=== PATIENT | female | born 1960 | race Caucasian/White ===

== ENCOUNTER → 2019-06-20 12:53 | Outpatient (BNVA) | payer MEDICARE, MEDICAID, SELFPAY | PROVIDERS: Family Provider Nurse Practitioner; PCP Nurse Practitioner; Visit Provider Nurse Practitioner Psychiatric/Mental Health | DX: F41.1 Generalized anxiety disorder (principal); F33.2 Major depressive disorder, recurrent severe without psychotic features | CPT/HCPCS: 99213 ==

== ENCOUNTER → 2019-07-15 11:21 | Outpatient (BNVA) | payer MEDICARE, MEDICAID, SELFPAY | PROVIDERS: Family Provider Nurse Practitioner; PCP Nurse Practitioner; Visit Provider Urology | DX: N30.80 Other cystitis without hematuria (principal) | CPT/HCPCS: 81001; 87077; 87086; 87186 ==

== ENCOUNTER 2019-08-08 13:00 | Emergency (ER) | payer MEDICARE, MEDICAID, SELFPAY ==
[2019-08-08 13:10] VITALS: BP 127/47; PULSE 78; RESP 18; TEMP 37.1; O2SAT 97; BMI 38.7
--- NOTE | 2019-08-08 14:14 | W.ED.WOUNDLC ---
HPI - Wound/Laceration General: Chief Complaint: Wound/Laceration Stated Complaint: r leg pain Time Seen by Provider: 08/08/19 14:00 History of Present Illness: HPI narrative: Patient sustained a laceration to her left thigh late last night while she was sitting in bed working on some clothing and she crossed her legs and move what is called a seem Ripper underneath her leg with her other foot by accident and it cut her thigh sad bleeding today with the laceration Onset (ago): hour(s) Extremity Location: Left: thigh Place: home Patient tetanus UTD: Yes Context: accidental Associated symptoms: Reports no associated symptoms; Denies chills or fever(s) Treatments prior to arrival: bandage Review of Systems Narrative: Laceration to left thigh Const: Denies: fever or chills Psych: Denies: anxiety or depression PFSH ED PFSH: Social History Smoking and tobacco status: former smoker Alcohol intake: never Marital status: Current occupational status: unemployed History of recent travel: No Current gender identity: Female Physical Exam Const: COMMON NORMALS: no apparent distress Skin: TRAUMA: laceration (Left lateral thigh about an inch or 2 above the knee posterior aspect) linear and superficial; not contaminated Procedures Laceration Laceration 1: Site: lower extremity Side (If applicable): left Size (cm): 2.5 Description: linear Depth: simple, single layer Technique: other (Glue) Course Vital Signs: Vital signs: Vital Signs Temperature 98.7 F 08/08/19 13:10 Pulse Rate 78 08/08/19 13:10 Respiratory Rate 18 08/08/19 13:10 Blood Pressure 127/47 08/08/19 13:10 Pulse Oximetry 97 08/08/19 13:10 Discharge Plan Discharge Patient Disposition: Home, Self-Care Clinical Impression: Laceration Condition: Stable Prescriptions: No Action cefuroxime axetil 500 mg tablet 500 mg PO BID Qty: 60 RF: 2 omeprazole magnesium [Acid Laminator Hand (omeprazole)] 20 mg capsule,delayed release(DR/EC) 20 mg PO QDAY RF: 0 bupropion HCl [Wellbutrin SR] 100 mg tablet sustained-release 12 hr 100 mg PO QAM Qty: 30 RF: 4 escitalopram oxalate [Lexapro] 20 mg tablet 20 mg PO .morning Qty: 30 RF: 4 lamotrigine [Lamictal] 200 mg tablet 200 mg PO .QHS Qty: 30 RF: 4 albuterol sulfate 90 mcg/actuation HFA aerosol inhaler 2 puff INHALATION ONCE PRN (Reason: shortness of breath or wheezing) RF: 0 nitroglycerin [Nitrostat] 0.4 mg tablet, sublingual 0.4 mg SUBLINGUAL Q5M PRNRF: 0 lisinopril 2.5 mg tablet 2.5 mg PO QDAY Qty: 90 RF: 0 pravastatin 20 mg tablet 20 mg PO DAILY Qty: 30 RF: 0 Discharge Orders: Discharge Order (Routine); Ordered 08/08/19 Ordered By: Breezy Ferreira Referrals: Alexander Capps, UTILITY SYSTEMS REPAIRER OPERATOR-C [Primary Care Provider] - Discharge Diet: Usual diet Discharge Activity: Resume usual activity Patient Instructions: Skin Adhesive Care (ED) Activity Restrictions/Additional Instructions: Keep area clean blot dry after shower keep dressing over it follow-up as necessary Coding Level of Care Code ED Pigment Making Supervisor for Chg Fwd Exam Expanded Problem Focused
[2019-08-08 14:24] VITALS: BP 122/51; PULSE 71; RESP 18; O2SAT 97
== END 2019-08-08 14:27 | disposition home or self-care (01) ==
PROVIDERS: Emergency Provider Nurse Practitioner Family; Family Provider Nurse Practitioner; PCP Nurse Practitioner
DX: S71.112A Laceration without foreign body, left thigh, initial encounter (principal); Z87.891 Personal history of nicotine dependence; W26.8XXA Contact with other sharp object(s), not elsewhere classified, initial encounter; Y92.003 Bedroom of unspecified non-institutional (private) residence as the place of occurrence of the external cause
CPT/HCPCS: 12001; 12002; 12345; 99281; 99282

== ENCOUNTER → 2019-08-12 12:44 | Outpatient (BNVA) | payer MEDICARE, MEDICAID, SELFPAY | PROVIDERS: Family Provider Nurse Practitioner; PCP Nurse Practitioner; Visit Provider Nurse Practitioner Psychiatric/Mental Health | DX: F41.1 Generalized anxiety disorder (principal); F33.2 Major depressive disorder, recurrent severe without psychotic features | CPT/HCPCS: 99213 ==

== ENCOUNTER → 2019-09-27 16:20 | Outpatient (BNVA) | payer MEDICARE, MEDICAID, SELFPAY | PROVIDERS: Family Provider Nurse Practitioner; PCP Nurse Practitioner; Visit Provider Nurse Practitioner Family | DX: R05 Cough (principal); J06.9 Acute upper respiratory infection, unspecified; B96.89 Other specified bacterial agents as the cause of diseases classified elsewhere; F17.211 Nicotine dependence, cigarettes, in remission; Z71.89 Other specified counseling | CPT/HCPCS: 87400 ==

== ENCOUNTER → 2019-09-30 15:41 | Outpatient (BNVA) | payer MEDICARE, MEDICAID, SELFPAY | PROVIDERS: Family Provider Nurse Practitioner; PCP Nurse Practitioner; Visit Provider Nurse Practitioner Family | DX: N30.80 Other cystitis without hematuria (principal); R33.8 Other retention of urine | CPT/HCPCS: 80053; 81001; 87077; 87086; 87186 ==

== ENCOUNTER → 2019-10-31 11:22 | Outpatient (BNVA) | payer MEDICARE, MEDICAID, SELFPAY | PROVIDERS: Family Provider Nurse Practitioner; PCP Nurse Practitioner; Visit Provider Nurse Practitioner | DX: E11.9 Type 2 diabetes mellitus without complications (principal); K21.9 Gastro-esophageal reflux disease without esophagitis | CPT/HCPCS: 80053; 80061; 81000; 82044; 82607; 83036; 83735; 84443; 85025 ==

== ENCOUNTER → 2019-11-06 10:56 | Outpatient (BNVA) | payer MEDICARE, MEDICAID, SELFPAY | PROVIDERS: Family Provider Nurse Practitioner; PCP Nurse Practitioner; Visit Provider Urology | DX: N30.20 Other chronic cystitis without hematuria (principal); N30.80 Other cystitis without hematuria; N39.46 Mixed incontinence | CPT/HCPCS: 81001 ==

== ENCOUNTER → 2019-11-11 08:09 | Outpatient (BNVA) | payer MEDICARE, MEDICAID, SELFPAY | PROVIDERS: Family Provider Nurse Practitioner; PCP Nurse Practitioner; Visit Provider Nurse Practitioner Psychiatric/Mental Health | DX: F41.1 Generalized anxiety disorder (principal); F33.2 Major depressive disorder, recurrent severe without psychotic features | CPT/HCPCS: 99213 ==

== ENCOUNTER 2019-11-29 07:07 | Outpatient (CLI) | payer MEDICARE, MEDICAID, SELFPAY ==
[2019-11-29 07:26] VITALS: BMI 39.2
--- NOTE | 2019-11-29 07:31 | ECG_ITS ---
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 Interpretive Statements NAME OF STUDY: LEXISCAN SESTAMIBI STRESS TEST INDICATION: Chest Pain RESULTS TO [facility] PROCEDURE: At the baseline, the EKG revealed sinus bradycardia with a normal ST-T's. The baseline blood pressure was 109/65 mm Hg with a heart rate of 65 beats/min. Lexiscan was infused over a period of 20 seconds. A total of 0.4 milligrams of Lexiscan was infused. The stress phase was continued for a total of 5 minutes. Heart rate at the end of the stress phase was 69 with a blood pressure 117/68. The EKG at the peak infusion revealed no significant changes. Sestamibi was injected 20 seconds after the Lexiscan infusion. Blood pressure at the end of the recovery phase was 115/66 with a heart rate of 62 per minute. CONCLUSION: 1. No significant EKG changes with the LexiScan infusion 2. No LexiScan induced chest pain or cardiac arrhythmia 3. Normal blood pressure and heart rate response 4. Sestamibi/sestamibi perfusion scan pending; see separate report. Electronically Signed On 12-03-2019 13:21:18 CDT by Vivek Deng M.D. [email or web address]
--- NOTE | 2019-11-29 07:32 | NMCV_ITS ---
NM ministerio perf SPECT r/s* [id number] Cristobal Styles Age: 59 Gender: F : 1960 Exam Date: 11/29/2019 08:14 Ordering Phys: Vivek Deng MD ([email or web address]) Technologist: TASIA Gutierres Exam Location: [facility] Indications: SOB STRESS TEST Please [facility] for [facility] IMAGE PROTOCOL Rest/Stress 1 Lexiscan Day Radiopharmaceutical Dose (mCi) Administration Site Administered by Rest: Tc-99m 10.7 IV TASIA Gutierres Sestamibi Stress:Tc-99m 32.0 IV TASIA Gutierres Sestamibi Rest: 29-Nov-2019 60 Discovery 630 Stress: 29-Nov-2019 60 Discovery 630 0.4mg Lexiscan. Images obtained in supine and prone position. SPECT RESULTS Technical Quality: Good Raw Data Analysis: Breast attenuation Image Corrections: No attenuation or motion correction applied Summed Stress Score: 3 Summed Rest Score: 13 Summed Difference Score: 0 PERFUSION FINDINGS Patchy areas of decreased tracer uptake in the anterior wall, inferior wall and apical regions, with no significant reversibility FUNCTIONAL RESULTS (calculated via Gated SPECT) Stress Image LV EF (%): 60 Stress EDV (mL):92 TID: 1.17 Stress ESV (mL):37 FUNCTIONAL FINDINGS: Segmental wall motion analysis revealing no gross wall motion normalities. IMPRESSIONS 1. Myocardial perfusion imaging revealing patchy areas of persistent decreased tracer uptake in anterior wall, inferior and apical regions, suggestive of myocardial scarring versus attenuation artifact. 2. Normal LV ejection fraction of 60%. 3. LV wall motion analysis revealing no gross wall motion abnormalities. 4. Normal LV volume. 5. Slightly elevated transient ischemic dilatation ratio(1.17), may suggest endocardial ischemia. But the positive predictive value this finding is low. Clinical correlation is recommended Dr Vivek Deng MD FAC (Electronically Signed) Final Date: 29 November 2019 19:16 S
[2019-11-29] MEDS: regadenoson 0.4 Mg/5 ml Syringe IVP (09:17)
--- NOTE | 2019-11-29 09:17 | SUR.PREOP ---
Patient reports no pain or discomfort prior to the start of the procedure.
[2019-11-29 09:37] VITALS: BP 117/70; PULSE 65
== END 2019-11-29 07:08 | disposition home or self-care (01) ==
PROVIDERS: Family Provider Nurse Practitioner; PCP Nurse Practitioner; Visit Provider Internal Medicine Cardiovascular Disease
DX: R06.02 Shortness of breath (principal); R07.89 Other chest pain
CPT/HCPCS: 78452; 93017; A9500; J2785

== ENCOUNTER 2019-12-10 14:52 | Outpatient (CLI) | payer MEDICARE, MEDICAID, SELFPAY ==
--- NOTE | 2019-12-10 14:57 | USCV_ITS ---
Cristobal Styles Age: 59 Gender: F : 1960 Exam Date: 12/10/2019 15:19 Ordering Phys: Vivek Deng MD ([email or web address]) Technologist: Ty Monae Exam Location: [facility] [place] Indication: CHEST PAIN BP: 120 / 70 HR: 64 Rhythm: Sinus Technical Quality: Technically difficult study MEASUREMENTS (Male / Female) Normal Values 2D ECHO LV Diastolic Diameter PLAX 4.0 cm 4.2 - 5.9 / 3.9 - 5.3 cm LV Systolic Diameter PLAX 2.3 cm IVS Diastolic Thickness 0.9 cm 0.6 - 1.0 / 0.6 - 0.9 cm IVS Systolic Thickness 1.3 cm LVPW Diastolic Thickness 0.9 cm 0.6 - 1.0 / 0.6 - 0.9 cm LVPW Systolic Thickness 1.3 cm LVOT Diameter 2.0 cm LV Ejection Fraction 2D Teich 74.0 % LV Ejection Fraction MOD 2C 56.6 % LV Ejection Fraction 2C AL 56.2 % LA Diameter 4.1 cm LA Width 3.1 cm LA Height 4.0 cm RA Width 2.7 cm RA Height 4.5 cm Aorta at Sinotubular Diameter 2.1 cm M-MODE LV Diastolic Diameter MM 4.4 cm 4.2 - 5.9 / 3.9 - 5.3 cm LV Systolic Diameter MM 2.8 cm LV Ejection Fraction MM Teich 66.0 % IVS Diastolic Thickness MM 0.9 cm 0.6 - 1.0 / 0.6 - 0.9 cm IVS Systolic Thickness MM 1.4 cm LVPW Diastolic Thickness MM 1.5 cm 0.6 - 1.0 / 0.6 - 0.9 cm LVPW Systolic Thickness MM 1.6 cm RV Diastolic Diameter MM 1.9 cm Aortic Annulus Diameter 2.8 cm LA Ao Ratio MM 1.5 MV E Point Septal Separation 1.0 cm DOPPLER AV Peak Velocity 131.0 cm/s LVOT Peak Velocity 118.0 cm/s AV Area Cont Eq vti 2.8 cm squared AV Area Cont Eq pk 3.0 cm squared MV Area PHT 5.0 cm squared Mitral E to A Ratio 1.4 MV E' Velocity 11.0 cm/s Mitral E to MV E' Ratio 8.0 Mitral E to LV E' Lateral Ratio 6.9 Mitral E to LV E' Septal Ratio 9.4 TR Peak Velocity 121.0 cm/s TR Peak Gradient 5.9 mmHg TV Peak E Velocity 93.0 cm/s Right Atrial Pressure 3.0 mmHg Pulmonary Artery Systolic Pressu 8.9 mmHg PV Peak Velocity 98.0 cm/s FINDINGS Left Ventricle Normal left ventricular size and systolic function, EF 60 %. No regional wall motion abnormalities. Right Ventricle Normal RV size ejection fraction. Echodense transverse bands in the RV apex, sized to moderator band Right Atrium The right atrium is normal in size. Left Atrium The left atrium is normal in size. Mitral Valve Thickened mitral valve. Aortic Valve Thickened aortic valve. Tricuspid Valve No gross abnormalities noted Pulmonic Valve No gross abnormalities noted Pericardium Normal pericardium without effusion. Aorta Normal ascending aorta dimension. CONCLUSIONS Normal left ventricular size and systolic function, EF 60 %. No regional wall motion abnormalities. Thickened mitral valve. Thickened aortic valve. There is no pericardial effusion. There are no intracardiac masses. No previous study is available for comparison. Dr Vivek Deng MD FACC (Electronically Signed) Final Date: 10 December 2019 20:22 S
== END 2019-12-10 14:53 | disposition home or self-care (01) ==
LOC: RAD 14:53
PROVIDERS: Family Provider Nurse Practitioner; PCP Nurse Practitioner; Visit Provider Internal Medicine Cardiovascular Disease
DX: R07.9 Chest pain, unspecified (principal); I08.0 Rheumatic disorders of both mitral and aortic valves
CPT/HCPCS: 93306

== ENCOUNTER → 2020-01-07 17:49 | Outpatient (BNVA) | payer MEDICARE, MEDICAID, SELFPAY | PROVIDERS: Family Provider Nurse Practitioner; PCP Nurse Practitioner; Visit Provider Nurse Practitioner Family | DX: N30.80 Other cystitis without hematuria (principal) | CPT/HCPCS: 80053; 81001; 87077; 87086; 87186 ==

== ENCOUNTER → 2020-02-03 05:48 | Day surgery (SDC) | payer MEDICARE, MEDICAID, SELFPAY ==
[2020-01-31 13:27] VITALS: BMI 37.8
[2020-02-03] VITALS (13 sets, daily range): BP systolic 91–141; BP diastolic 63–80; PULSE 66–81; RESP 10–16; TEMP 36.6; O2SAT 92–97; BMI 37.8
--- NOTE | 2020-02-03 06:00 | XACV_ITS ---
Ht: 155 cm Wt: 91 kg BSA: 2.02 m2 Gender: Female : 1960 Any Known Allergies: Other Exam Priority: Routine Procedure(s): Procedure Description: Diagnostic procedure Procedure Description: Left Heart Catheterization Procedure Description: Left ventriculography Diagnostic Cath Status: Elective Diagnostic Findings Coronary angiography shows right dominance. Left main is a medium-sized short vessel with no significant stenotic lesions. Left anterior descending artery is a medium sized vessel which appears to wrap around the LV apex. No significant stenotic lesions. Left circumflex artery is a medium caliber vessel with minimal intimal irregularities in the proximal segment. No significant stenotic lesions. Right coronary artery is a medium caliber dominant vessel which was found to have around 30% segmental narrowing proximally. Intimal irregularities were noted in the proximal segment. No significant stenotic lesions. Conclusions 59-year-old white female with history of high blood pressure, dyslipidemia, COPD, presenting with complaints of chest pain and shortness of breath. Elevated transient ischemic dilatation ratio with the perfusion scan. In view of the patient's ongoing symptoms and the abnormal perfusion scan, in order to further evaluate her coronary status, a cardiac catheterization was recommended. Patient underwent left heart catheterization with a left and right coronary angiogram and LV angiogram today. The findings are as follows. Mild coronary artery disease. LV ejection fraction around 50%. Elevated LV EDP of 30 mmHg consistent with a left ventricular diastolic dysfunction. Recommendations Continue current medical management and risk factor modification. Diagnostic RX Recommendation: medical therapy and/or counseling LV EDP: 30 mmHg Ventriculography Ejection Fraction: 50.0 % Left Ventriculography Findings: The LV gram was performed in the WU projection. It was of suboptimal quality. There was mild hypokinesia of the anteroapical region. Overall ejection fraction around 50%. LVEDP was 30 mmHg. Pressures Phase:Rest AO : 129 mmHg / 77 mmHg ( 96 mmHg ) @ 2:24:00 AM 128 mmHg / 76 mmHg ( 94 mmHg ) @ 2:24:00 AM 139 mmHg / 76 mmHg ( 100 mmHg ) @ 2:32:00 AM 140 mmHg / 68 mmHg ( 95 mmHg ) @ :32:00 AM LV : 153 mmHg / -3 mmHg / @ 2:23:00 AM 49 mmHg / 1 mmHg / @ 2:23:00 AM 101 mmHg / -16 mmHg / @ 2::00 AM 152 mmHg / -5 mmHg / @ ::00 AM 142 mmHg / -17 mmHg / @ 2:23:00 AM 155 mmHg / -6 mmHg / @ 2:24:00 AM 154 mmHg / -5 mmHg / @ 2::00 AM 153 mmHg / -1 mmHg / @ 2:30:00 AM 153 mmHg / -1 mmHg / @ 2:30:00 AM 151 mmHg / 0 mmHg / @ 2::00 AM 151 mmHg / 0 mmHg / @ 2::00 AM 152 mmHg / 2 mmHg / @ ::00 AM 255 mmHg / 193 mmHg / @ ::00 AM 153 mmHg / 1 mmHg / @ 2:32:00 AM Valves Phase:DefaultPhase AV : 20.0 mmHg @ 7:42:56 AM AV Mean Gradient: 19.0 mmHg @ 7:42:56 AM Clinical Evaluation EBL: 5mL-10mL Procedural Details Procedure Consent Obtained. Admit Source: Out Patient. Pre-Procedure Time Out. Identified patient by full name and date of as verbalized by the patient/guarantor. Does the consent match the physician's order: Yes. Accurate & Complete Informed Consent: Yes. Inpatient/Outpatient History & Physical on Chart: Yes. If H&P is completed, is and addenduem needed: N/A; If yes, is the addendum complete: N/A. Visualize and Verify Site with Patient/Guarantor: N/A. Relevant Radiology Images available: N/A. Pre-op teaching completed and patient verbalized understanding. The risks, benefits, and alternatives of sedation and/or procedure were discussed by physician. The patient agrees to continue. Procedure started. Correct patient, site and procedure confirmed by cath team. PERRLA. Strong, equal hand tubing oiler bilaterally. Lungs clear x 5 lobes. IV Site on Arrival: 20 gauge in the left anticubital. Pre Procedural Pulses: bilateral dorsalis pedis was 3+. Pre Procedural Pulses: bilateral posterior tibial was 3+. Pre Procedural Pulses: bilateral radial was 3+. Oxygen started at 2liters/min via nasal canula. bilateral groins was prepped with chloroprep then draped in the usual sterile fashion. right radial was prepped with chloroprep then draped in the usual sterile fashion. Physician notified. Baseline sample Acquired. HR: 0 BPM. Physician arrived. family notified. Dr. Soria notified. Physician scrubbed in. Immediate Pre-Procedure Time Out. Correct Patient: Yes; Correct Procedure: Yes; Correct Site: Yes; Correct Patient Position: Yes; Correct Supplies: Yes; Dried Flammable Prep: Yes; Blood Products Available: N/A;. Lidocaine 1% infiltrated to the right radial. Arterial access obtained. A 5 american Manny catheter in over wire. EDP Sample taken: LV 142/-18,10; HR: 93 BPM; SpO2: 98%. EDP Sample taken: LV 49/1,7; HR: 94 BPM; SpO2: 98%. EDP Sample taken: LV 152/-6,17; HR: 95 BPM; SpO2: 98%. EDP Sample taken: LV 155/-7,22; HR: 94 BPM; SpO2: 97%. Pullback taken: LV 154/-6,23; AO 128/76(94); Mean: 14mmHg, Peak to Peak: 25mmHg, SEP: 24sec/min; HR: 93 BPM; SpO2: 97%. Multiple views taken of left coronary artery. Catheter redirected to the RCA. Multiple views taken of right coronary artery. Catheter out. A 5 american Angled Pig catheter in over wire. EDP Sample taken: LV 153/-2,29; HR: 102 BPM; SpO2: 97%. EDP Sample taken: LV 151/-1,30; HR: 100 BPM; SpO2: 97%. LV gram performed in WU @ 10 mL/second for a total of 30 mL. EDP Sample taken: LV 153/1,30; HR: 99 BPM; SpO2: 98%. Pullback taken: LV 152/2,29; AO 139/76(100); Mean: 19mmHg, Peak to Peak: 20mmHg, SEP: 12sec/min; HR: 98 BPM; SpO2: 98%. Catheter out. TR band placed. Hemostasis obtained. Post Procedure: Pulses reassessed and unchanged. PERRLA. Strong, equal hand tubing oiler bilaterally. No VTE prophylaxis required. Medication's Wasted: Heparin = 1000 units. Medication's Wasted: Lidocaine 1% = 18 mL. Medication's Wasted: Nitro = 49.8 mg. Total IV fluids: 33.6 mL. Contrast type used: Omnipaque 300 mgI/mL, 500 mL bottle. Contrast Material : Omnipaque 119 ml. Complications: none. Estimated blood loss: 5mL-10mL. Procedure completed. A TR Band was successful obtaining hemostatsis at the Right Radial artery insertion site. Dr. Deng called sister to update. [facility] Clinical Fraility Score: 4: Vulnerable. Marking Machine Tender Indications: Suspected CAD. Chest Pain Symptom Assessment: Atypical Angina. Cardiovascular Instability: No,. Post-op diagnosis: LVAD and mild CAD. Patient transferred by wheelchair to CPRU. FELA Gordillo was relieved by RT Linda(R) as monitoring person. Site: Right Radial artery Sheath Size: 6 Fr Hemostasis Method: TR Band Hemostasis Success: Successful Procedure Medications Start: 7:06 AM Stop: 7:06 AM Medication: Versed Amount: 1 mg Route: I.V. Start: 7:06 AM Stop: 7:06 AM Medication: Fentanyl Amount: 50 mcg Route: I.V. Start: 7:14 AM Stop: 7:14 AM Medication: Versed Amount: 1 mg Route: I.V. Start: 7:14 AM Stop: 7:14 AM Medication: Fentanyl Amount: 50 mcg Route: I.V. Start: 7:20 AM Stop: 7:20 AM Medication: Verapamil Amount: 5 mg Route: I.A. Start: 7:21 AM Stop: 7: AM Medication: Nitrogylcerin Amount: 200 mcg Route: I.A. Start: 7:24 AM Stop: 7:24 AM Medication: Heparin Amount: 5000 units Route: I.V. I, the attending physician, have reviewed and verified all procedure medications. Yes, all medications given per verbal order History/Risk Factors Hypertension: Yes Dyslipidemia: No Peripheral Arterial Disease (PAD): No Myocardial Infarction (AL): No Obesity: Yes Tobacco Use: Former Prior Interventions PCI: No CABG: No Valve Surgery: No Report Signatures Finalized by:Dr Vivek Deng MD [facility] on 02/03/2020 7:09:20 PM
[2020-02-03] MEDS: diphenhydrAMINE 50 mg Capsule PO (06:13)
[2020-02-03 06:28] LABS: Basophils # 0.1 10^3/uL (0.0-0.1); Basophils % 0.6 %; Eosinophils # 0.2 10^3/uL (0.0-0.8); Eosinophils % 2.9 %; Hematocrit 40.2 % (37.0-47.0); Hemoglobin 12.6 g/dL (11.5-15.3); Lymphocytes # 3.1 10^3/uL (0.8-4.8); Lymphocytes % 36.9 %; Mean Corpuscular HGB Conc 31.3 g/dL (30.0-36.0); Mean Corpuscular Hemoglobin 27.1 pg (28.0-34.0); Mean Corpuscular Volume 86.5 fL (81-99); Mean Platelet Volume 10.9 fL (7.4-10.4); Monocytes # 0.7 10^3/uL (0.2-0.9); Monocytes % 8.4 %; Neutrophils # 4.24 10^3/uL (1.8-7.7); Nucleated Red Blood Cells % 0 %; Platelet Count 222 10^3/cmm (130-400); Red Blood Count 4.65 10^6/uL (4.1-5.3); Red Cell Distribution Width 13.9 % (12.1-15.1); White Blood Count 8.3 10^3/uL (4.0-10.0)
[2020-02-03 06:38] LABS: INR 0.93 (0.8-1.2)
[2020-02-03 06:43] LABS: Blood Urea Nitrogen 9 mg/dL (6-20); Calcium 9.3 mg/dL (8.5-10.5); Carbon Dioxide 27 mmol/L (22-29); Chloride 106 mmol/L (98-107); Glomerular Filtration Rate 86.2 mL/min (90-130); Glucose 120 mg/dL (65-115); Osmolality Calculated 291 mOsm/kg (285-295); Sodium 142 mmol/L (136-145)
[2020-02-03 06:48] LABS: Anion Gap 13.2 (5-19); Potassium 4.2 mmol/L (3.5-5.1)
--- NOTE | 2020-02-03 06:57 | PM.HP ---
Providers/Chief Complaint Primary Care Provider: Alexander Capps, [facility] History of Present Illness Cristobal Styles is a 59 year old female with a history of hypertension, type 2 diabetes, dyslipidemia and ventricular arrhythmia, is presently with complaints of chest tightness/discomfort. She had a myocardial perfusion imaging which revealed elevated transient ischemic dilatation index. Initially it was decided to treat her medically. In view of her ongoing recurrent episodes of the symptoms requiring ER visits, in order to further evaluate her coronary status, cardiac catheterization was recommended. Patient denies any fever or chills. No cough. No orthopnea or PND. She has a history of reactive airway disease. Review of Systems Narrative: CONSTITUTIONAL: No fever or chills. EYES: No blurring of vision or other visual disturbances lately. ENT: No hoarseness of voice, auditory disturbances or sore throat. CARDIOVASCULAR: As mentioned above. RESPIRATORY: History of reactive airway disease GASTROINTESTINAL: No hematemesis or melena. GENITOURINARY: No dysuria or hematuria. INTEGUMENTARY: No skin rashes or history of skin cancer. NEURO: No transient ischemic attacks or amaurosis. PSYCHIATRIC: No history of psychosis or major depression. HEMATOLOGIC: No bleeding disorders or significant anemia. ENDOCRINE: No history of polyuria or polydipsia. MUSCULOSKELETAL: No recent joint pain or swelling. ALLERGY/IMMUNOLOGY: As mentioned above. Medications/Allergies Home Medications Medication Instructions Recorded Confirmed Last Taken Type albuterol sulfate 90 mcg/actuation 2 puff INHALATION ONCE PRN gm 06/20/19 01/31/20 Unknown History aerosol inhaler nitroglycerin 0.4 mg sublingual 0.4 mg SUBLINGUAL Q5M PRN 06/20/19 01/31/20 Unknown History tablet isosorbide mononitrate 30 mg 30 mg PO DAILY 30 Days #30 tab 08/08/19 01/31/20 Unknown Rx tablet,extended release 24 hr clobetasol 0.05 % topical cream 1 applic TOPICAL TID gm 08/22/19 01/31/20 Unknown History lancets 28 gauge #25 each 08/22/19 01/08/20 Unknown History omeprazole magnesium 20 mg 20 mg PO QDAY #30 cap 10/31/19 02/03/20 02/03/20 05:00 Rx capsule,delayed release bupropion HCl 100 mg tablet,12 hr 100 mg PO QAM #30 tab 11/11/19 02/03/20 02/03/20 05:00 Rx sustained-release escitalopram oxalate 20 mg tablet 20 mg PO .morning #30 tab 11/11/19 02/03/20 02/03/20 05:00 Rx lamotrigine 200 mg tablet 200 mg PO .QHS #30 tab 11/11/19 02/03/20 02/02/20 21:00 Rx metoprolol tartrate 25 mg tablet 25 mg PO BID #60 tab 11/12/19 02/03/20 02/03/20 05:00 Rx liraglutide 0.6 mg/0.1 mL (18 mg/3 0.6 mg SUBCUT DAILY #6 ml 11/17/19 02/03/20 02/02/20 21:00 Rx mL) subcutaneous pen injector pen needle, diabetic 33 gauge x #100 each 11/17/19 01/08/20 Unknown Rx rosuvastatin 40 mg tablet 40 mg PO DAILY 30 Days #30 tab 12/31/19 02/03/20 02/02/20 21:00 Rx lisinopril 10 mg tablet 10 mg PO DAILY #90 tab 01/08/20 02/03/20 02/03/20 05:00 Rx nitrofurantoin 100 mg PO BID #60 cap 01/10/20 02/03/20 02/03/20 05:00 Rx monohydrate/macrocrystals 100 mg capsule Allergies Allergy/AdvReac Type Severity Reaction Status Date / Time metformin Allergy Unknown nausea Verified 01/07/20 15:10 tetracycline Allergy Unknown Tongue Verified 01/08/20 15:17 swelling naproxen AdvReac Unknown cramps/naus Verified 01/08/20 15:17 ea PFSH Acute PFSH: Medical History Acid reflux Asthma Chronic cystitis DDD (degenerative disc disease) Diabetes Diagnosed in her 40s managed by primary care provider. 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 Managed by primary care provider and Dr. Deng in cardiology Major depressive disorder, recurrent severe without psychotic features Follows up with [facility] Mixed incontinence No pertinent past medical history Patient denies history of PE/DVT/clotting disorders, lung, liver thyroid problems. PCP: MILLA Brewer Surgical History H/O section x 3 ----> 1983, 1985, 1986 H/O neck surgery 06/14/[address] Dillon at [facility] S/P appendectomy 2001-performed at time of open hysterectomy S/P bladder repair X 2 01/09/07- Anterior/posterior vaginal repair, transobturator suburethral sling, cystoscopy. Dx: mixed urinary incontinence, cystocele and rectocele. Performed by Dr Andrews at [facility] in [place], [place] 07/2013- Bladder repair revised. Performed in [place]. She states that she had pain and the surgeon went in and excised some of the mesh but was unable to get everything out. S/P carpal tunnel release Bilateral-2002 and 2003 performed in [place], [place] S/P cholecystectomy Open procedure performed via right upper quadrant incision in 1987 in [facility] S/P excision of ganglion cyst Left wrist in [place], [place] S/P hernia repair 10/27/11- Hernia repair Dx: rentral hernia anterior abdominal wall below umbilicus. Performed by Dr Macias at [facility] in [place], [place]. Per patient mesh was used and it covers her whole lower abdominal wall. S/P hysterectomy 2001---total abdominal hysterectomy with bilateral [id number] Performed by Dr Stewart at [facility] for bleeding problems. She states her ovaries and Appendix were removed as well. Patient states she was told that there was no cancer Status post tubal ligation 1986 at time of third Family History Father , 86 Hypertension Stroke Thyroid disease Kidney disease Sister Heart disease Her sister of heart disease at the age of 45-some congenital heart disease however she does not remember the name. Brother Kidney disease Family/Other Breast cancer maternal aunt, diagnosed at age 62 Denies family history of Colon cancer Ovarian cancer Diabetes Hyperlipidemia Social History Smoking and tobacco status: former smoker Second hand smoke exposure: No Smoking risk assessment/counseling performed?: No Alcohol intake: never Desire information about alcohol rehabilitation?: No Counseling given: No Desire information about substance/drug rehabilitation?: No Counseling given: No Adopted: No Caregiver/support person: No Lives independently: Yes Household members: spouse Housing: House Marital status: Number of children: 3 Current occupational status: unemployed History of recent travel: No Current gender identity: Female Vitals/I&O/Wt Last Vital Signs Temp 97.8 F 02/03/20 06:29 Pulse 72 02/03/20 06:29 Resp 16 02/03/20 06:29 BP 141/67 02/03/20 06:29 Pulse Ox 97 02/03/20 06:29 Weight last 48 hrs Weight 200 lb Physical Exam Narrative: EXAM NARRATIVE: GENERAL: The patient is alert and oriented times three. Not in any acute distress. HEENT: No significant pallor, icterus or lymphadenopathy.Oral cavity: There are no mucous membrane lesions. NECK: Trachea appears to be central. No masses noted. No JVD or thyromegaly appreciated. RESPIRATORY: Chest is symmetrical. No intercostals muscle retraction or any accessory muscle activation. There is no chest wall tenderness. Breath sounds are heard bilaterally. No rales or rhonchi heard. No evidence of any consolidation. BREASTS: Deferred. HEART: The heart sounds are normal. No S3 or S4. No significant murmurs. No pericardial rub ABDOMEN: No vessel pulsations or distention. No tenderness. No organomegaly appreciated. Bowel sounds are normally heard. : Deferred. RECTAL: Deferred. LYMPHATIC: No lymphadenopathy noted in the neck or groin. EXTREMITIES: No edema or cyanosis. No clubbing. Peripheral pulses are palpated in fairly good volume and amplitude MUSCULOSKELETAL: No acute joint deformities or swelling SKIN: There are no significant rashes or ecchymosis NEUROPSYCHIATRIC: The patient is alert and oriented x3. Appears to be in a good mood. No tremors or rigidity noted. Data : 02/03/20 06:20 02/03/20 06:20 Other Labs: Laboratory Last Values WBC 8.3 10^3/uL (4.0-10.0) 02/03/20 06:20 RBC 4.65 10^6/uL (4.1-5.3) 02/03/20 06:20 Hgb 12.6 g/dL (11.5-15.3) 02/03/20 06:20 Hct 40.2 % (37.0-47.0) 02/03/20 06:20 MCV 86.5 fL (81-99) 02/03/20 06:20 MCH 27.1 pg (28.0-34.0) L 02/03/20 06:20 MCHC 31.3 g/dL (30.0-36.0) 02/03/20 06:20 RDW 13.9 % (12.1-15.1) 02/03/20 06:20 Plt Count 222 10^3/cmm (130-400) 02/03/20 06:20 MPV 10.9 fL (7.4-10.4) H 02/03/20 06:20 Neut % (Auto) 51.0 % 02/03/20 06:20 Lymph % (Auto) 36.9 % 02/03/20 06:20 [place] % (Auto) 8.4 % 02/03/20 06:20 Eos % (Auto) 2.9 % 02/03/20 06:20 Baso % (Auto) 0.6 % 02/03/20 06:20 Neut # (Auto) 4.24 10^3/uL (1.8-7.7) 02/03/20 06:20 Lymph # (Auto) 3.1 10^3/uL (0.8-4.8) 02/03/20 06:20 [place] # (Auto) 0.7 10^3/uL (0.2-0.9) 02/03/20 06:20 Eos # (Auto) 0.2 10^3/uL (0.0-0.8) 02/03/20 06:20 Baso # (Auto) 0.1 10^3/uL (0.0-0.1) 02/03/20 06:20 Nucleated RBC % (auto) 0 % 02/03/20 06:20 Nucleated RBCs # 0.0 /100WBC 02/03/20 06:20 PT 12.80 SECONDS (12.1-14.9) 02/03/20 06:20 INR 0.93 (0.8-1.2) 02/03/20 06:20 Sodium 142 mmol/L (136-145) 02/03/20 06:20 Potassium 4.2 mmol/L (3.5-5.1) 02/03/20 06:20 Chloride 106 mmol/L (98-107) 02/03/20 06:20 Carbon Dioxide 27 mmol/L (22-29) 02/03/20 06:20 Anion Gap 13.2 (5-19) 02/03/20 06:20 BUN 9 mg/dL (6-20) 02/03/20 06:20 Creatinine 0.7 mg/dL (0.5-0.9) 02/03/20 06:20 GFR Calculation 86.2 mL/min (90-130) L 02/03/20 06:20 Glucose 120 mg/dL (65-115) H 02/03/20 06:20 Calculated Osmolality 291 mOsm/kg (285-295) 02/03/20 06:20 Calcium 9.3 mg/dL (8.5-10.5) 02/03/20 06:20 A&P Assessment and plan (1) Abnormal cardiovascular stress test: In view of her ongoing symptoms of multiple risk factors, in order to further evaluate the coronary status, a cardiac catheterization would be appropriate. The risk of bleeding, hematoma, vascular injury, myocardial infarction, CVA, renal failure and other concomitant complications were explained in detail. Patient understood this well and consented to proceed. Status: Acute (2) Diabetes: May continue on the current measures. 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 Status: Acute Qualifiers: Arrhythmia type: premature depolarization Premature depolarization type: ventricular Qualified Code(s): I49.3 - Ventricular premature depolarization (5) Hyperlipidemia: Continue on the current medications Status: Chronic Qualifiers: Hyperlipidemia type: mixed hyperlipidemia Qualified Code(s): E78.2 - Mixed hyperlipidemia Additional A&P Information Based on the results of the above test, further recommendations will be made. 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
--- NOTE | 2020-02-03 07:04 | W.PM.OPSUD ---
Surgery/Procedure H&P Update DATE OF PROCEDURE: February 03, 2020 DATE H&P PERFORMED: 02/03/20 H&P UPDATE INFORMATION: I have reviewed H&P completed within last 30 days and I have examined patient prior to procedure PREOP DIAGNOSIS: Possible ASHD PLANNED PROCEDURE: Operation Date: 02/03/20 07:00 Proposed Procedures p Cardiac Catheterization(Not Applicable) - Vivek Deng MD PATIENT REASSESSED PRIOR TO SEDATION, WITH NO CHANGE NOTED: Yes PHYSICAL EXAM: alert, oriented x 3, clear to auscultation bilaterally and regular rate & rhythm AIRWAY EVAL/ANESTHESIA PLAN: normal airway, see other exam findings, ASA II, Monitored Anesthesia, Local Anesthesia, Risks, benefits & alternatives of sedation and/or procedure discussed and Patient agrees to continue as planned
--- NOTE | 2020-02-03 07:45 | SUR.PHASEII ---
RECOVERY NOTE RECEIVED THE PATIENT BACK FROM THE [facility] S/P NORMAL CORONARY ANGIOGRAM. AMBULATED TO THE BED FROM THE WHEELCHAIR. PATTERN FITTER PLACED AND VITAL SIGNS OBTAINED. TR BAND INTACT TO THE RIGHT WRIST. DRY AND INTACT. PALPABLE RADIAL PULSE. NO OTHER CHANGES NOTED FROM PRE CATH ASSESSMENT.
--- NOTE | 2020-02-03 08:45 | SUR.PHASEII ---
TR BAND LETTING THE AIR OUT OF THE BAND PER PROTOCOL. NO ASSESSMENT CHANGES NOTED. THE PATIENT'S SISTER, OLYA, WAS UPDATED VIA TELEPHONE BY THIS NURSE.
--- NOTE | 2020-02-03 09:00 | SUR.PHASEII ---
DR AMBROSIO VALENTE AT BEDSIDE TO SEE PATIENT. NO NEW ORDERS AT THIS TIME.
== END | disposition home or self-care (01) ==
PROVIDERS: PCP Nurse Practitioner; Visit Provider Internal Medicine Cardiovascular Disease
DX: I25.10 Atherosclerotic heart disease of native coronary artery without angina pectoris (principal); R94.39 Abnormal result of other cardiovascular function study; E11.65 Type 2 diabetes mellitus with hyperglycemia; I10 Essential (primary) hypertension; I49.3 Ventricular premature depolarization; E78.2 Mixed hyperlipidemia; Z87.891 Personal history of nicotine dependence; Z88.1 Allergy status to other antibiotic agents; J44.9 Chronic obstructive pulmonary disease, unspecified; E66.9 Obesity, unspecified; Z68.37 Body mass index [BMI] 37.0-37.9, adult; Z79.4 Long term (current) use of insulin
CPT/HCPCS: 12345; 36415; 80048; 85025; 85610; 93452; C1769; C1887; C1894; J1644; J2250; J3010; J7030; Q0163; Q9967

== ENCOUNTER → 2020-02-05 08:31 | Outpatient (BNVA) | payer MEDICARE, MEDICAID, SELFPAY | PROVIDERS: PCP Nurse Practitioner; Visit Provider Nurse Practitioner Psychiatric/Mental Health | DX: F41.1 Generalized anxiety disorder (principal); F33.2 Major depressive disorder, recurrent severe without psychotic features | CPT/HCPCS: 99213 ==

== ENCOUNTER → 2020-02-11 14:15 | Outpatient (BNVA) | payer MEDICARE, MEDICAID, SELFPAY | PROVIDERS: PCP Nurse Practitioner; Visit Provider Nurse Practitioner Family | DX: R94.39 Abnormal result of other cardiovascular function study (principal) | CPT/HCPCS: 80048 ==

== ENCOUNTER → 2020-03-10 15:51 | Outpatient (BNVA) | payer MEDICARE, MEDICAID, SELFPAY | PROVIDERS: PCP Nurse Practitioner; Visit Provider Urology | DX: N30.20 Other chronic cystitis without hematuria (principal) | CPT/HCPCS: 81001 ==

== ENCOUNTER → 2020-05-06 08:23 | Outpatient (BNVA) | payer MEDICARE, MEDICAID, SELFPAY | PROVIDERS: PCP Nurse Practitioner; Visit Provider Nurse Practitioner Psychiatric/Mental Health | DX: F33.2 Major depressive disorder, recurrent severe without psychotic features (principal); F41.1 Generalized anxiety disorder | CPT/HCPCS: 99213 ==

== ENCOUNTER → 2020-05-14 14:34 | Outpatient (BNVA) | payer MEDICARE, MEDICAID, SELFPAY | PROVIDERS: PCP Nurse Practitioner; Visit Provider Nurse Practitioner | DX: E11.65 Type 2 diabetes mellitus with hyperglycemia (principal); M54.6 Pain in thoracic spine; E55.9 Vitamin D deficiency, unspecified; Z78.0 Asymptomatic menopausal state | CPT/HCPCS: 80053; 82306; 83036; 83735; 85025 ==

== ENCOUNTER 2020-05-15 12:49 | Outpatient (CLI) | payer MEDICARE, MEDICAID, SELFPAY ==
--- NOTE | 2020-05-15 13:01 | XR_ITS ---
WS: [id number] XR thoracic spine 3V* [id number] REASON FOR EXAM: M54.6 - Pain in thoracic spine FINDINGS: No significant compression deformity or focal lesion of the thoracic vertebral bodies. There is mild joint space narrowing with small osteophytes in the mid and lower thoracic spine. There is normal thoracic spine alignment. XR/XR thoracic spine 3V* [id number] IMPRESSION: Mild changes of degenerative spondylosis as above.
== END 2020-05-15 12:50 | disposition home or self-care (01) ==
PROVIDERS: PCP Nurse Practitioner; Visit Provider Nurse Practitioner
DX: M54.6 Pain in thoracic spine (principal)
CPT/HCPCS: 72072

== ENCOUNTER 2020-05-20 14:11 | Outpatient (CLI) | payer MEDICARE, MEDICAID, SELFPAY ==
--- NOTE | 2020-05-20 14:45 | XR_ITS ---
WS: [id number] Bone mineral density performed on a [employer], 05/20/2020 Clinical data: Z78.0 - Asymptomatic menopausal state Findings: The first 4 lumbar vertebral bodies demonstrated the bone mineral density of 0.953 g/cm2 for a young adult T score of -1.9. Measurement of the left hip reveals a bone mineral density of 0.820 g/cm2 with a young adult T score of -1.5. Measurement of the right hip reveals the bone mineral density of 0.819 g/cm2 for young adult T score of -1.5. XR/XR DEXA axial skeleton* [id number] Impression: Osteopenia of the lumbar spine and both hips.
== END 2020-05-20 14:12 | disposition home or self-care (01) ==
LOC: RADWPI 14:21
PROVIDERS: PCP Nurse Practitioner; Visit Provider Nurse Practitioner
DX: Z78.0 Asymptomatic menopausal state (principal); M85.88 Other specified disorders of bone density and structure, other site
CPT/HCPCS: 77080

== ENCOUNTER → 2020-06-16 16:19 | Outpatient (BNVA) | payer MEDICARE, MEDICAID, SELFPAY | PROVIDERS: PCP Nurse Practitioner; Visit Provider Nurse Practitioner | DX: M25.531 Pain in right wrist (principal); M18.11 Unilateral primary osteoarthritis of first carpometacarpal joint, right hand | CPT/HCPCS: 73110 ==

== ENCOUNTER 2020-06-23 12:38 | Outpatient (RCR) | payer MEDICARE, MEDICAID, SELFPAY | END 2020-07-05 23:59 | disposition home or self-care (01) | LOC: SOT 12:38 | PROVIDERS: PCP Nurse Practitioner; Referring Provider Nurse Practitioner; Visit Provider Nurse Practitioner | DX: M18.11 Unilateral primary osteoarthritis of first carpometacarpal joint, right hand (principal) | CPT/HCPCS: 97167; L3807 ==

== ENCOUNTER 2020-07-06 06:00 | Outpatient (RCR) | payer MEDICARE, MEDICAID, SELFPAY | END 2020-08-02 23:59 | disposition home or self-care (01) | LOC: SOT 06:00 | PROVIDERS: PCP Nurse Practitioner; Referring Provider Nurse Practitioner; Visit Provider Nurse Practitioner | DX: M18.11 Unilateral primary osteoarthritis of first carpometacarpal joint, right hand (principal) | CPT/HCPCS: 97035; 97530 ==

== ENCOUNTER → 2020-07-29 08:20 | Outpatient (BNVA) | payer MEDICARE, MEDICAID, SELFPAY | PROVIDERS: PCP Nurse Practitioner; Visit Provider Nurse Practitioner Psychiatric/Mental Health | DX: F33.2 Major depressive disorder, recurrent severe without psychotic features (principal); F41.1 Generalized anxiety disorder | CPT/HCPCS: 99214 ==

== ENCOUNTER → 2020-08-26 08:31 | Outpatient (BNVA) | payer MEDICARE, MEDICAID, SELFPAY | PROVIDERS: PCP Nurse Practitioner; Visit Provider Nurse Practitioner Psychiatric/Mental Health | DX: F33.2 Major depressive disorder, recurrent severe without psychotic features (principal); F41.1 Generalized anxiety disorder | CPT/HCPCS: 99214 ==

== ENCOUNTER → 2020-09-08 15:48 | Outpatient (BNVA) | payer MEDICARE, MEDICAID, SELFPAY | PROVIDERS: PCP Nurse Practitioner; Visit Provider Urology | DX: N39.46 Mixed incontinence (principal) | CPT/HCPCS: 81003 ==

== ENCOUNTER → 2020-10-14 08:23 | Outpatient (BNVA) | payer MEDICARE, MEDICAID, SELFPAY | PROVIDERS: PCP Nurse Practitioner; Visit Provider Nurse Practitioner Psychiatric/Mental Health | DX: F33.2 Major depressive disorder, recurrent severe without psychotic features (principal); F41.1 Generalized anxiety disorder | CPT/HCPCS: 99214 ==

== ENCOUNTER 2020-10-19 13:22 | Outpatient (CLI) | payer MEDICARE, MEDICAID, SELFPAY ==
--- NOTE | 2020-10-19 13:31 | XRR_ITS ---
PROCEDURE INFORMATION: Exam: XR Chest Exam date and time: 10/19/2020 1:37 PM Age: 60 years old Clinical indication: Condition or disease; Lung condition and disease; Other: J40 - bronchitis, not specified as acute or chronic; Cough TECHNIQUE: Imaging protocol: XR of the chest. Views: 2 views. COMPARISON: CR Chest 1 [place] [id number] 09/29/2017 1:57 PM FINDINGS: Lungs: Mildly hyperaerated lungs consistent with deep inspiratory effort vs reactive airway disease vs mild COPD . Pleural spaces: Unremarkable. No pleural effusion. No pneumothorax. Heart/Mediastinum: Unremarkable. No cardiomegaly. Bones/joints: Stable postoperative metallic fixation of the cervical spine with or without metallic artifact. XR/XR chest 2V* [id number] IMPRESSION: Mildly hyperaerated lungs consistent with deep inspiratory effort vs reactive airway disease vs mild COPD .
[2020-10-19 14:28] LABS: Basophils # 0.1 10^3/uL (0.0-0.1); Basophils % 0.8 %; Eosinophils # 0.3 10^3/uL (0.0-0.8); Eosinophils % 2.9 %; Hemoglobin 13.5 g/dL (11.5-15.3); Lymphocytes # 3.9 10^3/uL (0.8-4.8); Lymphocytes % 39.1 %; Mean Corpuscular HGB Conc 30.7 g/dL (30.0-36.0); Mean Corpuscular Hemoglobin 27.1 pg (28.0-34.0); Mean Corpuscular Volume 88.2 fL (81-99); Mean Platelet Volume 10.5 fL (7.4-10.4); Monocytes # 0.9 10^3/uL (0.2-0.9); Monocytes % 8.4 %; Neutrophils # 4.88 10^3/uL (1.8-7.7); Neutrophils % 48.5 %; Nucleated Red Blood Cells % 0 %; Platelet Count 276 10^3/cmm (130-400); Red Blood Count 4.99 10^6/uL (4.1-5.3); Red Cell Distribution Width 14.4 % (12.1-15.1); White Blood Count 10.1 10^3/uL (4.0-10.0)
== END 2020-10-19 13:23 | disposition home or self-care (01) ==
PROVIDERS: PCP Nurse Practitioner; Visit Provider Nurse Practitioner
DX: J40 Bronchitis, not specified as acute or chronic (principal)
CPT/HCPCS: 36415; 71046; 85025

== ENCOUNTER → 2020-11-26 16:52 | Outpatient (BNVA) | payer MEDICARE, MEDICAID, SELFPAY | PROVIDERS: PCP Nurse Practitioner; Visit Provider Nurse Practitioner | DX: E11.65 Type 2 diabetes mellitus with hyperglycemia (principal) | CPT/HCPCS: 80053; 83036 ==

== ENCOUNTER 2020-12-25 13:08 | Outpatient (CLI) | payer MEDICARE, MEDICAID, SELFPAY ==
[2020-12-25 14:08] LABS: Albumin Level 4.6 g/dL (3.5-5.2); Anion Gap 16.2 (5-19); Blood Urea Nitrogen 9 mg/dL (6-20); Carbon Dioxide 27 mmol/L (22-29); Chloride 99 mmol/L (98-107); Glomerular Filtration Rate 85.9 mL/min (90-130); Glucose 100 mg/dL (65-115); Phosphorus 4.1 mg/dL (2.5-4.5); Potassium 4.2 mmol/L (3.5-5.1); Sodium 138 mmol/L (136-145)
[2020-12-25 14:10] LABS: Creatinine Urine, Random 129 mg/dL (28-217); Microalbumin Random Urine 15 ug/dL (0-20)
[2020-12-25 14:11] LABS: Microalbum Creatinine Ratio Ur 116 mg/dL (0-20)
== END 2020-12-25 13:09 | disposition home or self-care (01) ==
LOC: LAB 13:21
PROVIDERS: PCP Nurse Practitioner; Visit Provider Internal Medicine Nephrology
DX: I10 Essential (primary) hypertension (principal)
CPT/HCPCS: 36415; 80069; 82044

== ENCOUNTER → 2021-01-05 15:14 | Outpatient (BNVA) | payer MEDICARE, MEDICAID, SELFPAY | PROVIDERS: PCP Nurse Practitioner; Visit Provider Urology | DX: N30.20 Other chronic cystitis without hematuria (principal); N39.46 Mixed incontinence | CPT/HCPCS: 81003 ==

== ENCOUNTER → 2021-01-29 07:20 | Outpatient (BNVA) | payer MEDICARE, MEDICAID, SELFPAY | PROVIDERS: PCP Nurse Practitioner; Visit Provider Nurse Practitioner Psychiatric/Mental Health | DX: F33.2 Major depressive disorder, recurrent severe without psychotic features (principal); F41.1 Generalized anxiety disorder; Z79.899 Other long term (current) drug therapy | CPT/HCPCS: 99214 ==

== ENCOUNTER → 2021-03-18 14:15 | Outpatient (BNVA) | payer MEDICARE, MEDICAID, SELFPAY | PROVIDERS: PCP Nurse Practitioner; Visit Provider Nurse Practitioner | DX: E11.65 Type 2 diabetes mellitus with hyperglycemia (principal); J98.01 Acute bronchospasm | CPT/HCPCS: 80053; 80061; 81000; 83036 ==

== ENCOUNTER → 2021-04-13 15:23 | Outpatient (BNVA) | payer MEDICARE, MEDICAID, SELFPAY | PROVIDERS: PCP Nurse Practitioner; Visit Provider Urology | DX: N39.46 Mixed incontinence (principal); N30.20 Other chronic cystitis without hematuria | CPT/HCPCS: 81003; 87077; 87086; 87184 ==

== ENCOUNTER → 2021-05-06 12:38 | Outpatient (BNVA) | payer MEDICARE, MEDICAID, SELFPAY | PROVIDERS: PCP Nurse Practitioner; Visit Provider Social Worker | DX: F33.0 Major depressive disorder, recurrent, mild (principal) | CPT/HCPCS: 90834 ==

== ENCOUNTER → 2021-05-21 08:14 | Outpatient (BNVA) | payer MEDICARE, MEDICAID, SELFPAY | PROVIDERS: PCP Nurse Practitioner; Visit Provider Nurse Practitioner Psychiatric/Mental Health | DX: F33.2 Major depressive disorder, recurrent severe without psychotic features (principal); F41.1 Generalized anxiety disorder; Z79.899 Other long term (current) drug therapy | CPT/HCPCS: 99214 ==

== ENCOUNTER 2021-08-09 12:08 | Emergency (ER) | payer MEDICARE, MEDICAID, SELFPAY ==
[2021-08-09 12:18] VITALS: BP 124/67; PULSE 190; RESP 18; TEMP 36.8; O2SAT 95; BMI 37.8
[2021-08-09 12:35] VITALS: PULSE 109
--- NOTE | 2021-08-09 12:35 | W.ED.ABDPA2 ---
HPI - Abdominal Pain General: Chief Complaint: Abdominal Pain Stated Complaint: abd pain Time Seen by Provider: 08/09/21 12:25 Source: patient Mode of arrival: ambulatory Limitations: no limitations History of Present Illness: 61-year-old female presents emergency room left-sided abdominal pain for last 4 days. She feels most of the pain in the left lower quadrant and periumbilical area. She states is better if she puts pressure over this area she denies hematochezia melena hematemesis coffee-ground emesis no dysuria urgency or frequency no history of any previous surgery she has had a colonoscopy in the past but has never been told she has any diverticulitis no previous incidence of diverticulitis. MD elicited complaint: abdominal pain Onset (ago): day(s) Pain Consistency: intermittent Location: Periumbilical and LLQ Severity: moderate Quality: cramping Radiation: none Migration to: no migration Exacerbating factors: nothing Relieving factors: other (Palpation in the area relieves) Associated Symptoms: Reports poor appetite; Denies anorexia, belching, bloating, change in bowel habits, change in stool character, chills, coffee ground emesis, constipation, GI cramping, diarrhea, dyspepsia, dysuria, excessive flatus, fever(s), heartburn, hematochezia, hematuria, hematemesis, fecal incontinence, loose stools, melena, nausea, syncope and vomiting Review of Systems Const: Denies: fever(s) or chills ENMT: Denies: throat pain, ear or mastoid pain, nasal discharge or nasal congestion Card: Denies: syncope Resp: Denies: dyspnea, productive cough or non-productive cough GI: Denies: nausea, vomiting, hematemesis, coffee ground emesis, heartburn, diarrhea, constipation, bloating, GI cramping, belching, excessive flatus, fecal incontinence, change in bowel habits, change in stool character, hematochezia or melena : Denies: dysuria or hematuria Skin/Breast: Denies: rash or pruritus PFSH ED PFSH: Medical History Acid reflux Asthma Atherosclerotic heart disease of [place] coronary artery with other forms of angina pectoris Chronic cystitis DDD (degenerative disc disease) Diabetes Generalized anxiety disorder Hypertension Lumbar radiculopathy, chronic Major depressive disorder, recurrent severe without psychotic features Follows up with [facility] [place] Medical marijuana use For pain Mixed incontinence No pertinent past medical history Patient denies history of PE/DVT/clotting disorders, lung, liver thyroid problems. PCP: MILLA [facility] Surgical History H/O section x 3 ----> 1983, 1985, 1986 H/O neck surgery 06/14/[address] Dillon at [facility] [place] [place] S/P appendectomy 2001-performed at time of open hysterectomy S/P bladder repair X 2 01/09/07- Anterior/posterior vaginal repair, transobturator suburethral sling, cystoscopy. Dx: mixed urinary incontinence, cystocele and rectocele. Performed by Dr Andrews at [facility] [place] [place] in [place], [place] 07/2013- Bladder repair revised. Performed in [place]. She states that she had pain and the surgeon went in and excised some of the mesh but was unable to get everything out. S/P carpal tunnel release Bilateral-2002 and 2003 performed in [place], [place] S/P cholecystectomy Open procedure performed via right upper quadrant incision in 1987 in [facility] S/P excision of ganglion cyst Left wrist in [place], [place] S/P hernia repair 10/27/11- Hernia repair Dx: rentral hernia anterior abdominal wall below umbilicus. Performed by Dr Macias at [facility] [place] [place] in [place], [place]. Per patient mesh was used and it covers her whole lower abdominal wall. S/P hysterectomy 2001---total abdominal hysterectomy with bilateral [id number] Performed by Dr Stewart at [facility] [place] [place] for bleeding problems. She states her ovaries and Appendix were removed as well. Patient states she was told that there was no cancer Status post tubal ligation 1986 at time of third Family History Father , 86 Hypertension Stroke Thyroid disease Kidney disease CAD (coronary artery disease) Chronic kidney disease (CKD) Sister Heart disease Her sister of heart disease at the age of 45-some congenital heart disease however she does not remember the name. Brother Kidney disease Diabetes Family/Other Breast cancer maternal aunt, diagnosed at age 62 Mother , AT AGE 84 Cancer PANCREATIC Lung disease Denies family history of Colon cancer Ovarian cancer Clotting disorder Dementia Hyperlipidemia Suicide Anesthesia complication Bleeding disorder Social History Smoking and tobacco status: former smoker Second hand smoke exposure: No Smoking risk assessment/counseling performed?: No Alcohol intake: never Desire information about alcohol rehabilitation?: No Counseling given: No Desire information about substance/drug rehabilitation?: No Counseling given: No Adopted: No Caregiver/support person: No Lives independently: Yes Household members: spouse Housing: House Marital status: Number of children: 3 Current occupational status: retired History of recent travel: No Current gender identity: Female Physical Exam Const: COMMON NORMALS: no acute distress GENERAL APPEARANCE: cooperative and comfortable ORIENTATION/CONSCIOUSNESS: Yes awake, Yes oriented to person, Yes oriented to place and Yes oriented to time HENMT: COMMON NORMALS: normocephalic, atraumatic and hearing grossly normal bilaterally HEAD & SCALP: normocephalic and atraumatic Neck/C-Spine: COMMON NORMALS: no JVD Resp: COMMON NORMALS: normal respiratory effort, No retractions, No use of accessory muscles and clear to auscultation bilaterally AUSCULTATION: clear to auscultation bilaterally Cardio: COMMON NORMALS: no JVD, regular rate, regular rhythm and No murmurs present (Cardio) RATE: regular rate RHYTHM: regular rhythm GI: COMMON NORMALS: No hepatosplenomegaly present AUSCULTATION: Yes normoactive bowel sounds PALPATION: Yes Tenderness to palpation present (GI) Details: LLQ (Upper medial portion no palpable masses), No Guarding due to palpation present (GI) and Yes No hepatosplenomegaly present Extremity: COMMON NORMALS: normal to inspection, capillary refill normal, no clubbing, cyanosis or edema, no calf tenderness and no pedal edema Neuro: SENSORIUM/ORIENTATION: Yes oriented to person, Yes oriented to place and Yes oriented to time Skin: COMMON NORMALS: no rashes or lesions noted GENERAL SKIN EXAM: no rashes or lesions noted Course Vital Signs: Vital signs: Vital Signs Temperature 98.2 F 08/09/21 12:18 Pulse Rate 73 08/09/21 15:10 Respiratory Rate 16 08/09/21 15:10 Blood Pressure 122/60 08/09/21 15:10 Pulse Oximetry 98 08/09/21 15:10 MDM - Abdominal Pain Medical Decision Making CT is unremarkable white count normal. Will discharge patient home increase Protonix to twice daily clear liquid diet for 24 hours advance as tolerated if persists may need to have further evaluation including possible endoscopy. Medical Records I reviewed the patient's medical records. Lab Data I reviewed the patient's lab results. : 08/09/21 13:00 08/09/21 13:00 Labs/Radiology: Radiology Impressions Abdomen/Pelvis CT 08/09/21 13:31 IMPRESSION: 1. No acute intra-abdominal or pelvic abnormalities. 2. Extensive diverticulosis in the sigmoid colon. No evidence for acute diverticulitis. 3. Prior hysterectomy and cholecystectomy. Laboratory Results WBC 8.9 10^3/uL (4.0-10.0) 08/09/21 13:00 RBC 4.94 10^6/uL (4.1-5.3) 08/09/21 13:00 Hgb 13.5 g/dL (11.5-15.3) 08/09/21 13:00 Hct 42.9 % (37.0-47.0) 08/09/21 13:00 MCV 86.8 fl (81-99) 08/09/21 13:00 MCH 27.3 pg (28.0-34.0) L 08/09/21 13:00 MCHC 31.5 g/dL (30.0-36.0) 08/09/21 13:00 RDW 14.0 % (12.1-15.1) 08/09/21 13:00 Plt Count 244 10^3/cmm (130-400) 08/09/21 13:00 MPV 10.7 fL (7.4-10.4) H 08/09/21 13:00 Neut % (Auto) 45.2 % 08/09/21 13:00 Lymph % (Auto) 42.4 % 08/09/21 13:00 [place] % (Auto) 8.2 % 08/09/21 13:00 Eos % (Auto) 3.0 % 08/09/21 13:00 Baso % (Auto) 0.7 % 08/09/21 13:00 Neut # (Auto) 4.00 10^3/uL (1.8-7.7) 08/09/21 13:00 Lymph # (Auto) 3.8 10^3/uL (0.8-4.8) 08/09/21 13:00 [place] # (Auto) 0.7 10^3/uL (0.2-0.9) 08/09/21 13:00 Eos # (Auto) 0.3 10^3/uL (0.0-0.8) 08/09/21 13:00 Baso # (Auto) 0.1 10^3/uL (0.0-0.1) 08/09/21 13:00 Nucleated RBC % (auto) 0 % 08/09/21 13:00 Nucleated RBCs # 0.0 /100WBC 08/09/21 13:00 Sodium 142 mmol/L (136-145) 08/09/21 13:00 Potassium 4.0 mmol/L (3.5-5.1) 08/09/21 13:00 Chloride 103 mmol/L (98-107) 08/09/21 13:00 Carbon Dioxide 27 mmol/L (22-29) 08/09/21 13:00 Anion Gap 16.0 (5-19) 08/09/21 13:00 BUN 5 mg/dL (6-20) L 08/09/21 13:00 Creatinine 0.5 mg/dL (0.5-0.9) 08/09/21 13:00 GFR Calculation 126.3 mL/min (90-130) 08/09/21 13:00 Glucose 92 mg/dL (65-115) 08/09/21 13:00 Calculated Osmolality 291 mOsm/kg (285-295) 08/09/21 13:00 Calcium 8.6 mg/dL (8.5-10.5) 08/09/21 13:00 Total Bilirubin 0.4 mg/dL (0.15-1.2) 08/09/21 13:00 AST 21 U/L (0-32) 08/09/21 13:00 ALT 27 U/L (0-33) 08/09/21 13:00 Alkaline Phosphatase 59 IU/L (35-105) 08/09/21 13:00 Total Protein 7.4 g/dL (6.6-8.7) 08/09/21 13:00 Albumin 4.8 g/dL (3.5-5.2) 08/09/21 13:00 Globulin 2.6 g/dL (1.3-4.6) 08/09/21 13:00 Lipase 32 U/L (13-60) 08/09/21 13:00 Urine Color Yellow (Yellow) 08/09/21 12:56 Urine Appearance Clear (CLEAR) 08/09/21 12:56 Urine pH 6 (5-7) 08/09/21 12:56 Ur Specific [place] 1.010 (1.005-1.030) 08/09/21 12:56 Urine Protein Neg (Negative) 08/09/21 12:56 Urine Glucose (UA) 4+ (Normal) H 08/09/21 12:56 Urine Ketones Negative (Negative) 08/09/21 12:56 Urine Blood Neg (Negative) 08/09/21 12:56 Urine Nitrate Negative (Negative) 08/09/21 12:56 Urine Bilirubin Neg (Negative) 08/09/21 12:56 Urine Urobilinogen Norm mg/dL (Negative) 08/09/21 12:56 Ur Leukocyte Esterase Negative (Negative) 08/09/21 12:56 Discharge Plan Discharge Patient Disposition: Home Clinical Impression: Abdominal pain Condition: Stable Prescriptions: New Zofran 4 mg tablet 4 mg PO Q6H PRN (Reason: nausea and vomiting) Qty: 15 0RF No Action nitroglycerin [Nitrostat] 0.4 mg tablet, sublingual 0.4 mg SUBLINGUAL Q5M PRN (Reason: Chest Pain) 0RF isosorbide mononitrate 30 mg tablet extended release 24 hr 30 mg PO DAILY 30 Days Qty: 30 4RF clobetasol 0.05 % cream 1 applic TOPICAL TID 0RF (DME) lancets [FreeStyle Lancets] 28 gauge misc See Rx Instructions .ROUTE .MEDSUPPLY Qty: 25 0RF Rx Instructions: As directed cholecalciferol (vitamin D3) 125 mcg (5,000 unit) capsule 125 mcg PO BID 0RF bupropion HCl [Wellbutrin SR] 150 mg tablet sustained-release 12 hr 150 mg PO QAM Qty: 30 6RF Rx Instructions: Take one tablet every morning escitalopram oxalate [Lexapro] 20 mg tablet 20 mg PO .morning Qty: 30 6RF Rx Instructions: Take one tablet every morning lamotrigine [Lamictal] 200 mg tablet 200 mg PO .QHS Qty: 30 6RF Rx Instructions: Take one tablet at bedtime (DME) blood-glucose meter [OneTouch Ultra2 Meter] Kit See Rx Instructions .ROUTE .MEDSUPPLY Qty: 1 0RF Rx Instructions: use daily (DME) OneTouch Ultra Blue Test Strip Strip See Rx Instructions .ROUTE .MEDSUPPLY Qty: 50 5RF Rx Instructions: 1 strip daily Farxiga 5 mg tablet 5 mg PO QAM Qty: 30 5RF amoxicillin-pot clavulanate [Augmentin] 875-125 mg tablet 1 tab PO BID 0RF metoprolol tartrate 25 mg tablet 25 mg PO BID Qty: 60 0RF (DME) pen needle, diabetic 33 gauge x 5/32 needle See Rx Instructions .ROUTE .MEDSUPPLY Qty: 100 5RF Rx Instructions: daily calcium carbonate-vitamin D3 [Os-Itz 500 + D3] 500mg (1,250mg) -600 unit tablet 1 tab PO .2 time day Qty: 60 2RF ezetimibe 10 mg tablet 10 mg PO DAILY Qty: 90 2RF lisinopril 10 mg tablet 10 mg PO DAILY Qty: 90 3RF albuterol sulfate 90 mcg/actuation HFA aerosol inhaler 2 puff INHALATION Q6H PRN (Reason: shortness of breath or wheezing) Qty: 8.5 2RF omeprazole magnesium [Acid Sort Supervisor (omeprazole)] 20 mg capsule,delayed release(DR/EC) 20 mg PO QDAY Qty: 30 5RF rosuvastatin 40 mg tablet 40 mg PO DAILY 0RF Discharge Orders: Discharge ED (Routine); Ordered 08/09/21 Ordered By: Babar Marcos Referrals: Alexander Capps, MANAGER OF [facility]FF[facility]IRS[facility] [Primary Care Provider] - Discharge Diet: Full LIquid Discharge Activity: Increase activity as tolerated Patient Instructions: Abdominal Pain (ED), Opioid Safety Activity Restrictions/Additional Instructions: Clear liquid diet x48 hours and advance as tolerated use Zofran as needed for nausea or vomiting. Follow-up with your primary care doctor for further evaluation if persists Coding Level of Care Code ED Photoengraving Photographer for Chg Fwd Exam Comprehensive
[2021-08-09] MEDS: ondansetron 2 mg/ML SDV 2 mL 4 MG IVP (13:02)
[2021-08-09] MEDS: sodium chloride 0.9% 1,000 ML 999 ML IV (13:02)
[2021-08-09] MEDS: ketorolac 30 mg/mL INJ IVP (13:02)
[2021-08-09 13:13] LABS: Add Urine Microscopic? NO; Charge for UA Resulting for Rev
[2021-08-09 13:22] LABS: Basophils # 0.1 10^3/uL (0.0-0.1); Basophils % 0.7 %; Eosinophils # 0.3 10^3/uL (0.0-0.8); Hematocrit 42.9 % (37.0-47.0); Hemoglobin 13.5 g/dL (11.5-15.3); Lymphocytes # 3.8 10^3/uL (0.8-4.8); Lymphocytes % 42.4 %; Mean Corpuscular HGB Conc 31.5 g/dL (30.0-36.0); Mean Corpuscular Hemoglobin 27.3 pg (28.0-34.0); Mean Corpuscular Volume 86.8 fl (81-99); Mean Platelet Volume 10.7 fL (7.4-10.4); Monocytes # 0.7 10^3/uL (0.2-0.9); Monocytes % 8.2 %; Neutrophils % 45.2 %; Nucleated Red Blood Cells % 0 %; Platelet Count 244 10^3/cmm (130-400); Red Blood Count 4.94 10^6/uL (4.1-5.3); White Blood Count 8.9 10^3/uL (4.0-10.0)
[2021-08-09 13:31] LABS: Ketones Urine Negative (Negative); Protein Urine Neg (Negative); Urine Appearance Clear (CLEAR); Urine Color Yellow (Yellow); pH Urine 6 (5-7)
--- NOTE | 2021-08-09 13:31 | CT_ITS ---
WS: [id number] CT ABDOMEN AND PELVIS WITH CONTRAST HISTORY: LEFT lower quadrant pain for one week. TECHNIQUE: Imaging performed of the abdomen and pelvis with IV contrast. Single phase imaging of the abdomen. Coronal and sagittal reformats are submitted. All CT scans at [facility] use at [address] one of these dose optimization techniques: automated exposure control; mA and/or kV adjustment per patient size (includes targeted exams where dose is matched to clinical indication); or iterative re construction. IV CONTRAST: Visipaque 320; 95 mL IV. Oral contrast: No DLP: 1701.81 mGy.cm COMPARISON: 02/26/2018 Lower thorax: Lung bases are clear. Heart is normal size. No hiatal hernia. Liver/biliary system: Normal size with no intrahepatic dilatation. Gallbladder: Status post cholecystectomy. Pancreas: Normal size pancreas and pancreatic duct. No adjacent inflammation. Spleen: Normal size spleen. No mass or infarct. Adrenal glands: Normal. Right kidney: Normal. Left kidney: Normal. Aorta: Normal. Lymphadenopathy: None. Free fluid: None. GI tract: Nondistended stomach. Normal small bowel. Normal appendix. There are numerous diverticula i n the descending and sigmoid colon. No CT evidence for acute diverticulitis. There are innumerable di verticula throughout the sigmoid colon. Abdominal wall: Ventral abdominal hernia repair. Pelvis: Well-distended urinary bladder. No free fluid within the pelvis. Prior hysterectomy. Bones: Unremarkable. CT/CT abdomen pelvis w con* [id number] IMPRESSION: 1. No acute intra-abdominal or pelvic abnormalities. 2. Extensive diverticulosis in the sigmoid colon. No evidence for acute divert iculitis. 3. Prior hysterectomy and cholecystectomy.
[2021-08-09 13:32] LABS: Bilirubin Urine Neg (Negative); Blood Urine Neg (Negative); Glucose Urine UA 4+ (Normal); Leukocyte Esterase Urine Negative (Negative); Nitrate Urine Negative (Negative); Urobilinogen Urine Norm (Negative)
[2021-08-09 13:42] LABS: Alanine Aminotransferase 27 U/L (0-33); Albumin Level 4.8 g/dL (3.5-5.2); Alkaline Phosphatase 59 IU/L (35-105); Aspartate Amino Transferase 21 U/L (0-32); Blood Urea Nitrogen 5 mg/dL (6-20); Calcium 8.6 mg/dL (8.5-10.5); Carbon Dioxide 27 mmol/L (22-29); Chloride 103 mmol/L (98-107); Globulin 2.6 g/dL (1.3-4.6); Glomerular Filtration Rate 126.3 mL/min (90-130); Glucose 92 mg/dL (65-115); Lipase 32 U/L (13-60); Osmolality Calculated 291 mOsm/kg (285-295); Sodium 142 mmol/L (136-145); Total Bilirubin 0.4 mg/dL (0.15-1.2); Total Protein 7.4 g/dL (6.6-8.7)
[2021-08-09] MEDS: iohexol 300 mg/mL 100 mL Btl IV (13:55)
[2021-08-09 15:10] VITALS: BP 122/60; PULSE 73; RESP 16; O2SAT 98
== END 2021-08-09 15:11 | disposition home or self-care (01) ==
PROVIDERS: Emergency Provider Family Medicine; PCP Nurse Practitioner
DX: R10.9 Unspecified abdominal pain (principal); I25.10 Atherosclerotic heart disease of native coronary artery without angina pectoris; E11.9 Type 2 diabetes mellitus without complications; I10 Essential (primary) hypertension; Z87.891 Personal history of nicotine dependence
CPT/HCPCS: 74177; 80053; 81003; 83690; 85025; 96361; 96374; 96375; 99283; J1885; J2405; J7030; Q9967

== ENCOUNTER → 2021-09-10 12:46 | Outpatient (BNVA) | payer MEDICARE, MEDICAID, SELFPAY | PROVIDERS: PCP Nurse Practitioner; Visit Provider Nurse Practitioner Psychiatric/Mental Health | DX: F33.2 Major depressive disorder, recurrent severe without psychotic features (principal); F41.1 Generalized anxiety disorder; Z79.899 Other long term (current) drug therapy | CPT/HCPCS: 99214 ==

== ENCOUNTER → 2021-09-20 14:05 | Outpatient (BNVA) | payer MEDICARE, MEDICAID, SELFPAY | PROVIDERS: PCP Nurse Practitioner; Visit Provider Surgery | DX: R10.12 Left upper quadrant pain (principal) | CPT/HCPCS: 99204 ==

== ENCOUNTER 2021-09-30 07:33 | Day surgery (SDC) | payer MEDICARE, MEDICAID, SELFPAY ==
[2021-09-29 12:54] VITALS: BMI 37.8
[2021-09-30] VITALS (8 sets, daily range): BP systolic 103–123; BP diastolic 60–90; PULSE 58–81; RESP 14–18; TEMP 36.2–36.8; O2SAT 94–100
--- NOTE | 2021-09-30 07:52 | P.ANESASSM_ITS ---
Pre-Anesthetic Assessment Height/Weight: Height 1.55 m Weight 90.718 kg Preop Diagnosis: Abdominal wall mass Operation Date: 09/30/21 09:05 Proposed Procedures p excision of abdominal wall mass 06922/R22.2(Not Applicable) - Tanner Cedeño MD Familial anesthetic complications: none Was Beta Archana taken within 24 hours: Yes Was Clonidine taken within 24 hours: N/A Last intake: 09/29/21 Social No alcohol and No tobacco Uses medical marijuana Exam alert, oriented x 3, clear to auscultation bilaterally and regular rate & rhythm Airway Submandibular: within normal limits Cervical ROM: within normal limits Mallampati: Class I Comments: Comments: Upper dentures Pulmonary Asthma, Chronic Obstructive Pulmonary Disease and Sleep Apnea (Does not wear CPAP) CV/HEM Coronary Artery Disease, Congestive Heart Failure, Hypertension and Murmur Chronic atypical chest pain followed by Dr. Deng METS = 4. Able to ascend flight of stairs w/o CP, would have CP with 3 flights of stairs along with SOB Cath Report 2019 Conclusions ? 59-year-old white female with history of high blood pressure, dyslipidemia, COPD, presenting with complaints of chest pain and shortness of breath. Elevated transient ischemic dilatation ratio with the perfusion scan.? In view of the patient's ongoing symptoms and the abnormal perfusion scan, in order to further evaluate her coronary status, a cardiac catheterization was recommended.? Patient underwent left heart catheterization with a left and right coronary angiogram and LV angiogram today.? The findings are as follows. ? Mild coronary artery disease.? LV ejection fraction around 50%.? Elevated LV EDP of 30 mmHg consistent with a left ventricular diastolic dysfunction. TTE 2019 CONCLUSIONS ?Normal left ventricular size and systolic function, EF 60 %. ?No regional wall motion abnormalities. ?Thickened mitral valve. ?Thickened aortic valve. ?There is no pericardial effusion. ?There are no intracardiac masses. ?No previous study is available for comparison. Stress Test 2019 CONCLUSION: 1. No significant EKG changes with the LexiScan infusion 2. No LexiScan induced chest pain or cardiac arrhythmia 3. Normal blood pressure and heart rate response 4. Sestamibi/sestamibi perfusion scan pending; see separate report. Chronic cystitis Hepatic None reported GI Gastroesophageal Reflux Disease (Well controlled on medications ) Metabolic Diabetes Mellitus Musc/skel Lower Back Pain and Osteoarthritis/DJD Neuropsych Anxiety and Neuropathy (radiculopathy (lumbar)) Anesthetic Plan ASA status: 3 (61 year old female with hx of asthma, DM with poor control at times, obesity, neuropathy, marijuana use, asthma, DDD, HTN, BACILIO, GERD, and reduced funtional capacity ) Anesthesia: Anesthesia Evaluation and General Other: I discussed with the patient risks, goals, and benefits of MAC and general anesthesia. We discussed spectrum of MAC anesthesia including conversion to general as well as possibility of recall of intraoperative stimuli including discomfort/pain. Patient agrees to proceed with MAC. Medications/Allergies Home Medications Medication Instructions Recorded Confirmed Last Taken Type nitroglycerin 0.4 mg sublingual 0.4 mg SUBLINGUAL Q5M PRN 06/20/19 09/29/21 Unknown History tablet (Nitrostat) clobetasol 0.05 % topical cream 1 applic TOPICAL TID gm 08/22/19 09/30/21 09/23/21 History lancets 28 gauge (FreeStyle #25 each 08/22/19 09/20/21 Unknown History Lancets) metoprolol tartrate 25 mg tablet 25 mg PO BID #60 tab 11/12/19 09/30/21 09/29/21 Rx pen needle, diabetic 33 gauge x #100 each 11/17/19 09/20/21 Unknown Rx /32 blood-glucose meter (OneTouch #1 ea 05/14/20 09/20/21 Unknown Rx Ultra2 Meter) calcium carbonate 500 mg-vitamin 1 tab PO .2 time day #60 tab 05/25/20 09/30/21 09/29/21 Rx D3 15 mcg (600 unit) tablet (Os-Itz 500 + D3) cholecalciferol (vitamin D3) 125 125 mcg PO BID cap 09/08/20 09/30/21 09/29/21 History mcg (5,000 unit) capsule ezetimibe 10 mg tablet 10 mg PO DAILY #90 tab 11/19/20 09/30/21 09/28/21 Rx lisinopril 10 mg tablet 10 mg PO DAILY #90 tab 01/28/21 09/30/21 09/28/21 Rx dapagliflozin 5 mg tablet (Farxiga) 5 mg PO QAM #30 tab 03/21/21 09/30/21 09/28/21 Rx albuterol sulfate 90 mcg/actuation 2 puff INHALATION Q6H PRN #8.5 g 03/22/21 09/30/21 09/30/21 07:00 Rx aerosol inhaler omeprazole magnesium 20 mg 20 mg PO QDAY #30 cap 07/10/21 09/30/21 09/29/21 Rx capsule,delayed release (Acid Recycling Assistant (omeprazole)) rosuvastatin 40 mg tablet 40 mg PO DAILY 08/09/21 09/30/21 09/28/21 History bupropion HCl 150 mg tablet,12 hr 150 mg PO QAM #30 tab 09/10/21 09/30/21 09/28/21 Rx sustained-release (Wellbutrin SR) escitalopram oxalate 20 mg tablet 20 mg PO .morning #30 tab 09/10/21 09/30/21 09/28/21 Rx (Lexapro) lamotrigine 200 mg tablet 200 mg PO .QHS #30 tab 09/10/21 09/30/21 09/28/21 Rx (Lamictal) blood sugar diagnostic (OneTouch #50 ea 09/23/21 Unknown Rx Ultra Test) isosorbide mononitrate 30 mg 30 mg PO BEDTIME 09/29/21 09/30/21 09/28/21 History tablet,extended release 24 hr Allergies Allergy/AdvReac Type Severity Reaction Status Date / Time metformin Allergy Unknown nausea Verified 09/20/21 14:12 tetracycline Allergy Unknown Tongue Verified 09/20/21 14:12 swelling naproxen AdvReac Unknown cramps/naus Verified 09/20/21 14:12 ea [facility] Anesthesia Medical History Acid reflux Asthma Atherosclerotic heart disease of [place] coronary artery with other forms of angina pectoris Chronic cystitis DDD (degenerative disc disease) Diabetes Generalized anxiety disorder Hypertension Lumbar radiculopathy, chronic Major depressive disorder, recurrent severe without psychotic features Follows up with [facility] Medical marijuana use For pain Mixed incontinence Psychiatric care Surgical History H/O section x 3 ----> 1983, 1985, 1986 H/O [place] [place] [facility] [place] surgery S/P appendectomy 2001-performed at time of open hysterectomy S/P bladder repair X 2 01/09/07- Anterior/posterior vaginal repair, transobturator suburethral sling, cystoscopy. Dx: mixed urinary incontinence, cystocele and rectocele. [place] Dr Andrews [place] [facility] [place] 07[place]- Bladder repair revised. Performed in [place]. She states that she had pain and the surgeon went in and excised some of the mesh but was unable to get everything out. S/P carpal tunnel release Bilateral-2002 and 2003 performed in [place], [place] S/P cholecystectomy Open procedure performed via right upper quadrant incision in 1987 in [facility] S/P excision of ganglion cyst Left wrist in [place], [place] S/P hernia repair 10/27/11- Hernia repair Dx: rentral hernia anterior abdominal wall below umbilicus. [place] Macias [place] [facility] [place] Per patient mesh was used and it covers her whole lower abdominal wall. S/P hysterectomy 2001---total abdominal hysterectomy with bilateral [id number] [place] Dr Stewart [place] [facility] [place] problems. She states her ovaries and Appendix were removed as well. Patient states she was told that there was no cancer Status post tubal ligation 1986 at time of third Family History Father , 86 Hypertension Stroke Thyroid disease Kidney disease CAD (coronary artery disease) Chronic kidney disease (CKD) Sister Heart disease Her sister of heart disease at the age of 45-some congenital heart disease however she does not remember the name. Brother Kidney disease Diabetes Family/Other Breast cancer maternal aunt, diagnosed at age 62 Mother , AT AGE 84 Cancer PANCREATIC Lung disease Denies family history of Colon cancer Ovarian cancer Clotting disorder Dementia Hyperlipidemia Suicide Anesthesia complication Bleeding disorder Social History Smoking and tobacco status: former smoker Second hand smoke exposure: No Smoking risk assessment/counseling performed?: No Alcohol intake: never Desire information about alcohol rehabilitation?: No Counseling given: No Desire information about substance/drug rehabilitation?: No Counseling given: No Adopted: No Caregiver/support person: No Lives independently: Yes Household members: spouse Housing: House Marital status: Number of children: 3 Current occupational status: retired History of recent travel: No Current gender identity: Female Data Anesthesia Cardiac Studies: Echocardiogram Ultrasound 12/10/19 Sestamibi Stress Test (Cardiology) 11/29/19
--- NOTE | 2021-09-30 08:00 | P.HP_ITS ---
Same Day Surgery H&P Indication for Procedure/HPI DATE OF PROCEDURE: September 30, 2021 CHIEF COMPLAINT/INDICATIONFOR SURGICAL PROCEDURE: port placement PREOP DIAGNOSIS: Abdominal wall mass PLANNED PROCEDURE: Operation Date: 09/30/21 09:05 Proposed Procedures p excision of abdominal wall mass 20383/R22.2(Not Applicable) - Tanner Cedeño MD Medications/Allergies* Home Medications Medication Instructions Recorded Confirmed Type nitroglycerin 0.4 mg sublingual 0.4 mg SUBLINGUAL Q5M PRN 06/20/19 09/29/21 History tablet (Nitrostat) clobetasol 0.05 % topical cream 1 applic TOPICAL TID gm 08/22/19 09/29/21 History lancets 28 gauge (FreeStyle #25 each 08/22/19 09/20/21 History Lancets) cholecalciferol (vitamin D3) 125 125 mcg PO BID cap 09/08/20 09/29/21 History mcg (5,000 unit) capsule rosuvastatin 40 mg tablet 40 mg PO DAILY 08/09/21 09/29/21 History isosorbide mononitrate 30 mg 30 mg PO BEDTIME 09/29/21 09/29/21 History tablet,extended release 24 hr Allergies/Adverse Reactions Allergy/AdvReac Type Severity Reaction Status Date / Time metformin Allergy Unknown nausea Verified 09/20/21 14:12 tetracycline Allergy Unknown Tongue Verified 09/20/21 14:12 swelling naproxen AdvReac Unknown cramps/naus Verified 09/20/21 14:12 ea Pertinent History/Comorbid Conditions* Medical History (Updated 09/20/21 @ 14:36 by Tanner Cedeño MD) Acid reflux Asthma Atherosclerotic heart disease of [place] coronary artery with other forms of angina pectoris Chronic cystitis DDD (degenerative disc disease) Diabetes Generalized anxiety disorder Hypertension Lumbar radiculopathy, chronic Major depressive disorder, recurrent severe without psychotic features Follows up with [facility] Medical marijuana use For pain Mixed incontinence Psychiatric care Surgical History (Updated 09/20/21 @ 14:36 by Tanner Cedeño MD) H/O section x 3 ----> 1983, 1985, 1986 H/O neck surgery 06/14/[address] Dillon at [facility] H/O right wrist surgery S/P appendectomy 2001-performed at time of open hysterectomy S/P bladder repair X 2 8/7/07- Anterior/posterior vaginal repair, transobturator suburethral sling, cystoscopy. Dx: mixed urinary incontinence, cystocele and rectocele. Performed by Dr Andrews at [facility] in [place], [place] 07/2013- Bladder repair revised. Performed in [place]. She states that she had pain and the surgeon went in and excised some of the mesh but was unable to get everything out. S/P carpal tunnel release Bilateral-2002 and 2003 performed in [place], [place] S/P cholecystectomy Open procedure performed via right upper quadrant incision in [address] [facility] S/P excision of ganglion cyst Left wrist in [place], [place] S/P hernia repair 10/27/11- Hernia repair Dx: rentral hernia anterior abdominal wall below umbilicus. Performed by Dr Macias at [facility] in [place], [place]. Per patient mesh was used and it covers her whole lower abdominal wall. S/P hysterectomy 2001---total abdominal hysterectomy with bilateral [id number] Performed by Dr Stewart at [facility] for bleeding problems. She states her ovaries and Appendix were removed as well. Patient states she was told that there was no cancer Status post tubal ligation 1986 at time of third Family History (Updated 09/24/20 @ 15:03 by Alexandra Barajas RN) Father, 86 Mother, AT AGE 84 Diabetes Brother CAD (coronary artery disease) Father Heart disease Sister Her sister of heart disease at the age of 45-some congenital heart disease however she does not remember the name. Kidney disease Father Brother Chronic kidney disease (CKD) Father Breast cancer Family/Other maternal aunt, diagnosed at age 62 Lung disease Mother Cancer Mother PANCREATIC Hypertension Father Thyroid disease Father Stroke Father Denies family history of Colon cancer Ovarian cancer Clotting disorder Dementia Hyperlipidemia Suicide Anesthesia complication Bleeding disorder Social History Smoking and tobacco status: former smoker Second hand smoke exposure: No Smoking risk assessment/counseling performed?: No Alcohol intake: never Desire information about alcohol rehabilitation?: No Counseling given: No Desire information about substance/drug rehabilitation?: No Counseling given: No Adopted: No Caregiver/support person: No Lives independently: Yes Household members: spouse Housing: House Marital status: Number of children: 3 Current occupational status: retired History of recent travel: No Current gender identity: Female Pertinent Exam Findings alert, oriented x 3 and regular rate & rhythm Recommendations Surgery/Procedure today Coding Level of Care Code Acute [employer] for [employer]
[2021-09-30 08:30] LABS: Glucose Point of Care 102 mg/dL (70-110)
[2021-09-30] MEDS: sodium chloride 0.9% 1,000 ML 30 ML IV (08:39)
[2021-09-30] MEDS: lidocaine 2% INJ 20 mL INJECTION (09:03)
--- NOTE | 2021-09-30 09:39 | SUR.PHASEI ---
0922 PT AWAKES TO VERBAL STIMULI, ORAL AIRWAY OUT, GOOD RESPIRATORY EFFORT, VSS LT UPPER ABDOMEN INCISION D/I WITH SKIN GLUE NO BLEEDING OR HEMATOMA, IV TO LT FOREARM #20 WITH NS 500ML UP AT KVO RATE PER GRAVITY, PT ID BAND TO RT WRIST , PT ID'D WITH 2 IDENTIFIERS.
--- NOTE | 2021-09-30 10:01 | PM.OP ---
Operative Report Date of procedure: September 30, 2021 Pre-op diagnosis: Symptomatic abdominal wall mass left upper quadrant Post-op diagnosis: Subcutaneous mass left upper abdomen measuring 5 x 4 cm Procedure done: Excision of subcutaneous mass from the left upper abdomen Specimens removed/disposition: Subcutaneous mass left upper abdomen Surgeon: Tanner Cedeño Anesthesia: MAC Condition: stable Disposition: PACU Procedure: The patient was taken to the operating room and placed under MAC after IV antibiotic had been administered. The abdomen was prepped and draped in a sterile manner. 2% lidocaine with 0.25% Marcaine was infiltrated around the previously marked site in the left upper abdomen. Using 15 blade a 4 cm incision was made, subcutaneous tissue was divided using electrocautery and the subcutaneous mass which clinically appeared to be a lipoma was dissected free from the surrounding subcutaneous tissue and underlying muscular fascia. There was no evidence of ventral hernia. The wound was irrigated with saline, hemostasis ensured and the subcutaneous tissue was approximated using interrupted 3-0 Vicryl suture and skin was closed using running subcuticular 4-0 Monocryl suture and Dermabond. The patient was transferred to recovery room in stable condition.
[2021-09-30] MEDS: HYDROcodone-acetaminophen 5-325 mg Tablet 1 TAB PO (10:24)
--- NOTE | 2021-09-30 12:18 | ANE.PACU2 ---
Inpatient post-anesthesia follow up: Airway intact: Yes Vital signs: Temperature 97.9 F Pulse Rate 58 Respiratory Rate 16 Blood Pressure 119/67 Pulse Oximetry 98 Oxygen Delivery Me thod Room Air Oxygen Flow Rate 8 Fraction of Inspir ed Oxygen Hydration adequate: Yes Nausea and vomiting: No Pain level: 2 Mental status: Baseline
== END 2021-09-30 11:00 | disposition home or self-care (01) ==
PROVIDERS: PCP Nurse Practitioner; Visit Provider Surgery
PROC: (CPT 11406; principal; 2021-09-30 08:55)
DX: D17.1 Benign lipomatous neoplasm of skin and subcutaneous tissue of trunk (principal); J44.9 Chronic obstructive pulmonary disease, unspecified; G47.30 Sleep apnea, unspecified; I25.118 Atherosclerotic heart disease of native coronary artery with other forms of angina pectoris; I11.0 Hypertensive heart disease with heart failure; I50.9 Heart failure, unspecified; E78.5 Hyperlipidemia, unspecified; K21.9 Gastro-esophageal reflux disease without esophagitis; M19.90 Unspecified osteoarthritis, unspecified site; E11.40 Type 2 diabetes mellitus with diabetic neuropathy, unspecified; F41.9 Anxiety disorder, unspecified; Z87.891 Personal history of nicotine dependence
CPT/HCPCS: 11406; 12032; 36416; 82962; 88307; J0690; J2704; J3010; J3490; J7030

== ENCOUNTER → 2021-10-12 09:54 | Outpatient (BNVA) | payer MEDICARE, MEDICAID, SELFPAY | PROVIDERS: PCP Nurse Practitioner; Visit Provider Surgery | DX: Z98.890 Other specified postprocedural states (principal) | CPT/HCPCS: 99213 ==

== ENCOUNTER 2021-10-13 11:58 | Outpatient (CLI) | payer MEDICARE, MEDICAID, SELFPAY ==
--- NOTE | 2021-10-13 12:17 | MM_ITS ---
WS: [id number] BILATERAL SCREENING DIGITAL BREAST TOMOSYNTHESIS MAMMOGRAM WITH CAD HISTORY: SCREENING COMPARISON: 09/12/2011, 05/21/2009 Bilateral CC and MLO views with tomosynthesis and synthetic mammography submitted. Computer aided det ection analyzed. Breast composition: There are scattered areas of fibroglandular density. No suspicious masses, microc alcifications or architectural distortion. MM/[place] [id number] IMPRESSION: BI-RADS: 1-Negative FOLLOW UP: 1 Year Follow-up
== END 2021-10-13 11:59 | disposition home or self-care (01) ==
LOC: RADSHAW 12:03
PROVIDERS: PCP Nurse Practitioner; Visit Provider Nurse Practitioner
DX: Z12.31 Encounter for screening mammogram for malignant neoplasm of breast (principal)
CPT/HCPCS: 77063; 77067

== ENCOUNTER → 2021-10-15 13:37 | Outpatient (BNVA) | payer MEDICARE, MEDICAID, SELFPAY | PROVIDERS: PCP Nurse Practitioner; Visit Provider Surgery | DX: Z98.890 Other specified postprocedural states (principal); Z86.018 Personal history of other benign neoplasm ==

== ENCOUNTER → 2021-10-26 12:49 | Outpatient (BNVA) | payer MEDICARE, MEDICAID, SELFPAY | PROVIDERS: PCP Nurse Practitioner; Visit Provider Nurse Practitioner Family | DX: Z98.890 Other specified postprocedural states (principal); Z86.018 Personal history of other benign neoplasm | CPT/HCPCS: 81003; 87086; 99213 ==

== ENCOUNTER 2021-10-27 12:44 | Outpatient (CLI) | payer MEDICARE, MEDICAID, SELFPAY ==
--- NOTE | 2021-10-27 12:54 | CT_ITS ---
WS: [id number] CT ABDOMEN AND PELVIS NONCONTRAST HISTORY: left upper quadrant swelling TECHNIQUE: Imaging performed through the abdomen and pelvis. Coronal and sagittal reformats are submi tted. All CT scans at [facility] use at least one of these dose optimization techniques: auto mated exposure control; mA and/or kV adjustment per patient size (includes targeted exams where dose is matched to clinical indication); or iterative reconstruction. DLP: 1163.43 mGy.cm COMPARISON: 08/09/2021 Lower thorax: Lung bases are clear. Visualized heart is normal. No hiatal hernia. Liver: Normal size liver. No mass or bile duct dilatation. Gallbladder: Prior cholecystectomy. Pancreas: Normal size and attenuation. Normal pancreatic duct. No pancreatitis or mass. Spleen: Normal. Adrenal glands: Normal. No mass. Right kidney: Normal size kidney with no mass or hydronephrosis. Left kidney: Normal size kidney with no mass or hydronephrosis. Aorta: Normal abdominal aorta, no aneurysm or atherosclerosis. No free fluid, intraperitoneal air or significant lymphadenopathy. GI tract: Normally distended stomach. No small bowel obstruction. The appendix is normal. No colon ob struction. There are scattered diverticula in the distal colon. No acute diverticulitis. Abdominal wall: Infraumbilical defect within the abdominal wall. There may be a very small layer of g raft intact containing the fat. There is a complex high density mass within the LEFT lateral abdomina l wall abutting and inseparable from the rectus abdominis. This mass is of increased density measurin g 9.8 x 4.6 cm. There are a few adjacent small air foci. Pelvis: Prior hysterectomy. Urinary bladder is normally distended. Osseous structures: Mild T12 wedging. CT/CT abdomen pelvis wo con [id number] IMPRESSION: 1. Palpable area in the LEFT lateral abdominal wall corresponds to what is pro bably a rectus abdominis hematoma measuring 9.8 x 4.6 cm. There are a few adjac ent foci of air which may be from attempted drainage or injection sites. 2. Sigmoid diverticulosis without acute diverticulitis. 3. Prior cholecystectomy.
[2021-10-27] MEDS: iohexol 300 mg/mL 50 mL Btl PO (13:11)
== END 2021-10-27 12:45 | disposition home or self-care (01) ==
LOC: RAD 12:48
PROVIDERS: PCP Nurse Practitioner; Visit Provider Surgery
DX: K57.30 Diverticulosis of large intestine without perforation or abscess without bleeding (principal); R19.02 Left upper quadrant abdominal swelling, mass and lump; Z90.49 Acquired absence of other specified parts of digestive tract; Z90.710 Acquired absence of both cervix and uterus
CPT/HCPCS: 74176

== ENCOUNTER 2021-10-29 07:16 | Outpatient (CLI) | payer MEDICARE, MEDICAID, SELFPAY ==
--- NOTE | 2021-10-29 07:46 | US_ITS ---
WS: [email or web address] ULTRASOUND GUIDED LEFT abdomen aspiration. HISTORY: Complex hematoma in the sections soft tissues of the LEFT abdominal wall. Recent surgery. Procedure, risks, and complications are explained to the patient. Consent was obtained. Skin is clean sed with ChloraPrep and anesthetized with 1% buffered lidocaine. Under sterile conditions access into the complex cystic collection is achieved with a 5 [place] Y[place]h n eedle. This collection measures 10.3 x 4.7 x 6.8 cm. Soft tissue and cystic areas are present. Approx imately 110 cc of dark red blood which does not clot is removed without difficulty. Hematoma collapse is nearly completely. Mild residual collection remains of the soft tissue thickening. Dr. Cedeño does not want the specimen sent for analysis. US/ [place] [id number] IMPRESSION: 1. Ultrasound-guided aspiration of a complex hematoma in the LEFT lateral abdo nayeli wall. 110 cc removed without difficulty. 2. Patient is instructed to return with any concerns or increase in the hemato ma. There was no active bleeding.
== END 2021-10-29 07:17 | disposition home or self-care (01) ==
PROVIDERS: PCP Nurse Practitioner; Visit Provider Surgery
DX: Z86.018 Personal history of other benign neoplasm (principal); Z98.890 Other specified postprocedural states
CPT/HCPCS: 10030; 99212

== ENCOUNTER 2021-11-05 | Outpatient (CLI) | payer MEDICARE, MEDICAID, SELFPAY | END 2021-11-05 23:59 | disposition home or self-care (01) | LOC: RAD 01-03 16:50 | PROVIDERS: PCP Nurse Practitioner; Visit Provider Surgery | DX: F33.2 Major depressive disorder, recurrent severe without psychotic features (principal); F41.1 Generalized anxiety disorder; Z79.899 Other long term (current) drug therapy; Z86.018 Personal history of other benign neoplasm; Z98.890 Other specified postprocedural states | CPT/HCPCS: 99214 ==

== ENCOUNTER → 2021-12-02 13:47 | Outpatient (BNVA) | payer MEDICARE, MEDICAID, SELFPAY | PROVIDERS: PCP Nurse Practitioner; Visit Provider Nurse Practitioner Psychiatric/Mental Health | DX: F33.2 Major depressive disorder, recurrent severe without psychotic features (principal); F41.1 Generalized anxiety disorder; Z79.899 Other long term (current) drug therapy | CPT/HCPCS: 99214 ==

== ENCOUNTER → 2021-12-08 12:39 | Outpatient (BNVA) | payer MEDICARE, MEDICAID, SELFPAY | PROVIDERS: PCP Nurse Practitioner; Visit Provider Nurse Practitioner Family | DX: N30.20 Other chronic cystitis without hematuria (principal) | CPT/HCPCS: 81003; 99213 ==

== ENCOUNTER → 2021-12-20 15:34 | Outpatient (BNVA) | payer MEDICARE, MEDICAID, SELFPAY | PROVIDERS: PCP Nurse Practitioner; Visit Provider Nurse Practitioner | DX: E11.65 Type 2 diabetes mellitus with hyperglycemia (principal); J98.01 Acute bronchospasm; M85.80 Other specified disorders of bone density and structure, unspecified site; K21.9 Gastro-esophageal reflux disease without esophagitis; Z12.83 Encounter for screening for malignant neoplasm of skin; I10 Essential (primary) hypertension | CPT/HCPCS: 80053; 80061; 83036; 85025 ==

== ENCOUNTER → 2022-02-09 12:49 | Outpatient (BNVA) | payer MEDICARE, SELFPAY | PROVIDERS: PCP Nurse Practitioner; Visit Provider Nurse Practitioner Family | DX: R33.9 Retention of urine, unspecified (principal); N30.20 Other chronic cystitis without hematuria | CPT/HCPCS: 81003; 99213 ==

== ENCOUNTER → 2022-03-02 12:05 | Outpatient (BNVA) | payer MEDICARE, MEDICAID, SELFPAY | PROVIDERS: PCP Nurse Practitioner; Visit Provider Nurse Practitioner | DX: L29.9 Pruritus, unspecified (principal); E11.65 Type 2 diabetes mellitus with hyperglycemia | CPT/HCPCS: 80053; 81003; 82607; 83036; 87086 ==

== ENCOUNTER → 2022-08-25 14:03 | Outpatient (BNVA) | payer MEDICARE, MEDICAID, SELFPAY | PROVIDERS: PCP Nurse Practitioner; Visit Provider Student in an Organized Health Care Education/Training Program | DX: M25.521 Pain in right elbow (principal); M25.531 Pain in right wrist | CPT/HCPCS: 20600; 20605; 73080; 73110; 99204; J3301; J3490 ==

== ENCOUNTER → 2022-09-14 14:10 | Outpatient (BNVA) | payer MEDICARE, MEDICAID, OTHER, SELFPAY | PROVIDERS: PCP Nurse Practitioner; Visit Provider Nurse Practitioner Psychiatric/Mental Health | DX: Z79.899 Other long term (current) drug therapy (principal) | CPT/HCPCS: 80053; 82306; 82607; 84439; 84443; 84481; 85025 ==

== ENCOUNTER → 2022-09-21 10:21 | Outpatient (BNVA) | payer MEDICARE, MEDICAID, SELFPAY | PROVIDERS: PCP Nurse Practitioner; Visit Provider Podiatrist Foot & Ankle Surgery | DX: Q82.8 Other specified congenital malformations of skin (principal); E11.65 Type 2 diabetes mellitus with hyperglycemia | CPT/HCPCS: 73630; 99203 ==

== ENCOUNTER → 2022-10-19 13:57 | Outpatient (BNVA) | payer MEDICARE, MEDICAID, SELFPAY | PROVIDERS: PCP Nurse Practitioner; Visit Provider Urology | DX: N30.20 Other chronic cystitis without hematuria (principal) | CPT/HCPCS: 81003; 99213 ==

== ENCOUNTER → 2022-10-20 13:08 | Outpatient (BNVA) | payer MEDICARE, MEDICAID, SELFPAY | PROVIDERS: PCP Nurse Practitioner; Visit Provider Student in an Organized Health Care Education/Training Program | DX: M25.531 Pain in right wrist (principal) | CPT/HCPCS: 99213 ==

== ENCOUNTER → 2022-11-02 13:00 | Outpatient (BNVA) | payer MEDICARE, MEDICAID, SELFPAY | PROVIDERS: PCP Nurse Practitioner; Visit Provider Podiatrist Foot & Ankle Surgery | DX: L85.1 Acquired keratosis [keratoderma] palmaris et plantaris (principal); M20.42 Other hammer toe(s) (acquired), left foot; M77.42 Metatarsalgia, left foot | CPT/HCPCS: 99213 ==

== ENCOUNTER 2022-11-08 15:14 | Outpatient (CLI) | payer MEDICARE, MEDICAID, SELFPAY ==
--- NOTE | 2022-11-08 15:15 | MR_ITS ---
WS: [email or web address] MRI RIGHT HAND without CONTRAST. COMPARISON: None Multiplanar, multisequence imaging is performed without contrast. History: Chronic RIGHT hand and wrist pain. Prior surgeries. MRI was targeted to the patient's hand. No fractures or marrow edema noted within the bones of the bart[place] nd. No signal abnormality within the median nerve. There is a small erosion in the third metacarpal h ead. As visualized the flexor and extensor apparatus appears normal. No ligament or tendon tear. No s oft tissue mass. There is no ganglion or lipoma appreciated. Small portion of the wrist is included on this examination of the hand. There are several cysts withi n the carpal bones. No widening of the scapholunate interval. Carpal bones are normally aligned. Ther e is a small amount of increased signal within the central portion of the TFCC ligament. Suspect tear . TFCC would be better evaluated by dedicated wrist MRI. There is no significant amount of fluid in t he distal radial ulnar joint. No marrow edema in the distal ulna or navicular. MR/MR hand RT wo con* [id number] IMPRESSION: 1. Negative MRI hand. No marrow edema or fracture. No subluxation. 2. No ganglion or mass identified. 3. Small portion of the wrist is included which demonstrates abnormal signal i n the central TFCC. Suspect tear. Wrist anatomy would be better visualized on t he dedicated wrist MRI.
== END 2022-11-08 15:15 | disposition home or self-care (01) ==
LOC: RAD 15:15
PROVIDERS: PCP Nurse Practitioner; Visit Provider Student in an Organized Health Care Education/Training Program
DX: M25.531 Pain in right wrist (principal); R93.7 Abnormal findings on diagnostic imaging of other parts of musculoskeletal system; G89.29 Other chronic pain; Z98.890 Other specified postprocedural states
CPT/HCPCS: 73218; 99213

== ENCOUNTER → 2022-12-14 13:01 | Outpatient (BNVA) | payer MEDICARE, MEDICAID, SELFPAY | PROVIDERS: PCP Nurse Practitioner Family; Visit Provider Nurse Practitioner Family | DX: K21.9 Gastro-esophageal reflux disease without esophagitis (principal); E11.65 Type 2 diabetes mellitus with hyperglycemia; J98.01 Acute bronchospasm; E04.9 Nontoxic goiter, unspecified; M85.80 Other specified disorders of bone density and structure, unspecified site; Z12.39 Encounter for other screening for malignant neoplasm of breast | CPT/HCPCS: 80053; 80061; 82043; 82306; 83036; 84443; 84550; 85025 ==

== ENCOUNTER → 2022-12-20 11:52 | Outpatient (BNVA) | payer MEDICARE, MEDICAID, SELFPAY | PROVIDERS: PCP Nurse Practitioner Family; Visit Provider Internal Medicine Cardiovascular Disease | DX: I10 Essential (primary) hypertension (principal); E78.2 Mixed hyperlipidemia; F33.2 Major depressive disorder, recurrent severe without psychotic features; E11.65 Type 2 diabetes mellitus with hyperglycemia; Z79.84 Long term (current) use of oral hypoglycemic drugs; Z87.891 Personal history of nicotine dependence | CPT/HCPCS: 99213 ==

== ENCOUNTER 2022-12-26 09:43 | Outpatient (CLI) | payer MEDICARE, MEDICAID, SELFPAY ==
--- NOTE | 2022-12-26 10:00 | US_ITS ---
WS: [email or web address] ULTRASOUND THYROID TECHNIQUE: Ultrasound of the thyroid. CLINICAL INFORMATION: E04.9 - Nontoxic goiter, unspecified COMPARISON: Ultrasound [address] September 29, 2017 FINDINGS: Thyroid: Right and left thyroid lobes are normal in size and echotexture. Right thyroid lobe: 4.8 cm x 1.6 cm x 1.3 cm Heterogeneous complex RIGHT inferior thyroid nodule measuring 1.6 x 1.5 x 1.9 CM. Left thyroid lobe: 4.2 cm x 1.3 cm x 1.2 cm. Small hypoechoic LEFT thyroid nodules measuring 0.5 x 0.3 x 0.5 cm in the upper pole and echogenic no dule in the inferior pole measuring 0.6 x 0.5 x 0.6 cm. Isthmus: 0.2 mm. Cervical lymphadenopathy: None. US/US thyroid [id number] IMPRESSION: 1. Heterogeneous complex RIGHT inferior thyroid nodule measuring 1.6 x 1.5 x 1 .9 CM. This is new since the prior ultrasound 2008 and appears stable since e CT cervical spine 2017. Recommend 12 month follow-up. 2. Incidental subcentimeter LEFT thyroid nodules.
== END 2022-12-26 09:44 | disposition home or self-care (01) ==
PROVIDERS: PCP Nurse Practitioner Family; Visit Provider Nurse Practitioner Family
DX: E04.9 Nontoxic goiter, unspecified (principal)
CPT/HCPCS: 76536

== ENCOUNTER 2022-12-28 12:25 | Outpatient (CLI) | payer MEDICARE, MEDICAID, SELFPAY ==
--- NOTE | 2022-12-28 12:49 | MM_ITS ---
WS: [email or web address] BILATERAL 3D TOMOSYNTHESIS DIGITAL SCREENING MAMMOGRAPHY WITH CAD CLINICAL INFORMATION: M85.80 - Other specified disorders of bone density and st... HISTORY: Screening mammogram. No current complaints. COMPARISON: 2021 TECHNIQUE: Bilateral CC and MLO views. FINDINGS: Scattered fibroglandular densities bilaterally. No suspicious focal mass, asymmetry, calcifications, or architectural distortion. No evidence of malignancy. MM/[place] [id number] IMPRESSION: BI-RADS: 1-Negative FOLLOW UP: 1 Year Follow-up Recommend return to annual screening mammography.
== END 2022-12-28 12:26 | disposition home or self-care (01) ==
LOC: RAD 12:35 → MOBLMAM 12:48
PROVIDERS: PCP Nurse Practitioner Family; Visit Provider Nurse Practitioner Family
DX: Z12.31 Encounter for screening mammogram for malignant neoplasm of breast (principal)
CPT/HCPCS: 77063; 77067; 80053; 80061; 82043; 82306; 83036; 84443; 84550; 85025

== ENCOUNTER 2023-01-24 12:50 | Outpatient (CLI) | payer MEDICARE, OTHER, SELFPAY ==
--- NOTE | 2023-01-24 12:58 | XR_ITS ---
WS: [email or web address] SCREENING DEXA SCAN [employer] CLINICAL INFORMATION: Z12.39 - Encounter for other screening for malignant neop... COMPARISON: 2019 FINDINGS: The L1-L4 bone mineral density measures 0.924 g/cm2. This corresponds to a T score score of -2.1 and Z score of -1.7. Left femoral neck bone mineral density measures 0.818 g/cm2. This corresponds to a T score of -1.5 an d Z score of -1.1. Right femoral neck bone mineral density measures 0.821 g/cm2. This corresponds to a T score -1.5of an d Z score of -1.1. Mean femoral neck bone mineral density measures 0.820 g/cm2. This corresponds to a T score of -1.5 an d Z score of -1.1. IMPRESSION: Osteopenia lumbar spine. Osteopenia femoral necks. Patient's FRAX calculated 10 year probability for major osteoporotic fracture is 16.2% and osteoporotic hip fracture is 2.5%. Bone mineral density in the lumbar spine decrease -3.0% since 2020. Bone mineral density in the femor al necks unchanged since 2019
== END 2023-01-24 12:51 | disposition home or self-care (01) ==
PROVIDERS: PCP Nurse Practitioner Family; Visit Provider Nurse Practitioner Family
DX: Z13.820 Encounter for screening for osteoporosis (principal); Z78.0 Asymptomatic menopausal state; M85.89 Other specified disorders of bone density and structure, multiple sites
CPT/HCPCS: 77080

== ENCOUNTER 2023-02-25 10:58 | Emergency (ER) | payer MEDICARE, MEDICAID, SELFPAY ==
[2023-02-25 11:01] VITALS: BP 114/67; PULSE 83; RESP 17; TEMP 36.6; O2SAT 96; BMI 34.9
--- NOTE | 2023-02-25 11:25 | XRR_ITS ---
PROCEDURE INFORMATION: Exam: XR Right Ribs with PA Chest Exam date and time: 02/25/2023 11:37 AM Age: 62 years old Clinical indication: Injury or trauma; Fall; Rib area; Blunt trauma (contusions or hematomas); Additional info: Fall, RT sided rib pain after fall last night TECHNIQUE: Imaging protocol: Radiologic exam of the right ribs with PA chest. Views: 3 views COMPARISON: CR XR chest 2V* [id number] 10/19/2020 2:04 PM FINDINGS: Lungs: Unremarkable. No consolidation. Pleural spaces: Unremarkable. No pleural effusion. No pneumothorax. Heart/Mediastinum: Unremarkable. No cardiomegaly. Bones/joints: Unremarkable. XR/XR ribs RT mn 3V w CXR1V [id number] IMPRESSION: No acute findings.
[2023-02-25] MEDS: ketorolac 60 mg/2 mL INJ IM (12:59)
[2023-02-25] MEDS: orphenadrine 30 mg/mL Inj 2 mL 60 MG IM (13:01)
--- NOTE | 2023-02-25 14:39 | W.ED.FALL ---
HPI - Fall General: Chief Complaint: Fall Stated Complaint: fell down and went on right side Time Seen by Provider: 02/25/23 11:25 Source: patient Mode of arrival: ambulatory Limitations: no limitations History of Present Illness: Patient presents emergency department today accompanied by her for evaluation treatment of right rib pain. Patient states that last night she was walking down her steps at her home when she accidentally missed the last step. She states it caused her to fall and she impacted her right ribs on the staircase. Patient has had pain in her right lateral ribs since that time-worsening with deep breathing and certain movement. Review of Systems General: Reports: 10 or more systems reviewed and unremarkable except in HPI and below PFSH ED PFSH: Medical History Acid reflux Asthma Atherosclerotic heart disease of [place] coronary artery with other forms of angina pectoris Chronic cystitis DDD (degenerative disc disease) Diabetes Generalized anxiety disorder Hypertension Lumbar radiculopathy, chronic Major depressive disorder, recurrent severe without psychotic features Follows up with [facility] Medical marijuana use For pain Mixed incontinence Psychiatric care Surgical History H/O section x 3 ----> 1983, 1985, 1986 H/O excision of mass (09/30/21) Subcutaneous mass left upper quadrant of the abdomen H/O neck surgery 06/14/[address] [place] [facility] [place] right wrist surgery S/P appendectomy 2001-performed at time of open hysterectomy S/P bladder repair X 2 01/09/07- Anterior/posterior vaginal repair, transobturator suburethral sling, cystoscopy. Dx: mixed urinary incontinence, cystocele and rectocele. Per[place] Dr Andrews [place] [facility] [place] 07/2013- Bladder repair revised. Performed in [place]. She states that she had pain and the surgeon went in and excised some of the mesh but was unable to get everything out. S/P carpal tunnel release Bilateral-2002 and 2003 performed in [place], [place] S/P cholecystectomy Open procedure performed via right upper quadrant incision in 1987 in [facility] S/P excision of ganglion cyst Left wrist in [place], [place] S/P excision of lipoma S/P hernia repair 10/27/11- Hernia repair Dx: rentral hernia anterior abdominal wall below umbilicus. [place] Dr Macias [place] [facility] [place] Per patient mesh was used and it covers her whole lower abdominal wall. S/P hysterectomy 2001---total abdominal hysterectomy with bilateral [id number] Per[place] Dr Stewart at [facility] for bleeding problems. She states her ovaries and Appendix were removed as well. Patient states she was told that there was no cancer Status post tubal ligation 1986 at time of third Family History Father , 86 Hypertension Stroke Thyroid disease Kidney disease CAD (coronary artery disease) Chronic kidney disease (CKD) Sister Heart disease Her sister of heart disease at the age of 45-some congenital heart disease however she does not remember the name. Brother Kidney disease Diabetes Family/Other Breast cancer maternal aunt, diagnosed at age 62 Mother , AT AGE 84 Cancer PANCREATIC Lung disease Denies family history of Colon cancer Ovarian cancer Clotting disorder Dementia Hyperlipidemia Suicide Anesthesia complication Bleeding disorder Social History Smoking and tobacco status: former smoker Second hand smoke exposure: No Smoking risk assessment/counseling performed?: No Alcohol intake: never Desire information about alcohol rehabilitation?: No Counseling given: No Substance/Drug Use: never Desire information about substance/drug rehabilitation?: No Counseling given: No Adopted: No Caregiver/support person: No Lives independently: Yes Household members: spouse Housing: House Marital status: Number of children: 4 Current occupational status: retired Do you think of yourself as: Straight/Heterosexual Current gender identity: Female Physical Exam Const: COMMON NORMALS: no acute distress, patient oriented x3 and alert HENMT: COMMON NORMALS: normocephalic, atraumatic and hearing grossly normal bilaterally HEAD & SCALP: normocephalic and atraumatic Eye: COMMON NORMALS: Equal, round and reactive pupils present, EOMs intact bilaterally and conjunctivae normal CONJUNCTIVA: Yes conjunctivae normal PUPIL: Yes Equal, round and reactive pupils present Neck/C-Spine: COMMON NORMALS: full ROM and no JVD Lymph: LYMPHATIC: no lymphadenopathy noted Chest: OTHER: Patient is tender along the right lateral ribs-patient is holding her ribs for comfort. Resp: COMMON NORMALS: normal respiratory effort, No retractions and No use of accessory muscles Cardio: COMMON NORMALS: no JVD and regular rate RATE: regular rate Extremity: COMMON NORMALS: normal to inspection and full ROM Neuro: COMMON NORMALS: patient oriented x3 SENSORIUM/ORIENTATION: Yes alert Psych: COMMON NORMALS: mental status grossly normal, Normal thought process present, cooperative and normal affect THOUGHT PROCESS: Normal thought process present Skin: COMMON NORMALS: no rashes or lesions noted and turgor normal GENERAL SKIN EXAM: no rashes or lesions noted and turgor normal Course Vital Signs: Vital signs: Vital Signs Temperature 98 F 02/25/23 11:01 Pulse Rate 83 02/25/23 11:01 Respiratory Rate 17 02/25/23 11:01 Blood Pressure 114/67 02/25/23 11:01 Pulse Oximetry 96 02/25/23 11:01 Oxygen Delivery Me thod Room Air 02/25/23 11:01 MDM - Fall Medical Decision Making X-rays are read negative for signs of acute rib fracture however, we did talk about the pain of rib contusions. Patient was treated with medication here in the emergency department to help with her pain but, was also discharged with medication for pain as well. I encouraged her to follow-up with her primary care doctor next week for recheck as she may need continued pain management or, further evaluation and imaging. We discussed incentive spirometry and patient indicated she had went home already. We discussed doing 2-3 treatments every hour while awake to help keep lungs open. Patient verbalized understanding and agreement to treatment plan. Differential Diagnosis Unlikely syncope, fracture of wrist, compression fracture or concussion without loss of consciousness Lab Data Radiology Impressions Ribs X-Ray 02/25/23 11:25 IMPRESSION: No acute findings. All radiology interpretation(s) finalized by discharge Discharge Plan Discharge Patient Disposition: Home Clinical Impression: Contusion of rib on right side Condition: Stable Prescriptions: New tizanidine 4 mg tablet 4 mg PO TID PRN (Reason: muscle spasticity) Qty: 30 0RF methylprednisolone 4 mg tablets,dose pack See Rx Instructions PO .COMPLEX Qty: 21 0RF Rx Instructions: orally per package directions No Action clobetasol 0.05 % cream 1 applic TOPICAL TID (DME) lancets [FreeStyle Lancets] 28 gauge misc See Rx Instructions .ROUTE .MEDSUPPLY Qty: 25 Rx Instructions: As directed cholecalciferol (vitamin D3) 125 mcg (5,000 unit) capsule 125 mcg PO BID (DME) blood-glucose meter [OneTouch Ultra2 Meter] Kit See Rx Instructions .ROUTE .MEDSUPPLY Qty: 1 0RF Rx Instructions: use daily ezetimibe 10 mg tablet 10 mg PO DAILY Qty: 90 3RF lisinopril 10 mg tablet 10 mg PO DAILY Qty: 90 3RF rosuvastatin 40 mg tablet 40 mg PO DAILY Qty: 30 5RF quetiapine [Seroquel] 25 mg tablet 25 mg PO BID PRN (Reason: severe anxiety/agitation) Qty: 60 3RF Rx Instructions: Take one tablet twice per day as needed for severe anxiety/agitation bupropion HCl [Wellbutrin SR] 200 mg tablet sustained-release 12 hr 200 mg PO QAM Qty: 30 6RF Rx Instructions: Take one tablet every morning lamotrigine [Lamictal] 200 mg tablet 200 mg PO .QHS Qty: 30 6RF Rx Instructions: Take one tablet at bedtime escitalopram oxalate [Lexapro] 20 mg tablet 20 mg PO .morning Qty: 30 6RF Rx Instructions: Take one tablet every morning omeprazole magnesium [Acid Piling Cutter (omeprazole)] 20 mg capsule,delayed release(DR/EC) 20 mg PO QDAY Qty: 30 5RF Farxiga 5 mg tablet 5 mg PO QAM Qty: 30 5RF albuterol sulfate 90 mcg/actuation HFA aerosol inhaler 2 puff INHALATION Q6H PRN (Reason: shortness of breath or wheezing) Qty: 8.5 2RF (DME) OneTouch Ultra Test Strip See Rx Instructions .ROUTE .COMPLEX Qty: 50 0RF Dose Instruction: USE 1 STRIP TO CHECK GLUCOSE ONCE DAILY Rx Instructions: USE 1 STRIP TO CHECK GLUCOSE ONCE DAILY calcium carbonate-vitamin D3 [Os-Itz 500 + D3] 500 mg-15 mcg (600 unit) tablet 1 tab PO .2 time day Qty: 60 2RF ciprofloxacin HCl 500 mg tablet 500 mg PO BID Qty: 60 3RF methenamine hippurate 1 gram tablet 1 g PO BID Qty: 60 12RF Rx Instructions: Take 1000 mg of vitamin C with each dose of methenamine nitroglycerin [Nitrostat] 0.4 mg tablet, sublingual 0.4 mg SUBLINGUAL Q5M PRN (Reason: Chest Pain) Qty: 50 3RF (DME) lancets [OneTouch Delica Plus Lancet] 33 gauge misc See Rx Instructions .Route Qty: 100 5RF Rx Instructions: one daily alendronate [Fosamax] 70 mg tablet 70 mg PO .weekly Qty: 4 5RF Rx Instructions: take on a empty stomach w/full glass of water Discharge Orders: Discharge ED (Routine); Ordered 02/25/23 Ordered By: Mecca Robertson Referrals: Domi Doty FNP [Primary Care Provider] - Discharge Diet: Usual diet Discharge Activity: Increase activity as tolerated Patient Instructions: Rib Contusion (ED) Activity Restrictions/Additional Instructions: X-ray today shows no signs of acute bony fracture however, as we discussed, rib contusions can also be extremely uncomfortable. We have provided you medication to help with pain but you can still use application of heat or ice to the ribs to help with your discomfort. As you indicated you have an incentive spirometer at home we do recommend doing 2 or 3 treatments hourly to help your underlying lung tissue remain expanded to prevent developing pneumonia. I also recommend a follow-up appoint with your primary care next week for recheck should you need an extension on any medications or, there be concerns for developing pneumonia or, should you require further imaging at that time. Coding Level of Care Code ED Metal Slitter for Tara Jacques
== END 2023-02-25 13:20 | disposition home or self-care (01) ==
PROVIDERS: Emergency Provider Physician Assistant; PCP Nurse Practitioner Family
DX: S20.211A Contusion of right front wall of thorax, initial encounter (principal); Z87.891 Personal history of nicotine dependence; I25.10 Atherosclerotic heart disease of native coronary artery without angina pectoris; E11.9 Type 2 diabetes mellitus without complications; I10 Essential (primary) hypertension; W10.8XXA Fall (on) (from) other stairs and steps, initial encounter
CPT/HCPCS: 71101; 96372; 99284; J1885; J2360

== ENCOUNTER 2023-03-13 15:31 | Outpatient (CLI) | payer MEDICARE, MEDICAID, SELFPAY ==
--- NOTE | 2023-03-13 16:00 | CT_ITS ---
WS: [id number] CT chest wo con 13225 HISTORY: R07.81 - Pleurodynia TECHNIQUE: Axial imaging performed through the thorax. Coronal and sagittal reformats are submitted. All CT scans at [facility] use at least one of these dose optimization techniques: automated exposure control; mA and/or kV adjustment per patient size (includes targeted exams where dose is mat ched to clinical indication); or iterative reconstruction. CONTRAST: None DLP: 614.62 mGy.cm COMPARISON: None available. Lungs and central airway: Lungs are well aerated. There are few areas of minimal interstitial thicken ing in the anterior RIGHT upper lobe. Probably areas of very slight atelectasis. Could be related to the recent trauma. There is no associated pneumothorax. Pleura: Normal. No pleural effusion. Heart and pericardium: Normal size heart with no pericardial effusion. Mediastinum and naya: No mediastinum or hilar adenopathy. Vessels: Normal size aortic and pulmonary artery. No coronary artery calcifications. Chest wall and lower neck: 11 mm RIGHT thyroid nodule with a few central calcifications. This was amy cribed and evaluated on a prior ultrasound from 12/26/2022. Upper abdomen: Small hiatal hernia. Prior cholecystectomy. Liver appears enlarged but is incompletely included on this examination. No adrenal mass. Osseous structures: Bridging osteophytes in the midthoracic spine. Small concave defect along the sup erior endplate of T12. Nondisplaced anterolateral RIGHT seventh rib fracture. IMPRESSION: 1. No pneumothorax or pulmonary contusion. 2. Nondisplaced RIGHT anterior lateral seventh rib fracture. 3. Very minimal amount of atelectasis in the RIGHT upper lobe. May be related to the rib fracture wit h decreased inspiration due to pain.
== END 2023-03-13 15:32 | disposition home or self-care (01) ==
LOC: RAD 15:32
PROVIDERS: PCP Nurse Practitioner Family; Visit Provider Nurse Practitioner Family
DX: R07.81 Pleurodynia (principal); S22.31XA Fracture of one rib, right side, initial encounter for closed fracture; X58.XXXA Exposure to other specified factors, initial encounter
CPT/HCPCS: 71250

== ENCOUNTER → 2023-06-06 14:29 | Outpatient (BNVA) | payer MEDICARE, MEDICAID, SELFPAY ==
[2023-05-31 13:40] VITALS: BP 102/64; BMI 36.3
== END ==
PROVIDERS: PCP Nurse Practitioner Family; Visit Provider Nurse Practitioner Family
DX: N30.20 Other chronic cystitis without hematuria (principal); E04.1 Nontoxic single thyroid nodule
CPT/HCPCS: 80053; 81000; 84443; 85025

== ENCOUNTER → 2023-06-27 12:41 | Outpatient (BNVA) | payer MEDICARE, MEDICAID, SELFPAY ==
[2023-05-31 13:40] VITALS: BP 102/64; BMI 36.3
== END ==
PROVIDERS: PCP Nurse Practitioner Family; Visit Provider Nurse Practitioner Family
DX: L57.8 Other skin changes due to chronic exposure to nonionizing radiation (principal); D22.61 Melanocytic nevi of right upper limb, including shoulder; L82.1 Other seborrheic keratosis; D48.5 Neoplasm of uncertain behavior of skin; L72.0 Epidermal cyst
CPT/HCPCS: 11102; 99213

== ENCOUNTER → 2023-07-20 07:51 | Outpatient (BNVA) | payer MEDICARE, MEDICAID, SELFPAY ==
[2023-05-31 13:40] VITALS: BP 102/64; BMI 36.3
== END ==
PROVIDERS: PCP Nurse Practitioner Family; Referring Provider Nurse Practitioner Family; Visit Provider Otolaryngology
DX: E04.2 Nontoxic multinodular goiter (principal); J34.89 Other specified disorders of nose and nasal sinuses; J34.2 Deviated nasal septum; R51.9 Headache, unspecified; G89.29 Other chronic pain; G47.33 Obstructive sleep apnea (adult) (pediatric)
CPT/HCPCS: 99204; 99205

== ENCOUNTER → 2023-07-27 09:17 | Outpatient (BNVA) | payer MEDICARE, MEDICAID, SELFPAY ==
[2023-05-31 13:40] VITALS: BP 102/64; BMI 36.3
== END ==
PROVIDERS: PCP Nurse Practitioner Family; Visit Provider Podiatrist Foot & Ankle Surgery
DX: L85.1 Acquired keratosis [keratoderma] palmaris et plantaris (principal); M20.42 Other hammer toe(s) (acquired), left foot; M77.42 Metatarsalgia, left foot
CPT/HCPCS: 99213

== ENCOUNTER 2023-08-01 08:40 | Outpatient (CLI) | payer MEDICARE, MEDICAID, SELFPAY ==
[2023-05-31 13:40] VITALS: BP 102/64; BMI 36.3
--- NOTE | 2023-08-01 09:00 | CT_ITS ---
WS: [id number] CT SINUSES TECHNIQUE: Noncontrast CT of the paranasal sinuses with coronal and sagittal reformatted images. CLINICAL INFORMATION: sinuses COMPARISON: None. DLP: 335.[address] scans at [facility] use at least one of these dose optimization techniques: automated e xposure control; mA and/or kV adjustment per patient size (includes targeted exams where dose is matc hed to clinical indication); or iterative reconstruction. FINDINGS: Mild S-shaped nasal septal deviation more prominent LEFT to RIGHT measuring 3 mm. Mastoid air cells a re well aerated. Paranasal sinuses are well aerated. Mild mucosal thickening in the ethmoid air cells and sphenoid sinuses. Normal posterior nasopharynx and parapharyngeal fat. Mild narrowing of the ost iomeatal units bilaterally. Mild mucosal thickening along the sphenoid sinus ostia.Normal pterygoid p lates. IMPRESSION: 1. Mild S-shaped nasal septal deviation more prominent LEFT to RIGHT measuring 3 mm 2. Paranasal sinuses are well aerated. Mild mucosal thickening in the ethmoid air cells. 3. Mild narrowing of the ostiomeatal units bilaterally. 4. Mastoid air cells are well aerated.
== END 2023-08-01 08:41 | disposition home or self-care (01) ==
LOC: RAD 08:40
PROVIDERS: PCP Nurse Practitioner Family; Visit Provider Otolaryngology
DX: J34.89 Other specified disorders of nose and nasal sinuses (principal); J34.2 Deviated nasal septum; R51.9 Headache, unspecified; G89.29 Other chronic pain
CPT/HCPCS: 70486

== ENCOUNTER → 2023-08-08 11:45 | Outpatient (BNVA) | payer MEDICARE, MEDICAID, SELFPAY ==
[2023-05-31 13:40] VITALS: BP 102/64; BMI 36.3
== END ==
PROVIDERS: PCP Nurse Practitioner Family; Visit Provider Internal Medicine Cardiovascular Disease
DX: I49.3 Ventricular premature depolarization (principal); E78.2 Mixed hyperlipidemia; I10 Essential (primary) hypertension; I25.118 Atherosclerotic heart disease of native coronary artery with other forms of angina pectoris; F33.2 Major depressive disorder, recurrent severe without psychotic features; F41.1 Generalized anxiety disorder; E11.65 Type 2 diabetes mellitus with hyperglycemia; Z87.891 Personal history of nicotine dependence; R00.0 Tachycardia, unspecified
CPT/HCPCS: 93270; 99213

== ENCOUNTER → 2023-08-09 15:42 | Outpatient (BNVA) | payer MEDICARE, MEDICAID, SELFPAY ==
[2023-05-31 13:40] VITALS: BP 102/64; BMI 36.3
== END ==
PROVIDERS: PCP Nurse Practitioner Family; Visit Provider Otolaryngology
DX: J34.2 Deviated nasal septum (principal); J34.89 Other specified disorders of nose and nasal sinuses; G47.33 Obstructive sleep apnea (adult) (pediatric)
CPT/HCPCS: 99213

== ENCOUNTER → 2023-10-01 13:58 | Outpatient (BNVA) | payer MEDICARE, MEDICAID, SELFPAY ==
[2023-05-31 13:40] VITALS: BP 102/64; BMI 36.3
== END ==
PROVIDERS: PCP Nurse Practitioner Family; Visit Provider Registered Nurse Neonatal Intensive Care
DX: J02.9 Acute pharyngitis, unspecified (principal)
CPT/HCPCS: 87071; 87880

== ENCOUNTER 2023-11-06 09:32 | Outpatient (CLI) | payer MEDICARE, MEDICAID, SELFPAY ==
[2023-05-31 13:40] VITALS: BP 102/64; BMI 36.3
[2023-11-06 11:27] LABS: Estmated Average Glucose 123; Hemoglobin A1C 5.9 % (4.0-6.0)
== END 2023-11-06 09:33 | disposition home or self-care (01) ==
LOC: LAB 09:33
PROVIDERS: PCP Nurse Practitioner Family; Visit Provider Nurse Practitioner Family
DX: E11.65 Type 2 diabetes mellitus with hyperglycemia (principal)
CPT/HCPCS: 36415; 83036

== ENCOUNTER 2023-11-16 16:02 | Inpatient (IN) | payer MEDICARE, MEDICAID, SELFPAY ==
[2023-05-31 13:40] VITALS: BP 102/64; BMI 36.3
[2023-11-16] VITALS (10 sets, daily range): BP systolic 77–162; BP diastolic 41–124; PULSE 74–85; RESP 16–20; TEMP 36.8; O2SAT 90–97; BMI 39.6
--- NOTE | 2023-11-16 16:46 | W.ED.ABDPA2 ---
Documented by User: Babar Marcos DO 11/17/23 06:07 HPI - Abdominal Pain General: Chief Complaint: Abdominal Pain Stated Complaint: abd pain sent from [facility]ber [facility] Time Seen by Provider: 11/16/23 16:42 Source: patient Mode of arrival: ambulatory History of Present Illness: 63-year-old female presents emergency room complaining of abdominal pain has been going on for last 5 days she localizes the suprapubic at the midline. She denies any dysuria urgency or frequency pain is very intense she has had some worsening of the pain in her abdomen when she urinates but no real dysuria. She has not had any hematuria no history of any nephrolithiasis in the past she has previously had cholecystectomy appendectomy and hysterectomy. MD elicited complaint: abdominal pain Associated Symptoms: Denies anorexia, belching, bloating, change in bowel habits, change in stool character, chills, coffee ground emesis, constipation, GI cramping, diarrhea, dyspepsia, dysuria, excessive flatus, fever(s), heartburn, hematochezia, hematuria, hematemesis, fecal incontinence, loose stools, melena, nausea, poor appetite, syncope and vomiting Review of Systems Const: Denies: fever(s) or chills Card: Denies: chest pain or syncope Resp: Denies: dyspnea GI: Denies: abdominal pain, nausea, vomiting, hematemesis, coffee ground emesis, heartburn, diarrhea, constipation, bloating, GI cramping, belching, excessive flatus, fecal incontinence, change in bowel habits, change in stool character, hematochezia or melena : Denies: dysuria, urinary frequency, urinary urgency or hematuria Musc: Denies: neck pain or back pain Skin/Breast: Denies: rash PFSH ED PFSH: Medical History Psychiatric care Lumbar radiculopathy, chronic 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 Performed by Dr Macias at [facility] in [place], [place]. Per patient mesh was used and it covers her whole lower abdominal wall. S/P bladder repair X 2 01/09/07- Anterior/posterior vaginal repair, transobturator suburethral sling, cystoscopy. Dx: mixed urinary incontinence, cystocele and rectocele. Performed by Dr Andrews at [facility] in [place], [place] 07/2013- Bladder repair revised. Performed in [place]. She states that she had pain and the surgeon went in and excised some of the mesh but was unable to get everything out. H/O neck surgery 06/14/[address] Dillon at [facility] S/P cholecystectomy Open procedure performed via right upper quadrant incision in 1987 in [facility] S/P hysterectomy 2001---total abdominal hysterectomy with bilateral [id number]- Performed by Dr Stewart at [facility] for bleeding problems. She states her ovaries and Appendix were removed as well. Patient states she was told that there was no cancer H/O section x 3 ----> 1983, 1985, 1986 S/P appendectomy 2001-performed at time of open hysterectomy S/P excision of ganglion cyst Left wrist in [place], [place] S/P carpal tunnel release Bilateral-2002 and 2003 performed in [place], [place] Family History Father , 86 Hypertension Stroke Thyroid disease Kidney disease CAD (coronary artery disease) Chronic kidney disease (CKD) Sister Heart disease Her sister of heart disease at the age of 45-some congenital heart disease however she does not remember the name. Brother Kidney disease Diabetes Family/Other Breast cancer maternal aunt, diagnosed at age 62 Mother , AT AGE 84 Cancer PANCREATIC Lung disease Denies family history of Colon cancer Ovarian cancer Clotting disorder Dementia Hyperlipidemia Suicide Anesthesia complication Bleeding disorder Social History Smoking and tobacco/nicotine status: former use of tobacco/nicotine Second hand smoke exposure: No Alcohol intake: never Substance/Drug Use: never Adopted: No Caregiver/support person: No Lives independently: Yes Household members: spouse Housing: House Marital status: Number of children: 4 Current occupational status: retired Do you think of yourself as: Straight/Heterosexual Current gender identity: Female Physical Exam Const: GENERAL APPEARANCE: cooperative and comfortable ORIENTATION/CONSCIOUSNESS: Yes awake, Yes oriented to person, Yes oriented to place and Yes oriented to time HENMT: COMMON NORMALS: normocephalic, atraumatic and hearing grossly normal bilaterally HEAD & SCALP: normocephalic and atraumatic Resp: COMMON NORMALS: normal respiratory effort, No retractions, No use of accessory muscles and clear to auscultation bilaterally AUSCULTATION: clear to auscultation bilaterally Cardio: COMMON NORMALS: regular rate, regular rhythm and No murmurs present (Cardio) RATE: regular rate RHYTHM: regular rhythm GI: COMMON NORMALS: No hepatosplenomegaly present AUSCULTATION: Yes normoactive bowel sounds PALPATION: Yes Tenderness to palpation present (GI) (Moderate suprapubic tenderness radiating into the left lower quadrant), No Guarding due to palpation present (GI) and Yes No hepatosplenomegaly present Extremity: COMMON NORMALS: normal to inspection, capillary refill normal, no clubbing, cyanosis or edema, no calf tenderness and no pedal edema Neuro: SENSORIUM/ORIENTATION: Yes oriented to person, Yes oriented to place and Yes oriented to time Skin: COMMON NORMALS: no rashes or lesions noted GENERAL SKIN EXAM: no rashes or lesions noted Course Vital Signs: Vital signs: Vital Signs Temperature 98.3 F 11/17/23 04:00 Pulse Rate 72 11/17/23 04:45 Respiratory Rate 17 11/17/23 04:45 Blood Pressure 100/63 11/17/23 04:00 Pulse Oximetry 97 11/17/23 04:45 Oxygen Delivery Me thod Room Air 11/17/23 04:45 MDM - Abdominal Pain Medical Decision Making CT read pending. Care signed out to Dr. Luis at change of shift. See final notes for diagnosis and disposition. Care transferred over to myself at shift change, lab work revealed a white count of 15,000, otherwise unremarkable, CT scan of the abdomen pelvis with contrast revealed a probable diverticulitis with diverticular abscess right next to the bladder. Dr. Durham was consulted for this he says his more than likely not a surgical case we can treated with antibiotics and he will follow along. Dr. Garcia was consulted who agreed to admit the patient to [facility]. Lab Data 11/17/23 04:17 11/17/23 04:17 Labs/Radiology: Radiology Impressions Abdomen/Pelvis CT 11/16/23 19:38 IMPRESSION: 1. Thick-walled peripherally enhancing fluid and gas collection in the deep pelvis intimately associated with distal sigmoid colon, vaginal cuff, and urinary bladder. Findings are most consistent with diverticulitis and diverticular abscess. No sign of fistula to the bladder. Fistula to the vaginal cuff is not excluded. 2. Secondary cystitis. No gas in the bladder lumen. 3. Hepatosplenomegaly. 4. Incidental findings above. Laboratory Results WBC 15.04 10^3/uL (3.29-11.43) H 11/16/23 16:45 RBC 4.86 10^6/uL (3.85-5.65) 11/16/23 16:45 Hgb 13.60 g/dL (11.27-16.99) 11/16/23 16:45 Hct 42.3 % (36-47) 11/16/23 16:45 MCV 87.0 fl (85-98) 11/16/23 16:45 MCH 28.0 pg (27-33) 11/16/23 16:45 MCHC 32.2 g/dL (30-55) 11/16/23 16:45 RDW 13.4 % (12.1-15.1) 11/16/23 16:45 Plt Count 316 10^3/cmm (157-399) 11/16/23 16:45 MPV 10.4 fL (7.4-10.4) 11/16/23 16:45 Neut % (Auto) 73.8 % 11/16/23 16:45 Lymph % (Auto) 18.0 % 11/16/23 16:45 [place] % (Auto) 6.8 % 11/16/23 16:45 Eos % (Auto) 0.7 % 11/16/23 16:45 Baso % (Auto) 0.4 % 11/16/23 16:45 Neut # (Auto) 11.11 10^3/uL (1.8-7.7) H 11/16/23 16:45 Lymph # (Auto) 2.7 10^3/uL (0.8-4.8) 11/16/23 16:45 [place] # (Auto) 1.0 10^3/uL (0.2-0.9) H 11/16/23 16:45 Eos # (Auto) 0.1 10^3/uL (0.0-0.8) 11/16/23 16:45 Baso # (Auto) 0.1 10^3/uL (0.0-0.1) 11/16/23 16:45 Nucleated RBC % (auto) 0 % 11/16/23 16:45 Nucleated RBCs # 0.0 /100WBC 11/16/23 16:45 Sodium 136 mmol/L (136-145) 11/16/23 16:45 Potassium 4.0 mmol/L (3.5-5.1) 11/16/23 16:45 Chloride 97 mmol/L (98-107) L 11/16/23 16:45 Carbon Dioxide 25 mmol/L (22-29) 11/16/23 16:45 Anion Gap 18.0 (5-19) 11/16/23 16:45 BUN 13 mg/dL (8-23) 11/16/23 16:45 Creatinine 0.6 mg/dL (0.5-0.9) 11/16/23 16:45 GFR Calculation 101.6 mL/min (90-130) 11/16/23 16:45 Glucose 118 mg/dL (65-115) H 11/16/23 16:45 Calculated Osmolality 283 mOsm/kg (285-295) L 11/16/23 16:45 Lactic Acid 0.9 mmol/L (0.5-2.2) 11/16/23 18:20 Calcium 9.1 mg/dL (8.5-10.5) 11/16/23 16:45 Total Bilirubin 0.5 mg/dL (0.15-1.2) 11/16/23 16:45 AST 12 U/L (0-32) 11/16/23 16:45 ALT 18 U/L (0-33) 11/16/23 16:45 Alkaline Phosphatase 117 U/L (35-105) H 11/16/23 16:45 Total Protein 8.5 g/dL (6.6-8.7) 11/16/23 16:45 Albumin 4.3 g/dL (3.5-5.2) 11/16/23 16:45 Globulin 4.2 g/dL (1.3-4.6) 11/16/23 16:45 Urine Color Yellow (Yellow) 11/16/23 19:24 Urine Appearance Clear (CLEAR) 11/16/23 19:24 Urine pH 5 (5-7) 11/16/23 19:24 Ur Specific [place] 1.015 (1.005-1.030) 11/16/23 19:24 Urine Protein Neg (Negative) 11/16/23 19:24 Urine Glucose (UA) 2+ (Normal) H 11/16/23 19:24 Urine Ketones 1+ (Negative) H 11/16/23 19:24 Urine Blood Neg (Negative) 11/16/23 19:24 Urine Nitrate Negative (Negative) 11/16/23 19:24 Urine Bilirubin Neg (Negative) 11/16/23 19:24 Urine Urobilinogen Norm mg/dL (Negative) 11/16/23 19:24 Ur Leukocyte Esterase Trace (Negative) H 11/16/23 19:24 Urine RBC None /hpf (0-2) 11/16/23 19:24 Urine WBC 5-10 /hpf (0-5) H 11/16/23 19:24 Ur Squamous Epith Cells 0-4 /hpf (0-5) H 11/16/23 19:24 Amorphous Sediment Not Reportable 11/16/23 19:24 Urine Bacteria Trace /hpf (NONE) 11/16/23 19:24 Urine Mucus 1+ /hpf 11/16/23 19:24 Discharge Plan Discharge Patient Disposition: Admitted As Inpatient Admit Provider: Isabella Garcia Clinical Impression: Diverticulitis, Colonic diverticular abscess Condition: Stable Coding Level of Care Code ED Database Consultant for Chg Fwd Documented by User: Robert Luis DO 11/16/23 21:23 HPI - Abdominal Pain General: Chief Complaint: Abdominal Pain Stated Complaint: abd pain sent from [facility] Time Seen by Provider: 11/16/23 16:42 [facility] ED PFSH: Medical History Psychiatric care Lumbar radiculopathy, chronic 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 Performed by Dr Macias at [facility] in [place], [place]. Per patient mesh was used and it covers her whole lower abdominal wall. S/P bladder repair X 2 01/09/07- Anterior/posterior vaginal repair, transobturator suburethral sling, cystoscopy. Dx: mixed urinary incontinence, cystocele and rectocele. Performed by Dr Andrews at [facility] in [place], [place] 07/2013- Bladder repair revised. Performed in [place]. She states that she had pain and the surgeon went in and excised some of the mesh but was unable to get everything out. H/O neck surgery 06/14/[address] Dillon at [facility] S/P cholecystectomy Open procedure performed via right upper quadrant incision in 1987 in [facility] S/P hysterectomy 2001---total abdominal hysterectomy with bilateral [id number]- Performed by Dr Stewart at [facility] for bleeding problems. She states her ovaries and Appendix were removed as well. Patient states she was told that there was no cancer H/O section x 3 ----> 1983, 1985, 1986 S/P appendectomy 2001-performed at time of open hysterectomy S/P excision of ganglion cyst Left wrist in [place], [place] S/P carpal tunnel release Bilateral-2002 and 2003 performed in [place], [place] Family History Father , 86 Hypertension Stroke Thyroid disease Kidney disease CAD (coronary artery disease) Chronic kidney disease (CKD) Sister Heart disease Her sister of heart disease at the age of 45-some congenital heart disease however she does not remember the name. Brother Kidney disease Diabetes Family/Other Breast cancer maternal aunt, diagnosed at age 62 Mother , AT AGE 84 Cancer PANCREATIC Lung disease Denies family history of Colon cancer Ovarian cancer Clotting disorder Dementia Hyperlipidemia Suicide Anesthesia complication Bleeding disorder Social History Smoking and tobacco/nicotine status: former use of tobacco/nicotine Second hand smoke exposure: No Alcohol intake: never Substance/Drug Use: never Adopted: No Caregiver/support person: No Lives independently: Yes Household members: spouse Housing: House Marital status: Number of children: 4 Current occupational status: retired Do you think of yourself as: Straight/Heterosexual Current gender identity: Female Course Vital Signs: Vital signs: Vital Signs Temperature 98.3 F 11/17/23 04:00 Pulse Rate 72 11/17/23 04:45 Respiratory Rate 17 11/17/23 04:45 Blood Pressure 100/63 11/17/23 04:00 Pulse Oximetry 97 11/17/23 04:45 Oxygen Delivery Me thod Room Air 11/17/23 04:45 MDM - Abdominal Pain Medical Decision Making Care transferred over to myself at shift change, lab work revealed a white count of 15,000, otherwise unremarkable, CT scan of the abdomen pelvis with contrast revealed a probable diverticulitis with diverticular abscess right next to the bladder. Dr. Durham was consulted for this he says his more than likely not a surgical case we can treated with antibiotics and he will follow along. Dr. Garcia was consulted who agreed to admit the patient to [facility]. Lab Data 11/17/23 04:17 11/17/23 04:17 Labs/Radiology: Radiology Impressions Abdomen/Pelvis CT 11/16/23 19:38 IMPRESSION: 1. Thick-walled peripherally enhancing fluid and gas collection in the deep pelvis intimately associated with distal sigmoid colon, vaginal cuff, and urinary bladder. Findings are most consistent with diverticulitis and diverticular abscess. No sign of fistula to the bladder. Fistula to the vaginal cuff is not excluded. 2. Secondary cystitis. No gas in the bladder lumen. 3. Hepatosplenomegaly. 4. Incidental findings above. Laboratory Results WBC 15.04 10^3/uL (3.29-11.43) H 11/16/23 16:45 RBC 4.86 10^6/uL (3.85-5.65) 11/16/23 16:45 Hgb 13.60 g/dL (11.27-16.99) 11/16/23 16:45 Hct 42.3 % (36-47) 11/16/23 16:45 MCV 87.0 fl (85-98) 11/16/23 16:45 MCH 28.0 pg (27-33) 11/16/23 16:45 MCHC 32.2 g/dL (30-55) 11/16/23 16:45 RDW 13.4 % (12.1-15.1) 11/16/23 16:45 Plt Count 316 10^3/cmm (157-399) 11/16/23 16:45 MPV 10.4 fL (7.4-10.4) 11/16/23 16:45 Neut % (Auto) 73.8 % 11/16/23 16:45 Lymph % (Auto) 18.0 % 11/16/23 16:45 [place] % (Auto) 6.8 % 11/16/23 16:45 Eos % (Auto) 0.7 % 11/16/23 16:45 Baso % (Auto) 0.4 % 11/16/23 16:45 Neut # (Auto) 11.11 10^3/uL (1.8-7.7) H 11/16/23 16:45 Lymph # (Auto) 2.7 10^3/uL (0.8-4.8) 11/16/23 16:45 [place] # (Auto) 1.0 10^3/uL (0.2-0.9) H 11/16/23 16:45 Eos # (Auto) 0.1 10^3/uL (0.0-0.8) 11/16/23 16:45 Baso # (Auto) 0.1 10^3/uL (0.0-0.1) 11/16/23 16:45 Nucleated RBC % (auto) 0 % 11/16/23 16:45 Nucleated RBCs # 0.0 /100WBC 11/16/23 16:45 Sodium 136 mmol/L (136-145) 11/16/23 16:45 Potassium 4.0 mmol/L (3.5-5.1) 11/16/23 16:45 Chloride 97 mmol/L (98-107) L 11/16/23 16:45 Carbon Dioxide 25 mmol/L (22-29) 11/16/23 16:45 Anion Gap 18.0 (5-19) 11/16/23 16:45 BUN 13 mg/dL (8-23) 11/16/23 16:45 Creatinine 0.6 mg/dL (0.5-0.9) 11/16/23 16:45 GFR Calculation 101.6 mL/min (90-130) 11/16/23 16:45 Glucose 118 mg/dL (65-115) H 11/16/23 16:45 Calculated Osmolality 283 mOsm/kg (285-295) L 11/16/23 16:45 Lactic Acid 0.9 mmol/L (0.5-2.2) 11/16/23 18:20 Calcium 9.1 mg/dL (8.5-10.5) 11/16/23 16:45 Total Bilirubin 0.5 mg/dL (0.15-1.2) 11/16/23 16:45 AST 12 U/L (0-32) 11/16/23 16:45 ALT 18 U/L (0-33) 11/16/23 16:45 Alkaline Phosphatase 117 U/L (35-105) H 11/16/23 16:45 Total Protein 8.5 g/dL (6.6-8.7) 11/16/23 16:45 Albumin 4.3 g/dL (3.5-5.2) 11/16/23 16:45 Globulin 4.2 g/dL (1.3-4.6) 11/16/23 16:45 Urine Color Yellow (Yellow) 11/16/23 19:24 Urine Appearance Clear (CLEAR) 11/16/23 19:24 Urine pH 5 (5-7) 11/16/23 19:24 Ur Specific [place] 1.015 (1.005-1.030) 11/16/23 19:24 Urine Protein Neg (Negative) 11/16/23 19:24 Urine Glucose (UA) 2+ (Normal) H 11/16/23 19:24 Urine Ketones 1+ (Negative) H 11/16/23 19:24 Urine Blood Neg (Negative) 11/16/23 19:24 Urine Nitrate Negative (Negative) 11/16/23 19:24 Urine Bilirubin Neg (Negative) 11/16/23 19:24 Urine Urobilinogen Norm mg/dL (Negative) 11/16/23 19:24 Ur Leukocyte Esterase Trace (Negative) H 11/16/23 19:24 Urine RBC None /hpf (0-2) 11/16/23 19:24 Urine WBC 5-10 /hpf (0-5) H 11/16/23 19:24 Ur Squamous Epith Cells 0-4 /hpf (0-5) H 11/16/23 19:24 Amorphous Sediment Not Reportable 11/16/23 19:24 Urine Bacteria Trace /hpf (NONE) 11/16/23 19:24 Urine Mucus 1+ /hpf 11/16/23 19:24 All radiology interpretation(s) finalized by discharge Discharge Plan Discharge Patient Disposition: Admitted As Inpatient Admit Provider: Isabella Garcia Clinical Impression: Diverticulitis, Colonic diverticular abscess Condition: Stable Coding Level of Care Code ED Database Consultant for Tara Jacques
--- NOTE | 2023-11-16 16:52 | CTR_ITS ---
PROCEDURE INFORMATION: Exam: CT Abdomen And Pelvis Without Contrast Exam date and time: 11/16/2023 6:02 PM Age: 63 years old Clinical indication: Abdominal pain; Localized; Prior surgery; Surgery date: 6+ months; Surgery type: Hyst, csections, gb, lower hernia repair, bladder sling x2; Additional info: Flank pain TECHNIQUE: Imaging protocol: Computed tomography of the abdomen and pelvis without contrast. Radiation optimization: All CT scans at this facility use at least one of these dose optimization techniques: automated exposure control; mA and/or kV adjustment per patient size (includes targeted exams where dose is matched to clinical indication); or iterative reconstruction. COMPARISON: No relevant prior studies available. RADIATION DOSE METRICS: Total DLP (mGy-cm): 1001.19 FINDINGS: Diaphragm: Small hiatus hernia. Liver: The liver is enlarged measuring 22 cm in craniocaudal dimension. There is a 6 mm hypodense lesion in the right lobe of the liver towards the dome, too small to characterize. Gallbladder and bile ducts: Cholecystectomy. Pancreas: The pancreas is normal in appearance. No evidence of pancreatic ductal dilatation. Spleen: Mild splenomegaly. The spleen measures 14 cm. Adrenal glands: The adrenal glands are normal in appearance. Kidneys and ureters: The kidneys are normal in appearance. No evidence of hydronephrosis or hydroureter. No nephroureteral calculi are identified. Stomach and bowel: The small bowel loops are not thickened and are not dilated. There is colonic diverticulosis but no evidence of diverticulitis at this time. Appendix: Appendectomy. Intraperitoneal space: Unremarkable. No free air. No significant fluid collection. Vasculature: The abdominal aorta is unremarkable. Lymph nodes: Unremarkable. No enlarged lymph nodes. Urinary bladder: Unremarkable as visualized. Reproductive: There appears to be an inflammatory mass posterior to the urinary bladder and anterior to the sigmoid colon. By history the patient has had a hysterectomy. There are multiple small gas bubbles within the inflammatory mass. This area of inflammation measures about 5 x 6.5 x 7.2 cm. Diagnostic considerations include but are not limited to chronic phlegmonous colovesicular fistula and chronic, contained diverticular phlegmon/abscess, or partially necrotic tumor. Repeat CT pelvis with oral versus rectal contrast and IV contrast is recommended. Bones/joints: Chronic degenerative facet arthropathy in the lower lumbar spine. No acute osseous lesions are identified. Soft tissues: Small fat containing periumbilical hernia. Previous ventral hernia surgery with suspected small hernia recurrence. Previous pelvic floor surgery. CT/CT kidney stone [id number] IMPRESSION: 1. There is an inflammatory mass posterior to the urinary bladder and anterior to the sigmoid colon. By history the patient has had a hysterectomy. There are multiple small gas bubbles within the inflammatory mass. This area of inflammation measures about 5 x 6.5 x 7.2 cm. Diagnostic considerations include but are not limited to chronic phlegmonous colovesicular fistula and chronic, contained diverticular phlegmon/abscess, or partially necrotic tumor. Repeat CT pelvis with oral versus rectal contrast and IV contrast is recommended. Comparison exams were not available at the time of the dictation. 2. Hepatosplenomegaly 3. Small recurrent fat containing ventral hernia 4. Diverticulosis but no CT evidence of acute/active diverticulitis
[2023-11-16 16:55] LABS: Basophils # 0.1 10^3/uL (0.0-0.1); Basophils % 0.4 %; Eosinophils # 0.1 10^3/uL (0.0-0.8); Eosinophils % 0.7 %; Hematocrit 42.3 % (36-47); Lymphocytes # 2.7 10^3/uL (0.8-4.8); Mean Corpuscular HGB Conc 32.2 g/dL (30-55); Mean Platelet Volume 10.4 fL (7.4-10.4); Monocytes % 6.8 %; Neutrophils # 11.11 10^3/uL (1.8-7.7); Neutrophils % 73.8 %; Nucleated Red Blood Cells % 0 %; Platelet Count 316 10^3/cmm (157-399); Red Blood Count 4.86 10^6/uL (3.85-5.65); Red Cell Distribution Width 13.4 % (12.1-15.1); White Blood Count 15.04 10^3/uL (3.29-11.43)
[2023-11-16] MEDS: sodium chloride 0.9% 1,000 ML 999 ML IV ×2 (16:56→19:58)
[2023-11-16] MEDS: morphine 4 mg/mL SDV 1 mL IVP ×2 (16:58→19:58)
[2023-11-16] MEDS: ondansetron 2 mg/ML SDV 2 mL 4 MG IVP ×2 (16:59→20:27)
[2023-11-16 17:13] LABS: Alanine Aminotransferase 18 U/L (0-33); Albumin Level 4.3 g/dL (3.5-5.2); Alkaline Phosphatase 117 U/L (35-105); Aspartate Amino Transferase 12 U/L (0-32); Blood Urea Nitrogen 13 mg/dL (8-23); Calcium 9.1 mg/dL (8.5-10.5); Carbon Dioxide 25 mmol/L (22-29); Chloride 97 mmol/L (98-107); Creatinine Clr Calc Pharmacy 103.8052; Globulin 4.2 g/dL (1.3-4.6); Glomerular Filtration Rate 101.6 mL/min (90-130); Glucose 118 mg/dL (65-115); Osmolality Calculated 283 mOsm/kg (285-295); Sodium 136 mmol/L (136-145); Total Bilirubin 0.5 mg/dL (0.15-1.2); Total Protein 8.5 g/dL (6.6-8.7)
[2023-11-16 18:59] LABS: Lactic Sepsis W/Reflex 0.9 mmol/L (0.5-2.2)
--- NOTE | 2023-11-16 19:38 | CTR_ITS ---
PROCEDURE INFORMATION: Exam: CT Abdomen And Pelvis With Contrast Exam date and time: 11/16/2023 8:04 PM Age: 63 years old Clinical indication: Abdominal pain; Localized; Lower; Additional info: Pelvic pain, abnormal nonconct near bladder TECHNIQUE: Imaging protocol: Computed tomography of the abdomen and pelvis with contrast. Radiation optimization: All CT scans at this facility use at least one of these dose optimization techniques: automated exposure control; mA and/or kV adjustment per patient size (includes targeted exams where dose is matched to clinical indication); or iterative reconstruction. Contrast material: OMNI 350; Contrast volume: 100 ml; Contrast route: INTRAVENOUS (IV); COMPARISON: CT kidney stone [id number] 11/16/2023 6:02 PM RADIATION DOSE METRICS: Total DLP (mGy-cm): 981 FINDINGS: Lungs: Lung bases are clear. Liver: The liver is mildly enlarged. There is no focal liver abnormality. Gallbladder and bile ducts: The gallbladder is absent. There is moderate dilation of the common bile duct and central intrahepatic ducts. Pancreas: The pancreas is unremarkable. Spleen: The spleen is moderately enlarged. Adrenal glands: The adrenal glands are unremarkable. Kidneys and ureters: The kidneys are unremarkable. No hydronephrosis or stones. No ureteral dilation. Stomach and bowel: The stomach is nondistended, limiting assessment of wall thickness. There is a non-inflamed diverticulum in the proximal duodenum. The small bowel is nondilated. There is moderate diverticulosis of the distal descending and sigmoid colon. There is a short segment of mid sigmoid colonic mucosal thickening and pericolonic edema associated with diverticula, immediately adjacent to the fluid collection along the posterior bladder wall. The distal sigmoid and rectum are unremarkable. Appendix: The appendix is not visible. Intraperitoneal space: There is no free air or significant intraperitoneal free fluid. Vasculature: The aorta is unremarkable. There is no aneurysm. The portal, splenic and superior mesenteric veins are patent. Lymph nodes: There is no lymphadenopathy in the retroperitoneum, mesentery, pelvis or inguinal regions. Urinary bladder: There is thickening and enhancement of the posterior bladder wall. The bladder is nondistended. There is no intraluminal bladder gas. Reproductive: There is a 6.1 x 4.2 x 2.5 cm collection of intermediate density fluid and gas with a thick enhancing ill-defined wall located along the posterosuperior margin of the bladder, abutting the vaginal cuff posteriorly and intimately associated with the sigmoid colon superiorly. Bones/joints: There is mild degenerative disease in the lumbar spine. The pelvis and hips are unremarkable. Soft tissues: There is a small fat containing ventral hernia. CT/CT abdomen pelvis w con* [id number] IMPRESSION: 1. Thick-walled peripherally enhancing fluid and gas collection in the deep pelvis intimately associated with distal sigmoid colon, vaginal cuff, and urinary bladder. Findings are most consistent with diverticulitis and diverticular abscess. No sign of fistula to the bladder. Fistula to the vaginal cuff is not excluded. 2. Secondary cystitis. No gas in the bladder lumen. 3. Hepatosplenomegaly. 4. Incidental findings above.
[2023-11-16 20:07] LABS: Add Urine Microscopic? YES; Bilirubin Urine Neg (Negative); Blood Urine Neg (Negative); Glucose Urine UA 2+ (Normal); Ketones Urine 1+ (Negative); Leukocyte Esterase Urine Trace (Negative); Nitrate Urine Negative (Negative); Protein Urine Neg (Negative); Specific Gravity, Urine 1.015 (1.005-1.030); Urine Appearance Clear (CLEAR); Urine Color Yellow (Yellow); Urobilinogen Urine Norm (Negative); pH Urine 5 (5-7)
[2023-11-16] MEDS: iohexol 350 mg/mL 500 mL Btl (per mL) IV (20:07)
[2023-11-16 20:08] LABS: Add Urine Culture? No; Bacteria Urine TRACE /hpf; Mucus Urine 1+ /hpf; Squamous Epithelial Cell Urine 0-4 /hpf (0-5)
[2023-11-16] MEDS: piperacillin-tazobactam 3.375 GM in sodium chloride 0.9% (plus) 50 ML IV (21:25)
--- NOTE | 2023-11-16 22:56 | P.HP_ITS ---
Providers/Chief Complaint 2 Admitting Physician: Isabella Garcia MD Primary Care Provider: MILLA Blackwell Chief Complaint: abd pain sent from [facility] History of Present Illness Cristobal Styles is a 63 year old female with a past medical history of hypertension, dyslipidemia, chronic UTI on methenamine suppression. She presents to the emergency room today with chief complaints of 5 days of worsening abdominal pain. Pain is located in the lower abdomen, radiates into the back and groin. Has been increasing in intensity since onset. Does not recall any obvious aggravating or relieving factors. She has lost appetite. She is nauseous has had a few episodes of vomiting. Bowel movements have been normal. No noted blood or mucus. No tenesmus. Has a past medical history of diverticular disease, she is thinks she may have had diverticulitis in the past but is unsure of the same. Colonoscopy was several years ago. Also has a history of bladder repair for cystocele, it appears course was complicated by need for repeat surgery. No known history of any colovesical fistulas. She visited with her primary care provider initially today where she was noted to be in acute pain and was referred to the emergency room to get a CAT scan of the abdomen. CT of the abdomen and pelvis performed today revealed a peripherally enhancing fluid and gas collection in the deep pelvis associated with the distal sigmoid colon vagina And urinary bladder. Findings appear to be most consistent with diverticulitis and diverticular abscess. There was no signs of fistulization to the bladder. Review of system positive for fever over the past 5 days. Review of Systems 2 General: Reports: 10 or more systems reviewed and unremarkable except in HPI and below Const: Denies: fever(s), chills or body aches Eyes: Denies: change in vision, blurry vision or photophobia ENMT: Reports: hoarseness; Denies: throat pain, enlarged tonsils, odynophagia or nasal congestion Card: Denies: chest pain, palpitations, irregular heart rhythm, edema, swelling of feet/ankles, lightheadedness, pre-syncope, dyspnea on exertion or orthopnea Resp: Denies: dyspnea, productive cough, non-productive cough, wheezing, stridor, pain on inspiration, change in phlegm color, hemoptysis or chest congestion GI: Denies: abdominal pain, nausea, vomiting, hematemesis, coffee ground emesis, dysphagia, heartburn, diarrhea, constipation, GI cramping, change in stool character, hematochezia or melena : Denies: flank pain, difficulty voiding, dysuria, urinary frequency, urinary urgency, urinary hesitancy or hematuria Musc: Denies: neck pain, back pain, extremity pain, joint swelling, joint warmth or deformity Neuro: Denies: headache(s), numbness in extremities, weakness in extremities, sensory changes, difficulty walking, frequent falls, dizziness, vertigo, behavioral changes, Slurred speech present or seizure-like activity Psych: Denies: anxiety, depression, suicidal ideation or homicidal ideation Endo: Denies: polyuria, polydipsia, tired all the time, cold intolerance or hot flashes Curtis/Lymph: Denies: easy bruising or easy bleeding Medications/Allergies Home Medications Medication Instructions Recorded Confirmed Last Taken Type clobetasol 0.05 % topical cream 1 applic topical TID 08/22/19 11/16/23 09/23/21 History lancets 28 gauge (FreeStyle #25 ea 08/22/19 11/16/23 Unknown History Lancets) blood-glucose meter (OneTouch #1 ea 05/14/20 11/16/23 Unknown Rx Ultra2 Meter kit) cholecalciferol (vitamin D3) 125 125 mcg PO BID 09/08/20 11/16/23 09/29/21 History mcg (5,000 unit) capsule blood sugar diagnostic (OneTouch #50 ea 12/20/21 11/16/23 Unknown Rx Ultra Test strips) calcium carbonate 500 mg-vitamin 1 tab PO .2 time day #60 tabs 12/20/21 11/16/23 Unknown Rx D3 15 mcg (600 unit) tablet (Os-Itz 500 + D3) lancets 33 gauge (OneTouch Delica #100 ea 12/29/21 11/16/23 Unknown Rx Plus Lancet) methenamine hippurate 1 gram tablet 1 g PO BID #60 tabs 02/09/22 11/16/23 Unknown Rx dapagliflozin propanediol 5 mg 5 mg PO QAM #30 tabs 12/14/22 11/16/23 Unknown Rx tablet (Farxiga) ezetimibe 10 mg tablet 10 mg PO DAILY #90 tabs 12/20/22 11/16/23 Unknown Rx lisinopril 10 mg tablet 10 mg PO DAILY #90 tabs 12/20/22 11/16/23 Unknown Rx rosuvastatin 40 mg tablet 40 mg PO DAILY #30 tabs 12/20/22 11/16/23 Unknown Rx alendronate 70 mg tablet (Fosamax) 70 mg PO .weekly #4 tabs 01/31/23 11/16/23 Unknown Rx tizanidine 4 mg tablet 4 mg PO TID PRN muscle spasticity 02/25/23 11/16/23 Unknown Rx #30 tabs diclofenac sodium 75 mg 75 mg PO BID PRN pain #30 tabs 03/01/23 11/16/23 Unknown Rx tablet,delayed release bupropion HCl 200 mg tablet,12 hr 200 mg PO QAM #30 tabs 04/19/23 11/16/23 Unknown Rx sustained-release (Wellbutrin SR) albuterol sulfate 90 mcg/actuation See Rx Instructions .Route 05/30/23 11/16/23 Unknown Rx aerosol inhaler .COMPLEX #9 grams omeprazole 20 mg capsule,delayed See Rx Instructions .Route 07/05/23 11/16/23 Unknown Rx release .COMPLEX #30 caps mometasone 50 mcg/actuation nasal 2 spray intranasal DAILY 12 months 07/20/23 11/16/23 Unknown Rx spray (Nasonex 24hr Allergy) #17 grams escitalopram oxalate 20 mg tablet 20 mg PO .morning #30 tabs 07/25/23 11/16/23 Unknown Rx (Lexapro) fluorouracil 5 % topical cream 1 applic topical BID 4 weeks #40 07/27/23 11/16/23 Unknown Rx grams hydroxyzine HCl 10 mg tablet 10 mg PO BID PRN anxiety #60 tabs 09/04/23 11/16/23 Unknown Rx lamotrigine 200 mg tablet 200 mg PO .QHS #30 tabs 09/04/23 11/16/23 Unknown Rx (Lamictal) nitroglycerin 0.4 mg sublingual See Rx Instructions .Route 11/13/23 11/16/23 Unknown Rx tablet .COMPLEX #50 tabs Allergies Allergy/AdvReac Type Severity Reaction Status Date / Time metformin Allergy Unknown nausea Verified 11/16/23 13:57 tetracycline Allergy Unknown Tongue Verified 11/16/23 13:57 swelling naproxen AdvReac Unknown cramps/naus Verified 11/16/23 13:57 ea PFSH Acute 2 PFSH: Medical History Psychiatric care Lumbar radiculopathy, chronic Atherosclerotic heart disease of [place] coronary artery with other forms of angina pectoris Acid reflux Mixed incontinence Hypertension DDD (degenerative disc disease) Asthma Diabetes Chronic cystitis Major depressive disorder, recurrent severe without psychotic features Follows up with [facility] Generalized anxiety disorder Surgical History S/P excision of lipoma H/O excision of mass (09/30/21) Subcutaneous mass left upper quadrant of the abdomen H/O right wrist surgery Status post tubal ligation 1986 at time of third S/P hernia repair 10/27/11- Hernia repair Dx: rentral hernia anterior abdominal wall below umbilicus. Performed by Dr Macias at [facility] in [place], [place]. Per patient mesh was used and it covers her whole lower abdominal wall. S/P bladder repair X 2 01/09/07- Anterior/posterior vaginal repair, transobturator suburethral sling, cystoscopy. Dx: mixed urinary incontinence, cystocele and rectocele. Performed by Dr Andrews at [facility] in [place], [place] 07/2013- Bladder repair revised. Performed in [place]. She states that she had pain and the surgeon went in and excised some of the mesh but was unable to get everything out. H/O neck surgery 06/14/[address] Dillon at [facility] S/P cholecystectomy Open procedure performed via right upper quadrant incision in 1987 in [facility] S/P hysterectomy 2001---total abdominal hysterectomy with bilateral [id number] Performed by Dr Stewart at [facility] for bleeding problems. She states her ovaries and Appendix were removed as well. Patient states she was told that there was no cancer H/O section x 3 ----> 1983, 1985, 1986 S/P appendectomy 2001-performed at time of open hysterectomy S/P excision of ganglion cyst Left wrist in [place], [place] S/P carpal tunnel release Bilateral-2002 and 2003 performed in [place], [place] Family History Father , 86 Hypertension Stroke Thyroid disease Kidney disease CAD (coronary artery disease) Chronic kidney disease (CKD) Sister Heart disease Her sister of heart disease at the age of 45-some congenital heart disease however she does not remember the name. Brother Kidney disease Diabetes Family/Other Breast cancer maternal aunt, diagnosed at age 62 Mother , AT AGE 84 Cancer PANCREATIC Lung disease Denies family history of Colon cancer Ovarian cancer Clotting disorder Dementia Hyperlipidemia Suicide Anesthesia complication Bleeding disorder Social History Smoking and tobacco/nicotine status: former use of tobacco/nicotine Second hand smoke exposure: No Alcohol intake: never Substance/Drug Use: never Adopted: No Caregiver/support person: No Lives independently: Yes Household members: spouse Housing: House Marital status: Number of children: 4 Current occupational status: retired Do you think of yourself as: Straight/Heterosexual Current gender identity: Female Vitals/I&O/Wt Last Vital Signs Temp 98.2 F 11/16/23 16:04 Pulse 80 11/16/23 22:00 Resp 16 11/16/23 22:00 BP 123/70 11/16/23 22:00 Pulse Ox 94 11/16/23 22:00 O2 Del Method Room Air 11/16/23 22:00 Weight last 48 hrs Weight 95.254 kg Physical Exam 2 Narrative: General: No acute distress, AO x1 HEENT: PERRLA, pupils bilaterally equal and reactive, pallors not present Chest: Normal vesicular breath sounds, no added sounds, equal good air entry bilaterally CVS: S1-S2 regular, no murmurs, no tachycardia, no gallops, no rubs Abdomen: Tenderness to palpation over lower abdomen centrally. Neuro: No focal deficits, no facial deformity, AO x3, power 5/5 in all limbs Data 11/17/23 04:17 11/17/23 04:17 Other Labs: CT/CT abdomen pelvis w con* [id number] IMPRESSION: 1. Thick-walled peripherally enhancing fluid and gas collection in the deep pelvis intimately associated with distal sigmoid colon, vaginal cuff, and urinary bladder. Findings are most consistent with diverticulitis and diverticular abscess. No sign of fistula to the bladder. Fistula to the vaginal cuff is not excluded. 2. Secondary cystitis. No gas in the bladder lumen. 3. Hepatosplenomegaly. 4. Incidental findings above. Micro: Microbiology 11/16/23 18:17 Blood Culture - Preliminary Blood SPECIMEN COLLECTED 11/16/23 18:17 Blood Culture - Preliminary Blood SPECIMEN COLLECTED A&P Assessment and plan (1) Pelvic abscess: (2) Colonic diverticular abscess: (3) Chronic cystitis: Plan 63-year-old lady presenting with 5 days of fever abdominal pain poor p.o. intake and found to have a pelvic abscess most likely to be a diverticular abscess. Size of collection estimated to be 6.1 x 4.2 x 2.5 cm with a thickened enhancing ill-defined wall along the posterior superior margin of the bladder abutting the vaginal cuff. No signs of fistulization to the bladder. Per radiology read, fistulization to the vaginal cuff not excluded. General surgery has been consulted from the emergency room. Patient n.p.o. Admit to [facility] Start empiric antibiotic coverage with piperacillin/tazobactam for complicated diverticular abscess. IV fluid normal saline at 75 cc an hour Check blood culture Continue home medications including Wellbutrin, Lexapro, lamotrigine Insulin sliding scale for diabetes mellitus As needed Dilaudid for pain management, Zofran as needed for management of nausea. DVT prophylaxis: Lovenox 40 mg subcutaneous Full code This documentation was created by [employer] erp specialist software. Every effort was made to ensure accuracy of erp specialist. Any obvious errors or omissions should be clarified with the author of the document. Attestations 2 Medical Necessity Statement*: Anticipated greater than 2 midnight stay, need for IV antibiotics, surgical assessment for complicated diverticular abscess. Diagnoses Pelvic abscess Colonic diverticular abscess K57.20 Chronic cystitis N30.20
[2023-11-16] MEDS: sodium chloride 0.9% 1,000 ML 75 ML IV (23:56)
[2023-11-16] MEDS: lamoTRIgine 100 mg Tablet 200 MG PO (23:59)
[2023-11-17] VITALS (10 sets, daily range): BP systolic 99–122; BP diastolic 63–75; PULSE 66–75; RESP 14–18; TEMP 36.7–37; O2SAT 91–97
[2023-11-17] MEDS: ondansetron 2 mg/ML SDV 2 mL 4 MG IVP (00:01)
[2023-11-17] MEDS: morphine 4 mg/mL SDV 1 mL 2 MG IVP (00:01)
[2023-11-17] MEDS: pantoprazole 40 mg SDV IVP (00:02)
--- NOTE | 2023-11-17 00:18 | PC.NURSE ---
Pt informed of use of SCDs and that they were ordered for, but she refused stating she did not feel they were necessary
[2023-11-17] MEDS: HYDROmorphone 1 mg/mL INJ 1 mL IVP (04:30)
[2023-11-17 05:24] LABS: Basophils # 0.1 10^3/uL (0.0-0.1); Basophils % 0.5 %; Eosinophils # 0.1 10^3/uL (0.0-0.8); Eosinophils % 1.1 %; Hematocrit 38.5 % (36-47); Lymphocytes # 2.5 10^3/uL (0.8-4.8); Lymphocytes % 21.8 %; Mean Corpuscular HGB Conc 30.9 g/dL (30-55); Mean Corpuscular Hemoglobin 27.5 pg (27-33); Mean Corpuscular Volume 88.9 fl (85-98); Mean Platelet Volume 10.6 fL (7.4-10.4); Monocytes % 8.5 %; Neutrophils # 7.85 10^3/uL (1.8-7.7); Neutrophils % 67.8 %; Nucleated Red Blood Cells % 0 %; Platelet Count 270 10^3/cmm (157-399); Red Blood Count 4.33 10^6/uL (3.85-5.65); Red Cell Distribution Width 13.4 % (12.1-15.1); White Blood Count 11.58 10^3/uL (3.29-11.43)
[2023-11-17] MEDS: buPROPion SR (12 HR) 100 mg Tablet 200 MG PO (05:24)
[2023-11-17] MEDS: piperacillin-tazobactam 3.375 GM in sodium chloride 0.9% (plus) 50 ML IV ×3 (05:24→21:51)
[2023-11-17 05:38] LABS: Estmated Average Glucose 120; Hemoglobin A1C 5.8 % (4.0-6.0)
[2023-11-17 05:43] LABS: Alanine Aminotransferase 14 U/L (0-33); Albumin Level 3.7 g/dL (3.5-5.2); Alkaline Phosphatase 69 U/L (35-105); Anion Gap 14.8 (5-19); Aspartate Amino Transferase 9 U/L (0-32); Blood Urea Nitrogen 8 mg/dL (8-23); Calcium 8.6 mg/dL (8.5-10.5); Carbon Dioxide 25 mmol/L (22-29); Chloride 101 mmol/L (98-107); Creatinine Clr Calc Pharmacy 103.8052; Globulin 3.4 g/dL (1.3-4.6); Glomerular Filtration Rate 101.6 mL/min (90-130); Glucose 93 mg/dL (65-115); Osmolality Calculated 282 mOsm/kg (285-295); Potassium 3.8 mmol/L (3.5-5.1); Sodium 137 mmol/L (136-145); Total Bilirubin 0.4 mg/dL (0.15-1.2); Total Protein 7.1 g/dL (6.6-8.7)
[2023-11-17] MEDS: escitalopram 10 mg Tablet 20 MG PO (07:38)
[2023-11-17] MEDS: ezetimibe 10 mg Tablet PO (07:38)
[2023-11-17] MEDS: atorvastatin 40 mg Tablet 80 MG PO (07:38)
[2023-11-17] MEDS: HYDROcodone-acetaminophen 5-325 mg Tablet 1 TAB PO (07:38)
--- NOTE | 2023-11-17 08:59 | PM.CONSULT ---
Providers/Reason For Consult Consulting Physician/Specialty*: Dr. Tres Durham, DO/General surgery Reason for Consult*: Complicated diverticulitis Attending Physician: Pierre White MD Primary Care Provider: MILLA Blackwell History of Present Illness History of Present Illness Cristobal Styles is a 63 year old female who presents to the hospital with a 5-day history of suprapubic abdominal pain. That pain is sharp severe and radiates across to her abdomen. Palpation makes pain worse. Nothing seems to make the pain better. She reports nausea but denies any emesis. She reports that she did have chills at home. Denies any diarrhea, constipation, hematochezia and/or melena. She has had 2 episodes of diverticulitis that were uncomplicated in the past. CT abdomen pelvis shows diverticulitis with a 6 cm abscess adjacent to the sigmoid colon and bladder. Review of Systems General: Reports: 10 or more systems reviewed and unremarkable except in HPI and below Medications/Allergies Home Medications Medication Instructions Recorded Confirmed Last Taken Type clobetasol 0.05 % topical cream 1 applic topical TID 08/22/19 11/16/23 09/23/21 History lancets 28 gauge (FreeStyle #25 ea 08/22/19 11/16/23 Unknown History Lancets) blood-glucose meter (OneTouch #1 ea 05/14/20 11/16/23 Unknown Rx Ultra2 Meter kit) cholecalciferol (vitamin D3) 125 125 mcg PO BID 09/08/20 11/16/23 09/29/21 History mcg (5,000 unit) capsule blood sugar diagnostic (OneTouch #50 ea 12/20/21 11/16/23 Unknown Rx Ultra Test strips) calcium carbonate 500 mg-vitamin 1 tab PO .2 time day #60 tabs 12/20/21 11/16/23 Unknown Rx D3 15 mcg (600 unit) tablet (Os-Itz 500 + D3) lancets 33 gauge (OneTouch Delica #100 ea 12/29/21 11/16/23 Unknown Rx Plus Lancet) methenamine hippurate 1 gram tablet 1 g PO BID #60 tabs 02/09/22 11/16/23 Unknown Rx dapagliflozin propanediol 5 mg 5 mg PO QAM #30 tabs 12/14/22 11/16/23 Unknown Rx tablet (Farxiga) ezetimibe 10 mg tablet 10 mg PO DAILY #90 tabs 12/20/22 11/16/23 Unknown Rx lisinopril 10 mg tablet 10 mg PO DAILY #90 tabs 12/20/22 11/16/23 Unknown Rx rosuvastatin 40 mg tablet 40 mg PO DAILY #30 tabs 12/20/22 11/16/23 Unknown Rx alendronate 70 mg tablet (Fosamax) 70 mg PO .weekly #4 tabs 01/31/23 11/16/23 Unknown Rx tizanidine 4 mg tablet 4 mg PO TID PRN muscle spasticity 02/25/23 11/16/23 Unknown Rx #30 tabs diclofenac sodium 75 mg 75 mg PO BID PRN pain #30 tabs 03/01/23 11/16/23 Unknown Rx tablet,delayed release bupropion HCl 200 mg tablet,12 hr 200 mg PO QAM #30 tabs 04/19/23 11/16/23 Unknown Rx sustained-release (Wellbutrin SR) albuterol sulfate 90 mcg/actuation See Rx Instructions .Route 05/30/23 11/16/23 Unknown Rx aerosol inhaler .COMPLEX #9 grams omeprazole 20 mg capsule,delayed See Rx Instructions .Route 07/05/23 11/16/23 Unknown Rx release .COMPLEX #30 caps mometasone 50 mcg/actuation nasal 2 spray intranasal DAILY 12 months 07/20/23 11/16/23 Unknown Rx spray (Nasonex 24hr Allergy) #17 grams escitalopram oxalate 20 mg tablet 20 mg PO .morning #30 tabs 07/25/23 11/16/23 Unknown Rx (Lexapro) fluorouracil 5 % topical cream 1 applic topical BID 4 weeks #40 07/27/23 11/16/23 Unknown Rx grams hydroxyzine HCl 10 mg tablet 10 mg PO BID PRN anxiety #60 tabs 09/04/23 11/16/23 Unknown Rx lamotrigine 200 mg tablet 200 mg PO .QHS #30 tabs 09/04/23 11/16/23 Unknown Rx (Lamictal) nitroglycerin 0.4 mg sublingual See Rx Instructions .Route 11/13/23 11/16/23 Unknown Rx tablet .COMPLEX #50 tabs Allergies Allergy/AdvReac Type Severity Reaction Status Date / Time metformin Allergy Unknown nausea Verified 11/16/23 13:57 tetracycline Allergy Unknown Tongue Verified 11/16/23 13:57 swelling naproxen AdvReac Unknown cramps/naus Verified 11/16/23 13:57 ea Current Medications Generic Name Dose Route Start Last Admin Trade Name Freq PRN Reason Stop Dose Admin Hydrocodone Bitart/Acetaminophen 1 tab 11/17/23 04:09 11/17/23 07:38 Hydrocodone-Acetaminophen 5-325 Mg Tablet PO 1 tab Q4H PRN Administration MODERATE PAIN Atorvastatin Calcium 80 mg 11/17/23 09:00 11/17/23 07:38 Atorvastatin 40 Mg Tablet PO 80 mg DAILY ALBERTA Administration Bupropion HCl 200 mg 11/17/23 06:00 11/17/23 05:24 Bupropion Sr (12 Hr) 100 Mg Tablet PO 200 mg QAM ALBERTA Administration Ezetimibe 10 mg 11/17/23 09:00 11/17/23 07:38 Ezetimibe 10 Mg Tablet PO 10 mg DAILY ALBERTA Administration Enoxaparin Sodium 40 mg 11/16/23 23:02 11/16/23 23:17 Enoxaparin 40 Mg/0.4 Ml Syringe SUBCUT Not Given Q24H [facility] Escitalopram Oxalate 20 mg 11/17/23 09:00 11/17/23 07:38 Escitalopram 10 Mg Tablet PO 20 mg DAILY ALBERTA Administration Hydromorphone HCl 1 mg 11/17/23 04:06 11/17/23 04:30 Hydromorphone 1 Mg/Ml Inj 1 Ml IVP 1 mg Q4H PRN Administration SEVERE PAIN Sodium Chloride 1,000 mls @ 75 mls/hr 11/16/23 23:02 11/16/23 23:56 Sodium Chloride 0.9% IV 75 mls/hr .[id number] ALBERTA Administration Piperacillin Sod/Tazobactam 50 mls @ 12.5 mls/hr 11/17/23 05:30 11/17/23 05:24 Sod 3.375 gm/ Sodium Chloride IV 12.5 mls/hr Q8H ALBERTA Administration Insulin Human Lispro 0 unit 11/17/23 08:00 11/17/23 07:35 Insulin Lispro 100 Unit/1 Ml SUBCUT Not Given WM&BEDTIME [facility] Protocol Lamotrigine 200 mg 11/16/23 23:15 11/16/23 23:59 Lamotrigine 100 Mg Tablet PO 200 mg BEDTIME ALBERTA Administration Ondansetron HCl 4 mg 11/16/23 23:02 11/17/23 00:01 Ondansetron 2 Mg/Ml Sdv 2 Ml IVP 4 mg Q8H PRN Administration vomiting, or N/V if npo Pantoprazole Sodium 40 mg 11/16/23 23:02 11/17/23 00:02 Pantoprazole 40 Mg Sdv IVP 40 mg Q24H ALBERTA Administration PFSH Acute PFSH: Medical History Psychiatric care Lumbar radiculopathy, chronic Atherosclerotic heart disease of [place] coronary artery with other forms of angina pectoris Acid reflux Mixed incontinence Hypertension DDD (degenerative disc disease) Asthma Diabetes Chronic cystitis Major depressive disorder, recurrent severe without psychotic features Follows up with [facility] Generalized anxiety disorder Surgical History S/P excision of lipoma H/O excision of mass (09/30/21) Subcutaneous mass left upper quadrant of the abdomen H/O right wrist surgery Status post tubal ligation 1986 at time of third S/P hernia repair 10/27/11- Hernia repair Dx: rentral hernia anterior abdominal wall below umbilicus. Performed by Dr Macias at [facility] in [place], [place]. Per patient mesh was used and it covers her whole lower abdominal wall. S/P bladder repair X 2 01/09/07- Anterior/posterior vaginal repair, transobturator suburethral sling, cystoscopy. Dx: mixed urinary incontinence, cystocele and rectocele. Performed by Dr Andrews at [facility] in [place], [place] 07/2013- Bladder repair revised. Performed in [place]. She states that she had pain and the surgeon went in and excised some of the mesh but was unable to get everything out. H/O neck surgery 06/14/[address] Dillon at [facility] [facility] S/P cholecystectomy Open procedure performed via right upper quadrant incision in 1987 in [facility] S/P hysterectomy 2001---total abdominal hysterectomy with bilateral [id number] Performed by Dr Stewart at [facility] for bleeding problems. She states her ovaries and Appendix were removed as well. Patient states she was told that there was no cancer H/O section x 3 ----> 1983, 1985, 1986 S/P appendectomy 2002-performed at time of open hysterectomy S/P excision of ganglion cyst Left wrist in [place], [place] S/P carpal tunnel release Bilateral-2002 and 2003 performed in [place], [place] Family History Father , 86 Hypertension Stroke Thyroid disease Kidney disease CAD (coronary artery disease) Chronic kidney disease (CKD) Sister Heart disease Her sister of heart disease at the age of 45-some congenital heart disease however she does not remember the name. Brother Kidney disease Diabetes Family/Other Breast cancer maternal aunt, diagnosed at age 62 Mother , AT AGE 84 Cancer PANCREATIC Lung disease Denies family history of Colon cancer Ovarian cancer Clotting disorder Dementia Hyperlipidemia Suicide Anesthesia complication Bleeding disorder Social History Smoking and tobacco/nicotine status: former use of tobacco/nicotine Second hand smoke exposure: No Alcohol intake: never Substance/Drug Use: never Adopted: No Caregiver/support person: No Lives independently: Yes Household members: spouse Housing: House Marital status: Number of children: 4 Current occupational status: retired Do you think of yourself as: Straight/Heterosexual Current gender identity: Female Vitals/I&O/Wt Last Vital Signs Temp 98.2 F 11/17/23 07:45 Pulse 68 11/17/23 08:24 Resp 18 11/17/23 08:24 BP 99/67 11/17/23 07:45 Pulse Ox 92 11/17/23 08:24 O2 Del Method Room Air 11/17/23 08:24 11/16/23 11/17/23 11/17/23 22:59 06:59 14:59 Intake Total 2049 Balance 2049 Weight last 48 hrs Weight 220 lb Weight 210 lb Weight 210 lb Physical Exam Narrative: General : Patient is well developed , no acute distress, oriented x3 Head : Normal cephalic, a-traumatic. Ears : Pinnae and external canal are normal. Hearing is normal. Eyes : PERRLA, Sclera and injection are normal. No conjunctival discharge. Nose : Mucous membranes are without erythema. Throat : buccal mucosa is normal, gums are without significant recession or hypertrophy. Lungs : Equal chest rise bilaterally, no use of accessory muscles, trachea is midline. Cor : Rate and rhythm are normal. Abdomen : Soft, ND, diffusely tender but more tender suprapubically, no g/r/m Extremities : No edema, no cyanosis or clubbing, dorsalis pedis pulses are present bilaterally, non-tender to palpation of calves. Upper extremities are normal bilaterally. Back : non-tender to palpation, no CVA tenderness. Neuro : CN II - XII intact, Upper and lower extremities have equal and full strength Data 11/17/23 04:17 11/17/23 04:17 Micro: Microbiology 11/16/23 18:17 Blood Culture - Preliminary Blood SPECIMEN COLLECTED 11/16/23 18:17 Blood Culture - Preliminary Blood SPECIMEN COLLECTED A&P Assessment and plan (1) Diverticulitis of large intestine with complication: Plan Zosyn Pain control N.p.o. except ice chips and medications today She would likely need at least 3 days of IV antibiotics and a course of antibiotics that lasts at least [address] drain placement ordered No acute surgical intervention She will need a colonoscopy in approximately 6 weeks followed by elective sigmoidectomy Medical management per hospitalist Coding Level of Care Code 58249 Diagnoses Diverticulitis of large intestine with complication K57.32
--- NOTE | 2023-11-17 09:01 | PC.CHAP ---
Pastoral Care Encounter/Spiritual Assessment Type of Contact [] Declined passenger relations representative visit [] Patient/Family/Request visit [] Outpatient visit [] Follow-up visit [] Physician referral [] Code/Alert [x] Routine visit [] Staff referral [] Actively dying [] Patient sleeping [] Family support [] [] Out of room [] Palliative care [] [] Receiving care in room [] Pre-surgical visit [] Trauma [] Long length of stay [] ICU visit [] Other: Relational/Emotional Strength [x] Patient feels connected with others/family/visitors/staff [] Distress [] Loneliness/isolation [] Abandonment Spirituality of Patient [x] Person of Maranda [] Attends [employer] of their Maranda [x] Believes in Prayer [] Reads Bible or Hindu materials [] There are Spiritual issues to be addressed Radio Electrician Interventions [x] Prayer [] Active listening [] Non-anxious presence [x] Spiritual/emotional support [] Crisis/trauma care [] Spiritual counseling [] Bereavement support [] Provided bereavement packet [] Provided Bible/devotional materials [] Provided toy/stuffed animal, coloring book to patient or family member [] Provided Communion [] Anointing/Alpha [] Salvation [x] Completed spiritual assessment [] Other: Impact on Illness or Injury [] Angry [] Fearful [] Anxious [] Often cries [] Exhaustion [] Unable to work [] Unable to attend denominational [] Unable to walk/stand [] Unable to read [] Unable to drive [] Unable to eat/drink [] Unable to sleep [] Unable to be with family [] Patient intubated [] Other: Summary Time spent with patient 5 vmin
[2023-11-17 11:41] LABS: Glucose Point of Care 100 mg/dL (70-110)
--- NOTE | 2023-11-17 13:16 | PC.SOCIAL ---
IMM Updated Updated pt on IMM. No questions voiced. Provided pt a copy. Initialed, dated, & timed a copy & placed in chart.
[2023-11-17] MEDS: acetaminophen 325 mg Tablet 650 MG PO ×2 (13:22→21:50)
[2023-11-17] MEDS: sodium chloride 0.9% 1,000 ML 75 ML IV (13:24)
[2023-11-17 17:25] LABS: Glucose Point of Care 99 mg/dL (70-110)
--- NOTE | 2023-11-17 19:05 | P.PN_ITS ---
Subjective 2 Subjective: Patient was seen this morning, she does tell me that she is passing flatus, has not passed bowel movement, does have abdominal pain, no nausea, no vomiting Vitals/I&O/Wt Last Vital Signs Temp 98.0 F 11/17/23 16:00 Pulse 75 11/17/23 16:00 Resp 16 11/17/23 16:00 BP 104/69 11/17/23 16:00 Pulse Ox 92 11/17/23 16:00 O2 Del Method Room Air 11/17/23 16:00 11/17/23 11/17/23 11/17/23 06:59 14:59 22:59 Intake Total 2049 1050 / 1050 50 / 1100 Balance 2049 1050 / 1050 50 / 1100 Weight last 48 hrs Weight 99.79 kg Weight 95.254 kg Weight 95.254 kg Physical Exam 2 Const: COMMON NORMALS: no acute distress and patient oriented x3 Resp: COMMON NORMALS: normal respiratory effort, No retractions, No use of accessory muscles and clear to auscultation bilaterally AUSCULTATION: clear to auscultation bilaterally Cardio: COMMON NORMALS: regular rate, regular rhythm, S1 normal heart sound present and S2 normal heart sound present RATE: regular rate RHYTHM: r egular rhythm HEART SOUNDS: S1 normal heart sound present and S2 normal heart sound present GI: OTHER: Abdomen soft, nondistended, diminished bowel sounds, tender in all 4 quadrants, no guarding, no rebound, no rigidity Extremity: COMMON NORMALS: no pedal edema Neuro: COMMON NORMALS: patient oriented x3 Psych: COMMON NORMALS: mental status grossly normal Data 11/17/23 04:17 11/17/23 04:17 Micro: Microbiology 11/16/23 18:17 Blood Culture - Preliminary Blood NEGATIVE TO DATE 11/16/23 18:17 Blood Culture - Preliminary Blood NEGATIVE TO DATE A&P Assessment and plan (1) Pelvic abscess: (2) Colonic diverticular abscess: (3) Chronic cystitis: (4) Diverticulitis of large intestine with complication: (5) Diverticulitis: Plan 63-year-old lady presenting with 5 days of fever abdominal pain poor p.o. intake and found to have a pelvic abscess most likely to be a diverticular abscess. Size of collection estimated to be 6.1 x 4.2 x 2.5 cm with a thickened enhancing ill-defined wall along the posterior superior margin of the bladder abutting the vaginal cuff. No signs of fistulization to the bladder. Per radiology read, fistulization to the vaginal cuff not excluded. General surgery has been consulted from the emergency room. Patient n.p.o. Admit to [facility] Start empiric antibiotic coverage with piperacillin/tazobactam for complicated diverticular abscess. IV fluid normal saline at 75 cc an hour Check blood culture Continue home medications including Wellbutrin, Lexapro, lamotrigine Insulin sliding scale for diabetes mellitus As needed Dilaudid for pain management, Zofran as needed for management of nausea. DVT prophylaxis: Lovenox 40 mg subcutaneous Full code Plan for today, general surgery consultation, continue IV antibiotics, monitor clinical status closely, possible plans for CT guided drain placement, infectious disease consultation Attestations 2 Medical Necessity Statement*: Patient requires hospitalization for perforated diverticulitis with diverticular abscess Diagnoses Pelvic abscess Colonic diverticular abscess K57.20 Chronic cystitis N30.20 Diverticulitis of large intestine with complication K57.32 Diverticulitis K57.92
[2023-11-17 20:54] LABS: Glucose Point of Care 95 mg/dL (70-110)
[2023-11-17] MEDS: lamoTRIgine 100 mg Tablet 200 MG PO (21:50)
[2023-11-18] VITALS (7 sets, daily range): BP systolic 101–131; BP diastolic 60–85; PULSE 69–92; RESP 16–18; TEMP 36.4–36.8; O2SAT 91–95
[2023-11-18] MEDS: pantoprazole 40 mg SDV IVP ×2 (00:08→22:47)
[2023-11-18 00:18] LABS: Glucose Point of Care 95 mg/dL (70-110)
[2023-11-18] MEDS: sodium chloride 0.9% 1,000 ML 75 ML IV ×2 (03:04→16:39)
[2023-11-18 05:28] LABS: Basophils % 0.6 %; Eosinophils # 0.2 10^3/uL (0.0-0.8); Eosinophils % 3.1 %; Hematocrit 35.3 % (36-47); Lymphocytes # 2.2 10^3/uL (0.8-4.8); Lymphocytes % 32.2 %; Mean Corpuscular HGB Conc 31.4 g/dL (30-55); Mean Corpuscular Hemoglobin 27.9 pg (27-33); Mean Corpuscular Volume 88.7 fl (85-98); Mean Platelet Volume 10.6 fL (7.4-10.4); Monocytes # 0.7 10^3/uL (0.2-0.9); Monocytes % 9.7 %; Neutrophils # 3.68 10^3/uL (1.8-7.7); Nucleated Red Blood Cells % 0 %; Platelet Count 251 10^3/cmm (157-399); Red Blood Count 3.98 10^6/uL (3.85-5.65); Red Cell Distribution Width 13.1 % (12.1-15.1); White Blood Count 6.81 10^3/uL (3.29-11.43)
[2023-11-18] MEDS: buPROPion SR (12 HR) 100 mg Tablet 200 MG PO (05:45)
[2023-11-18] MEDS: piperacillin-tazobactam 3.375 GM in sodium chloride 0.9% (plus) 50 ML IV ×3 (05:46→20:41)
[2023-11-18 05:52] LABS: Alanine Aminotransferase 14 U/L (0-33); Albumin Level 3.7 g/dL (3.5-5.2); Alkaline Phosphatase 64 U/L (35-105); Anion Gap 12.9 (5-19); Aspartate Amino Transferase 7 U/L (0-32); Blood Urea Nitrogen 8 mg/dL (8-23); C Reactive Protein 55.8 mg/L (0.0-4.9); Calcium 8.7 mg/dL (8.5-10.5); Carbon Dioxide 27 mmol/L (22-29); Chloride 107 mmol/L (98-107); Globulin 2.7 g/dL (1.3-4.6); Glomerular Filtration Rate 125.4 mL/min (90-130); Glucose 85 mg/dL (65-115); Magnesium 2.1 mg/dL (1.7-2.3); Osmolality Calculated 294 mOsm/kg (285-295); Phosphorus 4.1 mg/dL (2.5-4.5); Potassium 3.9 mmol/L (3.5-5.1); Sodium 143 mmol/L (136-145); Total Bilirubin 0.3 mg/dL (0.15-1.2); Total Protein 6.4 g/dL (6.6-8.7)
[2023-11-18 05:56] LABS: Procalcitonin 0.03 ng/mL (0-0.5)
[2023-11-18 06:21] LABS: Glucose Point of Care 92 mg/dL (70-110)
[2023-11-18] MEDS: escitalopram 10 mg Tablet 20 MG PO (09:40)
[2023-11-18] MEDS: ezetimibe 10 mg Tablet PO (09:40)
[2023-11-18] MEDS: atorvastatin 40 mg Tablet 80 MG PO (09:40)
[2023-11-18 10:44] LABS: Glucose Point of Care 94 mg/dL (70-110)
--- NOTE | 2023-11-18 14:28 | P.PN_ITS ---
Subjective 2 Subjective: Pain controlled. Patient reports that overnight her vagina suddenly leaked a large amount of purulent material. She has felt much better since. Denies any nausea or vomiting Vitals/I&O/Wt Last Vital Signs Temp 98.2 F 11/18/23 11:11 Pulse 75 11/18/23 11:11 Resp 16 11/18/23 11:11 BP 107/60 11/18/23 11:11 Pulse Ox 95 11/18/23 11:11 O2 Del Method Room Air 11/18/23 11:11 11/17/23 11/18/23 11/18/23 22:59 06:59 14:59 Intake Total 290 / 1340 1050 / 2390 50 / 50 Balance 290 / 1340 1050 / 2390 50 / 50 Weight last 48 hrs Weight 220 lb 8 oz Weight 220 lb Weight 210 lb Weight 210 lb Physical Exam 2 Narrative: General: No acute distress, awake alert and oriented x 3 Abdomen: Soft, nondistended, minimal suprapubic tenderness, no guarding rebound or masses Data 11/18/23 04:20 11/18/23 04:20 Micro: Microbiology 11/16/23 18:17 Blood Culture - Preliminary Blood NEGATIVE TO DATE 11/16/23 18:17 Blood Culture - Preliminary Blood NEGATIVE TO DATE A&P Assessment and plan (1) Diverticulitis of large intestine with complication: (2) Colovaginal fistula: (3) Pelvic abscess: Plan Zosyn Pain control Clear liquid diet She would likely need at least 3 days of IV antibiotics and a course of antibiotics that lasts at least 14 days Infectious disease has seen the patient Abscess spontaneously drained through colovaginal fistula No acute surgical intervention She will need a colonoscopy in approximately 6 weeks followed by elective sigmoidectomy Medical management per hospitalist Attestations 2 Medical Necessity Statement*: Per primary Coding Level of Care Code 58054 Diagnoses Diverticulitis of large intestine with complication K57.32 Colovaginal fistula N82.4 Pelvic abscess
--- NOTE | 2023-11-18 14:50 | P.PN_ITS ---
Subjective 2 Subjective: Patient was seen this morning, she reports that yesterday, she had some vaginal drainage, purulent material she denies being feculent, this morning, she denies any worsening abdominal pain, denies any fevers, no chills, no cough, has not had any bowel movement as of yet, denies passing gas Vitals/I&O/Wt Last Vital Signs Temp 98.2 F 11/18/23 11:11 Pulse 75 11/18/23 11:11 Resp 16 11/18/23 11:11 BP 107/60 11/18/23 11:11 Pulse Ox 95 11/18/23 11:11 O2 Del Method Room Air 11/18/23 11:11 11/17/23 11/18/23 11/18/23 22:59 06:59 14:59 Intake Total 290 / 1340 1050 / 2390 50 / 50 Balance 290 / 1340 1050 / 2390 50 / 50 Weight last 48 hrs Weight 100.017 kg Weight 99.79 kg Weight 95.254 kg Weight 95.254 kg Physical Exam 2 Const: COMMON NORMALS: no acute distress and patient oriented x3 Resp: COMMON NORMALS: normal respiratory effort, No retractions, No use of accessory muscles and clear to auscultation bilaterally AUSCULTATION: clear to auscultation bilaterally Cardio: COMMON NORMALS: regular rate, regular rhythm, S1 normal heart sound present and S2 normal heart sound present RATE: regular rate RHYTHM: r egular rhythm HEART SOUNDS: S1 normal heart sound present and S2 normal heart sound present GI: OTHER: Abdomen soft, slightly distended, good bowel sounds, no guarding, no rebound, rigidity, Extremity: COMMON NORMALS: no pedal edema Neuro: COMMON NORMALS: patient oriented x3 Psych: COMMON NORMALS: mental status grossly normal Data 11/18/23 04:20 11/18/23 04:20 Micro: Microbiology 11/16/23 18:17 Blood Culture - Preliminary Blood NEGATIVE TO DATE 11/16/23 18:17 Blood Culture - Preliminary Blood NEGATIVE TO DATE A&P Assessment and plan (1) Pelvic abscess: (2) Colonic diverticular abscess: (3) Chronic cystitis: (4) Diverticulitis of large intestine with complication: (5) Diverticulitis: Plan 63-year-old lady presenting with 5 days of fever abdominal pain poor p.o. intake and found to have a pelvic abscess most likely to be a diverticular abscess. Size of collection estimated to be 6.1 x 4.2 x 2.5 cm with a thickened enhancing ill-defined wall along the posterior superior margin of the bladder abutting the vaginal cuff. No signs of fistulization to the bladder. Per radiology read, fistulization to the vaginal cuff not excluded. ? Patient reported vaginal drainage yesterday, afternoon into the evening time, none this morning could be colovaginal fistula General surgery has been consulted from the emergency room. Patient n.p.o. Admit to [facility] Continue piperacillin/tazobactam for complicated diverticular abscess. IV fluid normal saline at 75 cc an hour Check blood culture Continue home medications including Wellbutrin, Lexapro, lamotrigine Insulin sliding scale for diabetes mellitus As needed Dilaudid for pain management, Zofran as needed for management of nausea. DVT prophylaxis: Lovenox 40 mg subcutaneous Full code Plan for today, continue IV antibiotics, await surgical recommendations, infectious disease recommendation Attestations 2 Medical Necessity Statement*: Patient requires hospitalization for perforated diverticulitis, with pelvic abscess Diagnoses Pelvic abscess Colonic diverticular abscess K57.20 Chronic cystitis N30.20 Diverticulitis of large intestine with complication K57.32 Diverticulitis K57.92
[2023-11-18 16:58] LABS: Glucose Point of Care 95 mg/dL (70-110)
[2023-11-18] MEDS: lamoTRIgine 100 mg Tablet 200 MG PO (20:40)
[2023-11-18 20:55] LABS: Glucose Point of Care 101 mg/dL (70-110)
[2023-11-19] VITALS: BP 116/72; PULSE 67; RESP 16; TEMP 36.6; O2SAT 96
[2023-11-19 04:00] VITALS: BP 119/71; PULSE 61; RESP 16; TEMP 36.4; O2SAT 95
[2023-11-19] MEDS: piperacillin-tazobactam 3.375 GM in sodium chloride 0.9% (plus) 50 ML IV ×3 (05:53→21:08)
[2023-11-19 05:54] LABS: Basophils # 0.1 10^3/uL (0.0-0.1); Basophils % 0.8 %; Eosinophils # 0.2 10^3/uL (0.0-0.8); Eosinophils % 2.6 %; Hematocrit 34.4 % (36-47); Lymphocytes # 2.4 10^3/uL (0.8-4.8); Lymphocytes % 35.9 %; Mean Corpuscular HGB Conc 31.4 g/dL (30-55); Mean Corpuscular Hemoglobin 27.6 pg (27-33); Mean Corpuscular Volume 87.8 fl (85-98); Mean Platelet Volume 10.5 fL (7.4-10.4); Monocytes # 0.6 10^3/uL (0.2-0.9); Monocytes % 9.1 %; Neutrophils # 3.38 10^3/uL (1.8-7.7); Neutrophils % 51.1 %; Nucleated Red Blood Cells % 0 %; Platelet Count 277 10^3/cmm (157-399); Red Blood Count 3.92 10^6/uL (3.85-5.65); Red Cell Distribution Width 13.1 % (12.1-15.1)
[2023-11-19] MEDS: buPROPion SR (12 HR) 100 mg Tablet 200 MG PO (05:54)
[2023-11-19 06:03] VITALS: BMI 41.7
[2023-11-19 06:21] LABS: Procalcitonin 0.02 ng/mL (0-0.5)
[2023-11-19 06:22] LABS: Alanine Aminotransferase 14 U/L (0-33); Albumin Level 3.7 g/dL (3.5-5.2); Alkaline Phosphatase 61 U/L (35-105); Anion Gap 13.5 (5-19); Aspartate Amino Transferase 8 U/L (0-32); Blood Urea Nitrogen 6 mg/dL (8-23); C Reactive Protein 22.8 mg/L (0.0-4.9); Calcium 8.5 mg/dL (8.5-10.5); Carbon Dioxide 29 mmol/L (22-29); Chloride 105 mmol/L (98-107); Creatinine Clr Calc Pharmacy 106.8512; Globulin 2.7 g/dL (1.3-4.6); Glomerular Filtration Rate 101.6 mL/min (90-130); Glucose 83 mg/dL (65-115); Magnesium 1.9 mg/dL (1.7-2.3); Osmolality Calculated 295 mOsm/kg (285-295); Phosphorus 3.8 mg/dL (2.5-4.5); Potassium 3.5 mmol/L (3.5-5.1); Sodium 144 mmol/L (136-145); Total Bilirubin 0.2 mg/dL (0.15-1.2); Total Protein 6.4 g/dL (6.6-8.7)
[2023-11-19 06:36] LABS: Glucose Point of Care 98 mg/dL (70-110)
--- NOTE | 2023-11-19 07:20 | P.CONIM_ITS ---
Providers/Reason For Consult 2 Consulting Physician/Specialty*: Isabella Garcia MD/ Infectious Disease Reason for Consult*: diverticular abscess Requesting Physician: Pierre White MD Attending Physician: Pierre White MD Primary Care Provider: MILLA Blackwell History of Present Illness History of Present Illness Cristobal Styles is a 63 year old female who was admitted on 11/16/23 overnight with c/0 5 days of fever, abdominal pain and nausea with poor po intake. She was found to have a diverticular abscess closely abutting the vagina. She was admitted and started on treatment with Iv Zosyn. 2 days later, she developed spontaneous drainage of pus contents from the vagina. This was followed by relief in abdominal pain. Since starting treatment, she has become afebrile. Leukocytosis is improving. She is on clear diet, appears to be tolerating. ID consulted to opine regarding duration of abx. Review of Systems 2 General: Reports: 10 or more systems reviewed and unremarkable except in HPI and below Const: Denies: fever(s), chills or body aches Eyes: Denies: change in vision, blurry vision or photophobia ENMT: Reports: hoarseness; Denies: throat pain, enlarged tonsils, odynophagia or nasal congestion Card: Denies: chest pain, palpitations, irregular heart rhythm, edema, swelling of feet/ankles, lightheadedness, pre-syncope, dyspnea on exertion or orthopnea Resp: Denies: dyspnea, productive cough, non-productive cough, wheezing, stridor, pain on inspiration, change in phlegm color, hemoptysis or chest congestion GI: Denies: abdominal pain, nausea, vomiting, hematemesis, coffee ground emesis, dysphagia, heartburn, diarrhea, constipation, GI cramping, change in stool character, hematochezia or melena : Denies: flank pain, difficulty voiding, dysuria, urinary frequency, urinary urgency, urinary hesitancy or hematuria Musc: Denies: neck pain, back pain, extremity pain, joint swelling, joint warmth or deformity Neuro: Denies: headache(s), numbness in extremities, weakness in extremities, sensory changes, difficulty walking, frequent falls, dizziness, vertigo, behavioral changes, Slurred speech present or seizure-like activity Psych: Denies: anxiety, depression, suicidal ideation or homicidal ideation Endo: Denies: polyuria, polydipsia, tired all the time, cold intolerance or hot flashes Curtis/Lymph: Denies: easy bruising or easy bleeding Medications/Allergies Home Medications Medication Instructions Recorded Confirmed Last Taken Type lancets 28 gauge (FreeStyle #25 ea 08/22/19 11/17/23 Unknown History Lancets) blood-glucose meter (OneTouch #1 ea 05/14/20 11/17/23 Unknown Rx Ultra2 Meter kit) cholecalciferol (vitamin D3) 125 125 mcg PO BID 09/08/20 11/17/23 11/16/23 History mcg (5,000 unit) capsule blood sugar diagnostic (OneTouch #50 ea 12/20/21 11/17/23 Unknown Rx Ultra Test strips) calcium carbonate 500 mg-vitamin 1 tab PO .2 time day #60 tabs 12/20/21 11/17/23 11/16/23 Rx D3 15 mcg (600 unit) tablet (Os-Itz 500 + D3) lancets 33 gauge (OneTouch Delica #100 ea 12/29/21 11/17/23 Unknown Rx Plus Lancet) methenamine hippurate 1 gram tablet 1 g PO BID #60 tabs 02/09/22 11/17/23 Unknown Rx dapagliflozin propanediol 5 mg 5 mg PO QAM #30 tabs 12/14/22 11/17/23 11/16/23 Rx tablet (Farxiga) ezetimibe 10 mg tablet 10 mg PO DAILY #90 tabs 12/20/22 11/17/23 11/16/23 Rx lisinopril 10 mg tablet 10 mg PO DAILY #90 tabs 12/20/22 11/17/23 11/16/23 Rx alendronate 70 mg tablet (Fosamax) 70 mg PO .weekly #4 tabs 01/31/23 11/17/23 11/13/23 Rx bupropion HCl 200 mg tablet,12 hr 200 mg PO QAM #30 tabs 04/19/23 11/17/23 11/16/23 Rx sustained-release (Wellbutrin SR) omeprazole 20 mg capsule,delayed See Rx Instructions .Route 07/05/23 11/17/23 11/16/23 Rx release .COMPLEX #30 caps mometasone 50 mcg/actuation nasal 2 spray intranasal DAILY 12 months 07/20/23 11/17/23 Unknown Rx spray (Nasonex 24hr Allergy) #17 grams escitalopram oxalate 20 mg tablet 20 mg PO .morning #30 tabs 07/25/23 11/17/23 11/16/23 Rx (Lexapro) lamotrigine 200 mg tablet 200 mg PO .QHS #30 tabs 09/04/23 11/17/23 11/15/23 Rx (Lamictal) nitroglycerin 0.4 mg sublingual See Rx Instructions .Route 11/13/23 11/17/23 Unknown Rx tablet .COMPLEX #50 tabs albuterol sulfate 90 mcg/actuation 2 puff inhalation Q6H PRN 11/17/23 11/17/23 Unknown History aerosol inhaler Shortness Of Breath Or Wheezing Allergies Allergy/AdvReac Type Severity Reaction Status Date / Time metformin Allergy Unknown nausea Verified 11/16/23 13:57 tetracycline Allergy Unknown Tongue Verified 11/16/23 13:57 swelling naproxen AdvReac Unknown cramps/naus Verified 11/16/23 13:57 ea Current Medications Generic Name Dose Route Start Last Admin Trade Name Freq PRN Reason Stop Dose Admin Acetaminophen 650 mg 11/16/23 23:02 11/17/23 21:50 Acetaminophen 325 Mg Tablet PO 650 mg Q6H PRN Administration Mild/Mod Pain Or Temp >/= 101 Hydrocodone Bitart/Acetaminophen 1 tab 11/17/23 04:09 11/17/23 07:38 Hydrocodone-Acetaminophen 5-325 Mg Tablet PO 1 tab Q4H PRN Administration MODERATE PAIN Atorvastatin Calcium 80 mg 11/17/23 09:00 11/18/23 09:40 Atorvastatin 40 Mg Tablet PO 80 mg DAILY ALBERTA Administration Bupropion HCl 200 mg 11/17/23 06:00 11/19/23 05:54 Bupropion Sr (12 Hr) 100 Mg Tablet PO 200 mg QAM ALBERTA Administration Ezetimibe 10 mg 11/17/23 09:00 11/18/23 09:40 Ezetimibe 10 Mg Tablet PO 10 mg DAILY ALBERTA Administration Enoxaparin Sodium 40 mg 11/16/23 23:02 11/18/23 22:47 Enoxaparin 40 Mg/0.4 Ml Syringe SUBCUT Not Given Q24H [facility] Escitalopram Oxalate 20 mg 11/17/23 09:00 11/18/23 09:40 Escitalopram 10 Mg Tablet PO 20 mg DAILY ALBERTA Administration Sodium Chloride 1,000 mls @ 75 mls/hr 11/16/23 23:02 11/18/23 21:07 Sodium Chloride 0.9% IV 75 mls/hr .[id number] ALBERTA Infusion Piperacillin Sod/Tazobactam 50 mls @ 12.5 mls/hr 11/17/23 05:30 11/19/23 05:53 Sod 3.375 gm/ Sodium Chloride IV 12.5 mls/hr Q8H ALBERTA Administration Insulin Human Lispro 0 unit 11/17/23 08:00 11/18/23 21:08 Insulin Lispro 100 Unit/1 Ml SUBCUT Not Given WM&BEDTIME ALBERTA Protocol Lamotrigine 200 mg 11/16/23 23:15 11/18/23 20:40 Lamotrigine 100 Mg Tablet PO 200 mg BEDTIME ALBERTA Administration Ondansetron HCl 4 mg 11/16/23 23:02 11/17/23 00:01 Ondansetron 2 Mg/Ml Sdv 2 Ml IVP 4 mg Q8H PRN Administration vomiting, or N/V if npo Pantoprazole Sodium 40 mg 11/16/23 23:02 11/18/23 22:47 Pantoprazole 40 Mg Sdv IVP 40 mg Q24H ALBERTA Administration PFSH Acute 2 PFSH: Medical History Psychiatric care Lumbar radiculopathy, chronic Atherosclerotic heart disease of [place] coronary artery with other forms of angina pectoris Acid reflux Mixed incontinence Hypertension DDD (degenerative disc disease) Asthma Diabetes Chronic cystitis Major depressive disorder, recurrent severe without psychotic features Follows up with [facility] Generalized anxiety disorder Surgical History H/O excision of mass (09/30/21) Subcutaneous mass left upper quadrant of the abdomen H/O right wrist surgery Status post tubal ligation 1986 at time of third S/P hernia repair 10/27/11- Hernia repair Dx: rentral hernia anterior abdominal wall below umbilicus. Performed by Dr Macias at [facility] in [place], [place]. Per patient mesh was used and it covers her whole lower abdominal wall. S/P bladder repair X 2 01/09/07- Anterior/posterior vaginal repair, transobturator suburethral sling, cystoscopy. Dx: mixed urinary incontinence, cystocele and rectocele. Performed by Dr Andrews at [facility] in [place], [place] 07/2013- Bladder repair revised. Performed in [place]. She states that she had pain and the surgeon went in and excised some of the mesh but was unable to get everything out. H/O neck surgery 06/14/[address] Dillon at [facility] S/P cholecystectomy Open procedure performed via right upper quadrant incision in 1987 in [facility] S/P hysterectomy 2001---total abdominal hysterectomy with bilateral [id number] Performed by Dr Stewart at [facility] for bleeding problems. She states her ovaries and Appendix were removed as well. Patient states she was told that there was no cancer H/O section x 3 ----> 1983, 1985, 1986 S/P appendectomy 2001-performed at time of open hysterectomy S/P excision of ganglion cyst Left wrist in [place], [place] S/P carpal tunnel release Bilateral-2002 and 2003 performed in [place], [place] S/P excision of lipoma Family History Father , 86 Hypertension Stroke Thyroid disease Kidney disease CAD (coronary artery disease) Chronic kidney disease (CKD) Sister Heart disease Her sister of heart disease at the age of 45-some congenital heart disease however she does not remember the name. Brother Kidney disease Diabetes Family/Other Breast cancer maternal aunt, diagnosed at age 62 Mother , AT AGE 84 Cancer PANCREATIC Lung disease Denies family history of Colon cancer Ovarian cancer Clotting disorder Dementia Hyperlipidemia Suicide Anesthesia complication Bleeding disorder Social History Smoking and tobacco/nicotine status: former use of tobacco/nicotine Second hand smoke exposure: No Alcohol intake: never Substance/Drug Use: never Adopted: No Caregiver/support person: No Lives independently: Yes Household members: spouse Housing: House Marital status: Number of children: 4 Current occupational status: retired Do you think of yourself as: Straight/Heterosexual Current gender identity: Female Vitals/I&O/Wt Last Vital Signs Temp 97.6 F 11/19/23 04:00 Pulse 61 11/19/23 04:00 Resp 16 11/19/23 04:00 BP 119/71 11/19/23 04:00 Pulse Ox 95 11/19/23 04:00 O2 Del Method Room Air 11/19/23 04:00 11/18/23 11/19/23 11/19/23 22:59 06:59 14:59 Intake Total / Balance Weight last 48 hrs Weight 100.153 kg Weight 100.017 kg Physical Exam 2 Narrative: General: No acute distress, AO x3 HEENT: PERRLA, pupils bilaterally equal and reactive, pallors not present Chest: Normal vesicular breath sounds, no added sounds, equal good air entry bilaterally CVS: S1-S2 regular, no murmurs, no tachycardia, no gallops, no rubs Abdomen: Soft, nontender, no organomegaly, bowel sounds present Neuro: No focal deficits, no facial deformity, AO x3, power 5/5 in all limbs Data 11/20/23 02:14 11/20/23 02:14 CT Abd/Pel: Radiologist's impression: [place] [address] CT Scan Report Signed Patient: Cristobal Styles Unit #: [id number] : 1960 Age/Sex: 63 / F ADM Date: 11/16/23 Loc: ER Room/Bed: Attending Dr: Ordering Provider/Ordering MD: Robert Luis DO Date of Service: 11/16/23 Procedure(s): CT abdomen pelvis w con* [id number] Accession Number(s): [id number] Report Number: [id number] PROCEDURE INFORMATION: Exam: CT Abdomen And Pelvis With Contrast Exam date and time: 11/16/2023 8:04 PM Age: 63 years old Clinical indication: Abdominal pain; Localized; Lower; Additional info: Pelvic pain, abnormal nonconct near bladder TECHNIQUE: Imaging protocol: Computed tomography of the abdomen and pelvis with contrast. Radiation optimization: All CT scans at this facility use at least one of these dose optimization techniques: automated exposure control; mA and/or kV adjustment per patient size (includes targeted exams where dose is matched to clinical indication); or iterative reconstruction. Contrast material: OMNI 350; Contrast volume: 100 ml; Contrast route: INTRAVENOUS (IV); COMPARISON: CT kidney stone [id number] 11/16/2023 6:02 PM RADIATION DOSE METRICS: Total DLP (mGy-cm): 981 FINDINGS: Lungs: Lung bases are clear. Liver: The liver is mildly enlarged. There is no focal liver abnormality. Gallbladder and bile ducts: The gallbladder is absent. There is moderate dilation of the common bile duct and central intrahepatic ducts. Pancreas: The pancreas is unremarkable. Spleen: The spleen is moderately enlarged. Adrenal glands: The adrenal glands are unremarkable. Kidneys and ureters: The kidneys are unremarkable. No hydronephrosis or stones. No ureteral dilation. Stomach and bowel: The stomach is nondistended, limiting assessment of wall thickness. There is a non-inflamed diverticulum in the proximal duodenum. The small bowel is nondilated. There is moderate diverticulosis of the distal descending and sigmoid colon. There is a short segment of mid sigmoid colonic mucosal thickening and pericolonic edema associated with diverticula, immediately adjacent to the fluid collection along the posterior bladder wall. The distal sigmoid and rectum are unremarkable. Appendix: The appendix is not visible. Intraperitoneal space: There is no free air or significant intraperitoneal free fluid. Vasculature: The aorta is unremarkable. There is no aneurysm. The portal, splenic and superior mesenteric veins are patent. Lymph nodes: There is no lymphadenopathy in the retroperitoneum, mesentery, pelvis or inguinal regions. Urinary bladder: There is thickening and enhancement of the posterior bladder wall. The bladder is nondistended. There is no intraluminal bladder gas. Reproductive: There is a 6.1 x 4.2 x 2.5 cm collection of intermediate density fluid and gas with a thick enhancing ill-defined wall located along the posterosuperior margin of the bladder, abutting the vaginal cuff posteriorly and intimately associated with the sigmoid colon superiorly. Bones/joints: There is mild degenerative disease in the lumbar spine. The pelvis and hips are unremarkable. Soft tissues: There is a small fat containing ventral hernia. CT/CT abdomen pelvis w con* [id number] IMPRESSION: 1. Thick-walled peripherally enhancing fluid and gas collection in the deep pelvis intimately associated with distal sigmoid colon, vaginal cuff, and urinary bladder. Findings are most consistent with diverticulitis and diverticular abscess. No sign of fistula to the bladder. Fistula to the vaginal cuff is not excluded. 2. Secondary cystitis. No gas in the bladder lumen. 3. Hepatosplenomegaly. 4. Incidental findings above. A&P Assessment and plan (1) Colonic diverticular abscess: (2) Colovaginal fistula: Plan 63F admitted with diverticular abscess in close proximity to vaginal and bladder cárdenas subsequent vaginal drainage c/f colovaginal fistula as a complication Currently on treatment with Zosyn which can continue for inpatient use patient is clinically improving indication for surgical intervention vs IR drainage per general surgery assessment If no surgical intervention is indicated, plan discharge on 14 days of iv abx for complicated diverticlitis , likely ertapenem 1g iv q24h empirically for broad coverage followed by serial imaging at end of abx course. further treatment course dependent on clinical and radiological response to treatment Picc line to facilitate above abx course blood cx negative to date will follow Consult Attestations 2 Medical Necessity Statement: per admitting attending Coding Level of Care Code Acute Code for Chg Fwd High MDM includes number and complexity of problems actively addressed during encounter, amount and/or complexity of data reviewed/ordered and described risk of complication, morbidity or mortality of management as documented Diagnoses Colonic diverticular abscess K57.20 Colovaginal fistula N82.4
[2023-11-19 07:50] VITALS: BP 128/78; PULSE 62; RESP 18; TEMP 36.6; O2SAT 95
[2023-11-19] MEDS: sodium chloride 0.9% 1,000 ML 75 ML IV (08:11)
[2023-11-19] MEDS: atorvastatin 40 mg Tablet 80 MG PO (08:13)
[2023-11-19] MEDS: ezetimibe 10 mg Tablet PO (08:13)
[2023-11-19] MEDS: escitalopram 10 mg Tablet 20 MG PO (08:14)
[2023-11-19 12:00] VITALS: BP 120/78; PULSE 65; RESP 18; TEMP 36.6; O2SAT 97
[2023-11-19 12:14] LABS: Glucose Point of Care 102 mg/dL (70-110)
--- NOTE | 2023-11-19 12:15 | P.PN_ITS ---
Subjective 2 Subjective: Patient seen and examined. Denies any abdominal pain Vitals/I&O/Wt Last Vital Signs Temp 98.2 F 11/20/23 07:41 Pulse 61 11/20/23 07:41 Resp 18 11/20/23 07:41 BP 127/76 11/20/23 07:41 Pulse Ox 99 11/20/23 07:41 O2 Del Method Room Air 11/20/23 07:41 11/19/23 11/20/23 11/20/23 22:59 06:59 14:59 Intake Total 1707.917 / 3301.667 250 / 3551.667 903.333 / 903.333 Balance 1707.917 / 3301.667 250 / 3551.667 903.333 / 903.333 Weight last 48 hrs Weight 216 lb 8 oz Weight 220 lb 12.8 oz Physical Exam 2 Narrative: General: No acute distress, awake alert and oriented x 3 Abdomen: Soft, nondistended, nontender, no guarding rebound or masses Data 11/20/23 02:14 11/20/23 02:14 A&P Assessment and plan (1) Diverticulitis of large intestine with complication: (2) Colovaginal fistula: (3) Pelvic abscess: Plan Zosyn Pain control Full liquid diet She would likely need at least 3 days of IV antibiotics and a course of antibiotics that lasts at least 14 days Infectious disease has seen the patient Abscess spontaneously drained through colovaginal fistula No acute surgical intervention She will need a colonoscopy in approximately 6 weeks followed by elective sigmoidectomy Medical management per hospitalist Attestations 2 Medical Necessity Statement*: Per primary Coding Level of Care Code 36293 Diagnoses Diverticulitis of large intestine with complication K57.32 Colovaginal fistula N82.4 Pelvic abscess
--- NOTE | 2023-11-19 14:11 | P.PN_ITS ---
Subjective 2 Subjective: Patient was seen this morning, she reports passing gas from below, she has had a bowel movement, denies any further vaginal discharge no fevers, chills no abdominal pain Vitals/I&O/Wt Last Vital Signs Temp 97.9 F 11/19/23 12:00 Pulse 65 11/19/23 12:00 Resp 18 11/19/23 12:00 BP 120/78 11/19/23 12:00 Pulse Ox 97 11/19/23 12:00 O2 Del Method Nasal Cannula 11/19/23 12:00 11/18/23 11/19/23 11/19/23 22:59 06:59 14:59 Intake Total / 50 / 2125. 1593.75 / 1593.75 Balance 50 / 2125. 1593.75 / 1593.75 Weight last 48 hrs Weight 100.153 kg Weight 100.017 kg Physical Exam 2 Const: COMMON NORMALS: no acute distress and patient oriented x3 Resp: COMMON NORMALS: normal respiratory effort, No retractions, No use of accessory muscles and clear to auscultation bilaterally AUSCULTATION: clear to auscultation bilaterally Cardio: COMMON NORMALS: regular rate, regular rhythm, S1 normal heart sound present and S2 normal heart sound present RATE: regular rate RHYTHM: r egular rhythm HEART SOUNDS: S1 normal heart sound present and S2 normal heart sound present GI: COMMON NORMALS: Normal to inspection, nondistended, normoactive bowel sounds present, Soft to palpation and non-tender PALPATION: Yes Soft to palpation Extremity: COMMON NORMALS: no pedal edema Neuro: COMMON NORMALS: patient oriented x3 Psych: COMMON NORMALS: mental status grossly normal Data 11/19/23 04:36 11/19/23 04:36 A&P Assessment and plan (1) Pelvic abscess: (2) Colonic diverticular abscess: (3) Chronic cystitis: (4) Diverticulitis of large intestine with complication: (5) Diverticulitis: Plan 63-year-old lady presenting with 5 days of fever abdominal pain poor p.o. intake and found to have a pelvic abscess most likely to be a diverticular abscess. Size of collection estimated to be 6.1 x 4.2 x 2.5 cm with a thickened enhancing ill-defined wall along the posterior superior margin of the bladder abutting the vaginal cuff. No signs of fistulization to the bladder. Per radiology read, fistulization to the vaginal cuff not excluded. ? Patient reported vaginal drainage yesterday, afternoon into the evening time, none this morning could be colovaginal fistula General surgery has been consulted from the emergency room. Patient n.p.o. Admit to [facility] Continue piperacillin/tazobactam for complicated diverticular abscess. IV fluid normal saline at 75 cc an hour Check blood culture Continue home medications including Wellbutrin, Lexapro, lamotrigine Insulin sliding scale for diabetes mellitus As needed Dilaudid for pain management, Zofran as needed for management of nausea. DVT prophylaxis: Lovenox 40 mg subcutaneous Full code Plan for today, continue IV antibiotics, await surgical recommendations, spoke to infectious disease, will patient require PICC line placement, a total of 2 weeks of IV antibiotics, we discussed given that patient had a diverticular abscess, there is evidence of drainage through colovaginal fistula, but the concern is persistence of diverticular abscess despite this, and overall patient's clinical course and prognosis, plan on repeating CT abdomen pelvis tomorrow Attestations 2 Medical Necessity Statement*: Patient requires hospitalization for diverticular abscess, diverticulitis, and High MDM includes number and complexity of problems actively addressed during encounter, amount and/or complexity of data reviewed/ordered and described risk of complication, morbidity or mortality of management as documented Diagnoses Pelvic abscess Colonic diverticular abscess K57.20 Chronic cystitis N30.20 Diverticulitis of large intestine with complication K57.32 Diverticulitis K57.92
[2023-11-19 16:00] VITALS: BP 131/84; PULSE 68; RESP 18; TEMP 36.7; O2SAT 97
[2023-11-19 16:16] LABS: Glucose Point of Care 104 mg/dL (70-110)
[2023-11-19 19:54] VITALS: BP 126/69; PULSE 64; RESP 18; TEMP 36.4; O2SAT 97
[2023-11-19 20:24] LABS: Glucose Point of Care 98 mg/dL (70-110)
[2023-11-19] MEDS: lamoTRIgine 100 mg Tablet 200 MG PO (21:08)
[2023-11-19] MEDS: sodium chloride 0.9% 1,000 ML 50 ML IV (21:13)
[2023-11-19] MEDS: pantoprazole 40 mg SDV IVP (22:59)
[2023-11-20] VITALS: BP 120/78; PULSE 61; RESP 18; TEMP 36.5; O2SAT 95
[2023-11-20 03:55] LABS: Basophils # 0.1 10^3/uL (0.0-0.1); Basophils % 0.7 %; Eosinophils # 0.2 10^3/uL (0.0-0.8); Eosinophils % 2.3 %; Hematocrit 33.6 % (36-47); Lymphocytes # 2.6 10^3/uL (0.8-4.8); Mean Corpuscular HGB Conc 31.5 g/dL (30-55); Mean Corpuscular Hemoglobin 27.6 pg (27-33); Mean Corpuscular Volume 87.5 fl (85-98); Monocytes # 0.7 10^3/uL (0.2-0.9); Monocytes % 9.8 %; Neutrophils % 50.9 %; Nucleated Red Blood Cells % 0 %; Platelet Count 294 10^3/cmm (157-399); Red Blood Count 3.84 10^6/uL (3.85-5.65); Red Cell Distribution Width 13.1 % (12.1-15.1); White Blood Count 7.27 10^3/uL (3.29-11.43)
[2023-11-20 04:00] VITALS: BP 125/79; PULSE 57; RESP 18; TEMP 36.4; O2SAT 93
[2023-11-20 04:28] LABS: Procalcitonin 0.02 ng/mL (0-0.5)
[2023-11-20 04:40] LABS: Alanine Aminotransferase 16 U/L (0-33); Albumin Level 3.8 g/dL (3.5-5.2); Alkaline Phosphatase 58 U/L (35-105); Anion Gap 15.4 (5-19); Aspartate Amino Transferase 9 U/L (0-32); Blood Urea Nitrogen 3 mg/dL (8-23); C Reactive Protein 10.4 mg/L (0.0-4.9); Calcium 8.8 mg/dL (8.5-10.5); Carbon Dioxide 26 mmol/L (22-29); Chloride 108 mmol/L (98-107); Creatinine Clr Calc Pharmacy 105.6388; Globulin 2.7 g/dL (1.3-4.6); Glomerular Filtration Rate 101.6 mL/min (90-130); Glucose 87 mg/dL (65-115); Magnesium 1.8 mg/dL (1.7-2.3); Osmolality Calculated 298 mOsm/kg (285-295); Phosphorus 4.3 mg/dL (2.5-4.5); Potassium 3.4 mmol/L (3.5-5.1); Sodium 146 mmol/L (136-145); Total Bilirubin 0.3 mg/dL (0.15-1.2); Total Protein 6.5 g/dL (6.6-8.7)
[2023-11-20] MEDS: buPROPion SR (12 HR) 100 mg Tablet 200 MG PO (05:36)
[2023-11-20] MEDS: piperacillin-tazobactam 3.375 GM in sodium chloride 0.9% (plus) 50 ML IV ×2 (05:38→15:13)
[2023-11-20 06:23] LABS: Glucose Point of Care 88 mg/dL (70-110)
--- NOTE | 2023-11-20 07:26 | CT_ITS ---
WS: [id number] CT ABDOMEN AND PELVIS WITH CONTRAST HISTORY: follow up diverticuar abscess TECHNIQUE: Imaging performed of the abdomen and pelvis with IV contrast. Single phase imaging of the abdomen. Coronal and sagittal reformats are submitted. All CT scans at [facility] use at [address] one of these dose optimization techniques: automated exposure control; mA and/or kV adjustment per patient size (includes targeted exams where dose is matched to clinical indication); or iterative re construction. IV CONTRAST: Omnipaque 350; 100 mL IV. Oral contrast: Yes. DLP: 1032.48 mGy.cm COMPARISON: 11/16/2023 Lower thorax: Lung bases are clear. Heart is normal size. No hiatal hernia. Liver/biliary system: Liver is moderately enlarged. No mass. Normal portal vein. Gallbladder: Prior cholecystectomy. Pancreas: Normal size pancreas and pancreatic duct. No adjacent inflammation. Spleen: Normal size spleen. No mass or infarct. Adrenal glands: Normal. Right kidney: Normal. Left kidney: Normal. Aorta: Mild atherosclerosis with no aneurysm. Lymphadenopathy: There are a few small lymph nodes deep within the pelvis surrounding the previously described diverticular abscess. No enlarging lymph nodes. Free fluid: No free fluid in the pelvis. GI tract: Normally distended stomach. No small bowel obstruction. The appendix is been surgically rem arthur. Previously described diverticular abscess deep within the pelvis and inseparable from the urinary georgi dder and vagina is much smaller and decompressed now. Ill-defined residual collection measures approx imately 2.2 x 1.6 cm. Persistent inflammatory changes and phlegmonous changes are now present deep wi thin the pelvis. Numerous foci of air extend from the position of the previously described abscess an d sigmoid colon into the urinary bladder wall and into the vagina. There is marked bladder wall thick ening measuring up to 1.3 cm. There is a small amount of oral contrast that extends from the colon in to the bladder wall along the fistulous tract. Abdominal wall: Ventral abdominal wall hernia. Diastases of the rectus with adjacent surgical clips. Probably from a prior hernia repair. Pelvis: Prior hysterectomy. Bones: Increase in lumbar lordosis. CT/CT abdomen pelvis w con* [id number] IMPRESSION: 1. Previously described abscess deep within the pelvis associated with the dis mel sigmoid colon as decompressed and is now much smaller in size. There is a s mall residual ill-defined collection along the wall of the bladder. 2. Sigmoid abscess decompresses through a fistula extending from the sigmoid c olon through the wall of the urinary bladder and vagina, colovesicovaginal fist dashawn. There is a small amount of oral contrast extending along the fistulous tra ct in the wall of the bladder along with numerous foci of air along the entire fistulous tract. 3. There is significant bladder wall thickening. 4. No free air. 5. Prior cholecystectomy and hepatomegaly.
[2023-11-20 07:41] VITALS: BP 127/76; PULSE 61; RESP 18; TEMP 36.8; O2SAT 99
[2023-11-20] MEDS: atorvastatin 40 mg Tablet 80 MG PO (08:33)
[2023-11-20] MEDS: ezetimibe 10 mg Tablet PO (08:33)
[2023-11-20] MEDS: escitalopram 10 mg Tablet 20 MG PO (08:33)
[2023-11-20] MEDS: lidocaine 1% 5 ML in potassium chloride premix 100 ML 25 ML IV (09:27)
[2023-11-20 11:58] LABS: Glucose Point of Care 101 mg/dL (70-110)
[2023-11-20 12:00] VITALS: BP 121/81; PULSE 64; RESP 18; TEMP 36.7; O2SAT 96
--- NOTE | 2023-11-20 12:00 | PICC.NOTE ---
Midline placed to left basilic vein. Referred to vascular access nurse for midline placement due to need for IV Ertapenem x 2 weeks. Risks and benefits discussed and informed consent obtained from patient. Pt right arm dominant and requests line to be placed in the opposite arm. Left arm assessed with left basilic vein measuring 4.0 mm, straight, and apparent best choice for placement. Using sterile technique and MST, left basilic vein accessed x 1 stick. Mid-arm circumference measured 10 cm from left AC 37 cm. Trimmed cath 11 cm with 0 cm external length noted. Line secured with stat-lock. Insertion site covered with Biopatch and TSM. Report given to bedside nurseSelena.
--- NOTE | 2023-11-20 12:00 | PICC.NOTE ---
? PICC placed to vein. Referred to vascular access nurse for PICC placement due to . Risks and benefits discussed and informed consent obtained. arm assessed with vein measuring mm, straight, and apparent best choice for placement. Using sterile technique and MST, vein accessed x 1 stick. Mid-arm circumference measured 10 cm from ____ AC ___ cm. Trimmed cath cm with ____ cm external length noted. CXR shows tip in , in good position for use per radiologist. Line secured with stat-lock. Insertion site covered with Biopatch and TSM. Report given to bedside nurse, .
[2023-11-20] MEDS: iohexol 350 mg/mL 500 mL Btl (per mL) IV (12:02)
[2023-11-20] MEDS: iohexol 350 mg/mL 500 mL Btl (per mL) PO (12:04)
--- NOTE | 2023-11-20 12:11 | PC.SOCIAL ---
IMM Update pg 2 of IMM updated and reviewed w/ patient. Copy provided and copy dated, initialed and placed in chart.
--- NOTE | 2023-11-20 12:13 | P.PN_ITS ---
Subjective 2 Subjective: Patient seen and examined. She denies any abdominal pain. Positive bowel movement Vitals/I&O/Wt Last Vital Signs Temp 98.2 F 11/20/23 07:41 Pulse 61 11/20/23 07:41 Resp 18 11/20/23 07:41 BP 127/76 11/20/23 07:41 Pulse Ox 99 11/20/23 07:41 O2 Del Method Room Air 11/20/23 07:41 11/19/23 11/20/23 11/20/23 22:59 06:59 14:59 Intake Total 1707.917 / 3301.667 250 / 3551.667 903.333 / 903.333 Balance 1707.917 / 3301.667 250 / 3551.667 903.333 / 903.333 Weight last 48 hrs Weight 216 lb 8 oz Weight 220 lb 12.8 oz Physical Exam 2 Narrative: General: No acute distress, awake alert and oriented x 3 Abdomen: Soft, nondistended, minimal suprapubic tenderness, no guarding rebound or masses Data 11/20/23 02:14 11/20/23 02:14 A&P Assessment and plan (1) Diverticulitis of large intestine with complication: (2) Colovaginal fistula: (3) Pelvic abscess: Plan CT of the abdomen pelvis shows a colovesicalvaginal fistula Antibiotics per infectious disease Soft diet No acute surgical intervention She will need a colonoscopy in approximately 6 weeks followed by elective sigmoidectomy Surgically stable for discharge Medical management per hospitalist Attestations 2 Medical Necessity Statement*: Per primary Coding Level of Care Code Acute Code for [facility] Fwd Diagnoses Diverticulitis of large intestine with complication K57.32 Colovaginal fistula N82.4 Pelvic abscess
--- NOTE | 2023-11-20 12:41 | P.PN_ITS ---
Subjective 2 Subjective: Infectious disease progress note CT abdomen/pelvis taken today revealing interval decompression of pelvic abscess via colovesicalvaginal fistula Abscess measures smaller now afebrile, hemodynamically stable Medications: Reviewed: Yes Vitals/I&O/Wt Last Vital Signs Temp 98.2 F 11/20/23 07:41 Pulse 61 11/20/23 07:41 Resp 18 11/20/23 07:41 BP 127/76 11/20/23 07:41 Pulse Ox 99 11/20/23 07:41 O2 Del Method Room Air 11/20/23 07:41 11/19/23 11/20/23 11/20/23 22:59 06:59 14:59 Intake Total 1707.917 / 3301.667 250 / 3551.667 1023.333 / 1023.333 Balance 1707.917 / 3301.667 250 / 3551.667 1023.333 / 1023.333 Weight last 48 hrs Weight 98.203 kg Weight 100.153 kg Physical Exam 2 Narrative: General: No acute distress, AO x3 HEENT: PERRLA, pupils bilaterally equal and reactive, pallors not present Chest: Normal vesicular breath sounds, no added sounds, equal good air entry bilaterally CVS: S1-S2 regular, no murmurs, no tachycardia, no gallops, no rubs Abdomen: Soft, nontender, no organomegaly, bowel sounds present Neuro: No focal deficits, no facial deformity, AO x3, power 5/5 in all limbs Data 11/20/23 02:14 11/20/23 02:14 Other data: Patient: Cristobal Styles Unit #: [id number] : 1960 Age/Sex: 63 / F ADM Date: 11/16/23 Loc: [facility] Room/Bed: [facility] Attending Dr: Pierre White MD Ordering Provider/Ordering MD: Isabella Garcia MD Date of Service: 11/20/23 Procedure(s): CT abdomen pelvis w con* [id number] Accession Number(s): [id number] Report Number: [id number] WS: [id number] CT ABDOMEN AND PELVIS WITH CONTRAST HISTORY: follow up diverticuar abscess TECHNIQUE: Imaging performed of the abdomen and pelvis with IV contrast. Single phase imaging of the abdomen. Coronal and sagittal reformats are submitted. All CT scans at [facility] use at least one of these dose optimization techniques: automated exposure control; mA and/or kV adjustment per patient size (includes targeted exams where dose is matched to clinical indication); or iterative reconstruction. IV CONTRAST: Omnipaque 350; 100 mL IV. Oral contrast: Yes. DLP: 1032.48 mGy.cm COMPARISON: 11/16/2023 Lower thorax: Lung bases are clear. Heart is normal size. No hiatal hernia. Liver/biliary system: Liver is moderately enlarged. No mass. Normal portal vein. Gallbladder: Prior cholecystectomy. Pancreas: Normal size pancreas and pancreatic duct. No adjacent inflammation. Spleen: Normal size spleen. No mass or infarct. Adrenal glands: Normal. Right kidney: Normal. Left kidney: Normal. Aorta: Mild atherosclerosis with no aneurysm. Lymphadenopathy: There are a few small lymph nodes deep within the pelvis surrounding the previously described diverticular abscess. No enlarging lymph nodes. Free fluid: No free fluid in the pelvis. GI tract: Normally distended stomach. No small bowel obstruction. The appendix is been surgically removed. Previously described diverticular abscess deep within the pelvis and inseparable from the urinary bladder and vagina is much smaller and decompressed now. Ill- defined residual collection measures approximately 2.2 x 1.6 cm. Persistent inflammatory changes and phlegmonous changes are now present deep within the pelvis. Numerous foci of air extend from the position of the previously described abscess and sigmoid colon into the urinary bladder wall and into the vagina. There is marked bladder wall thickening measuring up to 1.3 cm. There is a small amount of oral contrast that extends from the colon into the bladder wall along the fistulous tract. Abdominal wall: Ventral abdominal wall hernia. Diastases of the rectus with adjacent surgical clips. Probably from a prior hernia repair. Pelvis: Prior hysterectomy. Bones: Increase in lumbar lordosis. CT/CT abdomen pelvis w con* [id number] IMPRESSION: 1. Previously described abscess deep within the pelvis associated with the distal sigmoid colon as decompressed and is now much smaller in size. There is a small residual ill-defined collection along the wall of the bladder. 2. Sigmoid abscess decompresses through a fistula extending from the sigmoid colon through the wall of the urinary bladder and vagina, colovesicovaginal fistula. There is a small amount of oral contrast extending along the fistulous tract in the wall of the bladder along with numerous foci of air along the entire fistulous tract. 3. There is significant bladder wall thickening. 4. No free air. 5. Prior cholecystectomy and hepatomegaly. A&P Assessment and plan (1) Colonic diverticular abscess: (2) Colovaginal fistula: Plan 63F admitted with diverticular abscess in close proximity to vaginal and bladder cárdenas subsequent vaginal drainage/ spontaneous decompression via colovesicovaginal fistula Ct abdomen/pelvis performed today shows interval decompression , residual small abscess 2.2 x 1.6 cm and interval development of colovesicovaginal fistula. Currently on treatment with Zosyn which can continue for inpatient use Reviewed general surgery note - no acute surgical or IR drainage currently planned AT time of discharge, can transition patient from iv zosyn to once daily Ertapenem for total 14 days of treatment for complicated diverticlitis. further treatment course after 14 days dependent on clinical and radiological response to treatment Picc line to facilitate above abx course blood cx negative to date Attestations 2 Medical Necessity Statement*: per admitting attending Coding Level of Care Code Acute Code for g Fwd Diagnoses Colonic diverticular abscess K57.20 Colovaginal fistula N82.4
--- NOTE | 2023-11-20 13:11 | PM.DCS ---
Discharge Providers Date of Admission: 11/16/23 21:39 Date of Discharge: November 20, 2023 Attending Provider at Admission: Isabella Garcia MD Attending Provider at Discharge: Pierre White MD Primary Care Provider: MILLA Blackwell Diagnoses at Discharge Discharge Diagnosis (1) Colonic diverticular abscess: Status: Acute (2) Colovaginal fistula: Status: Acute Reason for Visit Reason for Visit: abd pain sent from [facility] Hospital Course Cristobal Styles is a 63 year old female with a past medical history of hypertension, dyslipidemia, chronic UTI on methenamine suppression. She presents to the emergency room today with chief complaints of 5 days of worsening abdominal pain. Pain is located in the lower abdomen, radiates into the back and groin. Has been increasing in intensity since onset. Does not recall any obvious aggravating or relieving factors. She has lost appetite. She is nauseous has had a few episodes of vomiting. Bowel movements have been normal. No noted blood or mucus. No tenesmus. Has a past medical history of diverticular disease, she is thinks she may have had diverticulitis in the past but is unsure of the same. Colonoscopy was several years ago. Also has a history of bladder repair for cystocele, it appears course was complicated by need for repeat surgery. No known history of any colovesical fistulas. She visited with her primary care provider initially today where she was noted to be in acute pain and was referred to the emergency room to get a CAT scan of the abdomen. CT of the abdomen and pelvis performed today revealed a peripherally enhancing fluid and gas collection in the deep pelvis associated with the distal sigmoid colon vagina And urinary bladder. Findings appear to be most consistent with diverticulitis and diverticular abscess. Patient was admitted to [facility] for perforated diverticulitis with diverticular abscess, received IV antibiotics during hospitalization, general surgery was consulted, infectious disease was consulted, patient reported significant purulent vaginal discharge, likely represented spontaneous drainage of abscess via fistulization, overall her clinical condition improved, remained afebrile, normotensive, abdominal pain resolved, transition to GI soft diet, blood cultures remain negative, repeat CT scan as below CT/CT abdomen pelvis w con* [id number] IMPRESSION: 1. Previously described abscess deep within the pelvis associated with the distal sigmoid colon as decompressed and is now much smaller in size. There is a small residual ill-defined collection along the wall of the bladder. 2. Sigmoid abscess decompresses through a fistula extending from the sigmoid colon through the wall of the urinary bladder and vagina, colovesicovaginal fistula. There is a small amount of oral contrast extending along the fistulous tract in the wall of the bladder along with numerous foci of air along the entire fistulous tract. 3. There is significant bladder wall thickening. 4. No free air. 5. Prior cholecystectomy and hepatomegaly. -Patient will be discharged on 10 more days of ertapenem starting tomorrow -Midline placed, to be removed thereafter ? Follow-up with infectious disease ? Repeat CT abdomen pelvis in 2 weeks ? As there is concerns for colovesicovaginal fistula, patient was advised to monitor for evidence of UTI, vaginal drainage, referral has been sent urgently to colorectal surgery for immediate evaluation ? Follow-up with general surgery in 2 weeks Physical Exam Const: COMMON NORMALS: no acute distress and patient oriented x3 Resp: COMMON NORMALS: normal respiratory effort, No retractions, No use of accessory muscles and clear to auscultation bilaterally AUSCULTATION: clear to auscultation bilaterally Cardio: COMMON NORMALS: regular rate, regular rhythm, S1 normal heart sound present and S2 normal heart sound present RATE: regular rate RHYTHM: regular rhythm HEART SOUNDS: S1 normal heart sound present and S2 normal heart sound present GI: COMMON NORMALS: Normal to inspection, nondistended, normoactive bowel sounds present and non-tender Extremity: COMMON NORMALS: no pedal edema Neuro: COMMON NORMALS: patient oriented x3 Psych: COMMON NORMALS: mental status grossly normal Discharge Data Studies Completed and Pending Completed Studies During Hospitalization Category Date Time Status CT abdomen pelvis w con* [id number] Routine Cat Scan 11/20/23 07:[address] abdomen pelvis w con* [id number] Stat Cat Scan 11/16/23 19:[address] kidney stone [id number] Stat Cat Scan 11/16/23 16:52 Completed Pending at discharge Category Date Time Status Blood Culture Stat Lab 11/16/23 18:17 Results Radiology Impressions Abdomen/Pelvis CT 11/20/23 07:26 IMPRESSION: 1. Previously described abscess deep within the pelvis associated with the distal sigmoid colon as decompressed and is now much smaller in size. There is a small residual ill-defined collection along the wall of the bladder. 2. Sigmoid abscess decompresses through a fistula extending from the sigmoid colon through the wall of the urinary bladder and vagina, colovesicovaginal fistula. There is a small amount of oral contrast extending along the fistulous tract in the wall of the bladder along with numerous foci of air along the entire fistulous tract. 3. There is significant bladder wall thickening. 4. No free air. 5. Prior cholecystectomy and hepatomegaly. Laboratory Results WBC 7.27 10^3/uL (3.29-11.43) 11/20/23 02:14 RBC 3.84 10^6/uL (3.85-5.65) L 11/20/23 02:14 Hgb 10.60 g/dL (11.27-16.99) L 11/20/23 02:14 Hct 33.6 % (36-47) L 11/20/23 02:14 MCV 87.5 fl (85-98) 11/20/23 02:14 MCH 27.6 pg (27-33) 11/20/23 02:14 MCHC 31.5 g/dL (30-55) 11/20/23 02:14 RDW 13.1 % (12.1-15.1) 11/20/23 02:14 Plt Count 294 10^3/cmm (157-399) 11/20/23 02:14 MPV 11.0 fL (7.4-10.4) H 11/20/23 02:14 Neut % (Auto) 50.9 % 11/20/23 02:14 Lymph % (Auto) 36.0 % 11/20/23 02:14 [place] % (Auto) 9.8 % 11/20/23 02:14 Eos % (Auto) 2.3 % 11/20/23 02:14 Baso % (Auto) 0.7 % 11/20/23 02:14 Neut # (Auto) 3.70 10^3/uL (1.8-7.7) 11/20/23 02:14 Lymph # (Auto) 2.6 10^3/uL (0.8-4.8) 11/20/23 02:14 [place] # (Auto) 0.7 10^3/uL (0.2-0.9) 11/20/23 02:14 Eos # (Auto) 0.2 10^3/uL (0.0-0.8) 11/20/23 02:14 Baso # (Auto) 0.1 10^3/uL (0.0-0.1) 11/20/23 02:14 Nucleated RBC % (auto) 0 % 11/20/23 02:14 Nucleated RBCs # 0.0 /100WBC 11/20/23 02:14 Sodium 146 mmol/L (136-145) H 11/20/23 02:14 Potassium 3.4 mmol/L (3.5-5.1) L 11/20/23 02:14 Chloride 108 mmol/L (98-107) H 11/20/23 02:14 Carbon Dioxide 26 mmol/L (22-29) 11/20/23 02:14 Anion Gap 15.4 (5-19) 11/20/23 02:14 BUN 3 mg/dL (8-23) L 11/20/23 02:14 Creatinine 0.6 mg/dL (0.5-0.9) 11/20/23 02:14 GFR Calculation 101.6 mL/min (90-130) 11/20/23 02:14 Glucose 87 mg/dL (65-115) 11/20/23 02:14 POC Glucose 101 mg/dL (70-110) 11/20/23 11:30 Estimat Average Glucose 120 11/17/23 04:17 Hemoglobin A1c 5.8 % (4.0-6.0) 11/17/23 04:17 Calculated Osmolality 298 mOsm/kg (285-295) H 11/20/23 02:14 Lactic Acid 0.9 mmol/L (0.5-2.2) 11/16/23 18:20 Calcium 8.8 mg/dL (8.5-10.5) 11/20/23 02:14 Phosphorus 4.3 mg/dL (2.5-4.5) 11/20/23 02:14 Magnesium 1.8 mg/dL (1.7-2.3) 11/20/23 02:14 Total Bilirubin 0.3 mg/dL (0.15-1.2) 11/20/23 02:14 AST 9 U/L (0-32) 11/20/23 02:14 ALT 16 U/L (0-33) 11/20/23 02:14 Alkaline Phosphatase 58 U/L (35-105) 11/20/23 02:14 C-Reactive Protein 10.4 mg/L (0.0-4.9) H 11/20/23 02:14 Total Protein 6.5 g/dL (6.6-8.7) L 11/20/23 02:14 Albumin 3.8 g/dL (3.5-5.2) 11/20/23 02:14 Globulin 2.7 g/dL (1.3-4.6) 11/20/23 02:14 Procalcitonin 0.02 ng/mL (0-0.5) 11/20/23 02:14 Urine Color Yellow (Yellow) 11/16/23 19:24 Urine Appearance Clear (CLEAR) 11/16/23 19:24 Urine pH 5 (5-7) 11/16/23 19:24 Ur Specific [place] 1.015 (1.005-1.030) 11/16/23 19:24 Urine Protein Neg (Negative) 11/16/23 19:24 Urine Glucose (UA) 2+ (Normal) H 11/16/23 19:24 Urine Ketones 1+ (Negative) H 11/16/23 19:24 Urine Blood Neg (Negative) 11/16/23 19:24 Urine Nitrate Negative (Negative) 11/16/23 19:24 Urine Bilirubin Neg (Negative) 11/16/23 19:24 Urine Urobilinogen Norm mg/dL (Negative) 11/16/23 19:24 Ur Leukocyte Esterase Trace (Negative) H 11/16/23 19:24 Urine RBC None /hpf (0-2) 11/16/23 19:24 Urine WBC 5-10 /hpf (0-5) H 11/16/23 19:24 Ur Squamous Epith Cells 0-4 /hpf (0-5) H 11/16/23 19:24 Amorphous Sediment Not Reportable 11/16/23 19:24 Urine Bacteria Trace /hpf (NONE) 11/16/23 19:24 Urine Mucus 1+ /hpf 11/16/23 19:24 Vitals Last Vital Signs Temp 98.2 F 11/20/23 07:41 Pulse 61 11/20/23 07:41 Resp 18 11/20/23 07:41 BP 127/76 11/20/23 07:41 Pulse Ox 99 11/20/23 07:41 O2 Del Method Room Air 11/20/23 07:41 Discharge Plan Discharge Patient Disposition: Home Condition: Stable Prescriptions: New hydrocodone-acetaminophen 5-325 mg Tablet 1 tab PO Q6H PRN (Reason: Moderate Pain) 5 Days Qty: 20 0RF ertapenem 1 gram recon soln 1 g IV DAILY 10 Days Qty: 10 0RF Continued (DME) lancets [FreeStyle Lancets] 28 gauge misc See Rx Instructions .ROUTE .MEDSUPPLY Qty: 25 Rx Instructions: As directed cholecalciferol (vitamin D3) 125 mcg (5,000 unit) capsule 125 mcg PO BID (DME) blood-glucose meter [[employer] TechnologiesTouch Ultra2 Meter] Kit See Rx Instructions .ROUTE .MEDSUPPLY Qty: 1 0RF Rx Instructions: use daily ezetimibe 10 mg tablet 10 mg PO DAILY Qty: 90 3RF lisinopril 10 mg tablet 10 mg PO DAILY Qty: 90 3RF Farxiga 5 mg tablet 5 mg PO QAM Qty: 30 5RF escitalopram oxalate [Lexapro] 20 mg tablet 20 mg PO .morning Qty: 30 6RF lamotrigine [Lamictal] 200 mg tablet 200 mg PO .QHS Qty: 30 6RF (DME) OneTouch Ultra Test Strip See Rx Instructions .ROUTE .COMPLEX Qty: 50 0RF Dose Instruction: USE 1 STRIP TO CHECK GLUCOSE ONCE DAILY Rx Instructions: USE 1 STRIP TO CHECK GLUCOSE ONCE DAILY calcium carbonate-vitamin D3 [Os-Itz 500 + D3] 500 mg-15 mcg (600 unit) tablet 1 tab PO .2 time day Qty: 60 2RF bupropion HCl [Wellbutrin SR] 200 mg tablet sustained-release 12 hr 200 mg PO QAM Qty: 30 6RF mometasone [Nasonex 24hr Allergy] 50 mcg/actuation spray,non-aerosol 2 spray intranasal DAILY 360 Days Qty: 17 11RF Rx Instructions: administer into each nostril as needed. (DME) lancets [OneTouch Delica Plus Lancet] 33 gauge misc See Rx Instructions .Route Qty: 100 5RF Rx Instructions: one daily alendronate [Fosamax] 70 mg tablet 70 mg PO .weekly Qty: 4 5RF Rx Instructions: ON MONDAY omeprazole 20 mg capsule,delayed release(DR/EC) See Rx Instructions .ROUTE .COMPLEX Qty: 30 5RF Dose Instruction: Take 1 capsule by mouth once daily Rx Instructions: Take 1 capsule by mouth once daily nitroglycerin 0.4 mg tablet, sublingual See Rx Instructions .ROUTE .COMPLEX Qty: 50 0RF Dose Instruction: DISSOLVE ONE TABLET UNDER THE TONGUE EVERY 5 MINUTES NEEDED FOR CHEST PAIN. DO NOT EXCEED A TOTAL OF 3 DOSES IN 15 MINUTES Rx Instructions: DISSOLVE ONE TABLET UNDER THE TONGUE EVERY 5 MINUTES NEEDED FOR CHEST PAIN. DO NOT EXCEED A TOTAL OF 3 DOSES IN 15 MINUTES albuterol sulfate 90 mcg/actuation HFA aerosol inhaler 2 puff inhalation Q6H PRN (Reason: Shortness Of Breath Or Wheezing) Held methenamine hippurate 1 gram tablet 1 g PO BID Qty: 60 12RF Hold Instructions: Resume on 12/04/23. Rx Instructions: Take 1000 mg of vitamin C with each dose of methenamine as needed Other Ambulatory Orders: Miscellaneous Procedure (Order) Location: None Selected Ordered By: Pierre White CT abdomen pelvis w con* [id number] (Routine) Timeframe: 2 Weeks Facility: [facility] - Location: [facility] Ordered By: Isabella Garcia Referrals: Infectious Disease Group [facility] [Provider Group] - 12/05/23 12:30 pm [facility] Infusion Center [Outside] (Should call you for appointment and should start tomorrow 11/21/23.) Tres Durham DO [Physician] - 12/01/23 Domi Doty FNP [Primary Care Provider] - 11/27/23 10:00 am Nadeem Mckeon MD [Referring] - 1-3 days (STAT for colovesiculovaginal fistual We have notified your physician's clinic of the need for a follow-up appointment to be scheduled. If you have not heard from them within the next 2 business days, please call them directly. ) Discharge Diet: GI Soft Discharge Activity: Resume usual activity Patient Instructions: Opioid Safety Activity Restrictions/Additional Instructions: - Please adhere to a GI soft diet -I have discharged you on ertapenem 1 g IV every 24 hours for 10 remaining days, stop date 12/01/2023 -Repeat CT abdomen pelvis with contrast in 2 weeks -Due to your colovesiculovaginal fistula, monitor for recurrent UTIs, monitor for vaginal discharge, if you develop fevers or chills please go to emergency room ? I have referred you to colorectal surgery given your colovesiculovaginal fistula -If any recurrent abdominal pain please go to emergency room -Please use hydrocodone sparingly for pain, do not drive operate machinery or drink while taking medication Discharge Attestations Time Spent in Discharge Care*: greater than 30 min Quality Metrics Clinical Quality Measures [ No reported AMI, CVA or VTE this stay] Coding Level of Care Code 29619 Total time (in minutes) for Discharge: 45 Diagnoses Colonic diverticular abscess K57.20 Colovaginal fistula N82.4
--- NOTE | 2023-11-20 14:47 | PC.NURSE ---
dc pending case management getting approval from insurance for home antibiotics
--- NOTE | 2023-11-20 15:37 | PC.NURSE ---
Dr. White instructed that we give second dose of zosyn prior to dc this afternoon and asked if we could run it over a 30 minute timeframe. I phoned pharmacy and Clara hua.
== END 2023-11-20 16:31 | disposition home or self-care (01) | DRG 392 ==
LOC: ER 21:38 → MEDSURG 21:39
PROVIDERS: Admitting Provider Student in an Organized Health Care Education/Training Program; Emergency Provider Family Medicine; PCP Nurse Practitioner Family; Visit Provider Family Medicine
DX: K57.20 Diverticulitis of large intestine with perforation and abscess without bleeding (principal); N82.3 Fistula of vagina to large intestine; N39.0 Urinary tract infection, site not specified; I10 Essential (primary) hypertension; E78.5 Hyperlipidemia, unspecified; M54.16 Radiculopathy, lumbar region; I25.10 Atherosclerotic heart disease of native coronary artery without angina pectoris; K21.9 Gastro-esophageal reflux disease without esophagitis; E11.9 Type 2 diabetes mellitus without complications; F32.9 Major depressive disorder, single episode, unspecified; F41.1 Generalized anxiety disorder; Z79.2 Long term (current) use of antibiotics; Z87.891 Personal history of nicotine dependence
CPT/HCPCS: 36415; 36416; 36569; 74176; 74177; 80053; 81000; 81001; 82962; 83036; 83605; 83735; 84100; 84145; 85025; 86140; 87040; 96365; 96375; 96376; 99285; C1751; C9113; J1170; J2270; J2405; J2543; J3480; J7030; Q9967

== ENCOUNTER 2023-11-20 17:21 | Emergency (ER) | payer MEDICARE, MEDICAID, SELFPAY ==
[2023-05-31 13:40] VITALS: BP 102/64; BMI 36.3
[2023-11-20 17:31] VITALS: BP 119/73; PULSE 68; RESP 16; TEMP 37; O2SAT 97
--- NOTE | 2023-11-20 19:13 | ED_ITS ---
HPI - General Adult General: Chief complaint: General Medical Stated complaint: Bleeding from Midline placed today Time Seen by Provider: 11/20/23 18:54 Source: patient Mode of arrival: ambulatory Limitations: no limitations History of Present Illness: 63-year-old female who was discharged to day and had a midline placed for outpatient antibiotics she states that her dressing has had some bleeding and wanted to have it checked out. She denies any pain has no other complaints at this time. Associated symptoms: Deny chest pain, dyspnea, headache(s), nausea, rash or vomiting Review of Systems Const: Denies: fever(s), chills, body aches or change in appetite ENMT: Denies: throat pain or dental pain Card: Denies: chest pain Resp: Denies: dyspnea GI: Denies: abdominal pain, nausea, vomiting or diarrhea Musc: Denies: neck pain or back pain Skin/Breast: Denies: rash Neuro: Denies: headache(s) PFSH ED PFSH: Medical History Psychiatric care Lumbar radiculopathy, chronic Atherosclerotic heart disease of [place] coronary artery with other forms of angina pectoris Acid reflux Mixed incontinence Hypertension DDD (degenerative disc disease) Asthma Diabetes Chronic cystitis Major depressive disorder, recurrent severe without psychotic features Follows up with [facility] Generalized anxiety disorder Surgical History H/O excision of mass (09/30/21) Subcutaneous mass left upper quadrant of the abdomen H/O right wrist surgery Status post tubal ligation 1986 at time of third S/P hernia repair 10/27/11- Hernia repair Dx: rentral hernia anterior abdominal wall below umbilicus. Performed by Dr Macias at [facility] in [place], [place]. Per patient mesh was used and it covers her whole lower abdominal wall. S/P bladder repair X 2 01/09/07- Anterior/posterior vaginal repair, transobturator suburethral sling, cystoscopy. Dx: mixed urinary incontinence, cystocele and rectocele. Performed by Dr Andrews at [facility] in [place], [place] 07/2013- Bladder repair revised. Performed in [place]. She states that she had pain and the surgeon went in and excised some of the mesh but was unable to get everything out. H/O neck surgery 06/14/[address] Dillon at [facility] S/P cholecystectomy Open procedure performed via right upper quadrant incision in 1987 in [facility] S/P hysterectomy 2001---total abdominal hysterectomy with bilateral [id number]- Performed by Dr Stewart at [facility] for bleeding problems. She states her ovaries and Appendix were removed as well. Patient states she was told that there was no cancer H/O section x 3 ----> 1983, 1985, 1986 S/P appendectomy 2001-performed at time of open hysterectomy S/P excision of ganglion cyst Left wrist in [place], [place] S/P carpal tunnel release Bilateral-2002 and 2003 performed in [place], [place] S/P excision of lipoma Family History Father , 86 Hypertension Stroke Thyroid disease Kidney disease CAD (coronary artery disease) Chronic kidney disease (CKD) Sister Heart disease Her sister of heart disease at the age of 45-some congenital heart disease however she does not remember the name. Brother Kidney disease Diabetes Family/Other Breast cancer maternal aunt, diagnosed at age 62 Mother , AT AGE 84 Cancer PANCREATIC Lung disease Denies family history of Colon cancer Ovarian cancer Clotting disorder Dementia Hyperlipidemia Suicide Anesthesia complication Bleeding disorder Social History Smoking and tobacco/nicotine status: former use of tobacco/nicotine Second hand smoke exposure: No Alcohol intake: never Substance/Drug Use: never Adopted: No Caregiver/support person: No Lives independently: Yes Household members: spouse Housing: House Marital status: Number of children: 4 Current occupational status: retired Do you think of yourself as: Straight/Heterosexual Current gender identity: Female Physical Exam Const: COMMON NORMALS: no acute distress, patient oriented x3 and healthy appearing HENMT: COMMON NORMALS: normocephalic and atraumatic HEAD & SCALP: normocephalic and atraumatic Neck/C-Spine: COMMON NORMALS: full ROM and supple Chest: COMMONS NORMALS: normal inspection of the chest Resp: COMMON NORMALS: normal respiratory effort Extremity: COMMON NORMALS: normal to inspection and full ROM NARRATIVE EXTREMITY EXAM: Midline in place no active bleeding at this time Neuro: COMMON NORMALS: patient oriented x3, moves all extremities and no focal motor deficits Psych: COMMON NORMALS: mental status grossly normal, Normal thought process present and cooperative THOUGHT PROCESS: Normal thought process present Skin: COMMON NORMALS: no rashes or lesions noted and no wounds GENERAL SKIN EXAM: no rashes or lesions noted Course Vital Signs: Vital signs: Vital Signs Temperature 98.6 F 11/20/23 17:31 Pulse Rate 78 11/20/23 19:43 Respiratory Rate 18 11/20/23 19:43 Blood Pressure 117/63 11/20/23 19:43 Pulse Oximetry 98 11/20/23 19:43 MDM - General Adult Medical Decision Making Patient presents here some bleeding from her midline she has no active bleeding at this time did change the dressing along with a gauze pad midlines functioning she stable for discharge No radiology studies performed this visit Discharge Plan Discharge Patient Disposition: Home Clinical Impression: Change of dressing Condition: Stable Prescriptions: No Action (DME) lancets [FreeStyle Lancets] 28 gauge misc See Rx Instructions .ROUTE .MEDSUPPLY Qty: 25 Rx Instructions: As directed cholecalciferol (vitamin D3) 125 mcg (5,000 unit) capsule 125 mcg PO BID (DME) blood-glucose meter [OneTouch Ultra2 Meter] Kit See Rx Instructions .ROUTE .MEDSUPPLY Qty: 1 0RF Rx Instructions: use daily ezetimibe 10 mg tablet 10 mg PO DAILY Qty: 90 3RF lisinopril 10 mg tablet 10 mg PO DAILY Qty: 90 3RF Farxiga 5 mg tablet 5 mg PO QAM Qty: 30 5RF escitalopram oxalate [Lexapro] 20 mg tablet 20 mg PO .morning Qty: 30 6RF lamotrigine [Lamictal] 200 mg tablet 200 mg PO .QHS Qty: 30 6RF (DME) OneTouch Ultra Test Strip See Rx Instructions .ROUTE .COMPLEX Qty: 50 0RF Dose Instruction: USE 1 STRIP TO CHECK GLUCOSE ONCE DAILY Rx Instructions: USE 1 STRIP TO CHECK GLUCOSE ONCE DAILY calcium carbonate-vitamin D3 [Os-Itz 500 + D3] 500 mg-15 mcg (600 unit) tablet 1 tab PO .2 time day Qty: 60 2RF methenamine hippurate 1 gram tablet 1 g PO BID Qty: 60 12RF Hold Instructions: Resume on 12/04/23. Rx Instructions: Take 1000 mg of vitamin C with each dose of methenamine as needed bupropion HCl [Wellbutrin SR] 200 mg tablet sustained-release 12 hr 200 mg PO QAM Qty: 30 6RF mometasone [Nasonex 24hr Allergy] 50 mcg/actuation spray,non-aerosol 2 spray intranasal DAILY 360 Days Qty: 17 11RF Rx Instructions: administer into each nostril as needed. (DME) lancets [OneTouch Delica Plus Lancet] 33 gauge misc See Rx Instructions .Route Qty: 100 5RF Rx Instructions: one daily alendronate [Fosamax] 70 mg tablet 70 mg PO .weekly Qty: 4 5RF Rx Instructions: ON MONDAY omeprazole 20 mg capsule,delayed release(DR/EC) See Rx Instructions .ROUTE .COMPLEX Qty: 30 5RF Dose Instruction: Take 1 capsule by mouth once daily Rx Instructions: Take 1 capsule by mouth once daily nitroglycerin 0.4 mg tablet, sublingual See Rx Instructions .ROUTE .COMPLEX Qty: 50 0RF Dose Instruction: DISSOLVE ONE TABLET UNDER THE TONGUE EVERY 5 MINUTES NEEDED FOR CHEST PAIN. DO NOT EXCEED A TOTAL OF 3 DOSES IN 15 MINUTES Rx Instructions: DISSOLVE ONE TABLET UNDER THE TONGUE EVERY 5 MINUTES NEEDED FOR CHEST PAIN. DO NOT EXCEED A TOTAL OF 3 DOSES IN 15 MINUTES albuterol sulfate 90 mcg/actuation HFA aerosol inhaler 2 puff inhalation Q6H PRN (Reason: Shortness Of Breath Or Wheezing) hydrocodone-acetaminophen 5-325 mg Tablet 1 tab PO Q6H PRN (Reason: Moderate Pain) 5 Days Qty: 20 0RF ertapenem 1 gram recon soln 1 g IV DAILY 10 Days Qty: 10 0RF Discharge Orders: Discharge ED (Routine); Ordered 11/20/23 Ordered By: Haritha Irene Referrals: Domi Doty FNP [Primary Care Provider] - Discharge Diet: Advance as tolerated Discharge Activity: Resume usual activity Patient Instructions: Midline Catheter (DC) Coding Level of Care Code ED Technical Sourcing Recruiter for Chg Sawyer
--- NOTE | 2023-11-20 19:42 | PC.NURSE ---
Pts PICC line dressing was removed and cleaned. A new Biopatch was placed and tegaderm was added to secure the line in place.
[2023-11-20 19:43] VITALS: BP 117/63; PULSE 78; RESP 18; O2SAT 98
== END 2023-11-20 19:45 | disposition home or self-care (01) ==
PROVIDERS: Emergency Provider Emergency Medicine; PCP Nurse Practitioner Family
DX: Z48.00 Encounter for change or removal of nonsurgical wound dressing (principal); Z87.891 Personal history of nicotine dependence; I25.10 Atherosclerotic heart disease of native coronary artery without angina pectoris; I10 Essential (primary) hypertension; E11.9 Type 2 diabetes mellitus without complications
CPT/HCPCS: 99281

== ENCOUNTER 2023-11-30 16:38 | Outpatient (CLI) | payer MEDICARE, MEDICAID, SELFPAY ==
[2023-05-31 13:40] VITALS: BP 102/64; BMI 36.3
[2023-11-30] MEDS: iohexol 350 mg/mL 500 mL Btl (per mL) PO (17:29)
--- NOTE | 2023-11-30 17:30 | CTR_ITS ---
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 Radiation optimization: All CT scans at this facility use at least one of these dose optimization techniques: automated exposure control; mA and/or kV adjustment per patient size (includes targeted exams where dose is matched to clinical indication); or iterative reconstruction. Contrast material: OMNI 350; Contrast volume: 100 ml; Contrast route: INTRAVENOUS (IV); COMPARISON: CT abdomen pelvis w con* [id number] 11/20/2023 10:41 AM RADIATION DOSE METRICS: Total DLP (mGy-cm): 841.74 FINDINGS: Lungs: Minimal scarring or atelectasis at the lung bases. Heart: No pericardial effusion. Diaphragm: Very small hiatal hernia. Liver: The liver is enlarged measuring 20.8 cm. A hepatic hypodensity measuring less than 5 mm too small to accurately characterize and requires no follow-up. Gallbladder and biliary ducts: The gallbladder has been removed. Pancreas: The pancreas is unremarkable. Spleen: The spleen is unremarkable. Adrenal glands: The adrenal glands are unremarkable. Kidneys and ureters: The kidneys are unremarkable. Stomach and bowel: The stomach and small bowel are unremarkable. Acute sigmoid diverticulitis has resolved or has largely resolved. No residual abscess is seen. There is soft tissue density extending from the sigmoid colon to the posterior uterus which may reflect scarring. It is difficult to exclude persistent fistula. Appendix: The appendix has been removed. Intraperitoneal space: No free intraperitoneal air is seen. Vasculature: No abdominal aortic aneurysm. Lymph nodes: No retroperitoneal lymphadenopathy. Urinary bladder: No gas is seen in the bladder to suggest fistula to the bladder. The bladder wall is thickened. Correlate with urinalysis. Reproductive: See Stomach and bowel finding. Bones/joints: No acute fracture is identified. Soft tissues: Small fat containing infraumbilical hernia. CT/CT abdomen pelvis w con* [id number] IMPRESSION: 1. Acute sigmoid diverticulitis has resolved or has largely resolved. No residual abscess is seen. There is soft tissue density extending from the sigmoid colon to the posterior uterus which may reflect scarring. It is difficult to exclude persistent fistula. 2. No gas is seen in the bladder to suggest fistula to the bladder. The bladder wall is thickened. Correlate with urinalysis. 3. Hepatomegaly.
[2023-11-30] MEDS: iohexol 350 mg/mL 500 mL Btl (per mL) IV (17:41)
== END 2023-11-30 16:39 | disposition home or self-care (01) ==
LOC: RAD 16:39
PROVIDERS: PCP Nurse Practitioner Family; Visit Provider Student in an Organized Health Care Education/Training Program
DX: K57.20 Diverticulitis of large intestine with perforation and abscess without bleeding (principal); R16.0 Hepatomegaly, not elsewhere classified; Z90.49 Acquired absence of other specified parts of digestive tract; K42.9 Umbilical hernia without obstruction or gangrene
CPT/HCPCS: 74177; Q9967

== ENCOUNTER → 2023-12-01 08:34 | Outpatient (BNVA) | payer MEDICARE, MEDICAID, OTHER, SELFPAY ==
[2023-05-31 13:40] VITALS: BP 102/64; BMI 36.3
== END ==
PROVIDERS: PCP Nurse Practitioner Family; Visit Provider Surgery
DX: Z09 Encounter for follow-up examination after completed treatment for conditions other than malignant neoplasm (principal)
CPT/HCPCS: 99214

== ENCOUNTER 2023-12-03 09:22 | Oncology outpatient (recurring) (ONCR) | payer MEDICARE, MEDICAID, SELFPAY ==
[2023-05-31 13:40] VITALS: BP 102/64; BMI 36.3
[2023-11-21 12:57] VITALS: BP 114/77; PULSE 64; RESP 16; TEMP 36.3; O2SAT 98
[2023-11-21] MEDS: ertapenem 1,000 MG in sodium chloride 0.9% (plus) 100 ML 200 MG IV (13:14)
[2023-11-22 12:52] VITALS: BP 110/71; PULSE 76; RESP 16; TEMP 36.5; O2SAT 94
[2023-11-22] MEDS: ertapenem 1,000 MG in sodium chloride 0.9% (plus) 100 ML 200 MG IV (13:12)
[2023-11-22 13:56] VITALS: BP 113/77; PULSE 88; RESP 16; TEMP 36.6; O2SAT 96
[2023-11-23 11:04] VITALS: BP 119/75; PULSE 65; RESP 17; O2SAT 97
[2023-11-23] MEDS: ertapenem 1,000 MG in sodium chloride 0.9% (plus) 100 ML 200 MG IV (11:09)
[2023-11-23 11:51] VITALS: BP 112/76; PULSE 61; RESP 17; TEMP 36.7; O2SAT 96
[2023-11-24] MEDS: ertapenem 1,000 MG in sodium chloride 0.9% (plus) 100 ML 200 MG IV (11:02)
[2023-11-24 11:06] VITALS: BP 111/73; PULSE 61; O2SAT 96
[2023-11-24 11:55] VITALS: BP 111/65; PULSE 64; O2SAT 96
[2023-11-25] MEDS: ertapenem 1,000 MG in sodium chloride 0.9% (plus) 100 ML 200 MG IV (09:26)
[2023-11-25 09:28] VITALS: BP 119/67; PULSE 61; RESP 18; TEMP 36.7; O2SAT 97
[2023-11-26 09:15] VITALS: BP 116/68; PULSE 63; RESP 18; TEMP 36.4; O2SAT 96
[2023-11-26] MEDS: ertapenem 1,000 MG in sodium chloride 0.9% (plus) 100 ML 200 MG IV (09:45)
[2023-11-27 10:48] VITALS: BP 122/72; PULSE 73; RESP 16; TEMP 36.5; O2SAT 99
[2023-11-27] MEDS: ertapenem 1,000 MG in sodium chloride 0.9% (plus) 100 ML 200 MG IV (11:00)
[2023-11-27 11:40] VITALS: BP 138/78; PULSE 63; RESP 18; TEMP 36.3; O2SAT 97
[2023-11-28 11:05] VITALS: BP 141/76; PULSE 56; RESP 16; TEMP 36.5; O2SAT 95
[2023-11-28] MEDS: ertapenem 1,000 MG in sodium chloride 0.9% (plus) 100 ML 200 MG IV (11:58)
[2023-11-28 12:44] VITALS: BP 125/70; PULSE 65; RESP 18; O2SAT 95
[2023-11-29 11:08] VITALS: BP 120/74; PULSE 74; RESP 16; TEMP 36.4; O2SAT 97
[2023-11-29] MEDS: ertapenem 1,000 MG in sodium chloride 0.9% (plus) 100 ML 200 MG IV (11:36)
[2023-11-29 12:24] VITALS: BP 125/74; PULSE 59; RESP 18; TEMP 36.5; O2SAT 96
[2023-11-30 11:08] VITALS: BP 114/66; PULSE 71; RESP 16; O2SAT 95
[2023-11-30] MEDS: ertapenem 1,000 MG in sodium chloride 0.9% (plus) 100 ML 200 MG IV (11:11)
[2023-11-30 11:46] VITALS: BP 122/74; PULSE 70; O2SAT 95
[2023-12-01] MEDS: ertapenem 1,000 MG in sodium chloride 0.9% (plus) 100 ML 200 MG IV (11:20)
[2023-12-01 12:00] VITALS: BP 114/62; PULSE 87; RESP 16; TEMP 36.3; O2SAT 93
[2023-12-02] MEDS: ertapenem 1,000 MG in sodium chloride 0.9% (plus) 100 ML 200 MG IV (09:39)
[2023-12-02 09:47] VITALS: BP 122/74; PULSE 75; RESP 18; TEMP 36.7; O2SAT 95
[2023-12-03] MEDS: ertapenem 1,000 MG in sodium chloride 0.9% (plus) 100 ML 200 MG IV (09:29)
[2023-12-03 09:30] VITALS: BP 136/70; PULSE 77; RESP 17; TEMP 36.2; O2SAT 96
== END 2023-12-03 23:59 | disposition home or self-care (01) ==
LOC: ONCMED 12-04 07:54
PROVIDERS: PCP Nurse Practitioner Family; Visit Provider Internal Medicine Medical Oncology
DX: K57.20 Diverticulitis of large intestine with perforation and abscess without bleeding (principal); N82.4 Other female intestinal-genital tract fistulae
CPT/HCPCS: 96365; J1335

== ENCOUNTER → 2023-12-05 12:14 | Outpatient (BNVA) | payer MEDICARE, MEDICAID, SELFPAY ==
[2023-05-31 13:40] VITALS: BP 102/64; BMI 36.3
== END ==
PROVIDERS: PCP Nurse Practitioner Family; Visit Provider Student in an Organized Health Care Education/Training Program
DX: N82.4 Other female intestinal-genital tract fistulae (principal); Z45.2 Encounter for adjustment and management of vascular access device
CPT/HCPCS: 99205

== ENCOUNTER 2024-01-05 09:57 | Emergency (ER) | payer MEDICARE, MEDICAID, SELFPAY ==
[2023-05-31 13:40] VITALS: BP 102/64; BMI 36.3
[2024-01-05 10:04] VITALS: BP 120/80; PULSE 85; RESP 18; TEMP 36.5; O2SAT 96; BMI 34.7
--- NOTE | 2024-01-05 10:12 | XR_ITS ---
WS: [id number] Left hip, AP and frog-leg views, AP pelvis, 01/05/2024 Clinical Data: fall, one view pelvis too please Comparison: SI joints, 06/15/2007 Findings: No fractures or dislocations are seen. Both hips show no fractures.. The soft tissues are not remarka ble. The adjacent pelvis is normal. There are surgical clips overlying the both pubic symphysis. XR/XR hip LT 2-3V wo/w pel* [id number] Impression: Negative pelvis and left hip.
--- NOTE | 2024-01-05 10:12 | CT_ITS ---
WS: [id number] CT CERVICAL TRAUMA TECHNIQUE: Noncontrast CT of the cervical spine with coronal and sagittal reformatted images. CLINICAL INFORMATION: fall COMPARISON: None. DLP: 227.[address] scans at [facility] use at least one of these dose optimization techniques: automated e xposure control; mA and/or kV adjustment per patient size (includes targeted exams where dose is matc hed to clinical indication); or iterative reconstruction. FINDINGS: Straightening of the normal cervical lordosis. Prior postoperative changes anterior cervical fusion C 6/C7. Normal craniocervical junction. Normal C1-C2 articulation. Dens is normal in appearance. Normal occipital condyles. No high-grade spinal canal narrowing. Normal C1 ring. No evidence of acute fract ure or dislocation. Normal prevertebral soft tissues. Mastoids air cells are well aerated. 1.2 cm low-attenuation RIGHT thyroid nodule CT/CT cervical spin wo con* [id number] IMPRESSION: No evidence of acute fracture or dislocation.
--- NOTE | 2024-01-05 10:12 | XR_ITS ---
WS: [id number] Thoracic spine, 3 views, 01/05/2024 Clinical Data: fall Comparison: Thoracic spine, 05/15/2020 Findings: No compression fractures are seen. The disc heights are normal. There is moderate osteoarthritic spurring of all the thoracic vertebral bodies. There is an anterior cervical disc fusion. XR/XR thoracic spine 3V* [id number] Impression: Moderate osteoarthritis of the thoracic vertebral bodies.
--- NOTE | 2024-01-05 10:13 | ED_ITS ---
HPI - Fall General: Chief Complaint: Fall Stated Complaint: fell yesterday, pain in left hip and neck Time Seen by Provider: 01/05/24 09:59 Source: patient Mode of arrival: ambulatory Limitations: no limitations History of Present Illness: Patient is a 63-year-old female presents to ED today for evaluation following a fall that occurred yesterday. 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 She states she injured her left hip and neck. She has been ambulatory since the fall without assistance. She denies striking her head or LOC. She is not on anticoagulation. complaint: fall Onset (ago): day(s) (yesterday) Fall from: standing Fall witnessed: no Place fall occurred: street Loss of consciousness: None Prolonged down time: no Symptoms prior to fall: none Context: tripped/slipped Location of injury: neck Associated symptoms-after fall: Reports no associated symptoms [facility] ED PFSH: Medical History Psychiatric care Lumbar radiculopathy, chronic Atherosclerotic heart disease of [place] coronary artery with other forms of angina pectoris Acid reflux Mixed incontinence Hypertension DDD (degenerative disc disease) Asthma Diabetes Chronic cystitis Major depressive disorder, recurrent severe without psychotic features Follows up with [facility] Generalized anxiety disorder Surgical History H/O excision of mass (09/30/21) Subcutaneous mass left upper quadrant of the abdomen H/O right wrist surgery Status post tubal ligation 1986 at time of third S/P hernia repair 10/27/11- Hernia repair Dx: rentral hernia anterior abdominal wall below umbilicus. Performed by Dr Macias at [facility] in [place], [place]. Per patient mesh was used and it covers her whole lower abdominal wall. S/P bladder repair X 2 01/09/07- Anterior/posterior vaginal repair, transobturator suburethral sling, cystoscopy. Dx: mixed urinary incontinence, cystocele and rectocele. Performed by Dr Andrews at [facility] in [place], [place] 07/2013- Bladder repair revised. Performed in [place]. She states that she had pain and the surgeon went in and excised some of the mesh but was unable to get everything out. H/O neck surgery 06/14/[address] Dillon at [facility] S/P cholecystectomy Open procedure performed via right upper quadrant incision in 1987 in [facility] S/P hysterectomy 2001---total abdominal hysterectomy with bilateral [id number]- Performed by Dr Stewart at [facility] for bleeding problems. She states her ovaries and Appendix were removed as well. Patient states she was told that there was no cancer H/O section x 3 ----> 1983, 1985, 1986 S/P appendectomy 2001-performed at time of open hysterectomy S/P excision of ganglion cyst Left wrist in [place], [place] S/P carpal tunnel release Bilateral-2002 and 2003 performed in [place], [place] S/P excision of lipoma Family History Father , 86 Hypertension Stroke Thyroid disease Kidney disease CAD (coronary artery disease) Chronic kidney disease (CKD) Sister Heart disease Her sister of heart disease at the age of 45-some congenital heart disease however she does not remember the name. Brother Kidney disease Diabetes Family/Other Breast cancer maternal aunt, diagnosed at age 62 Mother , AT AGE 84 Cancer PANCREATIC Lung disease Denies family history of Colon cancer Ovarian cancer Clotting disorder Dementia Hyperlipidemia Suicide Anesthesia complication Bleeding disorder Social History Smoking and tobacco/nicotine status: never used tobacco/nicotine Second hand smoke exposure: No Alcohol intake: never Substance/Drug Use: never Adopted: No Caregiver/support person: No Lives independently: Yes Household members: spouse Housing: House Marital status: Number of children: 4 Current occupational status: retired Do you think of yourself as: Straight/Heterosexual Current gender identity: Female Course Vital Signs: Vital signs: Vital Signs Temperature 97.7 F 01/05/24 10:04 Pulse Rate 85 01/05/24 10:04 Respiratory Rate 18 01/05/24 10:04 Blood Pressure 120/80 01/05/24 10:04 Pulse Oximetry 96 01/05/24 10:04 Oxygen Delivery Me thod Room Air 01/05/24 10:04 MDM - Fall Medical Decision Making Patient's imaging is unremarkable. She will be allowed discharge with return precautions. Otherwise she can follow-up with primary care if symptoms do not seem to be improving. Lab Data Radiology Impressions Cervical Spine CT 01/05/24 10:12 IMPRESSION: No evidence of acute fracture or dislocation. Hip/Pelvis X-Ray 01/05/24 10:12 Impression: Negative pelvis and left hip. Thoracic Spine X-Ray 01/05/24 10:12 Impression: Moderate osteoarthritis of the thoracic vertebral bodies. All radiology interpretation(s) finalized by discharge Discharge Plan Discharge Patient Disposition: Home Clinical Impression: Fall from slipping Qualifiers: Encounter type: initial encounter Qualified Code(s): W01.0XXA - Fall on same level from slipping, tripping and stumbling without subsequent striking against object, initial encounter Neck strain Qualifiers: Encounter type: initial encounter Qualified Code(s): S16.1XXA - Strain of muscle, fascia and tendon at neck level, initial encounter Contusion of left hip Qualifiers: Encounter type: initial encounter Qualified Code(s): S70.02XA - Contusion of left hip, initial encounter Condition: Stable Prescriptions: New methocarbamol 500 mg tablet 1,000 mg PO Q8H Qty: 30 0RF No Action (DME) lancets [FreeStyle Lancets] 28 gauge misc See Rx Instructions .ROUTE .MEDSUPPLY Qty: 25 Rx Instructions: As directed cholecalciferol (vitamin D3) 125 mcg (5,000 unit) capsule 125 mcg PO BID (DME) blood-glucose meter [OneTouch Ultra2 Meter] Kit See Rx Instructions .ROUTE .MEDSUPPLY Qty: 1 0RF Rx Instructions: use daily (DME) OneTouch Ultra Test Strip See Rx Instructions .ROUTE .COMPLEX Qty: 50 0RF Dose Instruction: USE 1 STRIP TO CHECK GLUCOSE ONCE DAILY Rx Instructions: USE 1 STRIP TO CHECK GLUCOSE ONCE DAILY methenamine hippurate 1 gram tablet 1 g PO BID Qty: 60 12RF Hold Instructions: Resume on 12/04/23. Rx Instructions: Take 1000 mg of vitamin C with each dose of methenamine as needed bupropion HCl [Wellbutrin SR] 200 mg tablet sustained-release 12 hr 200 mg PO QAM Qty: 30 6RF mometasone [Nasonex 24hr Allergy] 50 mcg/actuation spray,non-aerosol 2 spray intranasal DAILY 360 Days Qty: 17 11RF Rx Instructions: administer into each nostril as needed. (DME) lancets [OneTouch Delica Plus Lancet] 33 gauge misc See Rx Instructions .Route Qty: 100 5RF Rx Instructions: one daily alendronate [Fosamax] 70 mg tablet 70 mg PO .weekly Qty: 4 5RF Rx Instructions: ON MONDAY nitroglycerin 0.4 mg tablet, sublingual See Rx Instructions .ROUTE .COMPLEX Qty: 50 0RF Dose Instruction: DISSOLVE ONE TABLET UNDER THE TONGUE EVERY 5 MINUTES NEEDED FOR CHEST PAIN. DO NOT EXCEED A TOTAL OF 3 DOSES IN 15 MINUTES Rx Instructions: DISSOLVE ONE TABLET UNDER THE TONGUE EVERY 5 MINUTES NEEDED FOR CHEST PAIN. DO NOT EXCEED A TOTAL OF 3 DOSES IN 15 MINUTES lisinopril 10 mg tablet 10 mg PO DAILY Qty: 90 3RF ezetimibe 10 mg tablet 10 mg PO DAILY Qty: 90 3RF albuterol sulfate 90 mcg/actuation HFA aerosol inhaler 2 puff inhalation Q6H PRN (Reason: Shortness Of Breath Or Wheezing) Vitamin C 1,000 mg Tablet 500 mg PO DAILY PRN (Reason: UTI) Lamictal 200 mg tablet 200 mg PO BEDTIME omeprazole 20 mg capsule,delayed release(DR/EC) 20 mg PO DAILY clobetasol 0.05 % ointment 1 applic topical BID PRN (Reason: Skin Irritation) Lexapro 20 mg tablet 20 mg PO QAM Os-Itz 500 + D3 500 mg-15 mcg (600 unit) tablet 1 tab PO BID Farxiga 5 mg tablet 5 mg PO QAM Discharge Orders: Discharge ED (Routine); Ordered 01/05/24 Ordered By: Tasneem Dexter Referrals: Domi Doty FNP [Primary Care Provider] - Activity Restrictions/Additional Instructions: As we discussed please follow-up with your primary care provider in a week or so if symptoms do not seem to be improving with conservative therapies at home. Coding Level of Care Code ED Palletizer Operator for Tara Jacques
[2024-01-05] MEDS: tetanus-dipt-pertussis 0.5 mL SDV IM (11:01)
[2024-01-05] MEDS: ketorolac 60 mg/2 mL INJ IM (11:45)
== END 2024-01-05 11:50 | disposition home or self-care (01) ==
PROVIDERS: Emergency Provider Physician Assistant; PCP Nurse Practitioner Family
DX: S70.02XA Contusion of left hip, initial encounter (principal); S16.1XXA Strain of muscle, fascia and tendon at neck level, initial encounter; I25.10 Atherosclerotic heart disease of native coronary artery without angina pectoris; I10 Essential (primary) hypertension; E11.9 Type 2 diabetes mellitus without complications; W01.0XXA Fall on same level from slipping, tripping and stumbling without subsequent striking against object, initial encounter; Y92.481 Parking lot as the place of occurrence of the external cause; Z23 Encounter for immunization
CPT/HCPCS: 72072; 72125; 73502; 90471; 90715; 96372; 99284; J1885

== ENCOUNTER 2024-01-17 13:10 | Outpatient (CLI) | payer MEDICARE, MEDICAID, SELFPAY ==
[2023-05-31 13:40] VITALS: BP 102/64; BMI 36.3
--- NOTE | 2024-01-17 13:20 | XR_ITS ---
WS: [email or web address] Examination: XR hip LT 2-3V wo/w pel* [id number] Reason for Exam: M25.552 - Pain in left hip Date: January 17, 2024 Comparison: January 05, 2024 Findings: The bone density is maintained. There is no destruction There is no fracture or dislocation The joint space is maintained.. Bilateral hernia surgeries are noted. Surgical clips are identified over the lower abdomen. XR/XR hip LT 2-3V wo/w pel* [id number] Impression: No acute bony abnormality is identified.
== END 2024-01-17 13:11 | disposition home or self-care (01) ==
LOC: RAD 13:18
PROVIDERS: PCP Nurse Practitioner Family; Visit Provider Nurse Practitioner Family
DX: M25.552 Pain in left hip (principal)
CPT/HCPCS: 73502

== ENCOUNTER 2024-01-19 10:43 | Outpatient (CLI) | payer MEDICARE, MEDICAID, SELFPAY ==
[2023-05-31 13:40] VITALS: BP 102/64; BMI 36.3
--- NOTE | 2024-01-19 10:48 | MM_ITS ---
WS: [id number] SCREENING DIGITAL TOMOSYNTHESIS MAMMOGRAM WITH CAD HISTORY: Screening COMPARISON: 12/28/2022, 10/13/2021 Bilateral CC and MLO with tomosynthesis views submitted. Synthetic mammography reviewed. Computer aid ed detection analyzed. Breast composition: There are scattered areas of fibroglandular density. No suspicious masses, microc alcifications or architectural distortion. Stable 5 mm nodule in the upper outer quadrant of the RIGH T breast. This is probably an intramammary lymph node. MM/[place] [id number] IMPRESSION: BI-RADS: 2-Benign FOLLOW UP: 1 Year Follow-up
== END 2024-01-19 10:44 | disposition home or self-care (01) ==
LOC: RAD 10:43
PROVIDERS: PCP Nurse Practitioner Family; Visit Provider Nurse Practitioner Family
DX: Z12.31 Encounter for screening mammogram for malignant neoplasm of breast (principal); R92.323 Mammographic fibroglandular density, bilateral breasts; N63.11 Unspecified lump in the right breast, upper outer quadrant
CPT/HCPCS: 77063; 77067

== ENCOUNTER → 2024-02-07 09:20 | Outpatient (BNVA) | payer MEDICARE, MEDICAID, SELFPAY ==
[2023-05-31 13:40] VITALS: BP 102/64; BMI 36.3
== END ==
PROVIDERS: PCP Nurse Practitioner Family; Visit Provider Nurse Practitioner Family
DX: N39.0 Urinary tract infection, site not specified (principal)
CPT/HCPCS: 81003; 87086

== ENCOUNTER → 2024-02-21 14:12 | Outpatient (BNVA) | payer MEDICARE, MEDICAID, SELFPAY ==
[2023-05-31 13:40] VITALS: BP 102/64; BMI 36.3
== END ==
PROVIDERS: PCP Nurse Practitioner Family; Visit Provider Internal Medicine Cardiovascular Disease
DX: R00.2 Palpitations (principal); Z01.818 Encounter for other preprocedural examination; I10 Essential (primary) hypertension; Z87.891 Personal history of nicotine dependence
CPT/HCPCS: 99214

== ENCOUNTER 2024-02-22 14:20 | Outpatient (CLI) | payer MEDICARE, MEDICAID, SELFPAY ==
[2023-05-31 13:40] VITALS: BP 102/64; BMI 36.3
--- NOTE | 2024-02-22 14:30 | MR_ITS ---
WS: [email or web address] EXAMINATION: MR hip LT wo con* [id number] ORDER DATE: 02/22/2024 2:36 PM COMPARISON: None. HISTORY: M25.552 - Pain in left hip CONTRAST: None. TECHNIQUE: Coronal STIR of the Pelvis. Coronal proton density, coronal T1, axial T2 fat sat, axial T1 , sagittal T2 fat sat, and sagittal T1 performed of the hip. After contrast, axial T1 fat sat, coron al T1 fat sat, and sagittal T1 fat sat were performed. FINDINGS: Moderate degenerative narrowing of the LEFT hip. Normal bone marrow signal in the LEFT hip and acetabulum. No acute fractures. Proximal LEFT femur appears normal. Normal bone marrow signal RIG HT hip. Normal bone marrow signal in the pelvis and sacrum. Normal sacral ala.Small amount of fluid and edema about the greater trochanter can be seen with trochanteric bursitis. No other acute findings. Extensive sigmoid diverticulosis. MR/MR hip LT wo con* [id number] IMPRESSION: 1. No acute LEFT hip fractures. 2. Small amount of fluid and edema along the LEFT greater trochanter can be se en with trochanteric bursitis. 3. Normal bone marrow signal in the sacrum and sacral ala. 4. Extensive sigmoid diverticulosis.
== END 2024-02-22 14:21 | disposition home or self-care (01) ==
LOC: RAD 14:20
PROVIDERS: PCP Nurse Practitioner Family; Visit Provider Nurse Practitioner Family
DX: M16.12 Unilateral primary osteoarthritis, left hip (principal); K57.90 Diverticulosis of intestine, part unspecified, without perforation or abscess without bleeding
CPT/HCPCS: 73721

== ENCOUNTER 2024-02-26 14:06 | Outpatient (CLI) | payer MEDICARE, MEDICAID, SELFPAY ==
[2023-05-31 13:40] VITALS: BP 102/64; BMI 36.3
--- NOTE | 2024-02-26 14:30 | MR_ITS ---
WS: [id number] MRI CERVICAL SPINE NONCONTRAST HISTORY: M54.2 - Cervicalgia COMPARISON: 03/19/2012 Technique: Multiplanar, multisequence noncontrast imaging of the cervical spine. Straightening of the normal cervical lordosis. Prior anterior cervical fusion at C6-7. No marrow marianela a. No cord contusion or edema. Signal within the cervical cord is normal. Visualized posterior fossa is unremarkable. Craniocervical junction, C1 and C2 relationship, odontoid process and soft tissues are normal. C2-C3: Normal. C3-C4: Normal. C4-C5: Mild annular disc bulging with a tiny central disc protrusion. No stenosis. C5-C6: Mild annular disc bulging with mild ligamentum flavum and facet arthritis. Small foraminal ost eophytes. Small disc osteophyte complex RIGHT foramen. Mild RIGHT foraminal stenosis. C6-C7: Mild osteophytic ridging. Small cyst in the RIGHT foramen. 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 C7-T1: Mild foraminal narrowing. Paraspinal soft tissue are normal. MR/MR cervical spin wo con* [id number] IMPRESSION: 1. Anterior cervical fusion at C6-7 appears to be intact. No marrow edema. 2. No new cervical spine fracture. 3. Small foraminal osteophytes and disc bulging as above. Mild RIGHT foraminal stenosis at C5-6 and bilaterally at C7-T1.
== END 2024-02-26 14:07 | disposition home or self-care (01) ==
LOC: RAD 14:07
PROVIDERS: PCP Nurse Practitioner Family; Visit Provider Nurse Practitioner Family
DX: M25.78 Osteophyte, vertebrae (principal); M43.22 Fusion of spine, cervical region
CPT/HCPCS: 72141

== ENCOUNTER 2024-03-22 15:04 | Emergency (ER) | payer MEDICARE, MEDICAID, SELFPAY ==
[2023-05-31 13:40] VITALS: BP 102/64; BMI 36.3
[2024-03-22 15:29] VITALS: BP 106/64; PULSE 88; RESP 17; TEMP 36.9; O2SAT 94; BMI 40.0
[2024-03-22 15:34] LABS: Basophils # 0.1 10^3/uL (0.0-0.1); Basophils % 0.5 %; Eosinophils # 0.3 10^3/uL (0.0-0.8); Eosinophils % 2.4 %; Hematocrit 37.3 % (36-47); Lymphocytes # 1.5 10^3/uL (0.8-4.8); Lymphocytes % 13.9 %; Mean Corpuscular HGB Conc 31.4 g/dL (30-55); Mean Corpuscular Hemoglobin 27.7 pg (27-33); Mean Corpuscular Volume 88.2 fl (85-98); Mean Platelet Volume 9.4 fL (7.4-10.4); Monocytes # 0.6 10^3/uL (0.2-0.9); Monocytes % 5.6 %; Neutrophils # 8.44 10^3/uL (1.8-7.7); Neutrophils % 76.8 %; Nucleated Red Blood Cells % 0 %; Platelet Count 412 10^3/cmm (157-399); Red Blood Count 4.23 10^6/uL (3.85-5.65); Red Cell Distribution Width 13.9 % (12.1-15.1); White Blood Count 10.99 10^3/uL (3.29-11.43)
--- NOTE | 2024-03-22 15:47 | CTR_ITS ---
PROCEDURE INFORMATION: Exam: CT Abdomen And Pelvis With Contrast Exam date and time: 03/22/2024 4:27 PM Age: 63 years old Clinical indication: Other: Feculant and bloody vaginal discharge S/P surgery; Prior surgery; Surgery date: 3-7 days post-operative; Surgery type: 12 bowel resection with rect/vesical fistula repair d/t diverticulitis; Additional info: Blood and feculant vag d/c-recent rect/vesical fist repair TECHNIQUE: Imaging protocol: Computed tomography of the abdomen and pelvis with contrast. Radiation optimization: All CT scans at this facility use at least one of these dose optimization techniques: automated exposure control; mA and/or kV adjustment per patient size (includes targeted exams where dose is matched to clinical indication); or iterative reconstruction. Contrast material: OMNIPAQUE 350; Contrast volume: 100 ml; Contrast route: INTRAVENOUS (IV); COMPARISON: CT abdomen pelvis w con* [id number] 11/30/2023 5:35 PM RADIATION DOSE METRICS: Total DLP (mGy-cm): 984.41 FINDINGS: Tubes, catheters and devices: Peritoneal catheter terminates in the left lower quadrant. Liver: Enlarged liver with diffuse fatty infiltration. Gallbladder and biliary ducts: Status post cholecystectomy. Pancreas: Unremarkable. No ductal dilation. Spleen: Unremarkable. No mass. Adrenal glands: Unremarkable. No mass. Kidneys and ureters: Unremarkable. No stone or hydronephrosis. Stomach and bowel: Pericolonic collection of gas in the pelvis without associated fluid collection. This measures roughly 6.3 x 2.76.7 cm. A few foci of free air is noted within the abdomen likely from recent surgery. Appendix: No evidence of appendicitis. Intraperitoneal space: No fluid collection. Vasculature: No abdominal aortic aneurysm. Lymph nodes: No enlarged lymph nodes. Urinary bladder: Urinary bladder wall thickening. No intraluminal gas. Reproductive: Status post hysterectomy. Bones/joints: No acute fracture. No suspicious lesion. Soft tissues: No bowel containing hernia. CT/CT abdomen pelvis w con* [id number] IMPRESSION: 1. Urinary bladder wall thickening likely reflect cystitis. A definite colovesicular fistula is not demonstrated on this exam but this is difficult to exclude without presence of intraluminal contrast within the colon or urinary bladder. 2. Pericolonic collection of gas in the pelvis without fluid collection may be related to recent surgery. Recommend follow-up imaging to ensure resolution and exclude presence of a colonic leak/microperforation.
--- NOTE | 2024-03-22 15:53 | W.ED.FEMALGU ---
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 This was done at [facility]. She has done fairly well postoperatively with some vague fullness feeling in her pelvis but eating and drinking and eliminating normally. Today she noted that there was some brownish discharge from her vagina which was heard at the same time of defecation and then she noted that this was became bloody. She contacted her surgeon's office in [place] and they advised her to come to her local emergency department. She states that the vague fullness feeling she was feeling over the past couple of weeks has resolved and she is left with an uncomfortable feeling in her lower perineal area. She states she is able to urinate normally. She states that there was no straining at stool prior to the occurrence of today's events. She denies any fevers or chills been eating and drinking normally. She has previously had inguinal hernia repair, open cholecystectomy, total abdominal hysterectomy. Associated symptoms: Deny headache(s) or syncope Related Data Home Medications Medication Instructions Recorded Confirmed lancets 28 gauge (FreeStyle #25 ea 08/22/19 02/29/24 Lancets) cholecalciferol (vitamin D3) 125 125 mcg PO BID 09/08/20 02/29/24 mcg (5,000 unit) capsule albuterol sulfate 90 mcg/actuation 2 puff inhalation Q6H PRN 11/17/23 02/29/24 aerosol inhaler Shortness Of Breath Or Wheezing ascorbic acid (vitamin C) 1,000 mg 500 mg PO DAILY PRN UTI 01/05/24 02/29/24 tablet (Vitamin C) calcium 500 mg (as 1 tab PO BID 01/05/24 02/29/24 carbonate)-vitamin D3 15 mcg (600 unit) tablet (Os-Itz 500 + D3) clobetasol 0.05 % topical ointment 1 applic topical BID PRN Skin 01/05/24 02/29/24 Irritation dapagliflozin propanediol 5 mg 5 mg PO QAM 01/05/24 02/29/24 tablet (Farxiga) omeprazole 20 mg capsule,delayed 20 mg PO DAILY 01/05/24 02/29/24 release Previous Rx's Medication Instructions Recorded blood-glucose meter (OneTouch #1 ea 05/14/20 Ultra2 Meter kit) blood sugar diagnostic (OneTouch #50 ea 12/20/21 Ultra Test strips) lancets 33 gauge (OneTouch Delica #100 ea 12/29/21 Plus Lancet) methenamine hippurate 1 gram tablet 1 g PO BID #60 tabs 02/09/22 alendronate 70 mg tablet (Fosamax) 70 mg PO .weekly #4 tabs 01/31/23 mometasone 50 mcg/actuation nasal 2 spray intranasal DAILY 12 months 07/20/23 spray (Nasonex 24hr Allergy) #17 grams nitroglycerin 0.4 mg sublingual See Rx Instructions .Route 11/13/23 tablet .COMPLEX #50 tabs ezetimibe 10 mg tablet 10 mg PO DAILY #90 tabs 01/05/24 lisinopril 10 mg tablet 10 mg PO DAILY #90 tabs 01/05/24 ciprofloxacin HCl 500 mg tablet 500 mg PO BID #14 tabs 02/07/24 bupropion HCl 200 mg tablet,12 hr 200 mg PO QAM #90 tabs 02/15/24 sustained-release (Wellbutrin SR) escitalopram oxalate 20 mg tablet 20 mg PO QAM #90 tabs 02/15/24 (Lexapro) lamotrigine 200 mg tablet 200 mg PO BEDTIME #90 tabs 02/15/24 (Lamictal) metoprolol succinate 25 mg 12.5 mg (1/2 x 25 mg) PO DAILY #45 02/21/24 tablet,extended release 24 hr tabs benzocaine-benzethonium 20 %-0.2 % 1 spray topical .PRN #78 grams 02/29/24 topical aerosol (Dermoplast First Aid) estradiol 0.01% (0.1 mg/gram) 1 g vaginal DAILY #42.5 grams 02/29/24 vaginal cream amoxicillin 875 mg-potassium 1 tab PO BID #14 tabs 03/22/24 clavulanate 125 mg tablet Allergies Allergy/AdvReac Type Severity Reaction Status Date / Time metformin Allergy Unknown nausea Verified 03/22/24 15:35 tetracycline Allergy Unknown Tongue Verified 03/22/24 15:35 swelling naproxen AdvReac Unknown cramps/naus Verified 03/22/24 15:35 ea Review of Systems Const: Denies: fever(s) or chills Card: Denies: chest pain, syncope or pre-syncope Resp: Denies: dyspnea, productive cough or non-productive cough : Denies: flank pain, difficulty voiding, dysuria or urinary frequency Musc: Denies: neck pain, back pain, extremity pain or extremity swelling Skin/Breast: Denies: rash or pruritus Neuro: Denies: headache(s), numbness in extremities or weakness in extremities Psych: Denies: anxiety, depression or mood swings Curtis/Lymph: Denies: easy bruising or easy bleeding PFSH ED PFSH: Medical History Palpitation Psychiatric care Lumbar radiculopathy, chronic Atherosclerotic heart disease of [place] coronary artery with other forms of angina pectoris Acid reflux Mixed incontinence Hypertension DDD (degenerative disc disease) Asthma Diabetes Chronic cystitis Major depressive disorder, recurrent severe without psychotic features Follows up with [facility] Generalized anxiety disorder Surgical History H/O excision of mass (09/30/21) Subcutaneous mass left upper quadrant of the abdomen H/O right wrist surgery Status post tubal ligation 1986 at time of third S/P hernia repair 10/27/11- Hernia repair Dx: rentral hernia anterior abdominal wall below umbilicus. Performed by Dr Macias at [facility] in [place], [place]. Per patient mesh was used and it covers her whole lower abdominal wall. S/P bladder repair X 2 01/09/07- Anterior/posterior vaginal repair, transobturator suburethral sling, cystoscopy. Dx: mixed urinary incontinence, cystocele and rectocele. Performed by Dr Andrews at [facility] in [place], [place] 07/2013- Bladder repair revised. Performed in [place]. She states that she had pain and the surgeon went in and excised some of the mesh but was unable to get everything out. H/O neck surgery 06/14/[address] Dillon at [facility] S/P cholecystectomy Open procedure performed via right upper quadrant incision in 1987 in [place] S/P hysterectomy 2002---total abdominal hysterectomy with bilateral [id number] Performed by Dr Stewart at [facility] for bleeding problems. She states her ovaries and Appendix were removed as well. Patient states she was told that there was no cancer H/O section x 3 ----> 1983, 1985, 1986 S/P appendectomy 2001-performed at time of open hysterectomy S/P excision of ganglion cyst Left wrist in [place], [place] S/P carpal tunnel release Bilateral-2002 and 2003 performed in [place], [place] S/P excision of lipoma Family History Father , 86 Hypertension Stroke Thyroid disease Kidney disease CAD (coronary artery disease) Chronic kidney disease (CKD) Sister Heart disease Her sister of heart disease at the age of 45-some congenital heart disease however she does not remember the name. Brother Kidney disease Diabetes Colon cancer Family/Other Breast cancer maternal aunt, diagnosed at age 62 Mother , AT AGE 84 Cancer PANCREATIC Lung disease Denies family history of Ovarian cancer Clotting disorder Dementia Hyperlipidemia Suicide Anesthesia complication Bleeding disorder Social History (Updated 02/29/24 @ 07:55 by Merari Prince) Smoking and tobacco/nicotine status: former use of tobacco/nicotine Physical Exam Narrative: EXAM NARRATIVE: She appears to be comfortable. She answers questions appropriately in a goal-directed fashion. Const: COMMON NORMALS: no acute distress and patient oriented x3 GENERAL APPEARANCE: cooperative and comfortable NUTRITIONAL APPEARANCE: overweight HENMT: COMMON NORMALS: normocephalic, moist oral mucous membranes and oropharynx normal HEAD & SCALP: normocephalic Eye: COMMON NORMALS: Equal, round and reactive pupils present and conjunctivae normal CONJUNCTIVA: Yes conjunctivae normal PUPIL: Yes Equal, round and reactive pupils present Neck/C-Spine: COMMON NORMALS: full ROM and no lymphadenopathy Resp: COMMON NORMALS: normal respiratory effort, No retractions, No use of accessory muscles and clear to auscultation bilaterally EFFORT & INSPECTION: Yes able to speak in complete sentences AUSCULTATION: clear to auscultation bilaterally Cardio: COMMON NORMALS: regular rate, regular rhythm and Peripheral pulses 2+ throughout RATE: regular rate RHYTHM: regular rhythm PERIPHERAL PULSES: Peripheral pulses 2+ throughout GI: COMMON NORMALS: Normal to inspection, nondistended, normoactive bowel sounds present, Soft to palpation and non-tender PALPATION: Yes Soft to palpation OTHER: Typical laparoscopic or robotic trocar puncture wounds noted. No drainage or erythema. No peritoneal signs. : OTHER: Perineal examination reveals some evidence of irritation and inflammation around the urethral meatus. She has what appears to be brownish discharge from her introitus. Otherwise external examination the perineum appears to be unremarkable. Back/Pelvis: COMMON NORMALS: no thoracic nor lumbar tenderness and thoraco-lumbar ROM normal Extremity: COMMON NORMALS: normal to inspection and full ROM Neuro: COMMON NORMALS: patient oriented x3, moves all extremities, no focal motor deficits and no sensory deficits noted Psych: COMMON NORMALS: mental status grossly normal Skin: COMMON NORMALS: no rashes or lesions noted and turgor normal GENERAL SKIN EXAM: no rashes or lesions noted and turgor normal Course Reevaluation(s): Reevaluation #1: Discussed current findings discussion with [facility] consultant as well as plan of care with the patient and spouse. All questions were answered. They voiced understanding and were appreciative of care. Consultations: Consultation #1: I discussed with Dr. Murrell the operating surgeon from [facility] regarding her presentation. Patient on our conversation he did not feel that there was any urgent condition and needed transfer at this time and certainly this is consistent with her clinical picture. He explained that he took the colon down in the region of the bladder dome and there would be physically impossible to have a fistula and that likely she had some fluid collection that has drained through the vagina. He recommends a course of antibiotics and also he will follow her up this coming week. Time: 17:36 Vital Signs: Vital signs: Vital Signs Temperature 98.4 F 03/22/24 15:29 Pulse Rate 88 03/22/24 15:29 Respiratory Rate 17 03/22/24 15:29 Blood Pressure 106/64 03/22/24 15:29 Pulse Oximetry 94 03/22/24 15:29 Oxygen Delivery Me thod Room Air 03/22/24 15:29 MDM - Female Medical Decision Making Patient presented as noted in the HPI. She had recent colon resection and revision of a colovesical fistula. There was concern about leakage she was having from her vagina. Clinical examination did reveal evidence of somewhat foul-smelling drainage from the perineum area predominantly from the vagina. Her abdominal examination is reassuring without any evidence of peritoneal signs wound infections etc. Imaging was what was obtained to ensure that there was no intra-abdominal path pathology of acute nature such as a contained abscess, obvious fistula, other concerning pathology. Catheterized urinalysis did reveal evidence of infection laboratories were reassuring. A discussion was engaged with the attending surgeon discussed current findings and he felt based on the information and he has knowledge of her surgery that it would be unlikely if not impossible for her to have a fistula. He will see her in outpatient follow-up. We will place her on antibiotics cover your both urine as as well as other potential pathogens at this time she is to follow-up with Dr. Nicholson on Monday as scheduled. Also return precautions were reviewed. Lab Data I reviewed the patient's lab results. 03/22/24 15:03/22/24 15: Radiology Impressions Abdomen/Pelvis CT 03/22/24 15:47 IMPRESSION: 1. Urinary bladder wall thickening likely reflect cystitis. A definite colovesicular fistula is not demonstrated on this exam but this is difficult to exclude without presence of intraluminal contrast within the colon or urinary bladder. 2. Pericolonic collection of gas in the pelvis without fluid collection may be related to recent surgery. Recommend follow-up imaging to ensure resolution and exclude presence of a colonic leak/microperforation. Laboratory Results WBC 10.99 10^3/uL (3.29-11.43) 03/22/24 15: RBC 4.23 10^6/uL (3.85-5.65) 03/22/24: Hgb 11.70 g/dL (11.27-16.99) 03/22/24: Hct 37.3 % (36-47) 03/22/24 15: MCV 88.2 fl (85-98) 03/22/24: MCH 27.7 pg (27-33) 03/22/24 15: MCHC 31.4 g/dL (30-55) 03/22/24 15: RDW 13.9 % (12.1-15.1) 03/22/24 15: Plt Count 412 10^3/cmm (157-399) H 03/22/24 15: MPV 9.4 fL (7.4-10.4) 03/22/24 15: Neut % (Auto) 76.8 % 03/22/24 15: Lymph % (Auto) 13.9 % 03/22/24 15: Titus % (Auto) 5.6 % 03/22/24 15: Eos % (Auto) 2.4 % 03/22/24 15: Baso % (Auto) 0.5 % 03/22/24 15: Neut # (Auto) 8.44 10^3/uL (1.8-7.7) H 03/22/24 15: Lymph # (Auto) 1.5 10^3/uL (0.8-4.8) 03/22/24 15: Titus # (Auto) 0.6 10^3/uL (0.2-0.9) 03/22/24 15: Eos # (Auto) 0.3 10^3/uL (0.0-0.8) 03/22/24 15: Baso # (Auto) 0.1 10^3/uL (0.0-0.1) 03/22/24 15: Nucleated RBC % (auto) 0 % 03/22/24 15: Nucleated RBCs # 0.0 /100WBC 03/22/24 15: Sodium 135 mmol/L (136-145) L 03/22/24 15: Potassium 3.1 mmol/L (3.5-5.1) L 03/22/24 15: Chloride 96 mmol/L (98-107) L 03/22/24 15: Carbon Dioxide 26 mmol/L (22-29) 03/22/24 15: Anion Gap 16.1 (5-19) 03/22/24 15: BUN 8 mg/dL (8-23) 03/22/24 15: Creatinine 0.6 mg/dL (0.5-0.9) 03/22/24 15: GFR Calculation 101.6 mL/min (90-130) 03/22/24 15: Glucose 151 mg/dL (65-115) H 03/22/24 15: Calculated Osmolality 281 mOsm/kg (285-295) L 03/22/24 15: Calcium 8.5 mg/dL (8.5-10.5) 03/22/24: Total Bilirubin 0.3 mg/dL (0.15-1.2) 03/22/24 15: AST 16 U/L (0-32) 03/22/24 15: ALT 13 U/L (0-33) 03/22/24 15:27 Alkaline Phosphatase 74 U/L (35-105) 03/22/24 15: Total Protein 7.5 g/dL (6.6-8.7) 03/22/24 15: Albumin 3.6 g/dL (3.5-5.2) 03/22/24 15: Globulin 3.9 g/dL (1.3-4.6) 03/22/24 15: Lipase 23 U/L (13-60) 03/22/24 15:27 Urine Color Dark yellow (Yellow) A 03/22/24 16:10 Urine Appearance Cloudy (CLEAR) A 03/22/24 16:10 Urine pH 5.5 (5-7) 03/22/24 16:10 Ur Specific [place] 1.028 (1.005-1.030) 03/22/24 16:10 Urine Protein 1+ (Negative) A 03/22/24 16:10 Urine Glucose (UA) 2+ (Normal) H 03/22/24 16:10 Urine Ketones Trace (Negative) 03/22/24 16:10 Urine Blood Trace (Negative) A 03/22/24 16:10 Urine Nitrate Negative (Negative) 03/22/24 16:10 Urine Bilirubin Negative (Negative) 03/22/24 16:10 Urine Urobilinogen 1.0 mg/dL (Negative) 03/22/24 16:10 Ur Leukocyte Esterase 2+ (Negative) A 03/22/24 16:10 Urine RBC 0-2 /hpf (0-2) 03/22/24 16:10 Urine WBC >100 /hpf (0-5) H 03/22/24 16:10 Ur Squamous Epith Cells 0-5 /hpf (0-5) 03/22/24 16:10 Amorphous Sediment Not Reportable 03/22/24 16:10 Urine Bacteria 1+ /hpf (NONE) H 03/22/24 16:10 Hyaline Casts 3.71 /lpf 03/22/24 16:10 All radiology interpretation(s) finalized by discharge Discharge Plan Discharge Patient Disposition: Home Clinical Impression: Seroma after procedure Urinary tract infection Qualifiers: Urinary tract infection type: site unspecified Condition: Stable Prescriptions: New amoxicillin-pot clavulanate 875-125 mg tablet 1 tab PO BID Qty: 14 0RF No Action (DME) lancets [FreeStyle Lancets] 28 gauge misc See Rx Instructions .ROUTE .MEDSUPPLY Qty: 25 Rx Instructions: As directed cholecalciferol (vitamin D3) 125 mcg (5,000 unit) capsule 125 mcg PO BID (DME) blood-glucose meter [[employer] SimplifiedTouch Ultra2 Meter] Kit See Rx Instructions .ROUTE .MEDSUPPLY Qty: 1 0RF Rx Instructions: use daily (DME) OneTouch Ultra Test Strip See Rx Instructions .ROUTE .COMPLEX Qty: 50 0RF Dose Instruction: USE 1 STRIP TO CHECK GLUCOSE ONCE DAILY Rx Instructions: USE 1 STRIP TO CHECK GLUCOSE ONCE DAILY methenamine hippurate 1 gram tablet 1 g PO BID Qty: 60 12RF Hold Instructions: Resume on 12/04/23. Rx Instructions: Take 1000 mg of vitamin C with each dose of methenamine as needed mometasone [Nasonex 24hr Allergy] 50 mcg/actuation spray,non-aerosol 2 spray intranasal DAILY 360 Days Qty: 17 11RF Rx Instructions: administer into each nostril as needed. metoprolol succinate 25 mg tablet extended release 24 hr 12.5 mg PO DAILY Qty: 45 3RF bupropion HCl [Wellbutrin SR] 200 mg tablet sustained-release 12 hr 200 mg PO QAM Qty: 90 2RF Rx Instructions: Take one tablet every morning Lamictal 200 mg tablet 200 mg PO BEDTIME Qty: 90 2RF Rx Instructions: Take one tablet at bedtime escitalopram oxalate [Lexapro] 20 mg tablet 20 mg PO QAM Qty: 90 2RF Rx Instructions: Take one tablet every morning ciprofloxacin HCl 500 mg tablet 500 mg PO BID Qty: 14 0RF Dermoplast First Aid 20-0.2 % aerosol 1 spray topical .PRN Qty: 78 0RF estradiol 0.01 % (0.1 mg/gram) cream 1 g vaginal DAILY Qty: 42.5 3RF Rx Instructions: twice daily for 14 days and then apply twice weekly (DME) lancets [OneTouch Delica Plus Lancet] 33 gauge misc See Rx Instructions .Route Qty: 100 5RF Rx Instructions: one daily alendronate [Fosamax] 70 mg tablet 70 mg PO .weekly Qty: 4 5RF Rx Instructions: ON MONDAY nitroglycerin 0.4 mg tablet, sublingual See Rx Instructions .ROUTE .COMPLEX Qty: 50 0RF Dose Instruction: DISSOLVE ONE TABLET UNDER THE TONGUE EVERY 5 MINUTES NEEDED FOR CHEST PAIN. DO NOT EXCEED A TOTAL OF 3 DOSES IN 15 MINUTES Rx Instructions: DISSOLVE ONE TABLET UNDER THE TONGUE EVERY 5 MINUTES NEEDED FOR CHEST PAIN. DO NOT EXCEED A TOTAL OF 3 DOSES IN 15 MINUTES lisinopril 10 mg tablet 10 mg PO DAILY Qty: 90 3RF ezetimibe 10 mg tablet 10 mg PO DAILY Qty: 90 3RF albuterol sulfate 90 mcg/actuation HFA aerosol inhaler 2 puff inhalation Q6H PRN (Reason: Shortness Of Breath Or Wheezing) Vitamin C 1,000 mg Tablet 500 mg PO DAILY PRN (Reason: UTI) omeprazole 20 mg capsule,delayed release(DR/EC) 20 mg PO DAILY clobetasol 0.05 % ointment 1 applic topical BID PRN (Reason: Skin Irritation) Os-Itz 500 + D3 500 mg-15 mcg (600 unit) tablet 1 tab PO BID Farxiga 5 mg tablet 5 mg PO QAM Discharge Orders: Discharge ED (Routine); Ordered 03/22/24 Ordered By: Michele Mcdonough Referrals: Domi Doty FNP [Primary Care Provider] - Discharge Diet: Usual diet Discharge Activity: Increase activity as tolerated Patient Instructions: Opioid Safety, Pain Management Activity Restrictions/Additional Instructions: As we discussed from your evaluation in the emergency department do not have a urgent condition at this time that requires admission and/or other emergent care however we have prescribed an antibiotic to help treat your infection of your urinary tract as well as your drainage from your surgical procedure. Follow-up with Dr. Morales as scheduled on Monday. If at anytime you develop increasing pain, fever, other symptoms of concern return to this or the nearest emergency department. Coding Level of Care Code ED Saddle Cutter for Tara Jacques
[2024-03-22 15:56] LABS: Alanine Aminotransferase 13 U/L (0-33); Albumin Level 3.6 g/dL (3.5-5.2); Alkaline Phosphatase 74 U/L (35-105); Anion Gap 16.1 (5-19); Aspartate Amino Transferase 16 U/L (0-32); Blood Urea Nitrogen 8 mg/dL (8-23); Calcium 8.5 mg/dL (8.5-10.5); Carbon Dioxide 26 mmol/L (22-29); Chloride 96 mmol/L (98-107); Creatinine Clr Calc Pharmacy 104.3698; Globulin 3.9 g/dL (1.3-4.6); Glomerular Filtration Rate 101.6 mL/min (90-130); Glucose 151 mg/dL (65-115); Lipase 23 U/L (13-60); Osmolality Calculated 281 mOsm/kg (285-295); Potassium 3.1 mmol/L (3.5-5.1); Sodium 135 mmol/L (136-145); Total Bilirubin 0.3 mg/dL (0.15-1.2); Total Protein 7.5 g/dL (6.6-8.7)
[2024-03-22] MEDS: iohexol 350 mg/mL 500 mL Btl (per mL) IV (16:33)
[2024-03-22 16:34] VITALS: BP 103/70; PULSE 93; RESP 18; O2SAT 92
[2024-03-22 16:53] LABS: Add Urine Microscopic? YES; Bilirubin Urine Negative (Negative); Blood Urine Trace (Negative); Glucose Urine UA 2+ (Normal); Hyaline Casts Urine 3.71 /lpf; Ketones Urine Trace (Negative); Leukocyte Esterase Urine 2+ (Negative); Nitrate Urine Negative (Negative); Protein Urine 1+ (Negative); RBC Urine 0-2 /hpf (0-2); Specific Gravity, Urine 1.028 (1.005-1.030); Squamous Epithelial Cell Urine 0-5 /hpf (0-5); Urine Appearance Cloudy (CLEAR); Urine Color Dark Yellow (Yellow); WBC Urine >100 /hpf (0-5); pH Urine 5.5 (5-7)
[2024-03-22 16:54] LABS: Add Urine Culture? Yes; Bacteria Urine 1+ /hpf; UA Slide Review UA Slide Review Perf
[2024-03-22 17:58] VITALS: BP 105/68; PULSE 78; RESP 20; O2SAT 94
--- NOTE | 2024-03-25 10:42 | PC.NURSE ---
Pt contacted via phone to inform them they needed to return to the ED per MD. Pt stated she is currently admitted to the hospital in [place], MD notified.
== END 2024-03-22 18:03 | disposition home or self-care (01) ==
PROVIDERS: Emergency Medicine; Emergency Provider Emergency Medicine; PCP Nurse Practitioner Family
DX: N99.842 Postprocedural seroma of a genitourinary system organ or structure following a genitourinary system procedure (principal); N39.0 Urinary tract infection, site not specified; Z87.891 Personal history of nicotine dependence; I25.10 Atherosclerotic heart disease of native coronary artery without angina pectoris; I10 Essential (primary) hypertension; E11.9 Type 2 diabetes mellitus without complications
CPT/HCPCS: 36415; 74177; 80053; 81001; 83690; 85025; 87086; 99285

== ENCOUNTER 2024-04-09 15:57 | Emergency (ER) | payer MEDICARE, MEDICAID, SELFPAY ==
[2023-05-31 13:40] VITALS: BP 102/64; BMI 36.3
[2024-04-09 16:02] VITALS: BP 90/63; PULSE 105; RESP 17; TEMP 36.3; O2SAT 96; BMI 39.6
[2024-04-09 16:30] VITALS: BP 102/69; PULSE 99; O2SAT 96
--- NOTE | 2024-04-09 17:22 | CTR_ITS ---
PROCEDURE INFORMATION: Exam: CT Abdomen And Pelvis Without Contrast Exam date and time: 04/09/2024 7:10 PM Age: 63 years old Clinical indication: Abdominal pain; prior appendectomy bladder repair, hernia repair; Patient HX: Ostomy leaking; TECHNIQUE: Imaging protocol: Computed tomography of the abdomen and pelvis without contrast. Radiation optimization: All CT scans at this facility use at least one of these dose optimization techniques: automated exposure control; mA and/or kV adjustment per patient size (includes targeted exams where dose is matched to clinical indication); or iterative reconstruction. COMPARISON: CT abdomen pelvis w con* [id number] 03/22/2024 4:27 PM RADIATION DOSE METRICS: Total DLP (mGy-cm): 899 FINDINGS: Tubes, catheters and devices: Right lower quadrant soft tissue drainage tube track with edema and foci of air. Liver: Normal. No mass. Gallbladder and biliary ducts: The gallbladder has been removed. Pancreas: Normal. No ductal dilation. Spleen: Normal. No splenomegaly. Adrenal glands: Normal. No mass. Kidneys and ureters: Normal. No hydronephrosis. Stomach and bowel: Left lower quadrant ostomy. There is a complex air-fluid collection in the subcutaneous soft tissues adjacent to the ostomy extending along the left side of the abdomen measuring 18.2 x 6.7 cm in the AP/transverse dimensions. This collection cannot be differentiated from the adjacent bowel mucosa. There is adjacent soft tissue cellulitis and additional foci of soft tissue air. There is diverticulosis of the colon without evidence of diverticulitis. Appendix: There has been an appendectomy. Intraperitoneal space: There are foci of free intraperitoneal air in the pelvis. A complex air-fluid collection is present in the pelvis measuring 2.6 x 2.9 cm in transverse/AP dimensions which cannot be differentiated from the adjacent bladder wall and sigmoid mucosa. This has decreased in size when compared to the prior study. Vasculature: Unremarkable. No abdominal aortic aneurysm. Lymph nodes: Unremarkable. No enlarged lymph nodes. Urinary bladder: Unremarkable as visualized. Reproductive: The uterus is not visualized, consistent with hysterectomy. Bones/joints: Unremarkable. No acute fracture. Soft tissues: See Stomach and bowel finding. Other findings: Postoperative umbilical changes are present. There is admixture of density and multiple foci of air in the defect which may represent packing material. Additional abscess or infection cannot be excluded. CT/CT abdomen pelvis wo con [id number] IMPRESSION: 1. There is a complex air-fluid collection in the subcutaneous soft tissues adjacent to the left lower quadrant ostomy consistent with an abscess formation. This cannot be differentiated from the adjacent bowel mucosa raising concern for fistulous connection and/or leak. 2. Complex air-fluid collection in the pelvis cannot be differentiated from the adjacent bladder wall and sigmoid mucosa has decreased in size when compared to the prior study consistent with an abscess. 3. Postoperative umbilical changes are present. There is admixture of density and multiple foci of air in the defect which may represent packing material. Additional abscess or infection cannot be excluded. 4. There are small foci of free intraperitoneal air in the pelvis. This may be postoperative or postprocedural in nature or represent a ruptured viscus.
--- NOTE | 2024-04-09 17:23 | XRR_ITS ---
PROCEDURE INFORMATION: Exam: XR Chest Exam date and time: 04/09/2024 5:28 PM Age: 63 years old Clinical indication: Cough and dyspnea; TECHNIQUE: Imaging protocol: Radiologic exam of the chest. Views: 1 view. COMPARISON: CT chest con [id number] 03/13/2023 3:57 PM FINDINGS: Lungs: Unremarkable. No consolidation. Pleural spaces: Unremarkable. No pleural effusion. No pneumothorax. Heart/Mediastinum: Unremarkable. No cardiomegaly. Bones/joints: Unremarkable. XR/XR chest 1V portable [id number] IMPRESSION: No acute findings.
--- NOTE | 2024-04-09 17:23 | ED_ITS ---
Documented by User: Babar Marcos DO 04/11/24 06:45 HPI - General Adult 2 General: Chief complaint: General Medical Stated complaint: ostomy bag leaking Time Seen by Provider: 04/09/24 17:14 History of Present Illness: 63-year-old female who presents to the e mergency room with abdominal pain. Patient had a colon resection last month she had a follow-up visit in the emergency room was a concern with fecal discharge vaginally. The ER doctor at the time consulted with the surgeon was originally done the procedure they did not feel a fistula could have formed in that time she was treated as an outpatient with follow-up at the doctor's office. At the time of follow-up she was hospitalized and had a revision end ileostomy placed. She states that since she has gotten home she has had difficulty with keeping the adhesive on her skin she has had a lot of irritation locally in the wound has leaked almost continuously. She has had nausea and vomiting developed in the last 24 hours of increasing liquid discharge poor oral intake and significantly decreased urinary output in that same timeframe. She has had sweats and chills as if she had a fever but only subjectively reports a fever she has not been able to check it. Patient is diabetic. Associated symptoms: Reports nausea and vomiting; Deny chest pain, dyspnea or rash Related Data Home Medications Medication Instructions Recorded Confirmed lancets 28 gauge (FreeStyle #25 ea 08/22/19 02/29/24 Lancets) cholecalciferol (vitamin D3) 125 125 mcg PO BID 09/08/20 02/29/24 mcg (5,000 unit) capsule albuterol sulfate 90 mcg/actuation 2 puff inhalation Q6H PRN 11/17/23 02/29/24 aerosol inhaler Shortness Of Breath Or Wheezing ascorbic acid (vitamin C) 1,000 mg 500 mg PO DAILY PRN UTI 01/05/24 02/29/24 tablet (Vitamin C) calcium 500 mg (as 1 tab PO BID 01/05/24 02/29/24 carbonate)-vitamin D3 15 mcg (600 unit) tablet (Os-Itz 500 + D3) clobetasol 0.05 % topical ointment 1 applic topical BID PRN Skin 01/05/24 02/29/24 Irritation dapagliflozin propanediol 5 mg 5 mg PO QAM 01/05/24 02/29/24 tablet (Farxiga) omeprazole 20 mg capsule,delayed 20 mg PO DAILY 01/05/24 02/29/24 release Previous Rx's Medication Instructions Recorded blood-glucose meter (OneTouch #1 ea 05/14/20 Ultra2 Meter kit) blood sugar diagnostic (OneTouch #50 ea 12/20/21 Ultra Test strips) lancets 33 gauge (OneTouch Delica #100 ea 12/29/21 Plus Lancet) methenamine hippurate 1 gram tablet 1 g PO BID #60 tabs 02/09/22 alendronate 70 mg tablet (Fosamax) 70 mg PO .weekly #4 tabs 01/31/23 mometasone 50 mcg/actuation nasal 2 spray intranasal DAILY 12 months 07/20/23 spray (Nasonex 24hr Allergy) #17 grams nitroglycerin 0.4 mg sublingual See Rx Instructions .Route 11/13/23 tablet .COMPLEX #50 tabs ezetimibe 10 mg tablet 10 mg PO DAILY #90 tabs 01/05/24 lisinopril 10 mg tablet 10 mg PO DAILY #90 tabs 01/05/24 ciprofloxacin HCl 500 mg tablet 500 mg PO BID #14 tabs 02/07/24 bupropion HCl 200 mg tablet,12 hr 200 mg PO QAM #90 tabs 02/15/24 sustained-release (Wellbutrin SR) escitalopram oxalate 20 mg tablet 20 mg PO QAM #90 tabs 02/15/24 (Lexapro) lamotrigine 200 mg tablet 200 mg PO BEDTIME #90 tabs 02/15/24 (Lamictal) metoprolol succinate 25 mg 12.5 mg (1/2 x 25 mg) PO DAILY #45 02/21/24 tablet,extended release 24 hr tabs benzocaine-benzethonium 20 %-0.2 % 1 spray topical .PRN #78 grams 02/29/24 topical aerosol (Dermoplast First Aid) estradiol 0.01% (0.1 mg/gram) 1 g vaginal DAILY #42.5 grams 02/29/24 vaginal cream amoxicillin 875 mg-potassium 1 tab PO BID #14 tabs 03/22/24 clavulanate 125 mg tablet Allergies Allergy/AdvReac Type Severity Reaction Status Date / Time metformin Allergy Unknown nausea Verified 10/18/24 15:35 tetracycline Allergy Unknown Tongue Verified 03/22/24 15:35 swelling naproxen AdvReac Unknown cramps/naus Verified 03/22/24 15:35 ea Review of Systems 2 Const: Reports: fever(s), chills and fatigue Card: Denies: chest pain Resp: Denies: dyspnea GI: Reports: abdominal pain, nausea, vomiting and diarrhea : Denies: dysuria, urinary frequency or urinary urgency Musc: Denies: neck pain or back pain Skin/Breast: Denies: rash PFSH ED 2 PFSH: Medical History Palpitation Psychiatric care Lumbar radiculopathy, chronic Atherosclerotic heart disease of [place] coronary artery with other forms of angina pectoris Acid reflux Mixed incontinence Hypertension DDD (degenerative disc disease) Asthma Diabetes Chronic cystitis Major depressive disorder, recurrent severe without psychotic features Follows up with [facility] [place] Generalized anxiety disorder Surgical History H/O excision of mass (09/30/21) Subcutaneous mass left upper quadrant of the abdomen H/O right wrist surgery Status post tubal ligation 1986 at time of third S/P hernia repair 10/27/11- Hernia repair Dx: rentral hernia anterior abdominal wall below umbilicus. Performed by Dr Macias at [facility] in [place], [place]. Per patient mesh was used and it covers her whole lower abdominal wall. S/P bladder repair X 2 01/09/07- Anterior/posterior vaginal repair, transobturator suburethral sling, cystoscopy. Dx: mixed urinary incontinence, cystocele and rectocele. Performed by Dr Andrews at [facility] in [place], [place] 07/2013- Bladder repair revised. Performed in [place]. She states that she had pain and the surgeon went in and excised some of the mesh but was unable to get everything out. H/O neck surgery 06/14/[address] Dillon at [facility] S/P cholecystectomy Open procedure performed via right upper quadrant incision in 1987 in [facility] S/P hysterectomy 2001---total abdominal hysterectomy with bilateral [id number]- Performed by Dr Stewart at [facility] for bleeding problems. She states her ovaries and Appendix were removed as well. Patient states she was told that there was no cancer H/O section x 3 ----> 1983, 1985, 1986 S/P appendectomy 2001-performed at time of open hysterectomy S/P excision of ganglion cyst Left wrist in [place], [place] S/P carpal tunnel release Bilateral-2002 and 2003 performed in [place], [place] S/P excision of lipoma Family History Father , 86 Hypertension Stroke Thyroid disease Kidney disease CAD (coronary artery disease) Chronic kidney disease (CKD) Sister Heart disease Her sister of heart disease at the age of 45-some congenital heart disease however she does not remember the name. Brother Kidney disease Diabetes Colon cancer Family/Other Breast cancer maternal aunt, diagnosed at age 62 Mother , AT AGE 84 Cancer PANCREATIC Lung disease Denies family history of Ovarian cancer Clotting disorder Dementia Hyperlipidemia Suicide Anesthesia complication Bleeding disorder Social History Smoking and tobacco/nicotine status: former use of tobacco/nicotine Physical Exam 2 Const: GENERAL APPEARANCE: cooperative ORIENTATION/CONSCIOUSNESS: Yes awake, Yes oriented to person, Yes oriented to place and Yes oriented to time HENMT: COMMON NORMALS: normocephalic, atraumatic and hearing grossly normal bilaterally HEAD & SCALP: normocephalic and atraumatic Resp: COMMON NORMALS: normal respiratory effort, No retractions, No use of accessory muscles and clear to auscultation bilaterally AUSCULTATION: clear to auscultation bilaterally Cardio: COMMON NORMALS: regular rate, regular rhythm and No murmurs present (Cardio) RATE: regular rate RHYTHM: regular rhythm GI: COMMON NORMALS: No hepatosplenomegaly present INSPECTION: Yes abdominal distension AUSCULTATION: Yes Hypoactive bowel sounds present and Yes Absent bowel sounds PALPATION: Yes Tenderness to palpation present (GI), Yes Guarding due to palpation present (GI) and Yes No hepatosplenomegaly present PERCUSSION: tympanic to percussion Extremity: COMMON NORMALS: normal to inspection, capillary refill normal, no clubbing, cyanosis or edema, no calf tenderness and no pedal edema Neuro: SENSORIUM/ORIENTATION: Yes oriented to person, Yes oriented to place and Yes oriented to time Skin: COMMON NORMALS: no rashes or lesions noted GENERAL SKIN EXAM: no rashes or lesions noted Course 2 Vital Signs: Vital signs: Vital Signs Temperature 97.4 F L 04/09/24 16:02 Pulse Rate 101 H 04/10/24 00:09 Respiratory Rate 15 04/09/24 22:42 Blood Pressure 80/53 04/10/24 00:09 Pulse Oximetry 92 04/10/24 00:09 Oxygen Delivery Me thod Room Air 04/09/24 22:42 MDM - General Adult Medical Decision Making Patient has acute abdomen on exam. Concerned about her recent surgeries possible bowel obstruction. CT is pending. Discussed with Dr. Luis. Care signed out to Dr. Luis at change of shift. See final notes for diagnosis and disposition. Patient care transferred over to myself at shift change, lab work showed white blood cell count 17.1, sodium 120, BUN/creatinine 60/2.5, abdomen pelvis CT scan without contrast showed multiple possible abscesses, these results was discussed with the hospital coordinator at [facility], Dr. Mayberry accepted the patient in transfer. Lab Data 04/09/24 17:40 04/09/24 17:40 Radiology Impressions Abdomen/Pelvis CT 04/09/24 17:22 IMPRESSION: 1. There is a complex air-fluid collection in the subcutaneous soft tissues adjacent to the left lower quadrant ostomy consistent with an abscess formation. This cannot be differentiated from the adjacent bowel mucosa raising concern for fistulous connection and/or leak. 2. Complex air-fluid collection in the pelvis cannot be differentiated from the adjacent bladder wall and sigmoid mucosa has decreased in size when compared to the prior study consistent with an abscess. 3. Postoperative umbilical changes are present. There is admixture of density and multiple foci of air in the defect which may represent packing material. Additional abscess or infection cannot be excluded. 4. There are small foci of free intraperitoneal air in the pelvis. This may be postoperative or postprocedural in nature or represent a ruptured viscus. ADDENDUM: 04/09/241955 CRITICAL RESULT: The study was personally discussed on the telephone with Dr. Luis on 04/09/2024 7:54 PM CAP BLOCKER. The results were understood and acknowledged. Chest X-Ray 04/09/24 17:23 IMPRESSION: No acute findings. Laboratory Results WBC 17.17 10^3/uL (3.29-11.43) H 04/09/24 17:40 RBC 4.65 10^6/uL (3.85-5.65) 04/09/24 17:40 Hgb 12.50 g/dL (11.27-16.99) 04/09/24 17:40 Hct 38.5 % (36-47) 04/09/24 17:40 MCV 82.8 fl (85-98) L 04/09/24 17:40 MCH 26.9 pg (27-33) L 04/09/24 17:40 MCHC 32.5 g/dL (30-55) 04/09/24 17:40 RDW 14.9 % (12.1-15.1) 04/09/24 17:40 Plt Count 499 10^3/cmm (157-399) H 04/09/24 17:40 MPV 9.5 fL (7.4-10.4) 04/09/24 17:40 Neut % (Auto) 67.0 % 04/09/24 17:40 Lymph % (Auto) 20.1 % 04/09/24 17:40 Towns % (Auto) 10.0 % 04/09/24 17:40 Eos % (Auto) 0.3 % 04/09/24 17:40 Baso % (Auto) 0.5 % 04/09/24 17:40 Neut # (Auto) 11.51 10^3/uL (1.8-7.7) H 04/09/24 17:40 Lymph # (Auto) 3.5 10^3/uL (0.8-4.8) 04/09/24 17:40 Towns # (Auto) 1.7 10^3/uL (0.2-0.9) H 04/09/24 17:40 Eos # (Auto) 0.1 10^3/uL (0.0-0.8) 04/09/24 17:40 Baso # (Auto) 0.1 10^3/uL (0.0-0.1) 04/09/24 17:40 Nucleated RBC % (auto) 0 % 04/09/24 17:40 Nucleated RBCs # 0.0 /100WBC 04/09/24 17:40 Sodium 120 mmol/L (136-145) L 04/09/24 17:40 Potassium 5.1 mmol/L (3.5-5.1) 04/09/24 17:40 Chloride 82 mmol/L (98-107) L 04/09/24 17:40 Carbon Dioxide 25 mmol/L (22-29) 04/09/24 17:40 Anion Gap 18.1 (5-19) 04/09/24 17:40 BUN 60 mg/dL (8-23) H 04/09/24 17:40 Creatinine 2.5 mg/dL (0.5-0.9) H 04/09/24 17:40 GFR Calculation 19.6 mL/min (90-130) L 04/09/24 17:40 Glucose 105 mg/dL (65-115) 04/09/24 17:40 Calculated Osmolality 267 mOsm/kg (285-295) L 04/09/24 17:40 Lactic Acid 1.6 mmol/L (0.5-2.2) 04/09/24 17:40 Calcium 8.6 mg/dL (8.5-10.5) 04/09/24 17:40 Total Bilirubin 0.5 mg/dL (0.15-1.2) 04/09/24 17:40 AST 17 U/L (0-32) 04/09/24 17:40 ALT 14 U/L (0-33) 04/09/24 17:40 Alkaline Phosphatase 70 U/L (35-105) 04/09/24 17:40 Total Protein 7.4 g/dL (6.6-8.7) 04/09/24 17:40 Albumin 3.4 g/dL (3.5-5.2) L 04/09/24 17:40 Globulin 4.0 g/dL (1.3-4.6) 04/09/24 17:40 Lipase 50 U/L (13-60) 04/09/24 17:40 Urine Color Clark (Yellow) A 04/09/24 20: Urine Appearance Cloudy (CLEAR) A 04/09/24 20:05 Urine pH 5.0 (5-7) 04/09/24 20:05 Ur Specific [place] 1.022 (1.005-1.030) 04/09/24 20:05 Urine Protein Trace (Negative) A 04/09/24 20: Urine Glucose (UA) Negative (Normal) 04/09/24 20:05 Urine Ketones Negative (Negative) 04/09/24 20:05 Urine Blood 3+ (Negative) A 04/09/24 20:05 Urine Nitrate Negative (Negative) 04/09/24 20:05 Urine Bilirubin 1+ (Negative) H 04/09/24 20:05 Urine Urobilinogen 1.0 mg/dL (Negative) 04/09/24 20:05 Ur Leukocyte Esterase 2+ (Negative) A 04/09/24 20:05 Urine RBC 21-50 /hpf (0-2) H 04/09/24 20:05 Urine WBC >100 /hpf (0-5) H 04/09/24 20:05 Ur Squamous Epith Cells 0-5 /hpf (0-5) 04/09/24 20:05 Amorphous Sediment Not Reportable 04/09/24 20:05 Urine Bacteria Trace /hpf (NONE) 04/09/24 20:05 Hyaline Casts 51.30 /lpf 04/09/24 20:05 Urine Yeast 2+ /hpf H 04/09/24 20:05 Serum Ketones Negative (Negative) 04/09/24 17:40 Discharge Plan Discharge Patient Disposition: Xfer Short-Term Hosp Clinical Impression: Abscess of postoperative wound of abdominal wall, Acute hyponatremia Acute renal failure Qualifiers: Acute renal failure type: unspecified Qualified Code(s): N17.9 - Acute kidney failure, unspecified Condition: Stable Referrals: Domi Doty FNP [Primary Care Provider] - Coding Level of Care Code ED Composite Bond Worker for Chg Fwd Documented by User: Robert Luis DO 04/09/24 22:08 HPI - General Adult 2 General: Chief complaint: General Medical Stated complaint: ostomy bag leaking Time Seen by Provider: 04/09/24 17:14 Related Data Home Medications Medication Instructions Recorded Confirmed lancets 28 gauge (FreeStyle #25 ea 08/22/19 02/29/24 Lancets) cholecalciferol (vitamin D3) 125 125 mcg PO BID 09/08/20 02/29/24 mcg (5,000 unit) capsule albuterol sulfate 90 mcg/actuation 2 puff inhalation Q6H PRN 11/17/23 02/29/24 aerosol inhaler Shortness Of Breath Or Wheezing ascorbic acid (vitamin C) 1,000 mg 500 mg PO DAILY PRN UTI 01/05/24 02/29/24 tablet (Vitamin C) calcium 500 mg (as 1 tab PO BID 01/05/24 02/29/24 carbonate)-vitamin D3 15 mcg (600 unit) tablet (Os-Itz 500 + D3) clobetasol 0.05 % topical ointment 1 applic topical BID PRN Skin 01/05/24 02/29/24 Irritation dapagliflozin propanediol 5 mg 5 mg PO QAM 01/05/24 02/29/24 tablet (Farxiga) omeprazole 20 mg capsule,delayed 20 mg PO DAILY 01/05/24 02/29/24 release Previous Rx's Medication Instructions Recorded blood-glucose meter (Predictryuch #1 ea 05/14/20 Ultra2 Meter kit) blood sugar diagnostic (Predictryuch #50 ea 12/20/21 Ultra Test strips) lancets 33 gauge (OneTouch Delica #100 ea 12/29/21 Plus Lancet) methenamine hippurate 1 gram tablet 1 g PO BID #60 tabs 02/09/22 alendronate 70 mg tablet (Fosamax) 70 mg PO .weekly #4 tabs 01/31/23 mometasone 50 mcg/actuation nasal 2 spray intranasal DAILY 12 months 07/20/23 spray (Nasonex 24hr Allergy) #17 grams nitroglycerin 0.4 mg sublingual See Rx Instructions .Route 11/13/23 tablet .COMPLEX #50 tabs ezetimibe 10 mg tablet 10 mg PO DAILY #90 tabs 01/05/24 lisinopril 10 mg tablet 10 mg PO DAILY #90 tabs 01/05/24 ciprofloxacin HCl 500 mg tablet 500 mg PO BID #14 tabs 02/07/24 bupropion HCl 200 mg tablet,12 hr 200 mg PO QAM #90 tabs 02/15/24 sustained-release (Wellbutrin SR) escitalopram oxalate 20 mg tablet 20 mg PO QAM #90 tabs 02/15/24 (Lexapro) lamotrigine 200 mg tablet 200 mg PO BEDTIME #90 tabs 02/15/24 (Lamictal) metoprolol succinate 25 mg 12.5 mg (1/2 x 25 mg) PO DAILY #45 02/21/24 tablet,extended release 24 hr tabs benzocaine-benzethonium 20 %-0.2 % 1 spray topical .PRN #78 grams 02/29/24 topical aerosol (Dermoplast First Aid) estradiol 0.01% (0.1 mg/gram) 1 g vaginal DAILY #42.5 grams 02/29/24 vaginal cream amoxicillin 875 mg-potassium 1 tab PO BID #14 tabs 03/22/24 clavulanate 125 mg tablet Allergies Allergy/AdvReac Type Severity Reaction Status Date / Time metformin Allergy Unknown nausea Verified 03/22/24 15:35 tetracycline Allergy Unknown Tongue Verified 03/22/24 15:35 swelling naproxen AdvReac Unknown cramps/naus Verified 03/22/24 15:35 ea PFSH ED 2 PFSH: Medical History Palpitation Psychiatric care Lumbar radiculopathy, chronic Atherosclerotic heart disease of [place] coronary artery with other forms of angina pectoris Acid reflux Mixed incontinence Hypertension DDD (degenerative disc disease) Asthma Diabetes Chronic cystitis Major depressive disorder, recurrent severe without psychotic features Follows up with [facility] [place] Generalized anxiety disorder Surgical History H/O excision of mass (09/30/21) Subcutaneous mass left upper quadrant of the abdomen H/O right wrist surgery Status post tubal ligation 1986 at time of third S/P hernia repair 10/27/11- Hernia repair Dx: rentral hernia anterior abdominal wall below umbilicus. Performed by Dr Macias at [facility] in [place], [place]. Per patient mesh was used and it covers her whole lower abdominal wall. S/P bladder repair X 2 01/09/07- Anterior/posterior vaginal repair, transobturator suburethral sling, cystoscopy. Dx: mixed urinary incontinence, cystocele and rectocele. Performed by Dr Andrews at [facility] in [place], [place] 07/2013- Bladder repair revised. Performed in [place]. She states that she had pain and the surgeon went in and excised some of the mesh but was unable to get everything out. H/O neck surgery 06/14/[address] Dillon at [facility] S/P cholecystectomy Open procedure performed via right upper quadrant incision in 1987 in [facility] S/P hysterectomy 2001---total abdominal hysterectomy with bilateral [id number]- Performed by Dr Stewart at [facility] for bleeding problems. She states her ovaries and Appendix were removed as well. Patient states she was told that there was no cancer H/O section x 3 ----> 1983, 1985, 1986 S/P appendectomy 2001-performed at time of open hysterectomy S/P excision of ganglion cyst Left wrist in [place], [place] S/P carpal tunnel release Bilateral-2002 and 2003 performed in [place], [place] S/P excision of lipoma Family History Father , 86 Hypertension Stroke Thyroid disease Kidney disease CAD (coronary artery disease) Chronic kidney disease (CKD) Sister Heart disease Her sister of heart disease at the age of 45-some congenital heart disease however she does not remember the name. Brother Kidney disease Diabetes Colon cancer Family/Other Breast cancer maternal aunt, diagnosed at age 62 Mother , AT AGE 84 Cancer PANCREATIC Lung disease Denies family history of Ovarian cancer Clotting disorder Dementia Hyperlipidemia Suicide Anesthesia complication Bleeding disorder Social History Smoking and tobacco/nicotine status: former use of tobacco/nicotine Course 2 Vital Signs: Vital signs: Vital Signs Temperature 97.4 F L 04/09/24 16:02 Pulse Rate 101 H 04/10/24 00:09 Respiratory Rate 15 04/09/24 22:42 Blood Pressure 80/53 04/10/24 00:09 Pulse Oximetry 92 04/10/24 00:09 Oxygen Delivery Me thod Room Air 04/09/24 22:42 MDM - General Adult Medical Decision Making Patient care transferred over to myself at shift change, lab work showed white blood cell count 17.1, sodium 120, BUN/creatinine 60/2.5, abdomen pelvis CT scan without contrast showed multiple possible abscesses, these results was discussed with the hospital coordinator at [facility], Dr. Mayberry accepted the patient in transfer. Lab Data 04/09/24 17:40 04/09/24 17:40 Radiology Impressions Abdomen/Pelvis CT 04/09/24 17:22 IMPRESSION: 1. There is a complex air-fluid collection in the subcutaneous soft tissues adjacent to the left lower quadrant ostomy consistent with an abscess formation. This cannot be differentiated from the adjacent bowel mucosa raising concern for fistulous connection and/or leak. 2. Complex air-fluid collection in the pelvis cannot be differentiated from the adjacent bladder wall and sigmoid mucosa has decreased in size when compared to the prior study consistent with an abscess. 3. Postoperative umbilical changes are present. There is admixture of density and multiple foci of air in the defect which may represent packing material. Additional abscess or infection cannot be excluded. 4. There are small foci of free intraperitoneal air in the pelvis. This may be postoperative or postprocedural in nature or represent a ruptured viscus. ADDENDUM: 04/09/241955 CRITICAL RESULT: The study was personally discussed on the telephone with Dr. Luis on 04/09/2024 7:54 PM CAP BLOCKER. The results were understood and acknowledged. Chest X-Ray 04/09/24 17:23 IMPRESSION: No acute findings. Laboratory Results WBC 17.17 10^3/uL (3.29-11.43) H 04/09/24 17:40 RBC 4.65 10^6/uL (3.85-5.65) 04/09/24 17:40 Hgb 12.50 g/dL (11.27-16.99) 04/09/24 17:40 Hct 38.5 % (36-47) 04/09/24 17:40 MCV 82.8 fl (85-98) L 04/09/24 17:40 MCH 26.9 pg (27-33) L 04/09/24 17:40 MCHC 32.5 g/dL (30-55) 04/09/24 17:40 RDW 14.9 % (12.1-15.1) 04/09/24 17:40 Plt Count 499 10^3/cmm (157-399) H 04/09/24 17:40 MPV 9.5 fL (7.4-10.4) 04/09/24 17:40 Neut % (Auto) 67.0 % 04/09/24 17:40 Lymph % (Auto) 20.1 % 04/09/24 17:40 Towns % (Auto) 10.0 % 04/09/24 17:40 Eos % (Auto) 0.3 % 04/09/24 17:40 Baso % (Auto) 0.5 % 04/09/24 17:40 Neut # (Auto) 11.51 10^3/uL (1.8-7.7) H 04/09/24 17:40 Lymph # (Auto) 3.5 10^3/uL (0.8-4.8) 04/09/24 17:40 Towns # (Auto) 1.7 10^3/uL (0.2-0.9) H 04/09/24 17:40 Eos # (Auto) 0.1 10^3/uL (0.0-0.8) 04/09/24 17:40 Baso # (Auto) 0.1 10^3/uL (0.0-0.1) 04/09/24 17:40 Nucleated RBC % (auto) 0 % 04/09/24 17:40 Nucleated RBCs # 0.0 /100WBC 04/09/24 17:40 Sodium 120 mmol/L (136-145) L 04/09/24 17:40 Potassium 5.1 mmol/L (3.5-5.1) 04/09/24 17:40 Chloride 82 mmol/L (98-107) L 04/09/24 17:40 Carbon Dioxide 25 mmol/L (22-29) 04/09/24 17:40 Anion Gap 18.1 (5-19) 04/09/24 17:40 BUN 60 mg/dL (8-23) H 04/09/24 17:40 Creatinine 2.5 mg/dL (0.5-0.9) H 04/09/24 17:40 GFR Calculation 19.6 mL/min (90-130) L 04/09/24 17:40 Glucose 105 mg/dL (65-115) 04/09/24 17:40 Calculated Osmolality 267 mOsm/kg (285-295) L 04/09/24 17:40 Lactic Acid 1.6 mmol/L (0.5-2.2) 04/09/24 17:40 Calcium 8.6 mg/dL (8.5-10.5) 04/09/24 17:40 Total Bilirubin 0.5 mg/dL (0.15-1.2) 04/09/24 17:40 AST 17 U/L (0-32) 04/09/24 17:40 ALT 14 U/L (0-33) 04/09/24 17:40 Alkaline Phosphatase 70 U/L (35-105) 04/09/24 17:40 Total Protein 7.4 g/dL (6.6-8.7) 04/09/24 17:40 Albumin 3.4 g/dL (3.5-5.2) L 04/09/24 17:40 Globulin 4.0 g/dL (1.3-4.6) 04/09/24 17:40 Lipase 50 U/L (13-60) 04/09/24 17:40 Urine Color Clark (Yellow) A 04/09/24 20:05 Urine Appearance Cloudy (CLEAR) A 04/09/24 20:05 Urine pH 5.0 (5-7) 04/09/24 20:05 Ur Specific [place] 1.022 (1.005-1.030) 04/09/24 20:05 Urine Protein Trace (Negative) A 04/09/24 20:05 Urine Glucose (UA) Negative (Normal) 04/09/24 20:05 Urine Ketones Negative (Negative) 04/09/24 20:05 Urine Blood 3+ (Negative) A 04/09/24 20:05 Urine Nitrate Negative (Negative) 04/09/24 20:05 Urine Bilirubin 1+ (Negative) H 04/09/24 20:05 Urine Urobilinogen 1.0 mg/dL (Negative) 04/09/24 20:05 Ur Leukocyte Esterase 2+ (Negative) A 04/09/24 20:05 Urine RBC 21-50 /hpf (0-2) H 04/09/24 20:05 Urine WBC >100 /hpf (0-5) H 04/09/24 20:05 Ur Squamous Epith Cells 0-5 /hpf (0-5) 04/09/24 20:05 Amorphous Sediment Not Reportable 04/09/24 20:05 Urine Bacteria Trace /hpf (NONE) 04/09/24 20:05 Hyaline Casts 51.30 /lpf 04/09/24 20:05 Urine Yeast 2+ /hpf H 04/09/24 20:05 Serum Ketones Negative (Negative) 04/09/24 17:40 All radiology interpretation(s) finalized by discharge Discharge Plan Discharge Patient Disposition: Xfer Short-Term Hosp Clinical Impression: Abscess of postoperative wound of abdominal wall, Acute hyponatremia Acute renal failure Qualifiers: Acute renal failure type: unspecified Qualified Code(s): N17.9 - Acute kidney failure, unspecified Condition: Stable Referrals: Domi Doty FNP [Primary Care Provider] - Coding Level of Care Code ED Composite Bond Worker for Tara Jacques
--- NOTE | 2024-04-09 17:32 | ECG_ITS ---
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 Measurements Intervals [place] Rate: 99 P: 35 TN: 144 QRS: 45 QRSD: 92 T: 46 QT: 356 QTc: 457 Interpretive Statements SINUS RHYTHM No previous ECG available for comparison Electronically Signed On 04-11-2024 21:22:58 CAKE PULLER by Vivek Deng M.D. [id number]
[2024-04-09 18:01] VITALS: RESP 17
[2024-04-09] MEDS: morphine 4 mg/mL SDV 1 mL IVP ×2 (18:01→21:05)
[2024-04-09 18:02] LABS: Ketone (Acetest) Serum Negative (Negative)
[2024-04-09] MEDS: ondansetron 2 mg/ML SDV 2 mL 4 MG IVP ×2 (18:03→21:02)
[2024-04-09 18:04] LABS: Basophils # 0.1 10^3/uL (0.0-0.1); Basophils % 0.5 %; Eosinophils # 0.1 10^3/uL (0.0-0.8); Eosinophils % 0.3 %; Hematocrit 38.5 % (36-47); Lymphocytes # 3.5 10^3/uL (0.8-4.8); Lymphocytes % 20.1 %; Mean Corpuscular HGB Conc 32.5 g/dL (30-55); Mean Corpuscular Hemoglobin 26.9 pg (27-33); Mean Corpuscular Volume 82.8 fl (85-98); Mean Platelet Volume 9.5 fL (7.4-10.4); Monocytes # 1.7 10^3/uL (0.2-0.9); Neutrophils # 11.51 10^3/uL (1.8-7.7); Nucleated Red Blood Cells % 0 %; Platelet Count 499 10^3/cmm (157-399); Red Blood Count 4.65 10^6/uL (3.85-5.65); Red Cell Distribution Width 14.9 % (12.1-15.1); White Blood Count 17.17 10^3/uL (3.29-11.43)
[2024-04-09 18:10] LABS: Alanine Aminotransferase 14 U/L (0-33); Albumin Level 3.4 g/dL (3.5-5.2); Alkaline Phosphatase 70 U/L (35-105); Anion Gap 18.1 (5-19); Aspartate Amino Transferase 17 U/L (0-32); Blood Urea Nitrogen 60 mg/dL (8-23); Calcium 8.6 mg/dL (8.5-10.5); Carbon Dioxide 25 mmol/L (22-29); Chloride 82 mmol/L (98-107); Creatinine Clr Calc Pharmacy 24.9132; Glomerular Filtration Rate 19.6 mL/min (90-130); Glucose 105 mg/dL (65-115); Lipase 50 U/L (13-60); Osmolality Calculated 267 mOsm/kg (285-295); Potassium 5.1 mmol/L (3.5-5.1); Sodium 120 mmol/L (136-145); Total Bilirubin 0.5 mg/dL (0.15-1.2); Total Protein 7.4 g/dL (6.6-8.7)
[2024-04-09 18:11] LABS: Lactic Sepsis W/Reflex 1.6 mmol/L (0.5-2.2)
[2024-04-09] MEDS: sodium chloride 0.9% 1,000 ML 999 ML IV (18:31)
[2024-04-09 19:25] VITALS: BP 95/60; PULSE 94; O2SAT 90
[2024-04-09 20:16] LABS: Bilirubin Urine 1+ (Negative); Blood Urine 3+ (Negative); Glucose Urine UA Negative (Normal); Ketones Urine Negative (Negative); Leukocyte Esterase Urine 2+ (Negative); Protein Urine Trace (Negative); Specific Gravity, Urine 1.022 (1.005-1.030); Urine Appearance Cloudy (CLEAR)
[2024-04-09 20:21] LABS: Add Urine Microscopic? YES; Bacteria Urine Trace /hpf; RBC Urine 21-50 /hpf (0-2); Squamous Epithelial Cell Urine 0-5 /hpf (0-5); WBC Urine >100 /hpf (0-5)
--- NOTE | 2024-04-09 20:28 | PC.NURSE ---
RN cleaned stool off pt abdomen and incision. RN removed colostomy bag and placed a new one on. RN removed packing and cleaned out wound with a bleach spray the pt provided and repacked it with 1pc of 1/4 inch packing.
[2024-04-09 20:58] LABS: Nitrate Urine Negative (Negative); Urine Color Orange (Yellow)
[2024-04-09 20:59] LABS: Add Urine Culture? Yes
[2024-04-09] MEDS: piperacillin-tazobactam 3.375 GM in sodium chloride 0.9% (plus) 50 ML IV (21:06)
[2024-04-09 22:42] VITALS: BP 83/62; PULSE 95; RESP 15; O2SAT 90
[2024-04-10 00:09] VITALS: BP 80/53; PULSE 101; O2SAT 92
[2024-04-10] MEDS: morphine 4 mg/mL SDV 1 mL IVP (00:16)
[2024-04-10 11:13] LABS: Bacillus cereus group Not Detected (NOT DETECT); Bacillus subtillis group Not Detected (NOT DETECT); Corynebacterium Not Detected (NOT DETECT); Cutibacterium acnes (P.acnes) Not Detected (NOT DETECT); Enterococcus Not Detected (NOT DETECT); Enterococcus faecalis Not Detected (NOT DETECT); Enterococcus faecium Not Detected (NOT DETECT); Lactobacillus species Not Detected (NOT DETECT); Listeria Not Detected (NOT DETECT); Listeria monocytogenes Not Detected (NOT DETECT); Micrococcus Not Detected (NOT DETECT); Pan Candida Not Detected (NOT DETECT); Pan Gram-Negative Not Detected (NOT DETECT); Staphylococcus epidermidis Not Detected (NOT DETECT); Staphylococcus lugdunensis Not Detected (NOT DETECT); Staphylococcus species Not Detected (NOT DETECT); Streptococcus agalactiae Not Detected (NOT DETECT); Streptococcus anginosus group Not Detected (NOT DETECT); Streptococcus pneumoniae Not Detected (NOT DETECT); Streptococcus pyogenes Not Detected (NOT DETECT); Streptococcus species Not Detected (NOT DETECT)
--- NOTE | 2024-04-10 14:20 | PC.NURSE ---
LAB NOTIFIED THIS NURSE OF POSITIVE BLOOD CULTURE RESULTS ON PT. PT TRANSFERRED TO ANOTHER FACILITY. RESULTS WERE FAXED TO [facility] AT [facility] NOTIFYING FACILITY OF POSITIVE RESULT.
== END 2024-04-09 23:55 | disposition short-term general hospital (02) ==
PROVIDERS: Emergency Provider Family Medicine; PCP Nurse Practitioner Family
DX: L02.211 Cutaneous abscess of abdominal wall (principal); E87.1 Hypo-osmolality and hyponatremia; E11.22 Type 2 diabetes mellitus with diabetic chronic kidney disease; N18.9 Chronic kidney disease, unspecified
CPT/HCPCS: 71045; 74176; 80053; 81001; 82009; 83605; 83690; 85025; 87040; 87086; 87106; 87150; 87205; 93005; 96365; 96375; 96376; 99285; J2270; J2405; J2543; J7030

== ENCOUNTER 2024-05-08 20:47 | Emergency (ER) | payer MEDICARE, MEDICAID, SELFPAY ==
[2023-05-31 13:40] VITALS: BP 102/64; BMI 36.3
[2024-05-08 20:49] VITALS: BP 113/71; PULSE 92; RESP 18; TEMP 37.3; O2SAT 96; BMI 35.9
--- NOTE | 2024-05-08 21:22 | ED_ITS ---
HPI - General Adult General: Chief complaint: General Medical Stated complaint: PICC LINE BLEEDING Time Seen by Provider: 05/08/24 20:50 History of Present Illness: 63-year-old female who presents to the e mergency room by ambulance with concerns for some bleeding coming from her PICC line. She says she felt something dripping down her arm and she looked over and there was blood coming down. She has applied pressure and the bleeding seems to have stopped. She is receiving chemotherapy daily through this line. Related Data Home Medications Medication Instructions Recorded Confirmed lancets 28 gauge (FreeStyle #25 ea 08/22/19 02/29/24 Lancets) cholecalciferol (vitamin D3) 125 125 mcg PO BID 09/08/20 02/29/24 mcg (5,000 unit) capsule albuterol sulfate 90 mcg/actuation 2 puff inhalation Q6H PRN 11/17/23 02/29/24 aerosol inhaler Shortness Of Breath Or Wheezing ascorbic acid (vitamin C) 1,000 mg 500 mg PO DAILY PRN UTI 01/05/24 02/29/24 tablet (Vitamin C) calcium 500 mg (as 1 tab PO BID 01/05/24 02/29/24 carbonate)-vitamin D3 15 mcg (600 unit) tablet (Os-Itz 500 + D3) clobetasol 0.05 % topical ointment 1 applic topical BID PRN Skin 01/05/24 02/29/24 Irritation dapagliflozin propanediol 5 mg 5 mg PO QAM 01/05/24 02/29/24 tablet (Farxiga) omeprazole 20 mg capsule,delayed 20 mg PO DAILY 01/05/24 02/29/24 release Previous Rx's Medication Instructions Recorded blood-glucose meter (KeyNeurotek PharmaceuticalsTouch #1 ea 05/14/20 Ultra2 Meter kit) blood sugar diagnostic (OneTouch #50 ea 12/20/21 Ultra Test strips) lancets 33 gauge (OneTouch Delica #100 ea 12/29/21 Plus Lancet) methenamine hippurate 1 gram tablet 1 g PO BID #60 tabs 02/09/22 alendronate 70 mg tablet (Fosamax) 70 mg PO .weekly #4 tabs 01/31/23 mometasone 50 mcg/actuation nasal 2 spray intranasal DAILY 12 months 07/20/23 spray (Nasonex 24hr Allergy) #17 grams nitroglycerin 0.4 mg sublingual See Rx Instructions .Route 11/13/23 tablet .COMPLEX #50 tabs ezetimibe 10 mg tablet 10 mg PO DAILY #90 tabs 01/05/24 lisinopril 10 mg tablet 10 mg PO DAILY #90 tabs 01/05/24 ciprofloxacin HCl 500 mg tablet 500 mg PO BID #14 tabs 02/07/24 bupropion HCl 200 mg tablet,12 hr 200 mg PO QAM #90 tabs 02/15/24 sustained-release (Wellbutrin SR) escitalopram oxalate 20 mg tablet 20 mg PO QAM #90 tabs 02/15/24 (Lexapro) lamotrigine 200 mg tablet 200 mg PO BEDTIME #90 tabs 02/15/24 (Lamictal) metoprolol succinate 25 mg 12.5 mg (1/2 x 25 mg) PO DAILY #45 02/21/24 tablet,extended release 24 hr tabs benzocaine-benzethonium 20 %-0.2 % 1 spray topical .PRN #78 grams 02/29/24 topical aerosol (Dermoplast First Aid) estradiol 0.01% (0.1 mg/gram) 1 g vaginal DAILY #42.5 grams 02/29/24 vaginal cream amoxicillin 875 mg-potassium 1 tab PO BID #14 tabs 03/22/24 clavulanate 125 mg tablet Allergies Allergy/AdvReac Type Severity Reaction Status Date / Time metformin Allergy Unknown nausea Verified 05/08/24 20:55 tetracycline Allergy Unknown Tongue Verified 05/08/24 20:55 swelling naproxen AdvReac Unknown cramps/naus Verified 05/08/24 20:55 ea Review of Systems Narrative: Constitutional symptoms: Negative except as documented in HPI. Skin symptoms: Negative except as documented in HPI. Eye symptoms: Negative except as documented in HPI. ENMT symptoms: Negative except as documented in HPI. Respiratory symptoms: Negative except as documented in HPI. Cardiovascular symptoms: Negative except as documented in HPI. Gastrointestinal symptoms: Negative except as documented in HPI. Genitourinary symptoms: Negative except as documented in HPI. Musculoskeletal symptoms: Negative except as documented in HPI. Neurologic symptoms: Negative except as documented in HPI. Psychiatric symptoms: Negative except as documented in HPI. Endocrine symptoms: Negative except as documented in HPI. PFSH ED PFSH: Medical History Palpitation Psychiatric care Lumbar radiculopathy, chronic Atherosclerotic heart disease of [place] coronary artery with other forms of angina pectoris Acid reflux Mixed incontinence Hypertension DDD (degenerative disc disease) Asthma Diabetes Chronic cystitis Major depressive disorder, recurrent severe without psychotic features Follows up with [facility] Generalized anxiety disorder Surgical History H/O excision of mass (09/30/21) Subcutaneous mass left upper quadrant of the abdomen H/O right wrist surgery Status post tubal ligation 1986 at time of third S/P hernia repair 10/27/11- Hernia repair Dx: rentral hernia anterior abdominal wall below umbilicus. Performed by Dr Macias at [facility] in [place], [place]. Per patient mesh was used and it covers her whole lower abdominal wall. S/P bladder repair X 2 01/09/07- Anterior/posterior vaginal repair, transobturator suburethral sling, cystoscopy. Dx: mixed urinary incontinence, cystocele and rectocele. Performed by Dr Andrews at [facility] in [place], [place] 07/2013- Bladder repair revised. Performed in [place]. She states that she had pain and the surgeon went in and excised some of the mesh but was unable to get everything out. H/O neck surgery 06/14/[address] Dillon at [facility] S/P cholecystectomy Open procedure performed via right upper quadrant incision in 1987 in [facility] S/P hysterectomy 2001---total abdominal hysterectomy with bilateral [id number] Performed by Dr Stewart at [facility] for bleeding problems. She states her ovaries and Appendix were removed as well. Patient states she was told that there was no cancer H/O section x 3 ----> 1983, 1985, 1986 S/P appendectomy 2001-performed at time of open hysterectomy S/P excision of ganglion cyst Left wrist in [place], [place] S/P carpal tunnel release Bilateral-2002 and 2003 performed in [place], [place] S/P excision of lipoma Family History Father , 86 Hypertension Stroke Thyroid disease Kidney disease CAD (coronary artery disease) Chronic kidney disease (CKD) Sister Heart disease Her sister of heart disease at the age of 45-some congenital heart disease however she does not remember the name. Brother Kidney disease Diabetes Colon cancer Family/Other Breast cancer maternal aunt, diagnosed at age 62 Mother , AT AGE 84 Cancer PANCREATIC Lung disease Denies family history of Ovarian cancer Clotting disorder Dementia Hyperlipidemia Suicide Anesthesia complication Bleeding disorder Social History Smoking and tobacco/nicotine status: former use of tobacco/nicotine Physical Exam Narrative: EXAM NARRATIVE: General: Alert, no acute distress. Skin: warm and dry. There is a PICC line in place on the right arm. There has obviously been some bleeding and there is some under the dressing. Does not appear to be actively bleeding at this time. Head: Normocephalic Neck: Trachea midline Eye: Extraocular movements are intact. Ears, nose, mouth and throat: Oral mucosa moist Respiratory: Respirations are non-labored Musculoskeletal: Normal ROM Neurological: Alert and oriented, No focal neurological deficit observed. Psychiatric: Cooperative, appropriate mood & affect. Course Vital Signs: Vital signs: Vital Signs Temperature 99.1 F 05/08/24 20:49 Pulse Rate 92 05/08/24 20:49 Respiratory Rate 18 05/08/24 20:49 Blood Pressure 113/71 05/08/24 20:49 Pulse Oximetry 96 05/08/24 20:49 Oxygen Delivery Me thod Room Air 05/08/24 20:49 MDM - General Adult Medical Decision Making PICC line was redressed and bleeding has subsided. Assessment and plan: PICC line issues. - Discharged home - Discussed plan with patient. Answered any questions. - Evaluation and treatment of this problem were appropriate in the emergency setting. No radiology studies performed this visit Discharge Plan Discharge Patient Disposition: Home Clinical Impression: Bleeding from PICC line Condition: Stable Prescriptions: No Action (DME) lancets [FreeStyle Lancets] 28 gauge misc See Rx Instructions .ROUTE .MEDSUPPLY Qty: 25 Rx Instructions: As directed cholecalciferol (vitamin D3) 125 mcg (5,000 unit) capsule 125 mcg PO BID (DME) blood-glucose meter [OneTouch Ultra2 Meter] Kit See Rx Instructions .ROUTE .MEDSUPPLY Qty: 1 0RF Rx Instructions: use daily (DME) OneTouch Ultra Test Strip See Rx Instructions .ROUTE .COMPLEX Qty: 50 0RF Dose Instruction: USE 1 STRIP TO CHECK GLUCOSE ONCE DAILY Rx Instructions: USE 1 STRIP TO CHECK GLUCOSE ONCE DAILY methenamine hippurate 1 gram tablet 1 g PO BID Qty: 60 12RF Hold Instructions: Resume on 12/04/23. Rx Instructions: Take 1000 mg of vitamin C with each dose of methenamine as needed mometasone [Nasonex 24hr Allergy] 50 mcg/actuation spray,non-aerosol 2 spray intranasal DAILY 360 Days Qty: 17 11RF Rx Instructions: administer into each nostril as needed. metoprolol succinate 25 mg tablet extended release 24 hr 12.5 mg PO DAILY Qty: 45 3RF bupropion HCl [Wellbutrin SR] 200 mg tablet sustained-release 12 hr 200 mg PO QAM Qty: 90 2RF Rx Instructions: Take one tablet every morning Lamictal 200 mg tablet 200 mg PO BEDTIME Qty: 90 2RF Rx Instructions: Take one tablet at bedtime escitalopram oxalate [Lexapro] 20 mg tablet 20 mg PO QAM Qty: 90 2RF Rx Instructions: Take one tablet every morning ciprofloxacin HCl 500 mg tablet 500 mg PO BID Qty: 14 0RF Dermoplast First Aid 20-0.2 % aerosol 1 spray topical .PRN Qty: 78 0RF estradiol 0.01 % (0.1 mg/gram) cream 1 g vaginal DAILY Qty: 42.5 3RF Rx Instructions: twice daily for 14 days and then apply twice weekly (DME) lancets [OneTouch Delica Plus Lancet] 33 gauge misc See Rx Instructions .Route Qty: 100 5RF Rx Instructions: one daily alendronate [Fosamax] 70 mg tablet 70 mg PO .weekly Qty: 4 5RF Rx Instructions: ON MONDAY nitroglycerin 0.4 mg tablet, sublingual See Rx Instructions .ROUTE .COMPLEX Qty: 50 0RF Dose Instruction: DISSOLVE ONE TABLET UNDER THE TONGUE EVERY 5 MINUTES NEEDED FOR CHEST PAIN. DO NOT EXCEED A TOTAL OF 3 DOSES IN 15 MINUTES Rx Instructions: DISSOLVE ONE TABLET UNDER THE TONGUE EVERY 5 MINUTES NEEDED FOR CHEST PAIN. DO NOT EXCEED A TOTAL OF 3 DOSES IN 15 MINUTES lisinopril 10 mg tablet 10 mg PO DAILY Qty: 90 3RF ezetimibe 10 mg tablet 10 mg PO DAILY Qty: 90 3RF albuterol sulfate 90 mcg/actuation HFA aerosol inhaler 2 puff inhalation Q6H PRN (Reason: Shortness Of Breath Or Wheezing) Vitamin C 1,000 mg Tablet 500 mg PO DAILY PRN (Reason: UTI) omeprazole 20 mg capsule,delayed release(DR/EC) 20 mg PO DAILY clobetasol 0.05 % ointment 1 applic topical BID PRN (Reason: Skin Irritation) Os-Itz 500 + D3 500 mg-15 mcg (600 unit) tablet 1 tab PO BID Farxiga 5 mg tablet 5 mg PO QAM amoxicillin-pot clavulanate 875-125 mg tablet 1 tab PO BID Qty: 14 0RF Discharge Orders: Discharge ED (Routine); Ordered 05/08/24 Ordered By: Eloisa Saldana Referrals: Domi Doty FNP [Primary Care Provider] - Discharge Diet: Usual diet Discharge Activity: Increase activity as tolerated Patient Instructions: How to Care for Your PICC (Peripherally Inserted Central Catheter) (ED), Opioid Safety, Pain Management Activity Restrictions/Additional Instructions: Thank you for choosing [facility] for your healthcare needs today. Ple ase realize this is an emergency room and that we are providing you with a medical screening exam and this may not be complete and all inclusive of all the testing and or work up that you may need to determine your ailment or severity of your illness. You have been screened and evaluated and felt safe for discharge. Health conditions do change or evolve sometimes and as such it is important that you follow up with your Primary Doctor to be re checked, 3-5 days is a general good time frame for follow up. You are always welcome to return to the ED for re assessment if your symptoms are worsening or you have new concerns Coding Level of Care Code ED Clerical Order Filler for Tara Jacques
--- NOTE | 2024-05-08 22:18 | PC.NURSE ---
Dressing removed and site cleaned with chlorhexidine. Clotted blood removed and watched for bleeding. Site recleaned, new stat lock placed, biopatch, and dressing applied. Monitored patient for bleeding at site post dressing. Dr donovan smith.
[2024-05-08 22:30] VITALS: BP 109/65; PULSE 86; O2SAT 95
== END 2024-05-08 22:36 | disposition home or self-care (01) ==
PROVIDERS: Emergency Provider Emergency Medicine; PCP Nurse Practitioner Family
DX: T82.838A Hemorrhage due to vascular prosthetic devices, implants and grafts, initial encounter (principal); Z87.891 Personal history of nicotine dependence; E11.9 Type 2 diabetes mellitus without complications; I10 Essential (primary) hypertension; X58.XXXA Exposure to other specified factors, initial encounter
CPT/HCPCS: 99282

== ENCOUNTER 2024-06-04 15:00 | Oncology outpatient (recurring) (ONCR) | payer MEDICARE, MEDICAID, SELFPAY ==
[2023-05-31 13:40] VITALS: BP 102/64; BMI 36.3
[2024-05-08] MEDS: sodium chloride 0.9% 1,000 ML 999 ML IV (14:30)
[2024-05-08 15:02] LABS: Alanine Aminotransferase 29 U/L (0-33); Albumin Level 4.3 g/dL (3.5-5.2); Alkaline Phosphatase 86 U/L (35-105); Anion Gap 16.8 (5-19); Aspartate Amino Transferase 25 U/L (0-32); Blood Urea Nitrogen 20 mg/dL (8-23); Calcium 9.2 mg/dL (8.5-10.5); Carbon Dioxide 21 mmol/L (22-29); Chloride 96 mmol/L (98-107); Globulin 3.5 g/dL (1.3-4.6); Glomerular Filtration Rate 85.1 mL/min (90-130); Glucose 104 mg/dL (65-115); Osmolality Calculated 271 mOsm/kg (285-295); Potassium 4.8 mmol/L (3.5-5.1); Sodium 129 mmol/L (136-145); Total Bilirubin 0.3 mg/dL (0.15-1.2); Total Protein 7.8 g/dL (6.6-8.7)
[2024-05-10 09:37] VITALS: BP 123/86; PULSE 120; RESP 17; O2SAT 97
[2024-05-10] MEDS: sodium chloride 0.9% 1,000 ML 999 ML IV (09:49)
[2024-05-13] MEDS: sodium chloride 0.9% 1,000 ML 999 ML IV (09:33)
[2024-05-13 09:58] LABS: Alanine Aminotransferase 49 U/L (0-33); Albumin Level 3.9 g/dL (3.5-5.2); Alkaline Phosphatase 70 U/L (35-105); Anion Gap 15.8 (5-19); Aspartate Amino Transferase 41 U/L (0-32); Blood Urea Nitrogen 9 mg/dL (8-23); Calcium 8.7 mg/dL (8.5-10.5); Carbon Dioxide 22 mmol/L (22-29); Chloride 102 mmol/L (98-107); Glomerular Filtration Rate 101.6 mL/min (90-130); Glucose 99 mg/dL (65-115); Osmolality Calculated 281 mOsm/kg (285-295); Potassium 3.8 mmol/L (3.5-5.1); Sodium 136 mmol/L (136-145); Total Bilirubin 0.3 mg/dL (0.15-1.2); Total Protein 6.9 g/dL (6.6-8.7)
[2024-05-13 10:45] VITALS: BP 96/48; PULSE 73; RESP 16; TEMP 36.9; O2SAT 96
[2024-05-14] MEDS: sodium chloride 0.9% 1,000 ML 999 ML IV (12:58)
[2024-05-14 12:59] VITALS: BP 105/66; PULSE 86; RESP 17; TEMP 36.7; O2SAT 98
[2024-05-14 14:00] VITALS: BP 112/78; PULSE 60; RESP 18; TEMP 36.6; O2SAT 98
[2024-05-17] MEDS: sodium chloride 0.9% 1,000 ML 999 ML IV (09:12)
[2024-05-17 09:56] LABS: Alanine Aminotransferase 44 U/L (0-33); Albumin Level 3.9 g/dL (3.5-5.2); Alkaline Phosphatase 65 U/L (35-105); Anion Gap 18.9 (5-19); Aspartate Amino Transferase 44 U/L (0-32); Blood Urea Nitrogen 5 mg/dL (8-23); Calcium 8.3 mg/dL (8.5-10.5); Carbon Dioxide 22 mmol/L (22-29); Chloride 102 mmol/L (98-107); Globulin 3.1 g/dL (1.3-4.6); Glomerular Filtration Rate 101.3 mL/min (90-130); Glucose 178 mg/dL (65-115); Osmolality Calculated 290 mOsm/kg (285-295); Potassium 3.9 mmol/L (3.5-5.1); Sodium 139 mmol/L (136-145); Total Bilirubin 0.3 mg/dL (0.15-1.2)
[2024-05-20] MEDS: sodium chloride 0.9% 1,000 ML 999 ML IV (10:18)
[2024-05-20 10:23] VITALS: BP 93/54; PULSE 73; RESP 16; TEMP 36.6; O2SAT 96
[2024-05-23] MEDS: sodium chloride 0.9% 1,000 ML 999 ML IV (09:32)
[2024-05-23 09:33] VITALS: BP 97/61; PULSE 76; RESP 18; TEMP 37.1; O2SAT 97
[2024-05-23 09:50] LABS: Alanine Aminotransferase 23 U/L (0-33); Albumin Level 3.9 g/dL (3.5-5.2); Alkaline Phosphatase 59 U/L (35-105); Anion Gap 12.6 (5-19); Aspartate Amino Transferase 19 U/L (0-32); Blood Urea Nitrogen 9 mg/dL (8-23); Calcium 8.1 mg/dL (8.5-10.5); Carbon Dioxide 26 mmol/L (22-29); Chloride 104 mmol/L (98-107); Glucose 141 mg/dL (65-115); Osmolality Calculated 289 mOsm/kg (285-295); Potassium 3.6 mmol/L (3.5-5.1); Sodium 139 mmol/L (136-145); Total Bilirubin 0.3 mg/dL (0.15-1.2); Total Protein 6.9 g/dL (6.6-8.7)
[2024-05-27] MEDS: sodium chloride 0.9% 1,000 ML 999 ML IV (10:30)
[2024-05-27 10:35] VITALS: BP 106/55; PULSE 85; RESP 16; TEMP 36.7; O2SAT 95
[2024-05-27 11:04] LABS: Alanine Aminotransferase 20 U/L (0-33); Albumin Level 3.9 g/dL (3.5-5.2); Alkaline Phosphatase 66 U/L (35-105); Anion Gap 14.5 (5-19); Aspartate Amino Transferase 22 U/L (0-32); Blood Urea Nitrogen 9 mg/dL (8-23); Calcium 7.3 mg/dL (8.5-10.5); Carbon Dioxide 27 mmol/L (22-29); Chloride 104 mmol/L (98-107); Creatinine Clr Calc Pharmacy 98.3149; Globulin 3.1 g/dL (1.3-4.6); Glomerular Filtration Rate 101.3 mL/min (90-130); Glucose 100 mg/dL (65-115); Osmolality Calculated 293 mOsm/kg (285-295); Potassium 3.5 mmol/L (3.5-5.1); Sodium 142 mmol/L (136-145); Total Bilirubin 0.3 mg/dL (0.15-1.2)
[2024-05-27 11:45] VITALS: BP 98/62; PULSE 75; RESP 18; TEMP 36.7; O2SAT 98
[2024-05-30] MEDS: sodium chloride 0.9% 1,000 ML 999 ML IV (10:55)
[2024-05-31 10:23] VITALS: BP 124/75; PULSE 83; RESP 17; TEMP 36.7; O2SAT 95
[2024-05-31] MEDS: sodium chloride 0.9% 1,000 ML 999 ML IV (10:25)
[2024-05-31 12:21] VITALS: BP 128/78; PULSE 83; RESP 16; TEMP 36.7; O2SAT 95
[2024-06-03] MEDS: alteplase 1 mg/mL SDV 2 mL 2 MG INTRACATH (11:56)
[2024-06-03] MEDS: sodium chloride 0.9% 1,000 ML 999 ML IV (12:45)
[2024-06-04 14:48] VITALS: BP 130/85; PULSE 75; RESP 15; TEMP 36.4; O2SAT 97
[2024-06-04] MEDS: sodium chloride 0.9% 1,000 ML 999 ML IV (15:05)
[2024-06-04 16:45] VITALS: BP 124/78; PULSE 72; RESP 18; TEMP 36.4; O2SAT 98
== END 2024-06-04 23:59 | disposition home or self-care (01) ==
PROVIDERS: Colon & Rectal Surgery; PCP Nurse Practitioner Family; Visit Provider Internal Medicine Medical Oncology
DX: K94.13 Enterostomy malfunction; Z53.9 Procedure and treatment not carried out, unspecified reason; E86.0 Dehydration; E87.1 Hypo-osmolality and hyponatremia; Z79.899 Other long term (current) drug therapy
CPT/HCPCS: 36593; 80053; 80061; 82306; 83036; 84443; 85025; 96360; J2997; J7030

== ENCOUNTER 2024-07-05 10:00 | Oncology outpatient (recurring) (ONCR) | payer MEDICARE, MEDICAID, SELFPAY ==
[2024-05-15 15:12] VITALS: BP 109/65; BMI 35.9
[2024-06-06] MEDS: sodium chloride 0.9% 1,000 ML 999 ML IV (10:30)
[2024-06-06 11:26] VITALS: BP 118/73; PULSE 66; RESP 18; TEMP 36.6; O2SAT 96
[2024-06-06 12:59] VITALS: BP 135/76; PULSE 64; RESP 18; TEMP 36.6; O2SAT 99
[2024-06-10] MEDS: sodium chloride 0.9% 1,000 ML 999 ML IV (10:13)
[2024-06-10 11:46] VITALS: BP 128/76; PULSE 78; RESP 16; O2SAT 96
[2024-06-13] MEDS: sodium chloride 0.9% 1,000 ML 999 ML IV (09:58)
[2024-06-13 11:13] VITALS: BP 122/74; PULSE 84; RESP 16; TEMP 36.8; O2SAT 96
[2024-06-17] MEDS: sodium chloride 0.9% 1,000 ML 999 ML IV (09:15)
[2024-06-19 08:52] VITALS: BP 109/73; PULSE 96; RESP 18; O2SAT 98
[2024-06-19] MEDS: sodium chloride 0.9% 1,000 ML 999 ML IV (08:57)
[2024-06-20] MEDS: sodium chloride 0.9% 1,000 ML 999 ML IV (11:11)
[2024-06-20 12:47] VITALS: BP 138/84; PULSE 84; RESP 16; TEMP 36.9; O2SAT 96
[2024-06-24 09:10] VITALS: BP 142/58; PULSE 74; RESP 16; TEMP 36.9; O2SAT 92
[2024-06-24] MEDS: sodium chloride 0.9% 1,000 ML 999 ML IV (09:23)
[2024-06-24 10:34] VITALS: BP 134/76; PULSE 74; RESP 15; TEMP 36.4; O2SAT 94
[2024-06-26 10:38] VITALS: BP 104/73; PULSE 77; RESP 17; TEMP 36.4; O2SAT 98
[2024-06-26 11:51] VITALS: BP 107/63; PULSE 84; RESP 18; TEMP 36.6; O2SAT 99
[2024-06-28 09:36] VITALS: BP 126/84; PULSE 83; RESP 17; TEMP 36.4; O2SAT 98
[2024-06-28] MEDS: sodium chloride 0.9% 1,000 ML 999 ML IV (09:39)
[2024-07-01] MEDS: sodium chloride 0.9% 1,000 ML 999 ML IV (10:01)
[2024-07-01 10:02] VITALS: BP 114/67; PULSE 98; RESP 18; TEMP 36.6; O2SAT 98
[2024-07-03] MEDS: sodium chloride 0.9% 1,000 ML 999 ML IV (11:06)
[2024-07-05 10:46] VITALS: BP 132/74; PULSE 76; RESP 16; TEMP 36.8; O2SAT 99
== END 2024-07-05 23:59 | disposition home or self-care (01) ==
PROVIDERS: PCP Nurse Practitioner Family; Visit Provider Internal Medicine Medical Oncology
DX: E86.0 Dehydration; Z90.49 Acquired absence of other specified parts of digestive tract; E87.1 Hypo-osmolality and hyponatremia; Z79.899 Other long term (current) drug therapy; Z53.9 Procedure and treatment not carried out, unspecified reason
CPT/HCPCS: 96360; J7030

== ENCOUNTER → 2024-07-08 07:44 | Day surgery (SDC) | payer MEDICARE, MEDICAID, SELFPAY ==
[2024-05-15 15:12] VITALS: BP 109/65; BMI 35.9
--- NOTE | 2024-07-08 07:45 | XR_ITS ---
WS: [id number] PORTABLE CHEST HISTORY: PICC PLACEMENT COMPARISON: 04/09/2024 Left-sided PICC line with tip at the caval atrial junction. Subtle opacification at the lingula. No pleural effusion or pneumothorax. Cardiac size: Normal. Mediastinum/Aorta: Mild atherosclerosis aorta. No osseous abnormality seen. Prior cervical fusion. XR/XR chest 1V portable [id number] IMPRESSION: 1. Satisfactory position LEFT PICC line. 2. Subtle area of consolidation or pneumonitis at the lingula.
[2024-07-08 07:55] VITALS: BP 129/86; PULSE 88; RESP 18; TEMP 36.3; O2SAT 94
--- NOTE | 2024-07-08 10:36 | PICC.NOTE ---
Single lumen PICC placed to left brachial vein. Referred to vascular access nurse for PICC placement due to malfunction of right arm PICC line. PICC to right arm removed per Gold Wei. Risks and benefits discussed and informed consent obtained from pt by Gold Wei. First attempt at PICC to left baslic vein unsuccessful by Gold Wei. This nurse called in for assistance. Left arm assessed with left brachial vein measuring 3.1 mm, straight, and apparent best choice for placement. Using sterile technique and MST, left brachial vein accessed x 1 stick. Mid-arm circumference measured 10 cm from left AC 37 cm. Trimmed cath 45 cm with 2 cm external length noted. CXR shows tip in cavoatrial junction, in good position for use per radiologist. Line secured with stat-lock. Insertion site covered with Biopatch and TSM. Pt taken off unit by wheelchair to [facility] infusion center for scheduled hydration. Nurse given report by phone.
== END ==
LOC: GILAB 07:46
PROVIDERS: PCP Nurse Practitioner Family
DX: Z45.2 Encounter for adjustment and management of vascular access device (principal)
CPT/HCPCS: 36573; 71045

== ENCOUNTER 2024-08-02 10:00 | Oncology outpatient (recurring) (ONCR) | payer MEDICARE, MEDICAID, SELFPAY ==
[2024-05-15 15:12] VITALS: BP 109/65; BMI 35.9
[2024-07-08 10:23] VITALS: BP 129/70; PULSE 80; RESP 16; TEMP 36.3; O2SAT 92
[2024-07-08] MEDS: sodium chloride 0.9% 1,000 ML 999 ML IV (10:26)
[2024-07-10] MEDS: sodium chloride 0.9% 1,000 ML 999 ML IV (09:22)
[2024-07-10 10:04] LABS: Alanine Aminotransferase 28 U/L (0-33); Alkaline Phosphatase 79 U/L (35-105); Blood Urea Nitrogen 8 mg/dL (8-23); Calcium 8.2 mg/dL (8.5-10.5); Carbon Dioxide 26 mmol/L (22-29); Chloride 97 mmol/L (98-107); Globulin 3.5 g/dL (1.3-4.6); Glucose 163 mg/dL (65-115); Osmolality Calculated 286 mOsm/kg (285-295); Sodium 137 mmol/L (136-145); Total Bilirubin 0.4 mg/dL (0.15-1.2); Total Protein 7.5 g/dL (6.6-8.7)
[2024-07-10 10:20] LABS: Anion Gap 18.9 (5-19); Aspartate Amino Transferase 35 U/L (0-32); Potassium 4.9 mmol/L (3.5-5.1)
[2024-07-10 10:35] VITALS: BP 144/74; PULSE 76; RESP 16; TEMP 36.9; O2SAT 96
[2024-07-12 08:53] VITALS: BP 120/78; PULSE 66; RESP 17; TEMP 36.4; O2SAT 92
[2024-07-12] MEDS: sodium chloride 0.9% 1,000 ML 999 ML IV (09:10)
[2024-07-12 10:01] VITALS: BP 120/78; PULSE 66; RESP 17; TEMP 36.4; O2SAT 92
[2024-07-15] MEDS: sodium chloride 0.9% 1,000 ML 999 ML IV (09:28)
[2024-07-19] MEDS: sodium chloride 0.9% 1,000 ML 999 ML IV (09:45)
[2024-07-19 09:50] LABS: Alanine Aminotransferase 11 U/L (0-33); Albumin Level 3.9 g/dL (3.5-5.2); Alkaline Phosphatase 84 U/L (35-105); Anion Gap 17.6 (5-19); Aspartate Amino Transferase 13 U/L (0-32); Blood Urea Nitrogen 9 mg/dL (8-23); Calcium 8.8 mg/dL (8.5-10.5); Carbon Dioxide 28 mmol/L (22-29); Chloride 98 mmol/L (98-107); Glomerular Filtration Rate 101.3 mL/min (90-130); Glucose 164 mg/dL (65-115); Osmolality Calculated 292 mOsm/kg (285-295); Potassium 3.6 mmol/L (3.5-5.1); Sodium 140 mmol/L (136-145); Total Bilirubin 0.3 mg/dL (0.15-1.2); Total Protein 7.9 g/dL (6.6-8.7)
--- NOTE | 2024-07-23 09:23 | PC.NURSE ---
Removed pts PICC line from pts L arm. 45cm catheter removed, in tact. No redness or irritation noted. Pt tolerated well. Pressure dressing applied to site.
[2024-07-23] MEDS: sodium chloride 0.9% 1,000 ML 999 ML IV (09:46)
[2024-07-23 11:12] VITALS: BP 132/64; PULSE 68; O2SAT 96
[2024-07-25] MEDS: sodium chloride 0.9% 1,000 ML 999 ML IV (09:56)
[2024-07-25 10:58] VITALS: BP 104/68; PULSE 67; RESP 18; TEMP 36.6; O2SAT 97
[2024-07-29] MEDS: sodium chloride 0.9% 1,000 ML 999 ML IV (10:49)
[2024-07-29 12:07] VITALS: BP 104/64; PULSE 83; RESP 16; TEMP 36.6; O2SAT 96
[2024-08-02] MEDS: sodium chloride 0.9% 1,000 ML 999 ML IV (09:40)
[2024-08-02 11:15] VITALS: BP 97/62; PULSE 85; RESP 17; TEMP 36.7; O2SAT 94
== END 2024-08-02 23:59 | disposition home or self-care (01) ==
PROVIDERS: Colon & Rectal Surgery; PCP Nurse Practitioner Family; Visit Provider Internal Medicine
DX: Z53.9 Procedure and treatment not carried out, unspecified reason; E86.0 Dehydration; Z79.899 Other long term (current) drug therapy
CPT/HCPCS: 80053; 96360; J7030

== ENCOUNTER 2024-08-12 15:47 | Inpatient (IN) | payer MEDICARE, MEDICAID, SELFPAY ==
[2024-05-15 15:12] VITALS: BP 109/65; BMI 35.9
[2024-08-12] VITALS (57 sets, daily range): BP systolic 88–114; BP diastolic 43–66; PULSE 69–94; RESP 7–24; TEMP 36.4–36.8; O2SAT 90–99; BMI 35.6
--- NOTE | 2024-08-12 16:23 | XRR_ITS ---
PROCEDURE INFORMATION: Exam: XR Chest Exam date and time: 08/12/2024 4:50 PM Age: 64 years old Clinical indication: Shortness of breath and other: Weakness; Additional info: Possible sepsis TECHNIQUE: Imaging protocol: Radiologic exam of the chest. Views: 1 view. COMPARISON: CR XR chest 1V portable [id number] 07/08/2024 9:22 AM FINDINGS: Lungs: Unremarkable. No consolidation. Pleural spaces: Unremarkable. No pleural effusion. No pneumothorax. Heart/Mediastinum: Unremarkable. No cardiomegaly. Bones/joints: Unremarkable. XR/XR chest 1V portable [id number] IMPRESSION: No acute findings.
--- NOTE | 2024-08-12 16:31 | ECG_ITS ---
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
--- NOTE | 2024-08-12 16:48 | W.ED.RECABL ---
HPI - Recheck/Abnormal Lab/Rx General: Chief Complaint: Recheck/Abnormal Lab/Rx Stated Complaint: kidney function Time Seen by Provider: 08/12/24 16:25 Source: patient Mode of arrival: ambulatory Limitations: no limitations History of Present Illness: 64-year-old female is had a history of a ileostomy for diverticulitis she states that since she had the ileostomy she has had chronic dehydration she sees oncology clinic for fluids she states she had blood drawn and was sent down here due to an elevated white count along with creatinine above 5. States she does feel weak she denies any fevers denies any pain denies any vomiting Related Data Home Medications ?Medication ?Instructions ?Recorded ?Confirmed albuterol sulfate 90 mcg/actuation 2 puff inhalation Q6H PRN 11/17/23 08/12/24 aerosol inhaler Shortness Of Breath Or Wheezing omeprazole 20 mg capsule,delayed 20 mg PO DAILY 08/12/24 08/12/24 release Previous Rx's ?Medication ?Instructions ?Recorded nitroglycerin 0.4 mg sublingual See Rx Instructions .Route 11/13/23 tablet .COMPLEX #50 tabs ezetimibe 10 mg tablet 10 mg PO DAILY #90 tabs 01/05/24 lisinopril 10 mg tablet 10 mg PO DAILY #90 tabs 01/05/24 metoprolol succinate 25 mg 12.5 mg (1/2 x 25 mg) PO DAILY #45 02/21/24 tablet,extended release 24 hr tabs dapagliflozin propanediol 5 mg 5 mg PO QAM #30 tabs 06/21/24 tablet (Farxiga) bupropion HCl 200 mg tablet,12 hr 200 mg PO QAM #90 tabs 07/30/24 sustained-release (Wellbutrin SR) escitalopram oxalate 20 mg tablet 20 mg PO QAM #90 tabs 07/30/24 (Lexapro) lamotrigine 200 mg tablet 200 mg PO BEDTIME #90 tabs 07/30/24 (Lamictal) Allergies Allergy/AdvReac Type Severity Reaction Status Date / Time metformin Allergy Unknown nausea Verified 08/12/24 15:58 tetracycline Allergy Unknown Tongue Verified 08/12/24 15:58 swelling naproxen AdvReac Unknown cramps/naus Verified 08/12/24 15:58 ea Review of Systems Const: Reports: fatigue and malaise; Denies: fever(s), chills, body aches or change in appetite ENMT: Denies: throat pain or dental pain Card: Denies: chest pain Resp: Denies: dyspnea GI: Denies: abdominal pain, nausea, vomiting or diarrhea : Denies: dysuria Musc: Denies: neck pain or back pain Skin/Breast: Denies: rash Neuro: Denies: headache(s) PFSH ED PFSH: Medical History Palpitation Psychiatric care Lumbar radiculopathy, chronic Atherosclerotic heart disease of [place] coronary artery with other forms of angina pectoris Acid reflux Mixed incontinence Hypertension DDD (degenerative disc disease) Asthma Diabetes Chronic cystitis Major depressive disorder, recurrent severe without psychotic features Follows up with [facility] Generalized anxiety disorder Surgical History H/O excision of mass (09/30/21) Subcutaneous mass left upper quadrant of the abdomen H/O right wrist surgery Status post tubal ligation 1986 at time of third S/P hernia repair 10/27/11- Hernia repair Dx: rentral hernia anterior abdominal wall below umbilicus. Performed by Dr Macias at [facility] in [place], [place]. Per patient mesh was used and it covers her whole lower abdominal wall. S/P bladder repair X 2 01/09/07- Anterior/posterior vaginal repair, transobturator suburethral sling, cystoscopy. Dx: mixed urinary incontinence, cystocele and rectocele. Performed by Dr Andrews at [facility] in [place], [place] 07/2013- Bladder repair revised. Performed in [place]. She states that she had pain and the surgeon went in and excised some of the mesh but was unable to get everything out. H/O neck surgery 06/14/[address] Dillon at [facility] S/P cholecystectomy Open procedure performed via right upper quadrant incision in 1987 in [facility] S/P hysterectomy 2001---total abdominal hysterectomy with bilateral [id number]- Performed by Dr Stewart at [facility] for bleeding problems. She states her ovaries and Appendix were removed as well. Patient states she was told that there was no cancer H/O section x 3 ----> 1983, 1985, 1986 S/P appendectomy 2002-performed at time of open hysterectomy S/P excision of ganglion cyst Left wrist in [place], [place] S/P carpal tunnel release Bilateral-2002 and 2003 performed in [place], [place] S/P excision of lipoma Family History Father , 86 Hypertension Stroke Thyroid disease Kidney disease CAD (coronary artery disease) Chronic kidney disease (CKD) Sister Heart disease Her sister of heart disease at the age of 45-some congenital heart disease however she does not remember the name. Brother Kidney disease Diabetes Colon cancer Family/Other Breast cancer maternal aunt, diagnosed at age 62 Mother , AT AGE 84 Cancer PANCREATIC Lung disease Denies family history of Ovarian cancer Clotting disorder Dementia Hyperlipidemia Suicide Anesthesia complication Bleeding disorder Social History Smoking and tobacco/nicotine status: former use of tobacco/nicotine Physical Exam Const: COMMON NORMALS: no acute distress, patient oriented x3 and healthy appearing HENMT: COMMON NORMALS: normocephalic and atraumatic HEAD & SCALP: normocephalic and atraumatic Neck/C-Spine: COMMON NORMALS: full ROM and supple Chest: COMMONS NORMALS: normal inspection of the chest Resp: COMMON NORMALS: normal respiratory effort, No retractions, No use of accessory muscles and clear to auscultation bilaterally AUSCULTATION: clear to auscultation bilaterally Cardio: COMMON NORMALS: regular rate, regular rhythm and No murmurs present (Cardio) RATE: regular rate RHYTHM: regular rhythm GI: COMMON NORMALS: Normal to inspection, nondistended, normoactive bowel sounds present, Soft to palpation, non-tender and no masses PALPATION: Yes Soft to palpation Extremity: COMMON NORMALS: normal to inspection and full ROM Neuro: COMMON NORMALS: patient oriented x3, moves all extremities and no focal motor deficits Psych: COMMON NORMALS: mental status grossly normal, Normal thought process present and cooperative THOUGHT PROCESS: Normal thought process present Skin: COMMON NORMALS: no rashes or lesions noted and no wounds GENERAL SKIN EXAM: no rashes or lesions noted Course Vital Signs: Vital signs: Vital Signs Temperature 97.6 F 08/12/24 15:51 Pulse Rate 72 08/12/24 18:30 Respiratory Rate 14 08/12/24 18:30 Blood Pressure 96/51 08/12/24 18:30 Pulse Oximetry 96 08/12/24 18:30 Oxygen Delivery Me thod Room Air 08/12/24 15:51 MDM - Recheck/Abnormal Lab/Rx Medical Decision Making Patient presents for acute kidney injury along with dehydration. Patient does have elevated creatinine is quite dehydrated had some hypotension here likely due to dehydration. Her blood pressures improved with IV fluids does have an elevated white count lactate was normal she did have a UTI we will start on IV antibiotics she is afebrile no signs of severe sepsis here. I did speak to hospitalist will admit at this time Medical Records I reviewed the patient's medical records. Lab Data I reviewed the patient's lab results. 08/12/24 17:16 08/12/24 17:16 Radiology Impressions Chest X-Ray 08/12/24 16:23 IMPRESSION: No acute findings. Laboratory Results WBC 17.79 10^3/uL (3.29-11.43) H 08/12/24 17:16 RBC 4.24 10^6/uL (3.85-5.65) 08/12/24 17:16 Hgb 11.10 g/dL (11.27-16.99) L 08/12/24 17:16 Hct 35.6 % (36-47) L 08/12/24 17:16 MCV 84.0 fl (85-98) L 08/12/24 17:16 MCH 26.2 pg (27-33) L 08/12/24 17:16 MCHC 31.2 g/dL (30-55) 08/12/24 17:16 RDW 14.1 % (12.1-15.1) 08/12/24 17:16 Plt Count 280 10^3/cmm (157-399) 08/12/24 17:16 MPV 10.3 fL (7.4-10.4) 08/12/24 17:16 Neut % (Auto) 62.8 % 08/12/24 17:16 Lymph % (Auto) 26.0 % 08/12/24 17:16 [place] % (Auto) 9.6 % 08/12/24 17:16 Eos % (Auto) 0.6 % 08/12/24 17:16 Baso % (Auto) 0.3 % 08/12/24 17:16 Neut # (Auto) 11.19 10^3/uL (1.8-7.7) H 08/12/24 17:16 Lymph # (Auto) 4.6 10^3/uL (0.8-4.8) 08/12/24 17:16 [place] # (Auto) 1.7 10^3/uL (0.2-0.9) H 08/12/24 17:16 Eos # (Auto) 0.1 10^3/uL (0.0-0.8) 08/12/24 17:16 Baso # (Auto) 0.1 10^3/uL (0.0-0.1) 08/12/24 17:16 Nucleated RBC % (auto) 0 % 08/12/24 17:16 Nucleated RBCs # 0.0 /100WBC 08/12/24 17:16 Sodium 130 mmol/L (136-145) L 08/12/24 17:16 Potassium 3.7 mmol/L (3.5-5.1) 08/12/24 17:16 Chloride 94 mmol/L (98-107) L 08/12/24 17:16 Carbon Dioxide 20 mmol/L (22-29) L 08/12/24 17:16 Anion Gap 19.7 (5-19) H 08/12/24 17:16 BUN 47 mg/dL (8-23) H 08/12/24 17:16 Creatinine 3.9 mg/dL (0.5-0.9) H 08/12/24 17:16 GFR Calculation 11.7 mL/min (90-130) L 08/12/24 17:16 Glucose 122 mg/dL (65-115) H 08/12/24 17:16 Calculated Osmolality 284 mOsm/kg (285-295) L 08/12/24 17:16 Lactic Acid 1.7 mmol/L (0.5-2.2) 08/12/24 16:42 Calcium 8.3 mg/dL (8.5-10.5) L 08/12/24 17:16 Total Bilirubin 0.4 mg/dL (0.15-1.2) 08/12/24 17:16 AST 20 U/L (0-32) 08/12/24 17:16 ALT 17 U/L (0-33) 08/12/24 17:16 Alkaline Phosphatase 75 U/L (35-105) 08/12/24 17:16 Total Protein 8.2 g/dL (6.6-8.7) D 08/12/24 17:16 Albumin 3.6 g/dL (3.5-5.2) 08/12/24 17:16 Globulin 4.6 g/dL (1.3-4.6) 08/12/24 17:16 Urine Color Yellow (Yellow) 08/12/24 17:52 Urine Appearance Turbid (CLEAR) A 08/12/24 17:52 Urine pH 5.0 (5-7) 08/12/24 17:52 Ur Specific [place] 1.016 (1.005-1.030) 08/12/24 17:52 Urine Protein 2+ (Negative) A 08/12/24 17:52 Urine Glucose (UA) Negative (Normal) 08/12/24 17:52 Urine Ketones Trace (Negative) 08/12/24 17:52 Urine Blood Negative (Negative) 08/12/24 17:52 Urine Nitrate Negative (Negative) 08/12/24 17:52 Urine Bilirubin Negative (Negative) 08/12/24 17:52 Urine Urobilinogen 0.2 mg/dL (Negative) 08/12/24 17:52 Ur Leukocyte Esterase 2+ (Negative) A 08/12/24 17:52 Urine RBC 3-5 /hpf (0-2) 08/12/24 17:52 Urine WBC >100 /hpf (0-5) H 08/12/24 17:52 Ur Squamous Epith Cells 11-20 /hpf (0-5) H 08/12/24 17:52 Amorphous Sediment Not Reportable 08/12/24 17:52 Urine Bacteria 2+ /hpf (NONE) H 08/12/24 17:52 Hyaline Casts 199.83 /lpf 08/12/24 17:52 All radiology interpretation(s) finalized by discharge EKG Data EKG 1: I personally reviewed and interpreted this EKG as follows: EKG interpretation date: 08/12/24 EKG interpretation time: 16:31 Interpretation: nsr hr [address] elevation qrs 86 qtc 406 Critical Care Time Critical Care Time: Critical Care Time: Yes Total Critical Care Time: 40 Attestation: The high probability of a clinically significant, sudden or life threatening deterioration of the patient's renal system(s) required my full and direct attention, intervention and personal management. The critical care time is as shown. This time is in addition to time spent performing any reported procedures but includes the following: [x] Data and vital sign review and interpretation [x] Patient assessment, examination and intervention [x] Documentation [x] Medication orders and management Discharge Plan Discharge Patient Disposition: Admitted As Inpatient Clinical Impression: UTI (urinary tract infection), Acute kidney injury, Weakness Condition: Stable Coding Level of Care Code ED [employer] Operator for Tara Jacques
[2024-08-12 17:29] LABS: Basophils # 0.1 10^3/uL (0.0-0.1); Basophils % 0.3 %; Eosinophils # 0.1 10^3/uL (0.0-0.8); Eosinophils % 0.6 %; Hematocrit 35.6 % (36-47); Lymphocytes # 4.6 10^3/uL (0.8-4.8); Mean Corpuscular HGB Conc 31.2 g/dL (30-55); Mean Corpuscular Hemoglobin 26.2 pg (27-33); Mean Platelet Volume 10.3 fL (7.4-10.4); Monocytes # 1.7 10^3/uL (0.2-0.9); Monocytes % 9.6 %; Neutrophils # 11.19 10^3/uL (1.8-7.7); Neutrophils % 62.8 %; Nucleated Red Blood Cells % 0 %; Platelet Count 280 10^3/cmm (157-399); Red Blood Count 4.24 10^6/uL (3.85-5.65); Red Cell Distribution Width 14.1 % (12.1-15.1); White Blood Count 17.79 10^3/uL (3.29-11.43)
[2024-08-12 17:31] LABS: Lactic Sepsis W/Reflex 1.7 mmol/L (0.5-2.2)
[2024-08-12 17:50] LABS: Alanine Aminotransferase 17 U/L (0-33); Albumin Level 3.6 g/dL (3.5-5.2); Alkaline Phosphatase 75 U/L (35-105); Anion Gap 19.7 (5-19); Aspartate Amino Transferase 20 U/L (0-32); Blood Urea Nitrogen 47 mg/dL (8-23); Calcium 8.3 mg/dL (8.5-10.5); Carbon Dioxide 20 mmol/L (22-29); Chloride 94 mmol/L (98-107); Globulin 4.6 g/dL (1.3-4.6); Glomerular Filtration Rate 11.7 mL/min (90-130); Glucose 122 mg/dL (65-115); Osmolality Calculated 284 mOsm/kg (285-295); Potassium 3.7 mmol/L (3.5-5.1); Sodium 130 mmol/L (136-145); Total Bilirubin 0.4 mg/dL (0.15-1.2); Total Protein 8.2 g/dL (6.6-8.7)
[2024-08-12 17:54] LABS: Slide Review Slide Review Perform
[2024-08-12 18:41] LABS: Bilirubin Urine Negative (Negative); Blood Urine Negative (Negative); Glucose Urine UA Negative (Normal); Ketones Urine Trace (Negative); Leukocyte Esterase Urine 2+ (Negative); Nitrate Urine Negative (Negative); Protein Urine 2+ (Negative); Specific Gravity, Urine 1.016 (1.005-1.030); Urine Appearance Turbid (CLEAR); Urine Color Yellow (Yellow); Urobilinogen Urine 0.2 mg/dL (Negative)
[2024-08-12 18:46] LABS: Add Urine Microscopic? YES; Bacteria Urine 2+ /hpf; Hyaline Casts Urine 199.83 /lpf; WBC Urine >100 /hpf (0-5)
[2024-08-12] MEDS: piperacillin-tazobactam 3.375 GM in sodium chloride 0.9% (plus) 50 ML IV (18:49)
[2024-08-12 18:52] LABS: UA Slide Review UA Slide Review Perf
[2024-08-12 19:01] LABS: Add Urine Culture? Yes
--- NOTE | 2024-08-12 20:05 | PM.HP ---
Providers/Chief Complaint Primary Care Provider: MILLA Blackwell Chief Complaint: kidney function History of Present Illness Cristobal Styles is a 64 year old female with ileostomy secondary to diverticulitis since March 2024, has tendency to get dehydrated with hypovolemia secondary to increased output from her back, she gets octreotide 3 doses in a day along Imodium, presented from the hematology clinic for abnormal labs. Patient is stating that she has been experiencing burning with micturition, has not noticed any fever vomiting, chest pain or shortness of breath at home. She went for regular follow-up at hematology/oncology clinic because she was getting dehydrated, abnormal labs were noted hence she was transferred to the ER. At the time of my evaluation patient is stating that her output from the ileostomy bag is pretty high at baseline, she has not noticed any bleeding, vomiting or fever. Workup in the ER consistent with significant leukocytosis, hemoconcentration, hyponatremia, creatinine 3.9 with abnormal UA She would meet sepsis criteria with tachypnea tachycardia leukocytosis and endorgan damage She has received septic bolus along antibiotics Blood and urine culture obtained Patient was hypotensive in the ER responding to IV fluids Review of Systems Const: Reports: chills; Denies: fever(s) Eyes: Denies: change in vision ENMT: Denies: throat pain Card: Denies: chest pain Resp: Reports: dyspnea GI: Reports: nausea : Reports: dysuria Medications/Allergies Home Medications ?Medication ?Instructions ?Recorded ?Confirmed ?Last Taken ?Type nitroglycerin 0.4 mg sublingual See Rx Instructions .Route 11/13/23 08/12/24 Unknown Rx tablet .COMPLEX #50 tabs albuterol sulfate 90 mcg/actuation 2 puff inhalation Q6H PRN 11/17/23 08/12/24 07/07/24 History aerosol inhaler Shortness Of Breath Or Wheezing ezetimibe 10 mg tablet 10 mg PO DAILY #90 tabs 01/05/24 08/12/24 08/12/24 Rx lisinopril 10 mg tablet 10 mg PO DAILY #90 tabs 01/05/24 08/12/24 08/12/24 Rx metoprolol succinate 25 mg 12.5 mg (1/2 x 25 mg) PO DAILY #45 02/21/24 08/12/24 07/07/24 Rx tablet,extended release 24 hr tabs dapagliflozin propanediol 5 mg 5 mg PO QAM #30 tabs 06/21/24 08/12/24 07/07/24 Rx tablet (Farxiga) bupropion HCl 200 mg tablet,12 hr 200 mg PO QAM #90 tabs 07/30/24 08/12/24 Unknown Rx sustained-release (Wellbutrin SR) escitalopram oxalate 20 mg tablet 20 mg PO QAM #90 tabs 07/30/24 08/12/24 Unknown Rx (Lexapro) lamotrigine 200 mg tablet 200 mg PO BEDTIME #90 tabs 07/30/24 08/12/24 08/11/24 Rx (Lamictal) omeprazole 20 mg capsule,delayed 20 mg PO DAILY 08/12/24 08/12/24 Unknown History release Allergies Allergy/AdvReac Type Severity Reaction Status Date / Time metformin Allergy Unknown nausea Verified 08/12/24 15:58 tetracycline Allergy Unknown Tongue Verified 08/12/24 15:58 swelling naproxen AdvReac Unknown cramps/naus Verified 08/12/24 15:58 ea PFSH Acute PFSH: Medical History Palpitation Psychiatric care Lumbar radiculopathy, chronic Atherosclerotic heart disease of [place] coronary artery with other forms of angina pectoris Acid reflux Mixed incontinence Hypertension DDD (degenerative disc disease) Asthma Diabetes Chronic cystitis Major depressive disorder, recurrent severe without psychotic features Follows up with [facility] Generalized anxiety disorder Surgical History H/O excision of mass (09/30/21) Subcutaneous mass left upper quadrant of the abdomen H/O right wrist surgery Status post tubal ligation 1986 at time of third S/P hernia repair 10/27/11- Hernia repair Dx: rentral hernia anterior abdominal wall below umbilicus. Performed by Dr Macias at [facility] in [place], [place]. Per patient mesh was used and it covers her whole lower abdominal wall. S/P bladder repair X 2 01/09/07- Anterior/posterior vaginal repair, transobturator suburethral sling, cystoscopy. Dx: mixed urinary incontinence, cystocele and rectocele. Performed by Dr Andrews at [facility] in [place], [place] 07/2013- Bladder repair revised. Performed in [place]. She states that she had pain and the surgeon went in and excised some of the mesh but was unable to get everything out. H/O neck surgery 06/14/[address] Dillon at [facility] S/P cholecystectomy Open procedure performed via right upper quadrant incision in [address] [facility] S/P hysterectomy 2001---total abdominal hysterectomy with bilateral [id number]- Performed by Dr Stewart at [facility] for bleeding problems. She states her ovaries and Appendix were removed as well. Patient states she was told that there was no cancer H/O section x 3 ----> 1983, 1985, 1986 S/P appendectomy 2001-performed at time of open hysterectomy S/P excision of ganglion cyst Left wrist in [place], [place] S/P carpal tunnel release Bilateral-2002 and 2003 performed in [place], [place] S/P excision of lipoma Family History Father , 86 Hypertension Stroke Thyroid disease Kidney disease CAD (coronary artery disease) Chronic kidney disease (CKD) Sister Heart disease Her sister of heart disease at the age of 45-some congenital heart disease however she does not remember the name. Brother Kidney disease Diabetes Colon cancer Family/Other Breast cancer maternal aunt, diagnosed at age 62 Mother , AT AGE 84 Cancer PANCREATIC Lung disease Denies family history of Ovarian cancer Clotting disorder Dementia Hyperlipidemia Suicide Anesthesia complication Bleeding disorder Social History Smoking and tobacco/nicotine status: former use of tobacco/nicotine Vitals/I&O/Wt Last Vital Signs Temp 97.6 F 08/12/24 15:51 Pulse 72 08/12/24 18:30 Resp 14 08/12/24 18:30 BP 96/51 08/12/24 18:30 Pulse Ox 96 08/12/24 18:30 O2 Del Method Room Air 08/12/24 15:51 08/12/24 08/12/24 08/12/24 06:59 14:59 22:59 Intake Total 0 / 0 Balance 0 / 0 Weight last 48 hrs Weight 97.976 kg Physical Exam Narrative: Clinical signs of dehydration Laying supine Blood pressure 93/46 mg IV Afebrile Tachypneic tachycardic GCS 15 AOx4 Bile colored stool noted in the ileostomy bag Abdomen nontender Lower extremity no edema Heart rate around 70s Dry mucous membranes Nonfocal neuroexam AOx4 Sepsis: Is patient septic: Yes Focused sepsis exam performed: Yes Focused sepsis exam: Cap refill less than 3 sec. peripheral pulses intact No encephalopathy No skin mottling Date exam was performed: 08/12/24 Time exam was performed: 23:15 Data 08/12/24 17:16 08/12/24 17:16 Micro: Microbiology 08/12/24 16:45 Blood Culture - Preliminary Blood SPECIMEN COLLECTED 08/12/24 16:42 Blood Culture - Preliminary Blood SPECIMEN COLLECTED A&P Assessment and plan (1) Generalized anxiety disorder: (2) Multinodular goiter (nontoxic): (3) Diabetes: Qualifiers: Diabetes mellitus type: type 2 Diabetes mellitus assisted insulin use: without buttermilk drier operator use Diabetes mellitus complication status: with hyperglycemia Qualified Code(s): E11.65 - Type 2 diabetes mellitus with hyperglycemia (4) Acid reflux: (5) Acute kidney injury: (6) UTI (urinary tract infection): (7) Weakness: (8) Sepsis: Plan Hypovolemic hypotension Responding to IV fluids Admit to ICU for closer monitoring Increased output from his ostomy bag Patient takes 3 doses of octreotide in a day She also response to Imodium Afebrile Continue IV fluids Sepsis related to UTI Criteria met with tachypnea tachycardia high leukocyte with endorgan damage Blood and urine culture taken Received septic bolus Continue ceftriaxone for now Generalized anxiety disorder continue Lexapro and antianxiolytics Hypotension: Hold antihypertensive regimen Full code Cardiac consistent carb diet medium intensity statin scale DVT prophylaxis heparin GI prophylaxis: Continue p.o. Protonix PDMP PDMP Reviewed: Not Reviewed Attestations Medical Necessity Statement*: More than 2 midnights anticipated for RADHA, sepsis, UTI Diagnoses Generalized anxiety disorder F41.1 Multinodular goiter (nontoxic) E04.2 Type 2 diabetes mellitus with hyperglycemia, without long-term current use of insulin E11.65 Diabetes mellitus type: type 2 Diabetes mellitus buttermilk drier operator insulin use: without assisted use Diabetes mellitus complication status: with hyperglycemia Acid reflux K21.9 Acute kidney injury N17.9 UTI (urinary tract infection) N39.0 Weakness R53.1 Sepsis A41.9
[2024-08-12] MEDS: sodium chloride 0.9% 1,000 ML 999 ML IV (21:49)
[2024-08-12] MEDS: sodium chloride 0.9% 1,000 ML 100 ML IV (22:54)
[2024-08-12] MEDS: sodium chloride 0.9% 500 ML 999 ML IV ×2 (23:34→23:57)
[2024-08-13] VITALS (25 sets, daily range): BP systolic 85–123; BP diastolic 44–72; PULSE 65–104; RESP 10–25; TEMP 36.7–37; O2SAT 88–97
[2024-08-13] MEDS: thiamine 100 mg/mL 2mL SDV IVP (00:19)
[2024-08-13 04:04] LABS: Basophils % 0.3 %; Eosinophils # 0.1 10^3/uL (0.0-0.8); Hematocrit 31.1 % (36-47); Lymphocytes # 3.5 10^3/uL (0.8-4.8); Lymphocytes % 27.1 %; Mean Corpuscular HGB Conc 31.5 g/dL (30-55); Mean Corpuscular Hemoglobin 26.7 pg (27-33); Mean Corpuscular Volume 84.7 fl (85-98); Mean Platelet Volume 10.1 fL (7.4-10.4); Monocytes # 1.3 10^3/uL (0.2-0.9); Monocytes % 10.3 %; Neutrophils # 7.79 10^3/uL (1.8-7.7); Neutrophils % 60.5 %; Nucleated Red Blood Cells % 0 %; Platelet Count 229 10^3/cmm (157-399); Red Blood Count 3.67 10^6/uL (3.85-5.65); White Blood Count 12.88 10^3/uL (3.29-11.43)
[2024-08-13 04:53] LABS: Anion Gap 15.1 (5-19); Blood Urea Nitrogen 36 mg/dL (8-23); Carbon Dioxide 21 mmol/L (22-29); Chloride 103 mmol/L (98-107); Creatinine Clr Calc Pharmacy 25.1748; Glomerular Filtration Rate 21.5 mL/min (90-130); Glucose 102 mg/dL (65-115); Magnesium 1.5 mg/dL (1.7-2.3); Osmolality Calculated 289 mOsm/kg (285-295); Phosphorus 4.1 mg/dL (2.5-4.5); Potassium 4.1 mmol/L (3.5-5.1); Sodium 135 mmol/L (136-145)
[2024-08-13] MEDS: sodium chloride 0.9% 1,000 ML 100 ML IV ×2 (05:35→17:47)
[2024-08-13] MEDS: buPROPion SR (12 HR) 100 mg Tablet 200 MG PO (06:20)
[2024-08-13] MEDS: heparin 5,000 unit/mL INJ 1 mL 5000 UNIT SUBCUT ×2 (06:20→17:47)
[2024-08-13 07:43] LABS: Glucose Point of Care 103 mg/dL (70-110)
[2024-08-13] MEDS: cefTRIAXone 1,000 mg SDV 1000 MG IVP (08:40)
[2024-08-13] MEDS: magnesium sulfate premix 2 GM/50 ML PIGGYBACK IV (08:40)
[2024-08-13] MEDS: octreotide 100 mcg/mL SDV 50 MCG SUBCUT (08:41)
[2024-08-13] MEDS: pantoprazole DR 40 mg Tablet PO (08:41)
--- NOTE | 2024-08-13 10:53 | P.PN_ITS ---
Subjective 2 Subjective: Patient reports she is feeling better now. She reports oral intake is improved. Denies fevers or chills overnight. She notes she did not get much sleep. Discussed plan of care including following urine cultures, continue IV antibiotics, and IV hydration. Plan to repeat labs tomorrow morning. She is in agreement. Medications: Reviewed: Yes Vitals/I&O/Wt Last Vital Signs Temp 98.4 F 08/13/24 09:00 Pulse 67 08/13/24 10:07 Resp 15 08/13/24 10:07 BP 123/67 08/13/24 10:07 Pulse Ox 96 08/13/24 10:07 O2 Del Method Room Air 08/13/24 08:40 08/12/24 08/13/24 08/13/24 22:59 06:59 14:59 Intake Total 2989.28 / 2989.28 2000 / 4989.28 50 / 50 Output Total 900 / 900 Balance 2989.28 / 2989.28 1100 / 4089.28 50 / 50 Weight last 48 hrs Weight 86 kg Weight 85.5 kg Weight 97.976 kg Physical Exam 2 Narrative: General: Patient is awake and alert. Very pleasant. Conversational. Head: Normocephalic. Atraumatic. EOM intact. Dry mucous membranes. Neck: No JVD. Cardiovascular: RRR. No gallops. No murmurs. No peripheral edema. Lungs: Clear to auscultation, no use of accessory muscles, no crackles or wheezes. Skin: No jaundice. No rashes. Abdomen: Normal bowel sounds, abdomen soft and nontender. Ostomy. Extremities: No cyanosis or clubbing. Musculoskeletal: No swollen or erythematous joints. Neurological: Moves all 4 extremities. No myoclonus. 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 exterminator insulin use: without usp use Diabetes mellitus complication status: with hyperglycemia Qualified Code(s): E11.65 - Type 2 diabetes mellitus with hyperglycemia (4) Acid reflux: (5) Acute kidney injury: (6) UTI (urinary tract infection): (7) Weakness: (8) Sepsis: Plan Severe sepsis -Endorgan damage: Acute renal failure -Source: Acute complicated UTI -Follow cultures -Continue IV antibiotics -Supportive care Hypovolemic hypotension with increased ostomy output -Continue octreotide -Hold antihypertensives -Imodium as needed Acute renal failure -Suspected prerenal in the setting of severe sepsis -Renal function is improving -Strict I's and O's -Daily weights -Continue IV fluids -Repeat labs in a.m. Generalized anxiety disorder -Lexapro is nonformulary -Continue Lamictal -Continue Wellbutrin History of hypertension -Blood pressure has been soft, continue to hold home antihypertensives DVT prophylaxis: Heparin PDMP PDMP Reviewed: Not Reviewed Attestations 2 Medical Necessity Statement*: Patient requires ongoing hospitalization for IV antibiotics, IV fluids, serial labs, and supportive care. Coding Level of Care Code Acute Code for [facility] Fwd Diagnoses Generalized anxiety disorder F41.1 Multinodular goiter (nontoxic) E04.2 Type 2 diabetes mellitus with hyperglycemia, without long-term current use of insulin E11.65 Diabetes mellitus type: type 2 Diabetes mellitus usp insulin use: without rodent exterminator use Diabetes mellitus complication status: with hyperglycemia Acid reflux K21.9 Acute kidney injury N17.9 UTI (urinary tract infection) N39.0 Weakness R53.1 Sepsis A41.9
[2024-08-13 11:27] LABS: Glucose Point of Care 91 mg/dL (70-110)
[2024-08-13] MEDS: octreotide 100 mcg/mL SDV SUBCUT ×2 (15:19→21:31)
[2024-08-13 17:30] LABS: Glucose Point of Care 141 mg/dL (70-110)
[2024-08-13] MEDS: insulin lispro 100 unit/1 mL SUBCUT (17:47)
[2024-08-13 21:13] LABS: Glucose Point of Care 104 mg/dL (70-110)
[2024-08-13] MEDS: lamoTRIgine 100 mg Tablet 200 MG PO (21:30)
[2024-08-14] VITALS (11 sets, daily range): BP systolic 91–119; BP diastolic 58–77; PULSE 62–81; RESP 11–15; TEMP 36.9; O2SAT 92–99
[2024-08-14] MEDS: sodium chloride 0.9% 1,000 ML 100 ML IV (03:47)
[2024-08-14 04:08] LABS: Basophils % 0.5 %; Eosinophils # 0.2 10^3/uL (0.0-0.8); Eosinophils % 2.1 %; Hematocrit 31.9 % (36-47); Lymphocytes # 3.2 10^3/uL (0.8-4.8); Lymphocytes % 40.1 %; Mean Corpuscular Hemoglobin 26.3 pg (27-33); Mean Corpuscular Volume 84.6 fl (85-98); Mean Platelet Volume 10.2 fL (7.4-10.4); Monocytes # 0.7 10^3/uL (0.2-0.9); Neutrophils % 47.7 %; Nucleated Red Blood Cells % 0 %; Platelet Count 220 10^3/cmm (157-399); Red Blood Count 3.77 10^6/uL (3.85-5.65); White Blood Count 7.98 10^3/uL (3.29-11.43)
[2024-08-14 04:36] LABS: Albumin Level 3.4 g/dL (3.5-5.2); Anion Gap 13.1 (5-19); Blood Urea Nitrogen 16 mg/dL (8-23); Calcium 8.4 mg/dL (8.5-10.5); Carbon Dioxide 21 mmol/L (22-29); Chloride 107 mmol/L (98-107); Creatinine Clr Calc Pharmacy 72.6077; Glomerular Filtration Rate 72.7 mL/min (90-130); Glucose 99 mg/dL (65-115); Magnesium 1.7 mg/dL (1.7-2.3); Phosphorus 2.4 mg/dL (2.5-4.5); Potassium 4.1 mmol/L (3.5-5.1); Sodium 137 mmol/L (136-145)
[2024-08-14] MEDS: buPROPion SR (12 HR) 100 mg Tablet 200 MG PO (06:18)
[2024-08-14] MEDS: heparin 5,000 unit/mL INJ 1 mL 5000 UNIT SUBCUT (06:19)
[2024-08-14 07:12] LABS: Glucose Point of Care 95 mg/dL (70-110)
[2024-08-14] MEDS: cefTRIAXone 1,000 mg SDV 1000 MG IVP (08:53)
[2024-08-14] MEDS: octreotide 100 mcg/mL SDV SUBCUT (08:53)
[2024-08-14] MEDS: pantoprazole DR 40 mg Tablet PO (08:53)
[2024-08-14] MEDS: ezetimibe 10 mg Tablet PO (08:53)
--- NOTE | 2024-08-14 11:05 | P.DS_ITS ---
Discharge Providers Date of Admission: 08/12/24 19:35 Date of Discharge: August 14, 2024 Attending Provider at Admission: Jason Rios MD Attending Provider at Discharge: Nadeem Cannon MD Primary Care Provider: MILLA Blackwell Diagnoses at Discharge Discharge Diagnosis (1) Generalized anxiety disorder: Status: Inactive (2) Multinodular goiter (nontoxic): Status: Inactive (3) Diabetes: Status: Inactive Qualifiers: Diabetes mellitus complication status: with hyperglycemia Diabetes mellitus director long term care insulin use: without director long term care use Diabetes mellitus type: type 2 Qualified Code(s): E11.65 - Type 2 diabetes mellitus with hyperglycemia (4) Acid reflux: Status: Inactive (5) Acute kidney injury: Status: Resolved (6) UTI (urinary tract infection): Status: Acute (7) Weakness: Status: Resolved (8) Sepsis: Status: Resolved Reason for Visit Reason for Visit: kidney function Hospital Course Hospital Course Cristobal Styles is a 64-year-old female with a past medical history significant for ileostomy, coronary artery disease, hypertension, asthma, diabetes mellitus, anxiety, and depression who presented with abnormal labs, found to have severe sepsis secondary to acute complicated urinary tract infection with acute renal failure complicated by hypovolemic hyponatremia secondary to high ostomy output state. She was treated with aggressive IV fluids and broad-spectrum antibiotics. Acute kidney injury resolved. Hemodynamics improved. Urine culture resulted with mixed bacteria. Patient improved on IV third generation cephalosporin for which she transitioned to oral third general cephalosporin with cefdinir at discharge. She will hold her ACEI for an additional week to allow for renal recovery. Patient will follow up with surgery as well as PCP for ongoing care. Physical Exam Narrative: General: Patient is awake and alert. No acute distress. Head: Normocephalic. Atraumatic. EOM intact. Cardiovascular: RRR. No gallops. No murmurs. Lungs: Clear to auscultation, no use of accessory muscles, no crackles or wheezes. Skin: No jaundice. No rashes. Abdomen: Normal bowel sounds. Ostomy. Extremities: No cyanosis or clubbing. Musculoskeletal: No swollen or erythematous joints. Neurological: No myoclonus. Discharge Data Studies Completed and Pending Completed Studies During Hospitalization Category Date Time Status XR chest 1V portable [id number] Stat Exams 08/12/24 16:23 Completed Pending at discharge Category Date Time Status Blood Culture Stat Lab 08/12/24 16:45 Results Urine Culture Stat Lab 08/12/24 17:52 Results Radiology Impressions Chest X-Ray 08/12/24 16:23 IMPRESSION: No acute findings. Laboratory Results WBC 7.98 10^3/uL (3.29-11.43) 08/14/24 03:37 RBC 3.77 10^6/uL (3.85-5.65) L 08/14/24 03:37 Hgb 9.90 g/dL (11.27-16.99) L 08/14/24 03:37 Hct 31.9 % (36-47) L 08/14/24 03:37 MCV 84.6 fl (85-98) L 08/14/24 03:37 MCH 26.3 pg (27-33) L 08/14/24 03:37 MCHC 31.0 g/dL (30-55) 08/14/24 03:37 RDW 14.0 % (12.1-15.1) 08/14/24 03:37 Plt Count 220 10^3/cmm (157-399) 08/14/24 03:37 MPV 10.2 fL (7.4-10.4) 08/14/24 03:37 Neut % (Auto) 47.7 % 08/14/24 03:37 Lymph % (Auto) 40.1 % 08/14/24 03:37 [place] % (Auto) 9.0 % 08/14/24 03:37 Eos % (Auto) 2.1 % 08/14/24 03:37 Baso % (Auto) 0.5 % 08/14/24 03:37 Neut # (Auto) 3.80 10^3/uL (1.8-7.7) 08/14/24 03:37 Lymph # (Auto) 3.2 10^3/uL (0.8-4.8) 08/14/24 03:37 [place] # (Auto) 0.7 10^3/uL (0.2-0.9) 08/14/24 03:37 Eos # (Auto) 0.2 10^3/uL (0.0-0.8) 08/14/24 03:37 Baso # (Auto) 0.0 10^3/uL (0.0-0.1) 08/14/24 03:37 Nucleated RBC % (auto) 0 % 08/14/24 03:37 Nucleated RBCs # 0.0 /100WBC 08/14/24 03:37 Sodium 137 mmol/L (136-145) 08/14/24 03:37 Potassium 4.1 mmol/L (3.5-5.1) 08/14/24 03:37 Chloride 107 mmol/L (98-107) 08/14/24 03:37 Carbon Dioxide 21 mmol/L (22-29) L 08/14/24 03:37 Anion Gap 13.1 (5-19) 08/14/24 03:37 BUN 16 mg/dL (8-23) 08/14/24 03:37 Creatinine 0.8 mg/dL (0.5-0.9) 08/14/24 03:37 GFR Calculation 72.7 mL/min (90-130) L 08/14/24 03:37 Glucose 99 mg/dL (65-115) 08/14/24 03:37 POC Glucose 95 mg/dL (70-110) 08/14/24 07:08 Calculated Osmolality 289 mOsm/kg (285-295) 08/13/24 03:37 Lactic Acid 1.7 mmol/L (0.5-2.2) 08/12/24 16:42 Calcium 8.4 mg/dL (8.5-10.5) L 08/14/24 03:37 Phosphorus 2.4 mg/dL (2.5-4.5) L 08/14/24 03:37 Magnesium 1.7 mg/dL (1.7-2.3) 08/14/24 03:37 Total Bilirubin 0.4 mg/dL (0.15-1.2) 08/12/24 17:16 AST 20 U/L (0-32) 08/12/24 17:16 ALT 17 U/L (0-33) 08/12/24 17:16 Alkaline Phosphatase 75 U/L (35-105) 08/12/24 17:16 Total Protein 8.2 g/dL (6.6-8.7) D 08/12/24 17:16 Albumin 3.4 g/dL (3.5-5.2) L 08/14/24 03:37 Globulin 4.6 g/dL (1.3-4.6) 08/12/24 17:16 Urine Color Yellow (Yellow) 08/12/24 17:52 Urine Appearance Turbid (CLEAR) A 08/12/24 17:52 Urine pH 5.0 (5-7) 08/12/24 17:52 Ur Specific [place] 1.016 (1.005-1.030) 08/12/24 17:52 Urine Protein 2+ (Negative) A 08/12/24 17:52 Urine Glucose (UA) Negative (Normal) 08/12/24 17:52 Urine Ketones Trace (Negative) 08/12/24 17:52 Urine Blood Negative (Negative) 08/12/24 17:52 Urine Nitrate Negative (Negative) 08/12/24 17:52 Urine Bilirubin Negative (Negative) 08/12/24 17:52 Urine Urobilinogen 0.2 mg/dL (Negative) 08/12/24 17:52 Ur Leukocyte Esterase 2+ (Negative) A 08/12/24 17:52 Urine RBC 3-5 /hpf (0-2) 08/12/24 17:52 Urine WBC >100 /hpf (0-5) H 08/12/24 17:52 Ur Squamous Epith Cells 11-20 /hpf (0-5) H 08/12/24 17:52 Amorphous Sediment Not Reportable 08/12/24 17:52 Urine Bacteria 2+ /hpf (NONE) H 08/12/24 17:52 Hyaline Casts 199.83 /lpf 08/12/24 17:52 Vitals Last Vital Signs Temp 98.4 F 08/14/24 09:07 Pulse 69 08/14/24 10:07 Resp 12 08/14/24 10:07 BP 103/58 08/14/24 10:07 Pulse Ox 96 08/14/24 10:07 O2 Del Method Room Air 08/14/24 09:38 Discharge Plan Discharge Patient Disposition: Home Condition: Stable Prescriptions: New cefdinir 300 mg capsule 300 mg PO BID 10 Days Qty: 20 0RF Continued metoprolol succinate 25 mg tablet extended release 24 hr 12.5 mg PO DAILY Qty: 45 3RF nitroglycerin 0.4 mg tablet, sublingual See Rx Instructions .ROUTE .COMPLEX Qty: 50 0RF Dose Instruction: DISSOLVE ONE TABLET UNDER THE TONGUE EVERY 5 MINUTES NEEDED FOR CHEST PAIN. DO NOT EXCEED A TOTAL OF 3 DOSES IN 15 MINUTES Rx Instructions: DISSOLVE ONE TABLET UNDER THE TONGUE EVERY 5 MINUTES NEEDED FOR CHEST PAIN. DO NOT EXCEED A TOTAL OF 3 DOSES IN 15 MINUTES ezetimibe 10 mg tablet 10 mg PO DAILY Qty: 90 3RF Farxiga 5 mg tablet 5 mg PO QAM Qty: 30 5RF bupropion HCl [Wellbutrin SR] 200 mg tablet sustained-release 12 hr 200 mg PO QAM Qty: 90 2RF Rx Instructions: Take one tablet every morning Lamictal 200 mg tablet 200 mg PO BEDTIME Qty: 90 2RF Rx Instructions: Take one tablet at bedtime escitalopram oxalate [Lexapro] 20 mg tablet 20 mg PO QAM Qty: 90 2RF Rx Instructions: Take one tablet every morning albuterol sulfate 90 mcg/actuation HFA aerosol inhaler 2 puff inhalation Q6H PRN (Reason: Shortness Of Breath Or Wheezing) omeprazole 20 mg capsule,delayed release(DR/EC) 20 mg PO DAILY Rx Instructions: Take 1 capsule by mouth once daily No Action lisinopril 10 mg tablet 10 mg PO DAILY Qty: 90 3RF Discharge Orders: Discharge Order (Routine); Ordered 08/14/24 Ordered By: Nadeem Cannon Referrals: Domi Doty FNP [Primary Care Provider] - 4-7 days (Patient request to make own appointment) Discharge Diet: Advance as tolerated and Usual diet Discharge Activity: Resume usual activity and Increase activity as tolerated Patient Instructions: Cefdinir (By mouth) (Omnicef), Dehydration (DC), Acute Kidney Injury (DC), Opioid Safety Activity Restrictions/Additional Instructions: Take medications as described. Hold lisinopril for 1 week to allow complete renal recovery. Follow-up with PCP within 1 week. Discharge Attestations Time Spent in Discharge Care*: greater than 30 min Quality Metrics Clinical Quality Measures [ No reported AMI, CVA or VTE this stay] Coding Level of Care Code Acute Code for Chg Fwd Diagnoses Generalized anxiety disorder F41.1 Multinodular goiter (nontoxic) E04.2 Type 2 diabetes mellitus with hyperglycemia, without long-term current use of insulin E11.65 Diabetes mellitus complication status: with hyperglycemia Diabetes mellitus director long term care insulin use: without [facility] use Diabetes mellitus type: type 2 Acid reflux K21.9 Acute kidney injury N17.9 UTI (urinary tract infection) N39.0 Weakness R53.1 Sepsis A41.9
--- NOTE | 2024-08-14 11:38 | PC.NURSE ---
Patient received all discharge orders. Patient requested to make follow-up appointments. IVs removed and patient belongings all gathered. Patient took all belongings.
--- NOTE | 2024-08-14 12:10 | PC.NURSE ---
Patient taken to main entrance via wheelchair accompanied by staff and at [id number].
== END 2024-08-14 11:58 | disposition home or self-care (01) | DRG 872 ==
LOC: ER 19:48 → MEDSURG 20:25 → ICU 20:48
PROVIDERS: Admitting Provider Internal Medicine; Emergency Provider Emergency Medicine; PCP Nurse Practitioner Family; Visit Provider Internal Medicine
DX: A41.9 Sepsis, unspecified organism (principal); N17.9 Acute kidney failure, unspecified; N39.0 Urinary tract infection, site not specified; F33.2 Major depressive disorder, recurrent severe without psychotic features; E87.1 Hypo-osmolality and hyponatremia; R65.20 Severe sepsis without septic shock; F41.1 Generalized anxiety disorder; E04.2 Nontoxic multinodular goiter; E11.65 Type 2 diabetes mellitus with hyperglycemia; K21.9 Gastro-esophageal reflux disease without esophagitis; Z93.2 Ileostomy status; I25.10 Atherosclerotic heart disease of native coronary artery without angina pectoris; I10 Essential (primary) hypertension; J45.909 Unspecified asthma, uncomplicated; E86.1 Hypovolemia; E86.0 Dehydration; Z87.891 Personal history of nicotine dependence; Z90.49 Acquired absence of other specified parts of digestive tract
CPT/HCPCS: 36415; 36416; 71045; 80048; 80053; 80069; 81001; 82962; 83605; 83735; 84100; 85025; 87040; 87086; 93005; 96365; 96372; 99285; J0696; J1644; J1815; J2354; J2543; J3411; J3475; J7030; J7040; J9999

== ENCOUNTER 2024-09-02 10:00 | Oncology outpatient (recurring) (ONCR) | payer MEDICARE, MEDICAID, SELFPAY ==
[2024-05-15 15:12] VITALS: BP 109/65; BMI 35.9
[2024-08-05] MEDS: sodium chloride 0.9% 1,000 ML 999 ML IV (10:01)
[2024-08-05 10:51] LABS: Alanine Aminotransferase 16 U/L (0-33); Albumin Level 3.8 g/dL (3.5-5.2); Alkaline Phosphatase 106 U/L (35-105); Anion Gap 15.2 (5-19); Aspartate Amino Transferase 23 U/L (0-32); Blood Urea Nitrogen 10 mg/dL (8-23); Calcium 8.9 mg/dL (8.5-10.5); Carbon Dioxide 22 mmol/L (22-29); Chloride 102 mmol/L (98-107); Globulin 5.2 g/dL (1.3-4.6); Glomerular Filtration Rate 84.8 mL/min (90-130); Glucose 129 mg/dL (65-115); Osmolality Calculated 281 mOsm/kg (285-295); Potassium 4.2 mmol/L (3.5-5.1); Sodium 135 mmol/L (136-145); Total Bilirubin 0.3 mg/dL (0.15-1.2)
[2024-08-05 11:20] VITALS: BP 107/65; PULSE 76; RESP 18; TEMP 36.2; O2SAT 97
[2024-08-07 10:11] VITALS: BP 108/70; PULSE 76; RESP 18; TEMP 36.6; O2SAT 94
[2024-08-07] MEDS: sodium chloride 0.9% 1,000 ML 999 ML IV (10:13)
[2024-08-07 11:23] VITALS: BP 109/74; PULSE 77; RESP 17; TEMP 36.7; O2SAT 93
[2024-08-09 09:31] VITALS: BP 108/71; PULSE 80; RESP 16; TEMP 35.9; O2SAT 96
[2024-08-09] MEDS: sodium chloride 0.9% 1,000 ML 999 ML IV (09:40)
[2024-08-12 13:54] VITALS: BP 92/60; PULSE 79; RESP 18; TEMP 36.4; O2SAT 98
[2024-08-12] MEDS: sodium chloride 0.9% 1,000 ML 999 ML IV (14:25)
[2024-08-12 14:32] LABS: Basophils # 0.1 10^3/uL (0.0-0.1); Basophils % 0.3 %; Eosinophils # 0.1 10^3/uL (0.0-0.8); Eosinophils % 0.4 %; Hematocrit 41.2 % (36-47); Lymphocytes # 5.4 10^3/uL (0.8-4.8); Lymphocytes % 25.9 %; Mean Corpuscular HGB Conc 32.5 g/dL (30-55); Mean Corpuscular Hemoglobin 26.3 pg (27-33); Mean Corpuscular Volume 80.9 fl (85-98); Mean Platelet Volume 10.4 fL (7.4-10.4); Monocytes # 1.6 10^3/uL (0.2-0.9); Monocytes % 7.7 %; Nucleated Red Blood Cells % 0 %; Platelet Count 382 10^3/cmm (157-399); Red Blood Count 5.09 10^6/uL (3.85-5.65); Red Cell Distribution Width 13.8 % (12.1-15.1); White Blood Count 20.77 10^3/uL (3.29-11.43)
[2024-08-12 14:44] LABS: Alanine Aminotransferase 22 U/L (0-33); Albumin Level 4.5 g/dL (3.5-5.2); Alkaline Phosphatase 92 U/L (35-105); Aspartate Amino Transferase 29 U/L (0-32); Blood Urea Nitrogen 45 mg/dL (8-23); Calcium 9.9 mg/dL (8.5-10.5); Carbon Dioxide 19 mmol/L (22-29); Chloride 86 mmol/L (98-107); Glomerular Filtration Rate 8.6 mL/min (90-130); Glucose 148 mg/dL (65-115); Osmolality Calculated 276 mOsm/kg (285-295); Sodium 126 mmol/L (136-145); Total Bilirubin 0.6 mg/dL (0.15-1.2); Total Protein 10.5 g/dL (6.6-8.7)
[2024-08-12 14:48] LABS: Slide Review Slide Review Perform
[2024-08-12 14:49] LABS: Anion Gap 25.2 (5-19); Potassium 4.2 mmol/L (3.5-5.1)
--- NOTE | 2024-08-12 15:46 | PC.NURSE ---
Called Dr Smomer Valdez with abnormal lab results and low BP with lethargy. MD not available to review and PT sent to ER via wheelchair.
[2024-08-12 15:47] VITALS: BP 98/67; PULSE 90; RESP 16; TEMP 36.6; O2SAT 99
--- NOTE | 2024-08-12 15:48 | PC.NURSE ---
Patient to ER
[2024-08-16] MEDS: sodium chloride 0.9% 1,000 ML 999 ML IV (10:20)
[2024-08-16 11:40] VITALS: BP 107/70; PULSE 62; RESP 16; TEMP 36.6; O2SAT 96
[2024-08-19] MEDS: sodium chloride 0.9% 1,000 ML 999 ML IV (10:16)
[2024-08-19 12:39] LABS: Alanine Aminotransferase 20 U/L (0-33); Albumin Level 4.1 g/dL (3.5-5.2); Alkaline Phosphatase 74 U/L (35-105); Anion Gap 14.4 (5-19); Aspartate Amino Transferase 22 U/L (0-32); Blood Urea Nitrogen 19 mg/dL (8-23); Calcium 8.4 mg/dL (8.5-10.5); Carbon Dioxide 24 mmol/L (22-29); Chloride 102 mmol/L (98-107); Globulin 4.5 g/dL (1.3-4.6); Glomerular Filtration Rate 56.2 mL/min (90-130); Glucose 94 mg/dL (65-115); Osmolality Calculated 284 mOsm/kg (285-295); Potassium 4.4 mmol/L (3.5-5.1); Sodium 136 mmol/L (136-145); Total Bilirubin 0.3 mg/dL (0.15-1.2); Total Protein 8.6 g/dL (6.6-8.7)
[2024-08-21 09:53] VITALS: BP 102/65; PULSE 69; RESP 17; TEMP 36.2; O2SAT 96
[2024-08-21] MEDS: sodium chloride 0.9% 1,000 ML 999 ML IV (10:09)
[2024-08-21 10:29] LABS: Alanine Aminotransferase 22 U/L (0-33); Albumin Level 3.9 g/dL (3.5-5.2); Alkaline Phosphatase 62 U/L (35-105); Blood Urea Nitrogen 16 mg/dL (8-23); Calcium 8.5 mg/dL (8.5-10.5); Carbon Dioxide 19 mmol/L (22-29); Chloride 103 mmol/L (98-107); Globulin 4.4 g/dL (1.3-4.6); Glomerular Filtration Rate 72.7 mL/min (90-130); Glucose 98 mg/dL (65-115); Osmolality Calculated 283 mOsm/kg (285-295); Sodium 136 mmol/L (136-145); Total Bilirubin 0.3 mg/dL (0.15-1.2); Total Protein 8.3 g/dL (6.6-8.7)
[2024-08-21 10:33] LABS: Anion Gap 18.4 (5-19); Aspartate Amino Transferase 32 U/L (0-32); Potassium 4.4 mmol/L (3.5-5.1)
[2024-08-23] MEDS: sodium chloride 0.9% 1,000 ML 999 ML IV (09:53)
[2024-08-26] MEDS: sodium chloride 0.9% 1,000 ML 999 ML IV (10:55)
[2024-08-26 12:08] VITALS: BP 118/46; PULSE 71; RESP 17
[2024-08-27] MEDS: sodium chloride 0.9% 1,000 ML 999 ML IV (09:41)
[2024-08-27 09:45] VITALS: BP 106/66; PULSE 64; RESP 17; TEMP 36.2; O2SAT 98
[2024-08-30] MEDS: sodium chloride 0.9% 1,000 ML 999 ML IV (10:12)
[2024-09-02] MEDS: sodium chloride 0.9% 1,000 ML 999 ML IV (10:04)
[2024-09-02 11:09] VITALS: BP 99/53; PULSE 66; RESP 16; TEMP 36.4; O2SAT 98
== END 2024-09-02 23:59 | disposition home or self-care (01) ==
PROVIDERS: Colon & Rectal Surgery; Internal Medicine; PCP Nurse Practitioner Family; Visit Provider Internal Medicine Medical Oncology
DX: K57.20 Diverticulitis of large intestine with perforation and abscess without bleeding; N82.4 Other female intestinal-genital tract fistulae; E11.9 Type 2 diabetes mellitus without complications; N18.9 Chronic kidney disease, unspecified; I10 Essential (primary) hypertension; E78.5 Hyperlipidemia, unspecified; J45.909 Unspecified asthma, uncomplicated; N39.46 Mixed incontinence; I25.10 Atherosclerotic heart disease of native coronary artery without angina pectoris; Z79.899 Other long term (current) drug therapy; Z53.9 Procedure and treatment not carried out, unspecified reason
CPT/HCPCS: 36415; 80053; 85025; 96360; J7030

== ENCOUNTER 2024-10-02 10:00 | Oncology outpatient (recurring) (ONCR) | payer MEDICARE, SELFPAY ==
[2024-05-15 15:12] VITALS: BP 109/65; BMI 35.9
[2024-09-03] MEDS: sodium chloride 0.9% 1,000 ML 999 ML IV (09:58)
[2024-09-03 11:32] VITALS: BP 102/60; PULSE 64; RESP 16; TEMP 36.4; O2SAT 98
[2024-09-06] MEDS: sodium chloride 0.9% 1,000 ML 999 ML IV (09:39)
[2024-09-09 09:44] VITALS: BP 117/72; PULSE 71; RESP 18; TEMP 35.9; O2SAT 96
[2024-09-09] MEDS: sodium chloride 0.9% 1,000 ML 999 ML IV (09:51)
[2024-09-09 11:16] VITALS: BP 112/59; PULSE 61; RESP 16; TEMP 36.2; O2SAT 98
[2024-09-11 08:52] VITALS: BP 92/50; PULSE 78; RESP 16; TEMP 36.6; O2SAT 96
[2024-09-11] MEDS: sodium chloride 0.9% 1,000 ML 999 ML IV (08:59)
[2024-09-13] MEDS: sodium chloride 0.9% 1,000 ML 999 ML IV (10:06)
[2024-09-16] MEDS: sodium chloride 0.9% 1,000 ML 999 ML IV (10:14)
[2024-09-18 09:38] VITALS: BP 116/65; PULSE 72; RESP 18; TEMP 36.3; O2SAT 95
[2024-09-18] MEDS: sodium chloride 0.9% 1,000 ML 999 ML IV (09:53)
[2024-09-20 09:33] VITALS: BP 101/64; PULSE 72; RESP 16; TEMP 36.2; O2SAT 97
[2024-09-20] MEDS: sodium chloride 0.9% 1,000 ML 999 ML IV (09:44)
[2024-09-23] MEDS: sodium chloride 0.9% 1,000 ML 999 ML IV (11:13)
[2024-09-23 11:27] LABS: Alanine Aminotransferase 26 U/L (0-33); Albumin Level 4.4 g/dL (3.5-5.2); Alkaline Phosphatase 65 U/L (35-105); Anion Gap 15.9 (5-19); Aspartate Amino Transferase 36 U/L (0-32); Blood Urea Nitrogen 14 mg/dL (8-23); Calcium 7.6 mg/dL (8.5-10.5); Carbon Dioxide 25 mmol/L (22-29); Chloride 99 mmol/L (98-107); Globulin 3.7 g/dL (1.3-4.6); Glomerular Filtration Rate 101.3 mL/min (90-130); Glucose 84 mg/dL (65-115); Osmolality Calculated 282 mOsm/kg (285-295); Potassium 3.9 mmol/L (3.5-5.1); Sodium 136 mmol/L (136-145); Total Bilirubin 0.5 mg/dL (0.15-1.2); Total Protein 8.1 g/dL (6.6-8.7)
[2024-09-25] MEDS: sodium chloride 0.9% 1,000 ML 999 ML IV (10:22)
[2024-09-27 09:54] VITALS: BP 113/71; PULSE 96; RESP 16; TEMP 36.3; O2SAT 96
[2024-09-27] MEDS: sodium chloride 0.9% 1,000 ML 999 ML IV (10:20)
[2024-09-30] MEDS: sodium chloride 0.9% 1,000 ML 999 ML IV (10:37)
[2024-10-02] MEDS: sodium chloride 0.9% 1,000 ML 999 ML IV (10:20)
[2024-10-02 11:47] VITALS: BP 126/66; PULSE 68; RESP 16; O2SAT 96
== END 2024-10-02 23:59 | disposition home or self-care (01) ==
PROVIDERS: Colon & Rectal Surgery; PCP Nurse Practitioner Family; Visit Provider Internal Medicine
DX: Z53.9 Procedure and treatment not carried out, unspecified reason; K57.20 Diverticulitis of large intestine with perforation and abscess without bleeding; N82.4 Other female intestinal-genital tract fistulae; E11.9 Type 2 diabetes mellitus without complications; N18.9 Chronic kidney disease, unspecified; I10 Essential (primary) hypertension; E78.5 Hyperlipidemia, unspecified; J45.909 Unspecified asthma, uncomplicated; N39.46 Mixed incontinence; I25.10 Atherosclerotic heart disease of native coronary artery without angina pectoris; Z79.899 Other long term (current) drug therapy
CPT/HCPCS: 80053; 96360; 96365; 99213; J7030

== ENCOUNTER 2024-11-01 10:00 | Oncology outpatient (recurring) (ONCR) | payer OTHER, MEDICAID, SELFPAY ==
[2024-05-15 15:12] VITALS: BP 109/65; BMI 35.9
[2024-10-07] MEDS: sodium chloride 0.9% 1,000 ML 999 ML IV (10:26)
[2024-10-09] MEDS: sodium chloride 0.9% 1,000 ML 999 ML IV (10:05)
[2024-10-11] MEDS: sodium chloride 0.9% 1,000 ML 999 ML IV (09:51)
[2024-10-11 10:02] VITALS: BP 128/78; PULSE 61; RESP 17; TEMP 36.6; O2SAT 97
[2024-10-14] MEDS: sodium chloride 0.9% 1,000 ML 999 ML IV (10:09)
[2024-10-14 10:55] LABS: Alanine Aminotransferase 29 U/L (0-33); Albumin Level 4.3 g/dL (3.5-5.2); Alkaline Phosphatase 68 U/L (35-105); Anion Gap 19.7 (5-19); Aspartate Amino Transferase 29 U/L (0-32); Blood Urea Nitrogen 10 mg/dL (8-23); Calcium 8.3 mg/dL (8.5-10.5); Carbon Dioxide 25 mmol/L (22-29); Chloride 101 mmol/L (98-107); Globulin 3.5 g/dL (1.3-4.6); Glomerular Filtration Rate 101.3 mL/min (90-130); Glucose 142 mg/dL (65-115); Osmolality Calculated 295 mOsm/kg (285-295); Potassium 3.7 mmol/L (3.5-5.1); Sodium 142 mmol/L (136-145); Total Bilirubin 0.3 mg/dL (0.15-1.2); Total Protein 7.8 g/dL (6.6-8.7)
[2024-10-18] MEDS: sodium chloride 0.9% 1,000 ML 999 ML IV (09:57)
[2024-10-21] MEDS: sodium chloride 0.9% 1,000 ML 999 ML IV (10:58)
[2024-10-23] MEDS: sodium chloride 0.9% 1,000 ML 999 ML IV (10:11)
[2024-10-25 10:10] VITALS: BP 116/78; PULSE 71; RESP 17; TEMP 36.3; O2SAT 93
[2024-10-25] MEDS: sodium chloride 0.9% 1,000 ML 999 ML IV (10:29)
[2024-10-29] MEDS: sodium chloride 0.9% 1,000 ML 999 ML IV (14:24)
[2024-10-29 15:29] VITALS: BP 117/74; PULSE 80; RESP 18; O2SAT 97
[2024-10-31 14:06] VITALS: BP 99/67; PULSE 84; RESP 16; TEMP 36.6; O2SAT 95
[2024-10-31] MEDS: sodium chloride 0.9% 1,000 ML 999 ML IV (14:30)
[2024-11-01 09:40] VITALS: BP 106/66; PULSE 65; RESP 17; TEMP 36.4; O2SAT 98
[2024-11-01] MEDS: sodium chloride 0.9% 1,000 ML 999 ML IV (10:05)
== END 2024-11-02 23:59 | disposition home or self-care (01) ==
PROVIDERS: Colon & Rectal Surgery; PCP Nurse Practitioner Family; Visit Provider Internal Medicine
DX: E86.0 Dehydration; Z79.899 Other long term (current) drug therapy; Z53.9 Procedure and treatment not carried out, unspecified reason
CPT/HCPCS: 80053; 96360; 96365; J7030

== ENCOUNTER → 2024-12-12 11:06 | Outpatient (BNVA) | payer MEDICARE, MEDICAID, SELFPAY ==
[2024-05-15 15:12] VITALS: BP 109/65; BMI 35.9
== END ==
PROVIDERS: PCP Nurse Practitioner Family; Visit Provider Nurse Practitioner Family
DX: R39.9 Unspecified symptoms and signs involving the genitourinary system (principal)
CPT/HCPCS: 81000

== ENCOUNTER → 2025-02-12 10:50 | Outpatient (BNVA) | payer MEDICARE, OTHER, SELFPAY ==
[2024-05-15 15:12] VITALS: BP 109/65; BMI 35.9
== END ==
PROVIDERS: PCP Nurse Practitioner Family; Visit Provider Nurse Practitioner Psychiatric/Mental Health
DX: Z79.899 Other long term (current) drug therapy (principal)
CPT/HCPCS: 81001; 87086

== ENCOUNTER 2025-03-26 10:25 | Outpatient (CLI) | payer MEDICARE, MEDICAID, SELFPAY ==
[2024-05-15 15:12] VITALS: BP 109/65; BMI 35.9
--- NOTE | 2025-03-26 10:30 | MM_ITS ---
WS: [id number] BILATERAL SCREENING DIGITAL TOMOSYNTHESIS MAMMOGRAM WITH CAD HISTORY: ANNUAL SCREEN COMPARISON: 01/19/2024, 12/28/2022, Bilateral CC and MLO views with tomosynthesis and synthetic mammography submitted. Computer aided detection analyzed. Breast composition: The breasts are almost entirely fatty. No suspicious masses, microcalcifications or architectural distortion. MM/MM scr BI tomosynthesis [id number] IMPRESSION: BI-RADS: 1 - Negative. FOLLOW UP: 1 Year Follow-up
== END 2025-03-26 10:26 | disposition home or self-care (01) ==
LOC: RAD 10:27
PROVIDERS: PCP Nurse Practitioner Family; Visit Provider Nurse Practitioner Family
DX: Z12.31 Encounter for screening mammogram for malignant neoplasm of breast (principal); R92.313 Mammographic fatty tissue density, bilateral breasts
CPT/HCPCS: 77063; 77067

== ENCOUNTER → 2025-04-02 11:56 | Outpatient (BNVA) | payer MEDICARE, MEDICAID, SELFPAY ==
[2024-05-15 15:12] VITALS: BP 109/65; BMI 35.9
== END ==
PROVIDERS: PCP Nurse Practitioner Family; Visit Provider Nurse Practitioner Family
DX: E11.65 Type 2 diabetes mellitus with hyperglycemia (principal)
CPT/HCPCS: 80053; 80061; 83036; 84443; 85025